=== PATIENT | male | born 1980 | race Caucasian/White ===

== ENCOUNTER 2020-09-05 11:00 | Inpatient (IN) | payer MEDICAID, SELFPAY ==
--- NOTE | ~2020-09-05 | CT_ITS ---
EXAMINATION: CT ABDOMEN AND PELVIS WITHOUT CONTRAST CLINICAL INFORMATION: Abdominal pain. Ascites and cirrhosis. COMPARISON: None TECHNIQUE: Multidetector volumetric imaging was performed from the superior aspect of the liver through the pubic symphysis. Sagittal and coronal reformatted images were obtained on the technologist's workstation. This CT examination was performed using dose optimization techniques as appropriate, variously including the following: *Automated exposure control *Adjustment of mA and/or kV according to patient size (this includes techniques or standardized protocols for targeted exams where dose is matched to indication/reason for exam; i.e. extremities or head) *Use of iterative reconstruction technique DLP: 677 mGy-cm FINDINGS: LUNG BASES: The visualized lung bases are unremarkable. LIVER, GALLBLADDER, AND BILIARY TREE: Hepatomegaly. Severe diffuse hepatic steatosis, geographic heterogeneous areas. There is more severe ballooning fatty infiltration within the caudate and central aspect of hepatic segment 8. No intra or extrahepatic biliary dilatation. Gallbladder is markedly distended measuring up to 15.5 cm in length and 7.4 cm in width. Small to moderate ascites. PANCREAS: Unremarkable. SPLEEN: Unremarkable. ADRENAL GLANDS: Unremarkable. KIDNEYS AND URETERS: The kidneys are normal in size, shape, and attenuation. No hydronephrosis, hydroureter, or calculi seen. No perinephric stranding. BLADDER: Unremarkable. GASTROINTESTINAL TRACT: No intestinal obstruction or inflammation. Some mucosal fat deposition present within the ascending colon. Normal appendix. ABDOMINAL WALL: No significant hernia is appreciated. LYMPH NODES: Normal. VASCULAR: Recanalization of the paraumbilical vein. Small splenorenal shunt. PELVIC VISCERA: Unremarkable. OSSEOUS STRUCTURES: No acute or suspicious osseous abnormalities. CT/CT abdomen pelvis wo con IMPRESSION: Hepatomegaly and severe diffuse geographic cchepatic steatosis. There is lrxzy-be-hpzzprpz ascites and portosystemic collaterals indicative of portal hypertension. Massive distention of the gallbladder, without significant biliary ductal dilatation. This could reflect cholecystitis or gallbladder hydrops.
--- NOTE | ~2020-09-05 | XR_ITS ---
EXAMINATION: XR CHEST CLINICAL INFORMATION: Shortness of breath COMPARISON: None TECHNIQUE: 2 views of the chest were obtained. FINDINGS: Normal symmetric lung volumes. No parenchymal consolidation. No pleural effusion. No pneumothorax. Cardiomediastinal silhouette and pulmonary vascularity are within normal limits. No acute osseous abnormalities. XR/XR chest 2V IMPRESSION: Unremarkable examination.
--- NOTE | ~2020-09-05 | XR_ITS ---
EXAMINATION: XR SKELETAL SURVEY CLINICAL INFORMATION: Right humeral lytic lesion. COMPARISON: 09/09/2020 TECHNIQUE: Metastatic bone survey. FINDINGS: Lateral view of the skull does not demonstrate any destructive lytic or sclerotic lesions. Visualized paranasal sinuses and mastoid air cells are unremarkable. PA film of the chest demonstrates a region of linear scarring or atelectasis within the right lower lung as well as some scarring at the left base. No confluent parenchymal disease identified. No pneumothorax or pleural effusion. Lateral view of the cervical spine does not demonstrate abnormal lytic or sclerotic lesion. No abnormal prevertebral soft tissue swelling is seen. Disc spaces are maintained. AP and lateral views of the thoracic spine demonstrate mild scoliosis convex right. Pedicles appear intact. No lytic or sclerotic lesions are appreciated. No paraspinal line bulge is seen. AP and lateral views of the lumbar spine demonstrate 5 [id number] lumbar vertebra. Bony texture and alignment is satisfactory. Disc spaces are maintained. No abnormal lytic or sclerotic lesions are identified. Sacroiliac joints appear unremarkable. AP film of the pelvis does not demonstrate any evidence of acute fracture or diastases. Hip joint spaces are maintained. Sacroiliac joints unremarkable. No abnormal lytic or sclerotic lesions identified. There is question of hip impingement with lateral bony prominence about the proximal neck. There appears be osteitis pubis. There is a sclerotic lesion noted within the left femoral neck without definite bony destruction. AP film of the right femur does not demonstrate any evidence of acute fracture or dislocation. There is again noted to be a bony prominence about the lateral aspect junctions of the femoral neck and head which may be related to impingement syndrome. AP film of the left femur does not demonstrate any evidence of acute fracture or dislocation. Density about the femoral neck is again evident without definite bony destruction. This may be related to medullary infarct or lesion of other etiology. AP views of the right tibia and fibula do not demonstrate any suspicious lytic or sclerotic lesions. No periosteal new bone formation identified. AP views of the left tibia and fibula do not demonstrate any evidence of destructive lytic or sclerotic lesion. No periosteal new bone formation. AP view of the left humerus has a similar appearance the right humerus where there are some lytic regions throughout the shaft without periosteal new bone formation or expansion of the bone. AP view of the right forearm demonstrates an approximately 7 mm oval-shaped and well-circumscribed low-density region within the proximal radius. There is question of some lytic regions without bony destruction or expansion about the distal third diaphysis of the right radius. AP view of the left forearm demonstrates patient be status post surgical repair of a distal left radial fracture. No lytic or sclerotic lesions are identified. XR/XR bone survey IMPRESSION: No destructive bony lesions identified. Similar appearance of low-density regions within the diaphysis of both humeri. Single region of diminished density about the proximal radius. CT scan or MRI may be of help in further evaluation of findings.
--- NOTE | ~2020-09-05 | XR_ITS ---
EXAMINATION: XR CHEST CLINICAL INFORMATION: Sepsis COMPARISON: Previous chest x-ray 09/05/2020 TECHNIQUE: Frontal view of the chest was obtained. FINDINGS: The cardiac and mediastinal contours are stable. The lung volumes are low. There are increased markings seen at the right lung base and left upper lobe questionable for atelectasis or small infiltrate. The lungs are otherwise clear. There is no pleural effusion or pneumothorax. There is a question of lucency in the right humeral shaft. This is not completely imaged. This could be better evaluated with a right humerus x-ray if clinically indicated. Bony structures are otherwise unremarkable. XR/XR chest 1V IMPRESSION: Question atelectasis or small infiltrates in the left upper lobe and right lung base. Question intramedullary lucencies in the right humeral shaft. This could be better evaluated with right humerus x-ray.
--- NOTE | ~2020-09-05 | XR_ITS ---
EXAMINATION: XR HUMERUS, RIGHT CLINICAL INFORMATION: Evaluation of lucencies in right humerus. COMPARISON: Chest x-ray of same day. TECHNIQUE: AP and lateral views of the right humerus. FINDINGS: There is no evidence of acute fracture or dislocation of the right humerus. Multiple lytic lesions without bony destruction or deformity are identified within the diaphysis. No periosteal new bone formation is identified. No sclerotic lesions are identified. No expansion of the bone is seen. XR/XR humerus RT IMPRESSION: Numerous low-density regions within the right humeral shaft. Differential diagnosis would include multiple myeloma, hyperparathyroidism with brown tumors, eosinophilic granuloma, or fibrous dysplasia.
--- NOTE | ~2020-09-05 | US_ITS ---
EXAMINATION: ULTRASOUND ABDOMINAL DOPPLER EXAM CLINICAL INFORMATION: Rule out Budd-Chiari COMPARISON: Previous CT of the abdomen and pelvis 09/05/2020 TECHNIQUE: Grayscale color and Doppler evaluation of the liver vasculature including waveform spectral analysis. FINDINGS: The liver is echogenic. The main portal vein is patent. There is hepatofugal flow seen in the main portal vein. The right, left and extrahepatic portal veins are not well visualized. There is a recannulized paraumbilical vein. The middle and left hepatic veins are small in caliber but appear patent. The right hepatic vein is not seen. The IVC is patent. The main and left hepatic artery are patent. Main hepatic artery peak systolic velocity is normal measuring 90 cm/s. The right hepatic artery is not seen. The spleen is slightly enlarged and measures 12.7 cm in length. The splenic vein is patent. There is a small to moderate amount of ascites. US/US duplex arterial venous comp IMPRESSION: The middle and left hepatic veins are small in caliber but patent. The right hepatic vein is not visualized. The IVC is patent. Main portal vein is patent with reversed hepatofugal flow. There is a recannulized paraumbilical vein.
--- NOTE | ~2020-09-05 | US_ITS ---
EXAMINATION: US Limited abdomen CLINICAL INFORMATION: Enlarged gallbladder evaluate for cholecystitis. COMPARISON: CT scan same day earlier. TECHNIQUE: High-frequency linear transducer ultrasound utilized, area of interest scanned, gallbladder. FINDINGS: There is ascites. Gallbladder is distended. There are no gallstones. No ultrasound evidence of gallbladder wall thickening or tenderness to suggest cholecystitis. Recanalized aeration of the paraumbilical veins and reversed flow in the portal vein system suggests portal hypertension. US/US abdomen limited IMPRESSION: Distended gallbladder without evidence of gallstones or gallbladder disease. Ascites. Reversal of normal flow in the portal vein and recanalization of periumbilical vein suggest portal hypertension portosystemic shunting..
--- NOTE | ~2020-09-05 | US_ITS ---
EXAMINATION: ULTRASOUND-GUIDED PARACENTESIS CLINICAL INFORMATION: Ascites COMPARISON: None TECHNIQUE: Procedure risks and benefits including bleeding, infection and low blood pressure were discussed with the patient and informed consent was obtained. The right lower quadrant was prepped and draped in the usual sterile fashion. The skin and soft tissues were anesthetized with 1% lidocaine plain. Using ultrasound guidance and a 5 [place] rapid centesis catheter, access to the ascitic fluid was obtained. 3.7 L of clear dark yellow fluid was removed. No diagnostic specimen was sent. FINDINGS: There is a large amount of ascites. US/US paracentesis abd w/image IMPRESSION: Ultrasound-guided paracentesis.
[2020-09-05 11:04] VITALS: BP 120/77; PULSE 133; RESP 16; TEMP 36.6; O2SAT 95; BMI 24.3
--- NOTE | 2020-09-05 11:23 | ED.GENADULT ---
HPI - General Adult General Chief complaint: Abdominal Pain Stated complaint: SWELLING ABD Time Seen by Provider: 09/05/20 11:11 History of Present Illness HPI narrative: This is a 40 years old male with history of alcohol abuse with drinks about 1 pt a day presented to the emergency room a with a chief complaint of jaundice, abdominal bloating. He continued to drink he has some alcohol this morning as well. Denies any vomiting of any fever Onset (ago): day(s) (2) Location: abdomen Severity: moderate Relieving factors: none Associated symptoms: denies other symptoms Related Data Allergies Allergy/AdvReac Type Severity Reaction Status Date / Time No Known Allergies Allergy Verified 09/05/20 11:19 Review of Systems Review of Systems: Yes all other systems are reviewed and are negative Cardiovascular: Cardiovascular: Reports no additional cardiovascular complaints, Denies chest pain at rest and Denies chest pain with activity Gastrointestinal: Gastrointestinal: Reports no additional gastrointestinal complaints, Denies melena and Reports bloating Neurologic: Reports system reviewed and no additional complaints, except as documented Psychiatric: Psychiatric: Reports no additional psychiatric complaints PMFSH Past Medical History Attestation statement: The following information was validated with the patient. Medical History No known health problems Social History Social History Alcohol intake: current Alcohol intake frequency: 3 or more drinks per day Use of substances other than those prescribed or required for medical reasons: No Advance Directives: No Advance Directives Information Provided: No Physical Exam Vital Signs: Vital Signs: Last Vital Signs Temp 97.8 F 09/05/20 11:04 Pulse 103 H 09/05/20 12:00 Resp 18 09/05/20 12:00 BP 120/77 09/05/20 11:04 Pulse Ox 95 09/05/20 11:04 Body Mass Index 24.3 Const: Other: appear in no distress General: cooperative Eyes: Other: Jaundice noted Neck: Neck: Yes normal visual inspection and Yes full ROM Chest: Chest palpation & inspection: normal inspection of the chest Resp: Auscultation: clear to auscultation bilaterally Cardio: Palpation: normal PMI Rate: regular rate Rhythm: regular rhythm GI: Other: Examination of the abdomen shows ascites there is no guarding no rebound Skin: Other: Jaundice noted Neuro: Other: Patient is awake alert oriented x3 cranial nerves 2-12 intact gait is stable Course Reevaluation(s) Reevaluation #1: Clinical picture unchanged I discussed the case with the GI doctor Dr Buenrostro I spoke with the hospitalist as well. Time: 15:00 Procedures Paracentesis Indication: possible spontaneous bacterial peritonitis Procedure: diagnostic paracentesis Location: RLQ Local Anesthetic: lidocaine 1% Bedside Ultrasound Used: yes, Ascites confirmed and location marked Amount of fluid obtained (mL): 10 Fluid: clear Size of Needle Used: 18 Patient Tolerated Procedure: well Complications: none Medical Decision Making MDM Narrative Medical decision making narrative: I did the bed the bedside ultrasound the patient does does have ascites, will going to get labs including LFT PT, were going to get a CT scan of the abdomen and pelvis to evaluate the liver and abdominal cavity. Lab Data Result diagrams: 09/05/20 11:49 09/05/20 11:49 Labs: Lab Results 09/05/20 09/05/20 09/05/20 Range/Units 11:49 11:49 11:49 WBC 13.0 H (4.8-10.8) X10*3/uL RBC 3.22 L (4.60-5.80) X10*6/uL Hgb 11.5 L (14.0-18.0) g/dl Hct 32.0 L (42-52) % MCV 99.4 H (80-98) fL MCH 35.7 H (27.0-33.0) pg MCHC 35.9 (31.0-36.0) g/dl RDW 21.3 H (11.0-16.0) % Plt Count 125 L (160-400) X10*3/uL MPV 10.5 (9.4-12.4) fL Immature Gran % (Auto) 1.2 H (0.0-0.4) % Neut % (Auto) 74.3 H (45-73) % Lymph % (Auto) 12.7 L (20-40) % [place] % (Auto) 10.9 (2-11) % Eos % (Auto) 0.3 (0-4) % Baso % (Auto) 0.6 (0-2) % Lymph # (Auto) 1.7 (1.2-4.9) X10*3/uL [place] # (Auto) 1.4 H (0.1-1.2) X10*3/uL Eos # (Auto) 0.0 (0.0-0.4) X10*3/uL Baso # (Auto) 0.1 (0.0-0.2) X10*3/uL Abs Immat Gran (auto) 0.16 H (0.00-0.03) X10*3/uL Absolute Neuts (auto) 9.6 H (2.0-8.3) X10*3/uL Absolute Nucleated RBC 0.000 (0.0-0.012) X10*3/uL Nucleated RBC % (auto) 0.0 (0.0-0.2) /100WBC PT 21.8 H (10.8-13.0) SEC INR 1.8 H (0.9-1.1) APTT 40.0 H (24.1-38.0) SEC Sodium (135-145) mmol/L Potassium (3.3-5.1) mmol/L Chloride (96-108) mmol/L Carbon Dioxide (22-29) mmol/L Anion Gap (12-20) BUN (9-16) mg/dL Creatinine (0.5-1.4) mg/dL Estim Creat Clear Calc Estimated GFR Random Glucose (60-115) mg/dL Calcium (8.4-10.2) mg/dL Total Bilirubin (0.0-1.0) mg/dL AST (5-37) U/L ALT (0-40) U/L Alkaline Phosphatase (39-117) U/L Total Protein (6.5-8.0) g/dL Albumin (3.5-5.0) g/dL Lipase (8-78) U/L Peritoneal WBC X10*3/uL Peritoneal RBC X10*6/uL Ethyl Alcohol 277 mg/dL Coronavirus (PCR) (Negative) Influenza Type A (PCR) (Negative) Influenza Type B (PCR) (Negative) RSV RNA Qual (PCR) (Negative) 09/05/20 09/05/20 09/05/20 Range/Units 11:49 11:49 14:50 WBC (4.8-10.8) X10*3/uL RBC (4.60-5.80) X10*6/uL Hgb (14.0-18.0) g/dl Hct (42-52) % MCV (80-98) fL MCH (27.0-33.0) pg MCHC (31.0-36.0) g/dl RDW (11.0-16.0) % Plt Count (160-400) X10*3/uL MPV (9.4-12.4) fL Immature Gran % (Auto) (0.0-0.4) % Neut % (Auto) (45-73) % Lymph % (Auto) (20-40) % [place] % (Auto) (2-11) % Eos % (Auto) (0-4) % Baso % (Auto) (0-2) % Lymph # (Auto) (1.2-4.9) X10*3/uL [place] # (Auto) (0.1-1.2) X10*3/uL Eos # (Auto) (0.0-0.4) X10*3/uL Baso # (Auto) (0.0-0.2) X10*3/uL Abs Immat Gran (auto) (0.00-0.03) X10*3/uL Absolute Neuts (auto) (2.0-8.3) X10*3/uL Absolute Nucleated RBC (0.0-0.012) X10*3/uL Nucleated RBC % (auto) (0.0-0.2) /100WBC PT (10.8-13.0) SEC INR (0.9-1.1) APTT (24.1-38.0) SEC Sodium 130 L (135-145) mmol/L Potassium 3.7 (3.3-5.1) mmol/L Chloride 91 L (96-108) mmol/L Carbon Dioxide 28 (22-29) mmol/L Anion Gap 15 (12-20) BUN 7 L (9-16) mg/dL Creatinine 0.64 (0.5-1.4) mg/dL Estim Creat Clear Calc 156.4 Estimated GFR > 60 Random Glucose 143 H (60-115) mg/dL Calcium 7.3 L (8.4-10.2) mg/dL Total Bilirubin 13.7 H (0.0-1.0) mg/dL AST 270 H (5-37) U/L ALT 50 H (0-40) U/L Alkaline Phosphatase 366 H (39-117) U/L Total Protein 8.8 H (6.5-8.0) g/dL Albumin 2.6 L (3.5-5.0) g/dL Lipase 278 H (8-78) U/L Peritoneal WBC 0.096 X10*3/uL Peritoneal RBC < 0.002 X10*6/uL Ethyl Alcohol mg/dL Coronavirus (PCR) NEGATIVE (Negative) Influenza Type A (PCR) NEGATIVE (Negative) Influenza Type B (PCR) NEGATIVE (Negative) RSV RNA Qual (PCR) NEGATIVE (Negative) Imaging Data CT scan - abdomen: Radiologist's impression: KIDNEYS AND URETERS: The kidneys are normal in size, shape, and attenuation. No hydronephrosis, hydroureter, or calculi seen. No perinephric stranding. BLADDER: Unremarkable. GASTROINTESTINAL TRACT: No intestinal obstruction or inflammation. Some mucosal fat deposition present within the ascending colon. Normal appendix. ABDOMINAL WALL: No significant hernia is appreciated. LYMPH NODES: Normal. VASCULAR: Recanalization of the paraumbilical vein. Small splenorenal shunt. PELVIC VISCERA: Unremarkable. OSSEOUS STRUCTURES: No acute or suspicious osseous abnormalities. CT/CT abdomen pelvis wo con IMPRESSION: Hepatomegaly and severe diffuse geographic cchepatic steatosis. There is [id number] ascites and portosystemic collaterals indicative of portal hypertension. Massive distention of the gallbladder, without significant biliary ductal dilatation. This could reflect cholecystitis or gallbladder hydrops. Discharge Plan Discharge Clinical Impression: Acute alcoholic hepatitis, Ascites Patient Disposition: Admitted As Inpatient
[2020-09-05 11:53] LABS: MANUAL DIFF FLAG NO
[2020-09-05 11:57] LABS: Basophils Absolute Auto 0.1 X10*3/uL (0.0-0.2); Basophils Percent Auto 0.6 % (0-2); Eosinophils Percent Auto 0.3 % (0-4); Hemoglobin 11.5 g/dl (14.0-18.0); Imm Gran Abs Auto 0.16 X10*3/uL (0.00-0.03); Imm Gran Pct Auto 1.2 % (0.0-0.4); Lymphocytes Absolute Auto 1.7 X10*3/uL (1.2-4.9); Lymphocytes Percent Auto 12.7 % (20-40); Mean Corpuscular HGB Conc 35.9 g/dl (31.0-36.0); Mean Corpuscular Hemoglobin 35.7 pg (27.0-33.0); Mean Corpuscular Volume 99.4 fL (80-98); Mean Platelet Volume 10.5 fL (9.4-12.4); Monocytes Absolute Auto 1.4 X10*3/uL (0.1-1.2); Monocytes Percent Auto 10.9 % (2-11); Neutrophils Absolute Auto 9.6 X10*3/uL (2.0-8.3); Neutrophils Percent Auto 74.3 % (45-73); Platelet Count 125 X10*3/uL (160-400); Red Blood Count 3.22 X10*6/uL (4.60-5.80); Red Cell Distribution Width 21.3 % (11.0-16.0)
[2020-09-05 12:00] VITALS: PULSE 103; RESP 18
[2020-09-05 12:01] LABS: INTERNATIONAL NORM RATIO 1.8 (0.9-1.1); Prothrombin Time 21.8 SEC (10.8-13.0)
[2020-09-05 12:27] LABS: Ethanol 277 mg/dL
[2020-09-05 12:31] LABS: Alanine Aminotransferase 50 U/L (0-40); Albumin Level 2.6 g/dL (3.5-5.0); Alkaline Phosphatase 366 U/L (39-117); Anion Gap 15 (12-20); Aspartate Amino Transferase 270 U/L (5-37); Bilirubin Total 13.7 mg/dL (0.0-1.0); Blood Urea Nitrogen 7 mg/dL (9-16); Calcium 7.3 mg/dL (8.4-10.2); Carbon Dioxide 28 mmol/L (22-29); Chloride 91 mmol/L (96-108); Creatinine Clr Calc Pharmacy 156.4; Estimated Glomerular Filt Rate > 60; Glucose Random 143 mg/dL (60-115); Potassium 3.7 mmol/L (3.3-5.1); Sodium 130 mmol/L (135-145); Total Protein 8.8 g/dL (6.5-8.0)
[2020-09-05 12:37] LABS: Influenza A PCR NEGATIVE (Negative); Influenza B PCR NEGATIVE (Negative); Resp Syncy Virus RNA Qual PCR NEGATIVE (Negative); SARS COV2 PCR INHOUSE NEGATIVE (Negative)
[2020-09-05 12:42] LABS: Lipase 278 U/L (8-78)
[2020-09-05] MEDS: chlordiazePOXIDE HCl 25 MG CAPSULE 50 MG PO (12:43)
[2020-09-05] MEDS: Lidocaine HCl 1 % MPF 5 ML VIAL 2 ML INFILTRATI (14:41)
--- NOTE | 2020-09-05 14:43 | PC.NURSE ---
MD Olsen and GROUP SEGMENT CONSULTANT bev at bedside to remove fluid from patient's abdomen for testing.
--- NOTE | 2020-09-05 14:56 | PM.EVENT ---
Event Note Date of Service: 09/05/20 Event Note: 40M presented with abdominal distension and juandice acute alcoholic hepatitis gi eval monitor lfts alcohol dependence with wtihdrawl phenobarb
[2020-09-05 14:59] LABS: MN% 85.9 %; PMN% 14.1 %; WBC Peritoneal Fluid 0.096 X10*3/uL
[2020-09-05 15:01] LABS: RBC Peritoneal Fluid < 0.002 X10*6/uL
[2020-09-05 15:22] VITALS: BP 113/76; PULSE 96; RESP 18; TEMP 37.1; O2SAT 93
[2020-09-05 15:30] LABS: Lymphocyte Peritoneal Fl 11 %; Monocytes Peritoneal Fl 76 %
[2020-09-05 15:31] LABS: BF Shift QC OK YES; Man Diluent Bkgrd OK YES; Neutrophils Peritoneal Fluid 3 %; Other Peritioneal Fl 10 %
--- NOTE | 2020-09-05 16:14 | PM.IMHP ---
History of Present Illness Date of Service: 09/05/20 Chief Complaint: Abdominal pain and distension 40-year-old man with history of abuse presents to the ER , with abdominal pain over the last several weeks. He has noted some abdominal distension and nausea. He denied vomiting or diarrhea, fever, chills. He did report poor appetite. He reported that he drinks approximately 1 pt of whiskey a day and has for many years. He has not seen a doctor in over 5 years. in the ER, abdominal CAT scan showed hepatomegaly and severe diffuse hepatic steatosis with small to ascites. He also massive distention gallbladder without significant biliary dilatation due to this and ultrasound was ordered and showed distended gallbladder without evidence gallstones or disease. General surgery was consulted and determined at this time surgical intervention was not needed. He had no fever or hypoxia. He was noted to be tachycardic. Labs, sodium 130, AST 270, ALT 50, alkaline phosphatase 366, total bilirubin 13.7, lipase 278, albumin 2.6, INR 1.8, COVID 19-. Ascites fluid drained does not appear to SBP. Patient was started on phenobarbital while in the ER. He will be admitted for further management and treatment of acute alcoholic hepatitis. Review of Systems Review of Systems: Denies any recent fever chills or decrease in appetite respiratory denies any shortness of breath coverage production cardiovascular is adjustment of any PND or edema gastrointestinal see HPI genitourinary denies any dysuria frequency or hematuria musculoskeletal denies any joint pain or swelling neuropsych denies any weakness or seizures all other systems reviewed are negative [facility] Medical History (Updated 09/05/20 @ 15:04 by Lyle Olsen MD) No known health problems Pertinent family history: Denies cardiac disease Surgical History (Updated 09/05/20 @ 16:14 by Pita Rashid NP) H/O wrist surgery Social History (Updated 09/05/20 @ 16:15 by Pita Rashid NP) Alcohol intake: current Alcohol intake frequency: 3 or more drinks per day Packs Per Day: 0.5 Use of substances other than those prescribed or required for medical reasons: No Advance Directives: No Advance Directives Information Provided: No Meds Allergies Allergy/AdvReac Type Severity Reaction Status Date / Time No Known Allergies Allergy Verified 09/05/20 11:19 Active Medications: Current Medications Generic Name Dose Route Start Last Admin Trade Name Freq PRN Reason Stop Dose Admin Pharmacy Consult 1 each 09/05/20 14:11 Consult Rx Perform Med Rec MISCELLANE ONCE PRN Consult order Physical Exam Vital Signs and Narrative: Vital Signs: Last Vital Signs Temp 98.7 F 09/05/20 15:22 Pulse 96 09/05/20 15:22 Resp 18 09/05/20 15:22 BP 113/76 09/05/20 15:22 Pulse Ox 93 09/05/20 15:22 Body Mass Index 24.3 Appearing in no acute distress head is normocephalic atraumatic eyes pupils are PERRLA sclera is icteric, skin is jaundice mouth throat mucous membranes are intact and moist neck is supple no lymphadenopathy, no JVD noted lung sounds are clear to auscultation heart regular rate rhythm, clear S1, S2 positive bowel sounds, abdomen is soft, nontender neuro patient is alert x3, no focal deficits Results Labs CBC and Chem 7: 09/05/20 11:49 09/05/20 11:49 Labs: Laboratory Results - last 24 hr 09/05/20 09/05/20 09/05/20 11:49 11:49 11:49 MCV 99.4 H MCH 35.7 H MCHC 35.9 RDW 21.3 H Plt Count 125 L MPV 10.5 Immature Gran % (Auto) 1.2 H Neut % (Auto) 74.3 H Lymph % (Auto) 12.7 L [place] % (Auto) 10.9 Eos % (Auto) 0.3 Baso % (Auto) 0.6 Lymph # (Auto) 1.7 [place] # (Auto) 1.4 H Eos # (Auto) 0.0 Baso # (Auto) 0.1 Abs Immat Gran (auto) 0.16 H Absolute Neuts (auto) 9.6 H Absolute Nucleated RBC 0.000 Nucleated RBC % (auto) 0.0 PT 21.8 H INR 1.8 H APTT 40.0 H Anion Gap Estim Creat Clear Calc Estimated GFR Random Glucose Calcium Total Bilirubin AST ALT Alkaline Phosphatase Total Protein Albumin Lipase Peritoneal WBC Peritoneal RBC Periton Neutrophils Periton Lymphocytes Peritoneal Monocytes Peritoneal Other Cells Ethyl Alcohol 277 Coronavirus (PCR) Influenza Type A (PCR) Influenza Type B (PCR) RSV RNA Qual (PCR) 09/05/20 09/05/20 09/05/20 11:49 11:49 14:50 MCV MCH MCHC RDW Plt Count MPV Immature Gran % (Auto) Neut % (Auto) Lymph % (Auto) [place] % (Auto) Eos % (Auto) Baso % (Auto) Lymph # (Auto) [place] # (Auto) Eos # (Auto) Baso # (Auto) Abs Immat Gran (auto) Absolute Neuts (auto) Absolute Nucleated RBC Nucleated RBC % (auto) PT INR APTT Anion Gap 15 Estim Creat Clear Calc 156.4 Estimated GFR > 60 Random Glucose 143 H Calcium 7.3 L Total Bilirubin 13.7 H AST 270 H ALT 50 H Alkaline Phosphatase 366 H Total Protein 8.8 H Albumin 2.6 L Lipase 278 H Peritoneal WBC 0.096 Peritoneal RBC < 0.002 Periton Neutrophils 3 Periton Lymphocytes 11 Peritoneal Monocytes 76 Peritoneal Other Cells 10 Ethyl Alcohol Coronavirus (PCR) NEGATIVE Influenza Type A (PCR) NEGATIVE Influenza Type B (PCR) NEGATIVE RSV RNA Qual (PCR) NEGATIVE Imaging Radiologist's Impressions: Impressions Abdomen/Pelvis CT 09/05/20 11:21 IMPRESSION: Hepatomegaly and severe diffuse geographic cchepatic steatosis. There is [id number] ascites and portosystemic collaterals indicative of portal hypertension. Massive distention of the gallbladder, without significant biliary ductal dilatation. This could reflect cholecystitis or gallbladder hydrops. Chest X-Ray 09/05/20 11:22 IMPRESSION: Unremarkable examination. Abdomen Ultrasound 09/05/20 12:33 IMPRESSION: Distended gallbladder without evidence of gallstones or gallbladder disease. Ascites. Reversal of normal flow in the portal vein and recanalization of periumbilical vein suggest portal hypertension portosystemic shunting.. Assessment and Plan (1) Acute alcoholic hepatitis: Status: Acute (2) Ascites: Status: Acute 40 year old man with history of heavy alcohol consumption is admitted with acute hepatitis and pancreatitis. Patient reports that he has been drinking for many years and has had no acute issues relating to his alcohol use. Hepatitis. Related to alcohol abuse. Fluid negative for SBP. -Check hepatitis panel -GI consultation -Trend LFT Pancreatitis. Not on CT, lipase 278. -IV fluid hydration -pain management Hyponatremia. Likely from alcohol abuse. -IV fluids -Trend -If no improvement consider consulting nephrology -Monitor for rapidly decreasing sodium Alcohol abuse. drinks heavily on a daily basis -phenobarbital protocol -care team consultation Coagulopathy. Related to alcohol abuse. No bleeding. -Trend PT/INR DVT prophylaxis with Heparin Attending: Dr. Grande
--- NOTE | 2020-09-05 16:31 | PM.CNGS ---
History of Present Illness Consult details Consult date: 09/05/20 Reason for consult: other (Dilated gallbladder) Narrative: This is a 40-year-old gentleman who presented to the emergency department for evaluation of abdominal pain and distension. He has a long history of heavy alcohol intake and recently has been drinking about a pt of hard liquor a day. He reports that he has diffuse abdominal discomfort and bloating worsening over the past week or so. He does not report fever, chills or diarrhea. He has noticed darkening of his urine and sclerae. He has no prior history of abdominal surgery. CT scan of the abdomen and pelvis was obtained and demonstrated: Hepatomegaly and severe diffuse geographic cchepatic steatosis. There is [id number] ascites and portosystemic collaterals indicative of portal hypertension. Massive distention of the gallbladder, without significant biliary ductal dilatation. This could reflect cholecystitis or gallbladder hydrops. An ultrasound was done and did not reveal any evidence of wall thickening or of gallstones. There was no tenderness over the gallbladder. No evidence of acute cholecystitis was noted. Review of Systems Constitutional: Constitutional: Denies poor appetite and Denies weight loss Eyes: Comments: Yellowing of sclerae noted recently Cardiovascular: Cardiovascular: Denies chest pain, Denies palpitations and Denies dyspnea Respiratory: Respiratory: Reports cough (Occasional) and Denies dyspnea Gastrointestinal: Gastrointestinal: Reports abdominal pain, Reports bloating, Denies diarrhea, Denies nausea and Denies vomiting Genitourinary: Genitourinary: Denies difficulty urinating Endocrine: Endocrine: Denies palpitations PMFSH Past Medical History Medical History (Updated 09/05/20 @ 15:04 by Lyle Olsen MD) No known health problems Surgical History Surgical History (Updated 09/05/20 @ 16:14 by Pita Rashid NP) H/O wrist surgery Social History Social History (Updated 09/05/20 @ 16:15 by Pita Rashid NP) Alcohol intake: current Alcohol intake frequency: 3 or more drinks per day Packs Per Day: 0.5 Use of substances other than those prescribed or required for medical reasons: No Advance Directives: No Advance Directives Information Provided: No Meds Allergies Allergy/AdvReac Type Severity Reaction Status Date / Time No Known Allergies Allergy Verified 09/05/20 11:19 Active Medications: Current Medications Generic Name Dose Route Start Last Admin Trade Name Freq PRN Reason Stop Dose Admin Sodium Chloride 1,000 mls @ 100 mls/hr 09/05/20 16:30 Ns IVCONT .Q10H [facility] Pharmacy Consult 1 each 09/05/20 14:11 Consult Rx Perform Med Rec MISCELLANE ONCE PRN Consult order Physical Exam Vital Signs: Vital Signs: Last Vital Signs Temp 98.7 F 09/05/20 15:22 Pulse 96 09/05/20 15:22 Resp 18 09/05/20 15:22 BP 113/76 09/05/20 15:22 Pulse Ox 93 09/05/20 15:22 Body Mass Index 24.3 Const: General: cooperative, no acute distress and alert Orientation/consciousness: patient oriented x3 HENMT: Head: Yes normocephalic and Yes atraumatic Eyes: Sclerae: scleral abnormal (Icterus) Resp: Effort & Inspection: normal respiratory effort Auscultation: clear to auscultation bilaterally Cardio: Rate: regular rate and tachycardic Rhythm: regular rhythm GI: Other: Distended, mildly firm, mild diffuse tenderness, no palpable masses, normal bowel sounds Rectal Exam - Male: Yes deferred Skin: General skin exam: jaundice Neuro: General: patient oriented x3 Results Labs Result diagrams: 09/05/20 11:49 09/05/20 11:49 Labs: Abnormal lab results 09/05/20 09/05/20 09/05/20 Range/Units 11:49 11:49 11:49 WBC 13.0 H (4.8-10.8) X10*3/uL RBC 3.22 L (4.60-5.80) X10*6/uL Hgb 11.5 L (14.0-18.0) g/dl Hct 32.0 L (42-52) % MCV 99.4 H (80-98) fL MCH 35.7 H (27.0-33.0) pg RDW 21.3 H (11.0-16.0) % Plt Count 125 L (160-400) X10*3/uL Immature Gran % (Auto) 1.2 H (0.0-0.4) % Neut % (Auto) 74.3 H (45-73) % Lymph % (Auto) 12.7 L (20-40) % [place] # (Auto) 1.4 H (0.1-1.2) X10*3/uL Abs Immat Gran (auto) 0.16 H (0.00-0.03) X10*3/uL Absolute Neuts (auto) 9.6 H (2.0-8.3) X10*3/uL PT 21.8 H (10.8-13.0) SEC INR 1.8 H (0.9-1.1) APTT 40.0 H (24.1-38.0) SEC Sodium 130 L (135-145) mmol/L Chloride 91 L (96-108) mmol/L BUN 7 L (9-16) mg/dL Random Glucose 143 H (60-115) mg/dL Calcium 7.3 L (8.4-10.2) mg/dL Total Bilirubin 13.7 H (0.0-1.0) mg/dL AST 270 H (5-37) U/L ALT 50 H (0-40) U/L Alkaline Phosphatase 366 H (39-117) U/L Total Protein 8.8 H (6.5-8.0) g/dL Albumin 2.6 L (3.5-5.0) g/dL Lipase 278 H (8-78) U/L Short CBC 09/05/20 Range/Units 11:49 WBC 13.0 H (4.8-10.8) X10*3/uL Hgb 11.5 L (14.0-18.0) g/dl Hct 32.0 L (42-52) % Plt Count 125 L (160-400) X10*3/uL BMP 09/05/20 11:49 Sodium 130 L Potassium 3.7 Chloride 91 L Carbon Dioxide 28 BUN 7 L Creatinine 0.64 Calcium 7.3 L Liver Function 09/05/20 Range/Units 11:49 Total Bilirubin 13.7 H (0.0-1.0) mg/dL AST 270 H (5-37) U/L ALT 50 H (0-40) U/L Alkaline Phosphatase 366 H (39-117) U/L Albumin 2.6 L (3.5-5.0) g/dL All other labs normal. Assessment and Plan (1) Acute alcoholic hepatitis: Status: Acute 40 y/o male presenting with worsening abdominal distention and pain, imaging findings c/w acute alcohol related hepatitis, portal hypertension, ascites. Gallbladder is dilated, but no other signs of acute cholecystitis. I do not feel that further workup with HIDA scan is needed at this time. Discussed with patient, reviewed need to refrain from alcohol use. Discussed smoking cessation as well. Will follow.
[2020-09-05] MEDS: 0.9 % Sodium Chloride 1,000 ML 100 ML IVCONT (16:56)
[2020-09-05] MEDS: PHENobarbitaL sodium 130 MG/ML VIAL 338 MG IM (18:14)
[2020-09-05] MEDS: Heparin Sodium,Porcine 5,000 UNIT/ML VIAL 5000 UNIT SUBCUT (18:15)
[2020-09-05 19:22] LABS: Anion Gap 15 (12-20); Blood Urea Nitrogen 8 mg/dL (9-16); Calcium 7.1 mg/dL (8.4-10.2); Carbon Dioxide 28 mmol/L (22-29); Chloride 91 mmol/L (96-108); Creatinine Clr Calc Pharmacy 145.1; Estimated Glomerular Filt Rate > 60; Glucose Random 159 mg/dL (60-115); Potassium 3.6 mmol/L (3.3-5.1); Sodium 130 mmol/L (135-145)
[2020-09-05 19:40] VITALS: BP 131/86; PULSE 127; RESP 18; O2SAT 94
[2020-09-05 19:54] LABS: Glucose Urine UA 100 MG/DL (NEG); Leukocyte Esterase Urine 1+ (NEG); Nitrite Urine POS (NEG); Specific Gravity - Urine 1.025 (1.005-1.025); UACC Culture Trigger YES; Urine Blood 3+ (NEG); Urine Ketones 5 MG/DL (NEG); Urine Protein 3+ MG/DL (NEG-TRACE)
[2020-09-05 20:00] LABS: Appearance Urine TURBID; Color Urine BROWN
[2020-09-05 20:07] LABS: Amorphous Sediment Urine 3+ /LPF; Bacteria Urine 2+ /LPF; Mucus Urine 2+ /LPF; RBC Urine TNTC /HPF (0); Renal Epithelial Cells Urine 1+ /LPF; Squamous Epithelial Cell Urine TRACE /LPF; UACC CULT YES
[2020-09-05 20:13] LABS: Amphetamine Screen Urine Not Detected (Not Detect); Barbiturates, Urine Not Detected (Not Detect); Benzodiazepines Screen Urine POSITIVE (Not Detect); Cannabinoid Screen Urine Not Detected (Not Detect); Cocaine Screen Urine Not Detected (Not Detect); Opiate Screen Urine Not Detected (Not Detect); Phencyclidine Screen Urine Not Detected (Not Detect)
[2020-09-05] MEDS: PHENobarbitaL sodium 130 MG/ML VIAL 254 MG IM (21:44)
[2020-09-06] VITALS: BP 113/82; PULSE 102; RESP 20; TEMP 36.8; O2SAT 92
[2020-09-06] MEDS: PHENobarbitaL sodium 130 MG/ML VIAL 254 MG IM (01:36)
[2020-09-06] MEDS: 0.9 % Sodium Chloride Flush 3 ML SYRINGE IVFLUSH ×2 (01:37→15:37)
[2020-09-06 04:00] VITALS: BP 101/79; PULSE 113; RESP 20; TEMP 37.4; O2SAT 93
[2020-09-06] MEDS: Heparin Sodium,Porcine 5,000 UNIT/ML VIAL 5000 UNIT SUBCUT ×2 (05:56→19:23)
[2020-09-06 06:50] LABS: Glucose Peritoneal Fluid 149; LDH Peritoneal Fluid 41
[2020-09-06 07:19] LABS: Lymphocytes Absolute Auto 1.3 X10*3/uL (1.2-4.9); MANUAL DIFF FLAG SCAN; PLT CLUMP 1; Red Cell Distribution Width 21.1 % (11.0-16.0); SCAN SMEAR FLAG 1
[2020-09-06 07:21] LABS: Basophils Absolute Auto 0.1 X10*3/uL (0.0-0.2); Basophils Percent Auto 0.7 % (0-2); Eosinophils Absolute Auto 0.2 X10*3/uL (0.0-0.4); Eosinophils Percent Auto 1.5 % (0-4); Hematocrit 28.2 % (42-52); Hemoglobin 10.2 g/dl (14.0-18.0); Imm Gran Abs Auto 0.11 X10*3/uL (0.00-0.03); Lymphocytes Percent Auto 11.4 % (20-40); Mean Corpuscular HGB Conc 36.2 g/dl (31.0-36.0); Mean Corpuscular Hemoglobin 35.4 pg (27.0-33.0); Mean Corpuscular Volume 97.9 fL (80-98); Mean Platelet Volume 10.8 fL (9.4-12.4); Monocytes Percent Auto 9.4 % (2-11); Neutrophils Absolute Auto 8.4 X10*3/uL (2.0-8.3); Platelet Count 103 X10*3/uL (160-400); Red Blood Count 2.88 X10*6/uL (4.60-5.80)
[2020-09-06 07:25] LABS: INTERNATIONAL NORM RATIO 1.9 (0.9-1.1); Prothrombin Time 23.3 SEC (10.8-13.0)
[2020-09-06 08:02] LABS: Estimated Average Glucose 71 mg/dL; Hemoglobin A1c % 4.1 %
--- NOTE | 2020-09-06 08:02 | PM.GICN ---
History of Present Illness Data of Consult Service Date: 09/06/20 Requesting physician: [facility] Primary Care Provider: None Physician HPI Reason for consult: abdo pain and abn LFT 40-year-old man with history of alcohol abuse who I am seeing for assessment for abdo pain and abn LFT> Pt has been drinking 1 pint whiskey daily for many year. Over last week noted increased abdominal pain and swelling. He denied vomiting or diarrhea, fever, chills. He admits to blood for few days mixed with stool and blood in urine. He has never had STD, denies dysuria. He denies chest pain, or SOB, denies ankle edema. denies taking any tylenol, supplement or herb, v occ nsaid for headaches Labs, sodium 130, AST 270, ALT 50, alkaline phosphatase 366, total bilirubin 13.7, lipase 278, albumin 2.6, INR 1.8, Ascitic fluid drained-- and neg for SBP, albumin not done so unabek to calculate SAAG Abdominal CAT scan showed hepatomegaly and severe diffuse hepatic steatosis with small to ascites. He also massive distention gallbladder without significant biliary dilatation ultrasound confirmed distended gallbladder without evidence gallstones or disease. Review of Systems Review of Systems: Denies any recent fever chills or decrease in appetite respiratory denies any shortness of breath coverage production cardiovascular is adjustment of any PND or edema gastrointestinal see HPI musculoskeletal denies any joint pain or swelling neuropsych denies any weakness or seizures all other systems reviewed are negative Yes all other systems are reviewed and are negative Constitutional: Constitutional: Denies poor appetite and Denies weight loss Cardiovascular: Cardiovascular: Reports no additional cardiovascular complaints, Denies chest pain, Denies chest pain at rest, Denies chest pain with activity, Denies palpitations and Denies dyspnea Respiratory: Respiratory: Reports cough (Occasional) and Denies dyspnea Gastrointestinal: Gastrointestinal: Reports no additional gastrointestinal complaints, Reports abdominal pain, Denies melena, Reports bloating, Denies diarrhea, Denies nausea and Denies vomiting Genitourinary: Genitourinary: Denies difficulty urinating Neurologic: Reports system reviewed and no additional complaints, except as documented Psychiatric: Psychiatric: Reports no additional psychiatric complaints Endocrine: Endocrine: Denies palpitations PMFSH Past Medical History Medical History (Updated 09/06/20 @ 13:49 by Mathieu Buenrostro MD) No known health problems Family History Pertinent family history: Denies cardiac disease or liver disease in family Surgical History Surgical History (Updated 09/05/20 @ 16:14 by Pita Rashid NP) H/O wrist surgery Social History Social History (Updated 09/05/20 @ 16:15 by Pita Rashid NP) Alcohol intake: current Alcohol intake frequency: 3 or more drinks per day Packs Per Day: 0.5 Use of substances other than those prescribed or required for medical reasons: No Advance Directives: No Advance Directives Information Provided: No service: No Current occupational status: employed Meds Allergies Allergy/AdvReac Type Severity Reaction Status Date / Time No Known Allergies Allergy Verified 09/05/20 11:19 Active Medications: Current Medications Generic Name Dose Route Start Last Admin Trade Name Freq PRN Reason Stop Dose Admin Heparin Sodium (Porcine) 5,000 unit 09/05/20 18:00 09/06/20 05:56 Heparin Sodium,Porcine 5,000 Unit/Ml Vial SUBCUT 5,000 unit Q12H ROBERT Administration Sodium Chloride 1,000 mls @ 100 mls/hr 09/05/20 16:30 09/05/20 16:56 Ns IVCONT 100 mls/hr .Q10H ROBERT Administration Medication 1 each 09/06/20 09:00 No Benzodiazepines MISCELLANE DAILY ROBERT Ondansetron HCl 4 mg 09/05/20 16:45 Ondansetron Hcl 4 Mg/2 Ml Vial IVPUSH Q8H PRN Nausea and Vomiting Pharmacy Consult 1 each 09/05/20 14:11 Consult Rx Perform Med Rec MISCELLANE ONCE PRN Consult order Phenobarbital 45 mg 09/06/20 09:00 Phenobarbital 15 Mg Tablet PO 09/07/20 21:01 BID ROBERT Protocol Phenobarbital 15 mg 09/08/20 09:00 Phenobarbital 15 Mg Tablet PO 09/09/20 21:01 BID ROBERT Protocol Phenobarbital 15 mg 09/10/20 09:00 Phenobarbital 15 Mg Tablet PO 09/11/20 09:01 DAILY ROBERT Protocol Sodium Chloride 3 ml 09/06/20 00:00 09/06/20 01:37 0.9 % Sodium Chloride Flush 3 Ml Syringe IVFLUSH 3 ml QSHIFT ROBERT Administration Physical Exam Vital Signs: Vital Signs: Last Vital Signs Temp 99.4 F 09/06/20 04:00 Pulse 113 H 09/06/20 04:00 Resp 20 04/04/21 04:00 BP 101/79 09/06/20 04:00 Pulse Ox 93 09/06/20 04:00 Body Mass Index 24.3 Const: Other: appear in no distress General: cooperative, no acute distress and alert Orientation/consciousness: patient oriented x3 HENMT: Head: Yes normocephalic and Yes atraumatic Eyes: Other: Jaundice noted Sclerae: scleral abnormal (Icterus) Neck: Neck: Yes normal visual inspection and Yes full ROM Chest: Chest palpation & inspection: normal inspection of the chest Resp: Effort & Inspection: normal respiratory effort Auscultation: clear to auscultation bilaterally Cardio: Palpation: normal PMI Rate: regular rate and tachycardic Rhythm: regular rhythm GI: Other: Distended, mildly firm, mild diffuse tenderness, no palpable masses, normal bowel sounds Rectal Exam - Male: Yes deferred Skin: Other: Jaundice noted General skin exam: jaundice Neuro: Other: Patient is awake alert oriented x3 cranial nerves 2-12 intact gait is stable General: patient oriented x3 Results Labs CBC & Chem 7: 09/06/20 06:32 09/06/20 06:32 Labs: Short CBC 09/05/20 09/06/20 Range/Units 11:49 06:32 WBC 13.0 H 11.0 H (4.8-10.8) X10*3/uL Hgb 11.5 L 10.2 L (14.0-18.0) g/dl Hct 32.0 L 28.2 L (42-52) % Plt Count 125 L 103 L (160-400) X10*3/uL BMP 09/05/20 09/05/20 11:49 18:23 Sodium 130 L 130 L Potassium 3.7 3.6 Chloride 91 L 91 L Carbon Dioxide 28 28 BUN 7 L 8 L Creatinine 0.64 0.69 Calcium 7.3 L 7.1 L Liver Function 09/05/20 Range/Units 11:49 Total Bilirubin 13.7 H (0.0-1.0) mg/dL AST 270 H (5-37) U/L ALT 50 H (0-40) U/L Alkaline Phosphatase 366 H (39-117) U/L Albumin 2.6 L (3.5-5.0) g/dL Urine 09/05/20 Range/Units 19:42 Urine Color BROWN Urine Appearance TURBID Urine pH 7.0 (5.0-8.0) Ur Specific [place] 1.025 (1.005-1.025) Urine Protein 3+ H (NEG-TRACE) MG/DL Urine Glucose (UA) 100 H (NEG) MG/DL Microbiology Microbiology Results: Microbiology 09/05/20 14:50 Abdominal Fluid Gram Stain - Final 09/05/20 14:50 Abdominal Fluid Routine Culture - Preliminary No growth to date. 09/05/20 14:50 Abdominal Fluid Anaerobic Culture - Preliminary No growth to date. 09/05/20 Unknown Urine clean catch - Clean Catch Midstream Urine Culture - Preliminary No growth to date. Assessment and Plan (1) Acute alcoholic hepatitis: Status: Acute (2) Ascites: Status: Acute (3) Malnutrition related to chronic disease: Status: Acute (4) Sarcopenia: Status: Acute 1/ Suspected Acute alcoholic hepatitis , MDF is 68 2/ ascites, unable to check SAAG 3/ sarcopenia related to 1/ above, bun pretty low, albumin low 4/ possible UTI 5/ rectal and urine bleeding, prob 2/2 high INR which maybe related to liver dysfunction or Vit K def or both PLAN: 1/ Check labs for secondary causes of liver disease e.g AIH, hemachromatosis, viral liver disease etc 2/ recheck UA, first sample seems not to have been clean catch and maybe contaminated 3/ if UA neg then pred 40 mg and then chck Lille score at 7 days -- steroids associated with improved outcomes at 28 d not necessarily at 90 days 4/ high protein and calorie diet may be the most beneficial thing in breaking the inflammatory cycle- 1-1.5 g/kg protein and 30-40 kcal/kg body weight--good outcomes at 1 yr 5/ 10 mg vit K IV for 3 d and see if INR comes down 6/ check zinc level and replace if low 7/ mutlivitamins and CIWA scoring 8/ hold diuretics for the meantime, maintain on low sodium diet, avoid nsaids 9/ o/p egd and colonocopy References; Katlyn MR, Ronaldo P, Darling M, et al. Prednisolone or pentoxifylline for alcoholic hepatitis. N Engl J Med 2015; 372: 1619? 1628. Cabr? E,?Rodr?Lindsey P,?Skyler?jze Krause,?Ora MACKENZIE,?S?Amor?jez LINK,?Brody?s A,?Andres Rodriguez,?Adrian Calloway,?Addison EGAN.?Short- and long-term outcome of severe alcohol-induced hepatitis treated with steroids or enteral nutrition: a multicenter randomized trial. Hepatology.?2000;32:36-42.
[2020-09-06 08:05] LABS: Anion Gap 13 (12-20); Blood Urea Nitrogen 6 mg/dL (9-16); Calcium 7.1 mg/dL (8.4-10.2); Carbon Dioxide 28 mmol/L (22-29); Chloride 92 mmol/L (96-108); Cholesterol 135 mg/dL; Creatinine Clr Calc Pharmacy 169.7; Estimated Glomerular Filt Rate > 60; Glucose Random 143 mg/dL (60-115); HDL Cholesterol < 5 mg/dL; LDL Cholesterol Calculated 103 mg/dl; Potassium 3.7 mmol/L (3.3-5.1); Sodium 129 mmol/L (135-145); Triglycerides 138 mg/dL
[2020-09-06] MEDS: 0.9 % Sodium Chloride 1,000 ML 100 ML IVCONT ×2 (09:37→19:30)
[2020-09-06] MEDS: PHENobarbitaL 15 MG TABLET 45 MG PO ×2 (09:38→21:38)
[2020-09-06 09:46] LABS: Alanine Aminotransferase 43 U/L (0-40); Albumin Level 2.3 g/dL (3.5-5.0); Alkaline Phosphatase 319 U/L (39-117); Aspartate Amino Transferase 232 U/L (5-37); Bilirubin Direct 8.8 mg/dL (0.0-0.5); Bilirubin Total 14.5 mg/dL (0.0-1.0); Total Protein 7.6 g/dL (6.5-8.0)
[2020-09-06 10:01] LABS: Lipase 486 U/L (8-78)
--- NOTE | 2020-09-06 11:32 | PC.NURSE ---
CONTINUE HOLD FOR BED ASSIGNMENT, NEEDS BEING MET, TOLERATED BREAKFAST, AMB TO BR. WITH MINIMAL ASSIST.
--- NOTE | 2020-09-06 12:50 | MHC.CM.PN ---
Met with patient in regards to discharge planning. Patient lives with his girlfiend, ambulates independently and had no services prior to coming to the hospital. Patient has no insurance and no PCP. Referral has already been made to Financial Counseling to help obtain insurance. Patient not interested in completing a HCP at this time. No services anticipated to be needed at discharge due to lack of insurance and PCP. Continue to monitor for d/c needs.
[2020-09-06 14:07] LABS: Glucose Urine UA NEG (NEG); PH 6.5 (5.0-8.0); Specific Gravity - Urine 1.025 (1.005-1.025); Urine Blood 3+ (NEG); Urine Protein 2+ MG/DL (NEG-TRACE)
[2020-09-06] MEDS: Phytonadione (Vit K1) 10 MG in 0.9 % Sodium Chloride 50 ML 51 MG IV (14:08)
[2020-09-06 14:22] LABS: Osmolality, Serum 289 mosm/kg (281-305)
[2020-09-06 14:27] LABS: Appearance Urine TURBID; Color Urine BROWN
[2020-09-06 14:32] LABS: Squamous Epithelial Cell Urine TRACE /LPF
[2020-09-06 14:33] LABS: Amorphous Sediment Urine 1+ /LPF; Mucus Urine 2+ /LPF
[2020-09-06] MEDS: oxyCODONE HCl Immed Release 5 MG TABLET PO ×2 (15:32→22:40)
[2020-09-06 15:33] VITALS: BP 119/87; PULSE 110; RESP 18; TEMP 36.6; O2SAT 94
--- NOTE | 2020-09-06 15:35 | PC.NURSE ---
RECVD REPORT FROM BOB HILLIARD. PT S/F IN BED WATCHING TV, RR EVEN UNLABORED, SKIN WPD, AOX3. PT C/O SEVERE ABD PAIN, MEDICATED FOR PAIN PER EMAR. PT IN NAD, AWAITING ROOM ASSIGNMENT AND TRANSPORT.
[2020-09-06 15:51] LABS: Ferritin 372 ng/mL (20-250)
[2020-09-06 16:02] VITALS: BP 122/88; PULSE 109; RESP 16; TEMP 37.1; O2SAT 93
--- NOTE | 2020-09-06 18:06 | P.PNIM_ITS ---
Subjective Subjective Date of Service: 09/09/20 Interval History: alcohol hepaititis Review of Systems Patient is complaining of generally weak otherwise denies any pain or nausea vomiting or abdominal pain Denies any fever or chills Denies any cough or phlegm or palpitations or any weakness or numbness Denies any urinary complaint including burning or pain Physical Exam Vital Signs: Vital Signs: Last Vital Signs Temp 98.7 F 09/06/20 16:02 Pulse 109 H 09/06/20 16:02 Resp 16 09/06/20 16:02 BP 122/88 09/06/20 16:02 Pulse Ox 93 09/06/20 16:02 Body Mass Index 24.3 Physical exam: heent : sclera icteric Eyes: No discharge or pain. Cvs: rrr, [id number] , no murmur res: clear to auscultation ,no rhonchii or wheezing abd: no rebound or guarding ,nt, bs present. ? Mild ascites. ext pulses present , no cyanosis neuro: axo3 , nonfocal. Objective Data Current Medications Generic Name Dose Route Start Last Admin Trade Name Freq PRN Reason Stop Dose Admin Docusate Sodium 100 mg 09/06/20 13:22 Docusate Sodium 100 Mg Capsule PO BEDTIME PRN Constipation Heparin Sodium (Porcine) 5,000 unit 09/05/20 18:00 09/06/20 05:56 Heparin Sodium,Porcine 5,000 Unit/Ml Vial SUBCUT 5,000 unit Q12H ROBERT Administration Medication 1 each 09/06/20 09:00 No Benzodiazepines MISCELLANE DAILY ROBERT Ondansetron HCl 4 mg 09/05/20 16:45 Ondansetron Hcl 4 Mg/2 Ml Vial IVPUSH Q8H PRN Nausea and Vomiting Pharmacy Consult 1 each 09/05/20 14:11 Consult Rx Perform Med Rec MISCELLANE ONCE PRN Consult order Phenobarbital 45 mg 09/06/20 09:00 09/06/20 09:38 Phenobarbital 15 Mg Tablet PO 09/07/20 21:01 45 mg BID ROBERT Administration Protocol Phenobarbital 15 mg 09/08/20 09:00 Phenobarbital 15 Mg Tablet PO 09/09/20 21:01 BID ROBERT Protocol Phenobarbital 15 mg 09/10/20 09:00 Phenobarbital 15 Mg Tablet PO 09/11/20 09:01 DAILY [facility] Protocol Senna 8.6 mg 09/07/20 09:00 Sennosides 8.6 Mg Tablet PO DAILY [facility] Sodium Chloride 3 ml 09/06/20 00:00 09/06/20 15:37 0.9 % Sodium Chloride Flush 3 Ml Syringe IVFLUSH 3 ml QSHIFT [facility] Administration Labs CBC & Chem 7: 09/09/20 05:20 09/09/20 05:19 Microbiology Microbiology Results: Microbiology 09/05/20 14:50 Abdominal Fluid Gram Stain - Final 09/05/20 14:50 Abdominal Fluid Routine Culture - Preliminary No growth to date. 09/05/20 14:50 Abdominal Fluid Anaerobic Culture - Preliminary No growth to date. 09/05/20 Unknown Urine clean catch - Clean Catch Midstream Urine Culture - Preliminary No growth to date. Assessment and Plan (1) Acute alcoholic hepatitis: Status: Acute Assessment and Plan: 40 year old man with history of heavy alcohol consumption is admitted with acute hepatitis and pancreatitis. Patient reports that he has been drinking for many years and has had no acute issues relating to his alcohol use. 1.Hepatitis. Related to alcohol abuse. Fluid negative for SBP.,hepatitis panel pending imaging studies -? Hepatosplenomegaly/ascites, diffuse steatosis Coagulopathy. Related to alcohol abuse. No bleeding. d/w Gi: abd fluid on sbp neg , fluid culture prelim-no growth Bilirubin is slightly up than yesterday but AST and ALT seems improving INR also in 1.9 range yesterday was 1.8. added serology Igg, katrina , antismooth muscle ab , tiss transglutamin ab- Igg, Iga -Trend PT/INR hepatits serology added prednisone for alcohilic hepatits vitamin K iv added , consider readding depending upon INR. Gi following 2. alcohol abuse/alcohol withdrawal: seems feeing better on pheobarbital. moniter [facility] care team eval. 3.Pancreatitis. Not on CT, lipase 278- lipase seems to be in 480's today no pain unclear if has mild pancreatitis due to alcohol seems improving encourage to eat will contnue to moniter, gentle hydration. 4.Hyponatremia. Likely from alcohol abuse. trending slightly lower Check a serum osmolality, urine osmolality, urine electrolytes Added nephrology evaluation 5.ua? rbc , but urine culture prelim neg will ADd ID eval. moniter cbc , bmp , lft , pt/ptt/inr daily.
[2020-09-06] MEDS: predniSONE 20 MG TABLET 40 MG PO (19:23)
[2020-09-07 01:03] LABS: Potassium Urine Random 34.1 mmol/L; Sodium Urine Random < 20.0 mmol/L
[2020-09-07 01:07] LABS: Osmolality Urine 631 mosm/kg (373-1093)
[2020-09-07] MEDS: 0.9 % Sodium Chloride Flush 3 ML SYRINGE IVFLUSH ×4 (01:21→21:14)
[2020-09-07 01:22] VITALS: BMI 25.5
[2020-09-07 01:43] VITALS: BP 140/93; PULSE 90; RESP 18; TEMP 36.9; O2SAT 95
[2020-09-07 03:36] VITALS: BP 132/92; PULSE 98; RESP 14; TEMP 36.6; O2SAT 92
[2020-09-07 03:44] LABS: HBS Num1 67.48 mIU/mL (0-7.99); HBc Num1 0.45 S/CO (0.00-0.79); Hepatitis B Core Antibody Nonreactive (Nonreactive); ~Hepatitis B Surface Antibody REACTIVE (Nonreactive); ~Hepatitis C Antibody Nonreactive (Nonreactive)
[2020-09-07 03:59] LABS: HBsAGNum1 0.32 S/CO (0.00-0.99); Hepatitis B Surface Antigen Negative (Negative)
[2020-09-07] MEDS: Heparin Sodium,Porcine 5,000 UNIT/ML VIAL 5000 UNIT SUBCUT ×2 (06:35→17:51)
[2020-09-07 06:50] LABS: INTERNATIONAL NORM RATIO 2.4 (0.9-1.1)
[2020-09-07 06:54] LABS: Partial Thromboplastin Time 46.1 SEC (24.1-38.0)
[2020-09-07 07:04] LABS: Hematocrit 28.8 % (42-52); Hemoglobin 10.4 g/dl (14.0-18.0); Mean Corpuscular HGB Conc 36.1 g/dl (31.0-36.0); Mean Corpuscular Hemoglobin 36.1 pg (27.0-33.0); Mean Platelet Volume 10.8 fL (9.4-12.4); Platelet Count 100 X10*3/uL (160-400); Red Blood Count 2.88 X10*6/uL (4.60-5.80); Red Cell Distribution Width 21.4 % (11.0-16.0); White Blood Count 12.4 X10*3/uL (4.8-10.8)
[2020-09-07 07:26] LABS: Alanine Aminotransferase 41 U/L (0-40); Albumin Level 2.3 g/dL (3.5-5.0); Alkaline Phosphatase 293 U/L (39-117); Aspartate Amino Transferase 205 U/L (5-37); Bilirubin Direct 10.6 mg/dL (0.0-0.5); Blood Urea Nitrogen 6 mg/dL (9-16); Calcium 7.1 mg/dL (8.4-10.2); Carbon Dioxide 28 mmol/L (22-29); Creatinine Clr Calc Pharmacy 172.6; Estimated Glomerular Filt Rate > 60; Glucose Random 128 mg/dL (60-115); Total Protein 7.8 g/dL (6.5-8.0)
[2020-09-07 07:31] VITALS: BP 127/86; PULSE 92; RESP 18; TEMP 36; O2SAT 96
[2020-09-07 07:36] LABS: Anion Gap 12 (12-20); Chloride 92 mmol/L (96-108); Potassium 4.8 mmol/L (3.3-5.1); Sodium 126 mmol/L (135-145)
[2020-09-07] MEDS: PHENobarbitaL 15 MG TABLET 45 MG PO ×2 (09:25→21:12)
--- NOTE | 2020-09-07 09:25 | MHC.RECOVSUP ---
Recovery Support note: Patient is a 40 year old [place] speaking male who presented to [facility] ED due to abdominal swelling and jaundice. This aligner typewriter met with patient in to discuss his alcohol use and treatment options. Patient reports he has been drinking on and off since he turned 23 and that it has gotten worse over the last 5 or 6 years. Patient reports no significant period of sobriety over the past 6 years. Patient expresses concern regarding his physical condition and whether his body will heal. Patient acknowledges that he cannot continue drinking stating I have no choice. This aligner typewriter discussed multiple pathways to recovery with patient. Patient is currently uninsured and would benefit from AA meetings and recovery coaching. When patient is insured, he can utilize outpatient therapy, IOP and medications for alcohol use disorder. Patient accepted information on these supports and reports no questions at this time. Patient reports he is interested in meeting with a head golf coach however is not feeling up to it today. This aligner typewriter will check in with patient tomorrow morning to see if he has any questions regarding resources provided and to introduce patient to head golf coach. Discussed case with patient's RN.
[2020-09-07] MEDS: predniSONE 20 MG TABLET 40 MG PO (09:26)
[2020-09-07] MEDS: Sennosides 8.6 MG TABLET PO (09:26)
[2020-09-07] MEDS: oxyCODONE HCl Immed Release 5 MG TABLET PO ×2 (10:03→16:33)
[2020-09-07 10:53] VITALS: BP 117/90; PULSE 103; RESP 18; TEMP 36.6; O2SAT 93
--- NOTE | 2020-09-07 10:58 | HO.PM.IMPN ---
Subjective Subjective Date of Service: 09/07/20 Interval History: abd pain Cardiovascular Cardiovascular: Reports no additional cardiovascular complaints Respiratory Respiratory: Reports no additional respiratory complaints Physical Exam Vital Signs: Vital Signs: Last Vital Signs Temp 97.9 F 09/07/20 10:53 Pulse 103 H 09/07/20 10:53 Resp 18 09/07/20 10:53 BP 117/90 H 09/07/20 10:53 Pulse Ox 93 09/07/20 10:53 Body Mass Index 25.5 General: AO X 3, some discomfort, juandiced Resp: CTA bilateral CVS: S1,S2,RRR GI: soft, non tender, distended Neuro: motor grossly intact Psych: appropriate affect Objective Data Current Medications Generic Name Dose Route Start Last Admin Trade Name Freq PRN Reason Stop Dose Admin Docusate Sodium 100 mg 09/06/20 13:22 Docusate Sodium 100 Mg Capsule PO BEDTIME PRN Constipation Heparin Sodium (Porcine) 5,000 unit 09/05/20 18:00 09/07/20 06:35 Heparin Sodium,Porcine 5,000 Unit/Ml Vial SUBCUT 5,000 unit Q12H ROBERT Administration Medication 1 each 09/06/20 09:00 No Benzodiazepines MISCELLANE DAILY ROBERT Ondansetron HCl 4 mg 09/05/20 16:45 Ondansetron Hcl 4 Mg/2 Ml Vial IVPUSH Q8H PRN Nausea and Vomiting Oxycodone HCl 5 mg 09/07/20 09:55 09/07/20 10:03 Oxycodone Hcl Immed Release 5 Mg Tablet PO 5 mg Q6H PRN Administration pain Pharmacy Consult 1 each 09/05/20 14:11 Consult Rx Perform Med Rec MISCELLANE ONCE PRN Consult order Phenobarbital 45 mg 09/06/20 09:00 09/07/20 09:25 Phenobarbital 15 Mg Tablet PO 09/07/20 21:01 45 mg BID ROBERT Administration Protocol Phenobarbital 15 mg 09/08/20 09:00 Phenobarbital 15 Mg Tablet PO 09/09/20 21:01 BID ROBERT Protocol Phenobarbital 15 mg 09/10/20 09:00 Phenobarbital 15 Mg Tablet PO 09/11/20 09:01 DAILY ROBERT Protocol Prednisone 40 mg 09/06/20 18:15 09/07/20 09:26 Prednisone 20 Mg Tablet PO 40 mg DAILY ROBERT Administration Senna 8.6 mg 09/07/20 09:00 09/07/20 09:26 Sennosides 8.6 Mg Tablet PO 8.6 mg DAILY ROBERT Administration Sodium Chloride 3 ml 09/06/20 00:00 09/07/20 09:24 0.9 % Sodium Chloride Flush 3 Ml Syringe IVFLUSH 3 ml QSHIFT ROBERT Administration Labs CBC & Chem 7: 09/07/20 05:34 09/07/20 05:34 Microbiology Microbiology Results: Microbiology 09/05/20 Unknown Urine clean catch - Clean Catch Midstream Urine Culture - Final 09/05/20 14:50 Abdominal Fluid Gram Stain - Final 09/05/20 14:50 Abdominal Fluid Routine Culture - Final No growth after 2 days 09/05/20 14:50 Abdominal Fluid Anaerobic Culture - Preliminary No growth to date. Assessment and Plan (1) Sarcopenia: Status: Acute (2) Acute alcoholic hepatitis: Status: Acute Assessment and Plan: 40M presented with abdominal pain and distension along with juandice acute alcoholic hepatitis high protein diet monitor LFTs (still uptrending) GI following prednisone ascitic fluid negative for SBP elevated INR related to hepatitis, given vit k to treat any deficiency follow up differential work up (AIH, viral hepatitis) alcohol withdrawl phenobarb
--- NOTE | 2020-09-07 11:24 | MHC.CM.PN ---
per rounds no dc date at this time .when dcd pt will be home no services pt should be seen by care team prior to dc
[2020-09-07 12:21] LABS: Immunoglobulin G 3389 mg/dL (600-1640)
[2020-09-07 13:11] LABS: Transglutaminase Ab IgG 3 U/mL; Transglutaminase IgA 1 U/mL
[2020-09-07] MEDS: Phytonadione (Vit K1) 10 MG in 0.9 % Sodium Chloride 50 ML 51 MG IV (14:55)
[2020-09-07 15:16] VITALS: BP 119/82; PULSE 86; RESP 20; TEMP 37.4; O2SAT 93
--- NOTE | 2020-09-07 15:55 | MHC.CM.PN ---
chava stewart saw pt and states that pt will be eligible be for [employer]
[2020-09-07 17:12] LABS: Anti Nuclear Antibody Screen NEGATIVE (NEGATIVE)
[2020-09-07 19:05] VITALS: BP 131/88; PULSE 96; RESP 18; TEMP 36.4; O2SAT 94
[2020-09-07 22:47] LABS: Prot Elec - Albumin 2.5 g/dL (3.8-4.8); Prot Elec - Alpha1 0.3 g/dL (0.2-0.3); Prot Elec - Alpha2 0.7 g/dL (0.5-0.9); Prot Elec - Beta 1 0.3 g/dL (0.4-0.6); Prot Elec - Beta 2 0.5 g/dL (0.2-0.5); Prot Elec - Gamma 3.3 g/dL (0.8-1.7); Prot Elec - Total Protein 7.5 g/dL (6.1-8.1)
[2020-09-08] VITALS (7 sets, daily range): BP systolic 80–124; BP diastolic 70–86; PULSE 86–98; RESP 16–20; TEMP 36.3–38.1; O2SAT 92–95
[2020-09-08] MEDS: Heparin Sodium,Porcine 5,000 UNIT/ML VIAL 5000 UNIT SUBCUT ×2 (05:39→18:04)
[2020-09-08] MEDS: oxyCODONE HCl Immed Release 5 MG TABLET PO ×3 (05:45→18:04)
[2020-09-08 06:36] LABS: Basophils Percent Auto 0.1 % (0-2); Eosinophils Percent Auto 0.1 % (0-4); Hematocrit 28.3 % (42-52); MANUAL DIFF FLAG SCAN; PLT CLUMP 1
[2020-09-08 06:38] LABS: Hemoglobin 10.1 g/dl (14.0-18.0); Imm Gran Abs Auto 0.24 X10*3/uL (0.00-0.03); Imm Gran Pct Auto 1.6 % (0.0-0.4); Lymphocytes Absolute Auto 1.4 X10*3/uL (1.2-4.9); Lymphocytes Percent Auto 9.8 % (20-40); Mean Corpuscular HGB Conc 35.7 g/dl (31.0-36.0); Mean Corpuscular Hemoglobin 36.5 pg (27.0-33.0); Mean Corpuscular Volume 102.2 fL (80-98); Mean Platelet Volume 10.6 fL (9.4-12.4); Monocytes Absolute Auto 1.5 X10*3/uL (0.1-1.2); Monocytes Percent Auto 10.4 % (2-11); Neutrophils Absolute Auto 11.4 X10*3/uL (2.0-8.3); Platelet Count 110 X10*3/uL (160-400); Red Blood Count 2.77 X10*6/uL (4.60-5.80); Red Cell Distribution Width 21.5 % (11.0-16.0); SCAN SMEAR FLAG 1; White Blood Count 14.7 X10*3/uL (4.8-10.8)
[2020-09-08 07:01] LABS: INTERNATIONAL NORM RATIO 2.2 (0.9-1.1); Prothrombin Time 26.6 SEC (10.8-13.0)
[2020-09-08 07:13] LABS: Alanine Aminotransferase 39 U/L (0-40); Albumin Level 2.2 g/dL (3.5-5.0); Alkaline Phosphatase 266 U/L (39-117); Anion Gap 11 (12-20); Aspartate Amino Transferase 156 U/L (5-37); Bilirubin Direct 9.7 mg/dL (0.0-0.5); Bilirubin Total 14.3 mg/dL (0.0-1.0); Blood Urea Nitrogen 8 mg/dL (9-16); Calcium 7.3 mg/dL (8.4-10.2); Carbon Dioxide 30 mmol/L (22-29); Chloride 93 mmol/L (96-108); Creatinine Clr Calc Pharmacy 172.6; Estimated Glomerular Filt Rate > 60; Glucose Fasting 108 mg/dL (60-99); Magnesium 1.8 mg/dL (1.6-2.6); Potassium 4.7 mmol/L (3.3-5.1); Sodium 129 mmol/L (135-145); Total Protein 7.4 g/dL (6.5-8.0)
[2020-09-08] MEDS: PHENobarbitaL 15 MG TABLET PO ×2 (07:42→20:06)
[2020-09-08] MEDS: predniSONE 20 MG TABLET 40 MG PO (07:43)
[2020-09-08] MEDS: Sennosides 8.6 MG TABLET PO (07:43)
[2020-09-08] MEDS: 0.9 % Sodium Chloride Flush 3 ML SYRINGE IVFLUSH ×3 (07:47→20:07)
[2020-09-08 08:34] LABS: SLIDE REVIEW VERIFIED
--- NOTE | 2020-09-08 09:12 | PC.NURSE ---
Patient sent for ultrasound with transport staff
--- NOTE | 2020-09-08 10:50 | HO.PM.IMPN ---
Subjective Subjective Date of Service: 09/08/20 Interval History: RLQ abd pain Cardiovascular Cardiovascular: Reports no additional cardiovascular complaints Respiratory Respiratory: Reports no additional respiratory complaints Physical Exam Vital Signs: Vital Signs: Last Vital Signs Temp 100.6 F H 09/08/20 07:20 Pulse 95 09/08/20 07:20 Resp 20 09/08/20 07:20 BP 111/73 09/08/20 07:20 Pulse Ox 94 09/08/20 07:20 Body Mass Index 25.5 General: AO X 3, some discomfort, juandiced Resp: CTA bilateral CVS: S1,S2,RRR GI: soft, non tender, distended Neuro: motor grossly intact Psych: appropriate affect Objective Data Current Medications Generic Name Dose Route Start Last Admin Trade Name Freq PRN Reason Stop Dose Admin Docusate Sodium 100 mg 09/06/20 13:22 Docusate Sodium 100 Mg Capsule PO BEDTIME PRN Constipation Heparin Sodium (Porcine) 5,000 unit 09/05/20 18:00 09/08/20 05:39 Heparin Sodium,Porcine 5,000 Unit/Ml Vial SUBCUT 5,000 unit Q12H ROBERT Administration Medication 1 each 09/06/20 09:00 No Benzodiazepines MISCELLANE DAILY ROBERT Ondansetron HCl 4 mg 09/05/20 16:45 Ondansetron Hcl 4 Mg/2 Ml Vial IVPUSH Q8H PRN Nausea and Vomiting Oxycodone HCl 5 mg 09/07/20 09:55 09/08/20 05:45 Oxycodone Hcl Immed Release 5 Mg Tablet PO 5 mg Q6H PRN Administration pain Pharmacy Consult 1 each 09/05/20 14:11 Consult Rx Perform Med Rec MISCELLANE ONCE PRN Consult order Phenobarbital 15 mg 09/08/20 09:00 09/08/20 07:42 Phenobarbital 15 Mg Tablet PO 09/09/20 21:01 15 mg BID ROBERT Administration Protocol Phenobarbital 15 mg 09/10/20 09:00 Phenobarbital 15 Mg Tablet PO 09/11/20 09:01 DAILY ROBERT Protocol Prednisone 40 mg 09/06/20 18:15 09/08/20 07:43 Prednisone 20 Mg Tablet PO 40 mg DAILY ROBERT Administration Senna 8.6 mg 09/07/20 09:00 09/08/20 07:43 Sennosides 8.6 Mg Tablet PO 8.6 mg DAILY ROBERT Administration Sodium Chloride 3 ml 09/06/20 00:00 09/08/20 07:47 0.9 % Sodium Chloride Flush 3 Ml Syringe IVFLUSH 3 ml QSHIFT ROBERT Administration Labs CBC & Chem 7: 09/08/20 05:51 09/08/20 05:51 Microbiology Microbiology Results: Microbiology 09/05/20 14:50 Abdominal Fluid Gram Stain - Final 09/05/20 14:50 Abdominal Fluid Routine Culture - Final No growth after 2 days 09/05/20 14:50 Abdominal Fluid Anaerobic Culture - Preliminary No growth to date. 09/05/20 Unknown Urine clean catch - Clean Catch Midstream Urine Culture - Final Assessment and Plan (1) Sarcopenia: Status: Acute (2) Acute alcoholic hepatitis: Status: Acute Assessment and Plan: 40M presented with abdominal pain and distension along with juandice acute alcoholic hepatitis high protein diet monitor LFTs, some improvement today, inr 2.4 down to 2.2, bili 16 to 14.3, AST and ALT downtrending GI following prednisone ascitic fluid negative for SBP elevated INR related to hepatitis, given vit k to treat any deficiency follow up differential work up (AIH, viral hepatitis, budd chiari) negative so far had low grade fever 100.6 this AM, was asymptomatic, likely will remain isolated, will monitor 24hours and pursue work up/treatment only if recurs alcohol withdrawl phenobarb
--- NOTE | 2020-09-08 11:36 | MHC.CLN ---
RE: CONSULT PT WITH POOR PO R/T ETOH ABUSE DIET RX: 2GM NA-APPROPRIATE PT RECEIVING ENSURE TID PROVIDES 1050KCALS, 60G PROTEIN MONITOR PO INTAKE CLOSELY CHECK NH3 LEVEL
[2020-09-08 14:17] LABS: Ceruloplasmin 30 mg/dL (18-36)
[2020-09-09] MEDS: oxyCODONE HCl Immed Release 5 MG TABLET PO ×4 (00:07→18:34)
[2020-09-09 03:53] VITALS: BP 95/76; PULSE 97; RESP 18; TEMP 37.1; O2SAT 93
[2020-09-09 06:39] LABS: Alanine Aminotransferase 41 U/L (0-40); Albumin Level 2.2 g/dL (3.5-5.0); Alkaline Phosphatase 288 U/L (39-117); Anion Gap 10 (12-20); Aspartate Amino Transferase 146 U/L (5-37); Bilirubin Direct 8.8 mg/dL (0.0-0.5); Blood Urea Nitrogen 10 mg/dL (9-16); Calcium 7.3 mg/dL (8.4-10.2); Carbon Dioxide 31 mmol/L (22-29); Chloride 91 mmol/L (96-108); Creatinine Clr Calc Pharmacy 172.6; Estimated Glomerular Filt Rate > 60; Glucose Fasting 87 mg/dL (60-99); Potassium 4.4 mmol/L (3.3-5.1); Sodium 128 mmol/L (135-145); Total Protein 7.5 g/dL (6.5-8.0)
[2020-09-09 06:41] LABS: Prothrombin Time 23.5 SEC (10.8-13.0)
[2020-09-09] MEDS: Heparin Sodium,Porcine 5,000 UNIT/ML VIAL 5000 UNIT SUBCUT ×2 (06:44→18:38)
[2020-09-09 06:51] LABS: Basophils Percent Auto 0.2 % (0-2); MANUAL DIFF FLAG SCAN; Mean Platelet Volume 10.9 fL (9.4-12.4); PLT CLUMP 1; SCAN SMEAR FLAG 1
[2020-09-09 06:52] LABS: Eosinophils Absolute Auto 0.2 X10*3/uL (0.0-0.4); Eosinophils Percent Auto 1.1 % (0-4); Hematocrit 28.4 % (42-52); Imm Gran Pct Auto 3.6 % (0.0-0.4); Lymphocytes Absolute Auto 2.1 X10*3/uL (1.2-4.9); Lymphocytes Percent Auto 15.2 % (20-40); Mean Corpuscular HGB Conc 35.2 g/dl (31.0-36.0); Mean Corpuscular Hemoglobin 36.1 pg (27.0-33.0); Mean Corpuscular Volume 102.5 fL (80-98); Monocytes Absolute Auto 1.7 X10*3/uL (0.1-1.2); Monocytes Percent Auto 12.1 % (2-11); NRBC Pct Auto 0.1 /100WBC (0.0-0.2); Neutrophils Absolute Auto 9.4 X10*3/uL (2.0-8.3); Neutrophils Percent Auto 67.8 % (45-73); Platelet Count 109 X10*3/uL (160-400); Red Blood Count 2.77 X10*6/uL (4.60-5.80); Red Cell Distribution Width 22.1 % (11.0-16.0); White Blood Count 13.9 X10*3/uL (4.8-10.8)
[2020-09-09 07:29] VITALS: BP 103/68; PULSE 111; RESP 19; TEMP 38.8; O2SAT 93
[2020-09-09 07:58] LABS: SLIDE REVIEW VERIFIED
[2020-09-09] MEDS: 0.9 % Sodium Chloride Flush 3 ML SYRINGE IVFLUSH ×2 (09:07→17:11)
[2020-09-09] MEDS: PHENobarbitaL 15 MG TABLET PO ×2 (09:08→20:39)
[2020-09-09] MEDS: predniSONE 20 MG TABLET 40 MG PO (09:08)
[2020-09-09] MEDS: Sennosides 8.6 MG TABLET PO (09:08)
[2020-09-09 09:58] LABS: Lactic Acid 2.1 mmol/L (0.5-2.0)
[2020-09-09 11:16] VITALS: BP 107/75; PULSE 101; RESP 19; TEMP 38.2; O2SAT 92
[2020-09-09 11:21] LABS: Reflex Lactate? Lactic Acid Added
[2020-09-09] MEDS: cefTRIAXone sodium 1 GM in 0.9 % Sodium Chloride 50 ML IV (11:30)
[2020-09-09] MEDS: Azithromycin 500 MG in 0.9 % Sodium Chloride 250 ML 125 MG IV (12:00)
--- NOTE | 2020-09-09 13:28 | MHC.CM.PN ---
cm continuing to follw no anticipated dc date at this time
--- NOTE | 2020-09-09 13:32 | P.PNIM_ITS ---
Subjective Subjective Date of Service: 09/09/20 Interval History: the patient was seen and evaluated this morning Laying in bed, feels tired overall, spiking fevers this morning Reported abdominal distension but no abdominal pain No reported other overnight events. Systemic review: Reporting fever, chills and generalized weakness No chest pain, palpitation No shortness of breath or coughing No abdominal pain, nausea or vomiting but noticeable abdominal distension No urinary symptoms No any rash or wounds Physical Exam Vital Signs: Vital Signs: Last Vital Signs Temp 100.8 F H 09/09/20 11:16 Pulse 101 H 09/09/20 11:16 Resp 19 09/09/20 11:16 BP 107/75 09/09/20 11:16 Pulse Ox 92 09/09/20 11:16 Body Mass Index 25.5 Const: Other: Constitutional : Alert, oriented, not in distress Neck : Normal inspection, Supple Cardiovascular : RRR, S1 S2, no lower extremity edema Respiratory : Good bilateral air entry, no crackles, wheezes or rhonchi Gastrointestinal: soft, lax, distended, mild to moderate ascites, no tenderness Skin : Warm/Dry, No rash Neurological : Alert & oriented x3, No focal deficit Objective Data Current Medications Generic Name Dose Route Start Last Admin Trade Name Freq PRN Reason Stop Dose Admin Docusate Sodium 100 mg 09/06/20 13:22 Docusate Sodium 100 Mg Capsule PO BEDTIME PRN Constipation Heparin Sodium (Porcine) 5,000 unit 09/05/20 18:00 09/09/20 06:44 Heparin Sodium,Porcine 5,000 Unit/Ml Vial SUBCUT 5,000 unit Q12H ROBERT Administration Ceftriaxone Sodium 1 gm/ 50 mls @ 100 mls/hr 09/09/20 10:00 09/09/20 12:00 Sodium Chloride IV Infused Q24H ROBERT Infusion Azithromycin 500 mg/ Sodium 250 mls @ 125 mls/hr 09/09/20 10:00 09/09/20 12:00 Chloride IV 125 mls/hr Q24H ROBERT Administration Medication 1 each 09/06/20 09:00 No Benzodiazepines MISCELLANE DAILY ROBERT Ondansetron HCl 4 mg 09/05/20 16:45 Ondansetron Hcl 4 Mg/2 Ml Vial IVPUSH Q8H PRN Nausea and Vomiting Oxycodone HCl 5 mg 09/07/20 09:55 09/09/20 12:30 Oxycodone Hcl Immed Release 5 Mg Tablet PO 5 mg Q6H PRN Administration pain Pharmacy Consult 1 each 09/05/20 14:11 Consult Rx Perform Med Rec MISCELLANE ONCE PRN Consult order Phenobarbital 15 mg 09/08/20 09:00 09/09/20 09:08 Phenobarbital 15 Mg Tablet PO 09/09/20 21:01 15 mg BID ROBERT Administration Protocol Phenobarbital 15 mg 09/10/20 09:00 Phenobarbital 15 Mg Tablet PO 09/11/20 09:01 DAILY ROBERT Protocol Prednisone 40 mg 09/06/20 18:15 09/09/20 09:08 Prednisone 20 Mg Tablet PO 40 mg DAILY ROBERT Administration Senna 8.6 mg 09/07/20 09:00 09/09/20 09:08 Sennosides 8.6 Mg Tablet PO 8.6 mg DAILY ROBERT Administration Sodium Chloride 3 ml 09/06/20 00:00 09/09/20 09:07 0.9 % Sodium Chloride Flush 3 Ml Syringe IVFLUSH 3 ml QSHIFT ROBERT Administration Labs CBC & Chem 7: 09/09/20 05:20 09/09/20 05:19 Microbiology Microbiology Results: Microbiology 09/05/20 14:50 Abdominal Fluid Gram Stain - Final 09/05/20 14:50 Abdominal Fluid Routine Culture - Final No growth after 2 days 09/05/20 14:50 Abdominal Fluid Anaerobic Culture - Preliminary No growth to date. 09/05/20 Unknown Urine clean catch - Clean Catch Midstream Urine Culture - Final Assessment and Plan (1) Acute alcoholic hepatitis: Status: Acute Assessment and Plan: 40 year old man with history of heavy alcohol consumption is admitted with acute hepatitis and pancreatitis. Patient reports that he has been drinking for many years and has had no acute issues relating to his alcohol use. acute alcoholic hepatitis differential work up (AIH, viral hepatitis, budd chiari) negative so far high protein diet monitor LFTs, some improvement today, inr improved to 2 bili 16 to 13, AST and ALT downtrending GI following Continue prednisone ascitic fluid negative for SBP elevated INR related to hepatitis, given vit k to treat any deficiency Sepsis Secondary to pneumonia CXR showing infiltrates Has fever and tachycardia Lactic acid elevated 2.1, repeated at 2 Pending blood cultures Started on ceftriaxone and azithromycin Alcohol abuse/alcohol withdrawal on pheobarbital. moniter [facility] care team eval. Hyponatremia Stable between 128-130 Likely from alcohol abuse and liver disease trending slightly lower Consider nephrology evaluation if worsens Abnormal x-ray CXR showed right humerus showed some lucencies To check right humeral x-ray DVT PPX SCDs
[2020-09-09 15:09] VITALS: BP 108/70; PULSE 94; RESP 20; TEMP 36.5; O2SAT 95
--- NOTE | 2020-09-09 15:46 | MHC.CM.PN ---
still waiting insurance auth from sudhir devlin notified
[2020-09-09] MEDS: Acetaminophen 325 MG TABLET 650 MG PO (15:58)
[2020-09-09 17:02] LABS: PEU-Protein Creat Ratio Rand 0.323 (0.022-0.128); PEU-Rand. Prot/Creat Ratio 323 mg/g creat (22-128); PEU-Random Ur. Gamma Globulin 0 %; PEU-Random Urine A1 Globulin 0 %; PEU-Random Urine A2 Globulin 0 %; PEU-Random Urine Albumin 100 %; PEU-Random Urine Beta Globulin 0 %; PEU-Random Urine Creatinine 263 mg/dL (20-320); PEU-Random Urine Protein 85 mg/dL (5-25)
[2020-09-09 19:10] VITALS: BP 105/56; PULSE 90; RESP 18; TEMP 36.6; O2SAT 98
[2020-09-09 23:00] VITALS: BP 108/70; PULSE 75; RESP 18; TEMP 36.1; O2SAT 97
[2020-09-10] MEDS: oxyCODONE HCl Immed Release 5 MG TABLET PO ×4 (01:01→20:03)
[2020-09-10] MEDS: 0.9 % Sodium Chloride Flush 3 ML SYRINGE IVFLUSH ×3 (01:01→19:23)
[2020-09-10 01:02] VITALS: BMI 25.9
[2020-09-10 03:31] VITALS: BP 94/68; PULSE 84; RESP 18; TEMP 36.9; O2SAT 94
[2020-09-10 06:09] LABS: Hematocrit 27.8 % (42-52); PLT CLUMP 1
[2020-09-10 06:11] LABS: Hemoglobin 9.9 g/dl (14.0-18.0); Mean Corpuscular HGB Conc 35.6 g/dl (31.0-36.0); Mean Corpuscular Hemoglobin 36.5 pg (27.0-33.0); Mean Corpuscular Volume 102.6 fL (80-98); Mean Platelet Volume 11.1 fL (9.4-12.4); Platelet Count 104 X10*3/uL (160-400); Red Blood Count 2.71 X10*6/uL (4.60-5.80)
[2020-09-10 06:43] LABS: Alanine Aminotransferase 40 U/L (0-40); Albumin Level 2.1 g/dL (3.5-5.0); Alkaline Phosphatase 250 U/L (39-117); Anion Gap 10 (12-20); Aspartate Amino Transferase 126 U/L (5-37); Bilirubin Direct 8.2 mg/dL (0.0-0.5); Bilirubin Total 11.9 mg/dL (0.0-1.0); Blood Urea Nitrogen 10 mg/dL (9-16); Calcium 6.9 mg/dL (8.4-10.2); Carbon Dioxide 30 mmol/L (22-29); Chloride 93 mmol/L (96-108); Creatinine Clr Calc Pharmacy 178.8; Estimated Glomerular Filt Rate > 60; Glucose Random 102 mg/dL (60-115); Potassium 4.1 mmol/L (3.3-5.1); Sodium 129 mmol/L (135-145); Total Protein 7.1 g/dL (6.5-8.0)
[2020-09-10] MEDS: Heparin Sodium,Porcine 5,000 UNIT/ML VIAL 5000 UNIT SUBCUT ×2 (07:04→19:23)
[2020-09-10 07:20] VITALS: BP 118/72; PULSE 108; RESP 18; TEMP 36.8; O2SAT 95
[2020-09-10] MEDS: PHENobarbitaL 15 MG TABLET PO (07:37)
[2020-09-10] MEDS: Sennosides 8.6 MG TABLET PO (07:44)
[2020-09-10] MEDS: cefTRIAXone sodium 1 GM in 0.9 % Sodium Chloride 50 ML IV (10:22)
[2020-09-10] MEDS: Azithromycin 500 MG in 0.9 % Sodium Chloride 250 ML 125 MG IV (11:00)
[2020-09-10 11:20] VITALS: BP 100/67; PULSE 103; RESP 20; TEMP 37.4; O2SAT 94
--- NOTE | 2020-09-10 12:47 | P.PNIM_ITS ---
Subjective Subjective Date of Service: 09/10/20 Interval History: The patient was seen and evaluated this morning Laying in bed, feels better today, no fever since yesterday Reported abdominal distension but no abdominal pain No reported other overnight events. Systemic review: Reporting fever, chills has improved and but still as generalized weakness No chest pain, palpitation No shortness of breath or coughing No abdominal pain, nausea or vomiting but noticeable abdominal distension No urinary symptoms No any rash or wounds Physical Exam Vital Signs: Vital Signs: Last Vital Signs Temp 99.4 F 09/10/20 11:20 Pulse 103 H 09/10/20 11:20 Resp 20 09/10/20 11:20 BP 100/67 09/10/20 11:20 Pulse Ox 94 09/10/20 11:20 Body Mass Index 25.9 Const: Other: Constitutional : Alert, oriented, not in distress Neck : Normal inspection, Supple Cardiovascular : RRR, S1 S2, no lower extremity edema Respiratory : Good bilateral air entry, no crackles, wheezes or rhonchi Gastrointestinal: soft, lax, distended, mild to moderate ascites, no tenderness Skin : Warm/Dry, No rash Neurological : Alert & oriented x3, No focal deficit Objective Data Current Medications Generic Name Dose Route Start Last Admin Trade Name Freq PRN Reason Stop Dose Admin Docusate Sodium 100 mg 09/06/20 13:22 Docusate Sodium 100 Mg Capsule PO BEDTIME PRN Constipation Heparin Sodium (Porcine) 5,000 unit 09/05/20 18:00 09/10/20 07:04 Heparin Sodium,Porcine 5,000 Unit/Ml Vial SUBCUT 5,000 unit Q12H ROBERT Administration Ceftriaxone Sodium 1 gm/ 50 mls @ 100 mls/hr 09/09/20 10:00 09/10/20 10:57 Sodium Chloride IV Infused Q24H ROBERT Infusion Azithromycin 500 mg/ Sodium 250 mls @ 125 mls/hr 09/09/20 10:00 09/10/20 11:00 Chloride IV 125 mls/hr Q24H ROBERT Administration Medication 1 each 09/06/20 09:00 No Benzodiazepines MISCELLANE DAILY ROBERT Ondansetron HCl 4 mg 09/05/20 16:45 Ondansetron Hcl 4 Mg/2 Ml Vial IVPUSH Q8H PRN Nausea and Vomiting Oxycodone HCl 5 mg 09/07/20 09:55 09/10/20 07:37 Oxycodone Hcl Immed Release 5 Mg Tablet PO 5 mg Q6H PRN Administration pain Pharmacy Consult 1 each 09/05/20 14:11 Consult Rx Perform Med Rec MISCELLANE ONCE PRN Consult order Phenobarbital 15 mg 09/10/20 09:00 09/10/20 07:37 Phenobarbital 15 Mg Tablet PO 09/11/20 09:01 15 mg DAILY ROBERT Administration Protocol Prednisone 40 mg 09/06/20 18:15 09/09/20 09:08 Prednisone 20 Mg Tablet PO 40 mg DAILY ROBERT Administration Senna 8.6 mg 09/07/20 09:00 09/10/20 07:44 Sennosides 8.6 Mg Tablet PO 8.6 mg DAILY ROBERT Administration Sodium Chloride 3 ml 09/06/20 00:00 09/10/20 07:38 0.9 % Sodium Chloride Flush 3 Ml Syringe IVFLUSH 3 ml QSHIFT ROBERT Administration Labs CBC & Chem 7: 09/10/20 05:12 09/10/20 05:12 Microbiology Microbiology Results: Microbiology 09/09/20 09:08 Blood - Venous Blood Culture - Preliminary No growth after 24 hours. 09/09/20 09:16 Blood - Venous Blood Culture - Preliminary No growth after 24 hours. 09/05/20 14:50 Abdominal Fluid Gram Stain - Final 09/05/20 14:50 Abdominal Fluid Routine Culture - Final No growth after 2 days 09/05/20 14:50 Abdominal Fluid Anaerobic Culture - Final NO GROWTH AFTER 5 DAYS 09/05/20 Unknown Urine clean catch - Clean Catch Midstream Urine Culture - Final Assessment and Plan (1) Acute alcoholic hepatitis: Status: Acute Assessment and Plan: 40 year old man with history of heavy alcohol consumption is admitted with acute hepatitis and pancreatitis. Patient reports that he has been drinking for many years and has had no acute issues relating to his alcohol use. acute alcoholic hepatitis differential work up (AIH, viral hepatitis, budd chiari) negative so far high protein diet monitor LFTs, some improvement today, inr improved to 2 bili, AST and ALT downtrending GI following Hold prednisone for sepsis ascitic fluid negative for SBP elevated INR related to hepatitis, given vit k to treat any deficiency Sepsis Secondary to pneumonia CXR showing infiltrates Resolved fever and tachycardia Lactic acid elevated 2.1, repeated at 2 Pending blood cultures Continue ceftriaxone and azithromycin Alcohol abuse/alcohol withdrawal on pheobarbital. moniter [facility] care team susan. Hyponatremia Stable between 128-130 Likely from alcohol abuse and liver disease trending slightly lower Consider nephrology evaluation if worsens Abnormal x-ray CXR showed right humerus showed some lucencies right humeral x-ray showed lucencies Abnormal IgG level, normal abdomen to protein ratio you Consider bone Maxwell disease To get Hematology evaluation DVT PPX SCDs
--- NOTE | 2020-09-10 13:10 | P.CNHO_ITS ---
Subjective - Subjective Chief complaint: Consult for: Abnormal IgG Level. Patient: new to practice Consult date: 09/10/20 Requesting Physician: Juan Miguel Parikh. Primary Care Provider: None Physician Medical Summary: DIAGNOSIS: Abnormal IgG level. HPI - Consult Narrative Reason for consult: Consult for: Abnormal IgG level. Narrative: Adria Alvarenga is a pleasant 40 year old gentleman, with a history of alcohol abuse who presented to the ER, on 09/05 , with abdominal pain over the last sever al weeks. He has noted some abdominal distension and nausea. He denied vomiting or diarrhea, fever, chills. He did report poor appetite. He admitted that he drinks approximately 1 pt of whiskey a day and has been, for many years. He has not seen a doctor in over 5 years. In the ER, abdominal CAT scan showed: Hepatomegaly and severe diffuse hepatic steatosis with small to ascites. He al so massive distention gallbladder without significant biliary dilatation. Due to this an ultrasound was done. It showed: Distended gallbladder without evidence gallstones or disease. General surgery was consulted and determined at this time surgical intervention was not needed. He had no fever or hypoxia. He was noted to be tachycardic. Labs, sodium 130, AST 270, ALT 50, alkaline phosphatase 366, total bilirubin 13.7, lipase 278, albumin 2.6, INR 1.8, COVID 19-. Ascites fluid drained: did not appear to SBP. Patient was started on phenobarbital. Review of Systems - Constitutional Reports system reviewed and no additional complaints, except as documented, Reports lack of energy, Reports malaise, Reports weakness, Reports weight loss - Eyes Reports system reviewed and no additional complaints, except as documented, Denies blurry vision - ENT Reports system reviewed and no additional complaints, except as documented - Cardiovascular Reports system reviewed and no additional complaints, except as documented, Denies chest pain at rest - Respiratory Reports no additional respiratory complaints, Denies change in phlegm color - Gastrointestinal Reports system reviewed and no additional complaints, except as documented, Reports abdominal pain, Reports change in bowel habits - Genitourinary Genitourinary: Reports no additional male genitourinary complaints, Denies blood in urine - Musculoskeletal Reports system reviewed and no additional complaints, except as documented, Denies back pain - Integumentary/Breasts Skin/Breast: Reports no additional skin complaints, Denies bleeding lesions - Neurologic Reports system reviewed and no additional complaints, except as documented - Psychiatric Reports system reviewed and no additional complaints, except as documented, Reports anxiety - Endocrine Reports no additional endocrine complaints, Denies flushing - Hematologic/Lymphatic Reports system reviewed and no additional complaints, except as documented, Reports easy bruising - Allergic/Immunologic Reports system reviewed and no additional complaints, except as documented, Reports GI upset with certain foods, Denies throat swelling Oncology Screenings - ECOG Performance Status ECOG Performance Status: 0 PMFSH Medical History: Medical History (Last Reviewed 09/07/20 @ 01:49 by Omaira Irby RN) No known health problems Functional capacity: uses cane/walker Patient : No Surgical History: Surgical History (Last Updated 09/05/20 @ 16:14 by Pita Rashid NP) H/O wrist surgery Social History: Social History (Last Updated 09/05/20 @ 16:15 by Pita Rashid NP) Living Situation History: Household Members: Other Housing: House Alcohol History: Alcohol intake: current Alcohol History Details: Alcohol intake frequency: 3 or more drinks per day Tobacco History: Tobacco Type: Cigarette Packs Per Day: 1 Second Hand Smoke Exposure: Yes Occupation Assessmet: service: No Current occupational status: employed Smoking status: Current every day smoker Home Medications and Allergies Current Medications: Current Medications Generic Name Dose Route Start Last Admin Trade Name Freq PRN Reason Stop Dose Admin Docusate Sodium 100 mg 09/06/20 13:22 Docusate Sodium 100 Mg Capsule PO BEDTIME PRN Constipation Heparin Sodium (Porcine) 5,000 unit 09/05/20 18:00 09/10/20 07:04 Heparin Sodium,Porcine 5,000 Unit/Ml Vial SUBCUT 5,000 unit Q12H ROBERT Administration Ceftriaxone Sodium 1 gm/ 50 mls @ 100 mls/hr 09/09/20 10:00 09/10/20 10:57 Sodium Chloride IV Infused Q24H ROBERT Infusion Azithromycin 500 mg/ Sodium 250 mls @ 125 mls/hr 09/09/20 10:00 09/10/20 11:00 Chloride IV 125 mls/hr Q24H ROBERT Administration Medication 1 each 09/06/20 09:00 No Benzodiazepines MISCELLANE DAILY ROBERT Ondansetron HCl 4 mg 09/05/20 16:45 Ondansetron Hcl 4 Mg/2 Ml Vial IVPUSH Q8H PRN Nausea and Vomiting Oxycodone HCl 5 mg 09/07/20 09:55 09/10/20 07:37 Oxycodone Hcl Immed Release 5 Mg Tablet PO 5 mg Q6H PRN Administration pain Pharmacy Consult 1 each 09/05/20 14:11 Consult Rx Perform Med Rec MISCELLANE ONCE PRN Consult order Phenobarbital 15 mg 09/10/20 09:00 09/10/20 07:37 Phenobarbital 15 Mg Tablet PO 09/11/20 09:01 15 mg DAILY ROBERT Administration Protocol Prednisone 40 mg 09/06/20 18:15 09/09/20 09:08 Prednisone 20 Mg Tablet PO 40 mg DAILY ROBERT Administration Senna 8.6 mg 09/07/20 09:00 09/10/20 07:44 Sennosides 8.6 Mg Tablet PO 8.6 mg DAILY ROBERT Administration Sodium Chloride 3 ml 09/06/20 00:00 09/10/20 07:38 0.9 % Sodium Chloride Flush 3 Ml Syringe IVFLUSH 3 ml QSHIFT ROBERT Administration Allergies Allergy/AdvReac Type Severity Reaction Status Date / Time No Known Allergies Allergy Verified 09/05/20 11:19 Physical Exam Vital signs: Vital Signs Temp 99.4 F 09/10/20 11:20 Pulse 103 H 09/10/20 11:20 Resp 20 09/10/20 11:20 BP 100/67 09/10/20 11:20 Pulse Ox 94 09/10/20 11:20 Intake & Output 09/09/20 09/10/20 09/10/20 18:59 06:59 18:59 Intake Total 780 / 1260 480 / 1260 50 / 50 Balance 780 / 1260 480 / 1260 50 / 50 Intake: Intake, Oral Amount 480 / 960 480 / 960 Intake, IV Amount 300 / 300 50 / 50 Azithromycin 500 mg In 0.9 % 250 / 250 Sodium Chloride 250 ml @ 125 mls/hr IV Q24H [facility] Rx#: [id number] cefTRIAXone sodium 1 gm In 0.9 50 / 50 50 / 50 % Sodium Chloride 50 ml @ 100 mls/hr IV Q24H [facility] Rx#: [id number] Other: Breakfast % Eaten 100% Lunch % Eaten 100% Dinner % Eaten 100% Number of Unmeasured Voids 1 2 Urine Bathroom Bathroom Urine Color Yellow Weight 79.7 kg [place] Weight in Grams 27298 Weight 79.7 kg - Constitutional Present: mild distress - Routine HEENT Exam Head: Present: normal inspection ENT: Present: mucous membranes moist - Routine Neck Exam Present: supple - Routine Respiratory Exam Present: CTAB - Routine Cardiovascular Exam Cardiovascular: Present: RRR, S2 - Routine Abdominal Exam Present: soft, tenderness - Routine Rectal Exam Patient deferred: digital exam - Routine Extremities Exam Present: nontender - Routine Skin Exam Present: intact - Routine Neurological Exam Present: alert, oriented X3 - Detailed Neurological Exam: Coma Scale Eye Opening: Spontaneous (4) Verbal Response: Oriented (5) Motor Response: Obeys commands (6) Jared Coma Scale Total: 15 - Routine Psychiatric Exam Present: depressed Hem/Onc Consult Result - Labs CBC & Chem 7: 09/10/20 05:12 09/13/20 07:17 Labs: Short CBC 09/10/20 Range/Units 05:12 WBC 13.0 H (4.8-10.8) X10*3/uL Hgb 9.9 L (14.0-18.0) g/dl Hct 27.8 L (42-52) % Plt Count 104 L (160-400) X10*3/uL BMP 09/10/20 05:12 Sodium 129 L Potassium 4.1 Chloride 93 L Carbon Dioxide 30 H BUN 10 Creatinine 0.56 Calcium 6.9 L Liver Function 09/10/20 Range/Units 05:12 Total Bilirubin 11.9 H (0.0-1.0) mg/dL Direct Bilirubin 8.2 H (0.0-0.5) mg/dL AST 126 H (5-37) U/L ALT 40 (0-40) U/L Alkaline Phosphatase 250 H (39-117) U/L Albumin 2.1 L (3.5-5.0) g/dL Assessment and Plan (1) MGUS (monoclonal gammopathy of unknown significance) Status: Acute This is a 40-year-old gentleman who has been admitted with acute alcoholic hepatitis. As part of the workup he had an IgG tested. This is elevated it 3378. The rest of the SIEP is still pending. Can comment further once that is available. He could have polyclonal hypergammaglobulinemia, related to his alcoholic liver disease. Or he could have a monoclonal spike, consistent MGUS. 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 Xrays of humerus: Numerous low-density regions within the right humeral shaft. Differential diagnosis would include multiple myeloma, hyperparathyroidism with brown tumors, eosinophilic granuloma, or fibrous dysplasia. PLAN: Will proceed with a skeletal survey. If that is suggestive, will check bone scan. Check iPTH, to look for hyperparathyroidism. Will follow. Thank you, CC: Radhika.
[2020-09-10 13:52] LABS: IgA 790 mg/dL (47-310); IgG 3227 mg/dL (600-1640); IgM 383 mg/dL (50-300)
[2020-09-10 14:53] VITALS: BP 116/74; PULSE 91; RESP 20; TEMP 37.1; O2SAT 91
[2020-09-10 19:05] VITALS: BP 99/65; PULSE 91; RESP 20; TEMP 36.8; O2SAT 92
[2020-09-10 23:26] VITALS: BP 110/74; PULSE 97; RESP 18; TEMP 37.1; O2SAT 96
[2020-09-11] VITALS (7 sets, daily range): BP systolic 90–121; BP diastolic 61–76; PULSE 89–94; RESP 18–20; TEMP 36.6–37.2; O2SAT 94–95
[2020-09-11] MEDS: 0.9 % Sodium Chloride Flush 3 ML SYRINGE IVFLUSH ×3 (00:01→15:33)
[2020-09-11] MEDS: oxyCODONE HCl Immed Release 5 MG TABLET PO ×3 (02:10→22:44)
[2020-09-11 04:44] LABS: Hepatitis A Antibody IgM 0.31 Index (0-0.79); ~Hepatitis A Antibody IgM Nonreactive (Nonreactive)
[2020-09-11] MEDS: Heparin Sodium,Porcine 5,000 UNIT/ML VIAL 5000 UNIT SUBCUT ×2 (06:33→18:04)
[2020-09-11 07:17] LABS: Alanine Aminotransferase 42 U/L (0-40); Albumin Level 2.1 g/dL (3.5-5.0); Alkaline Phosphatase 225 U/L (39-117); Aspartate Amino Transferase 124 U/L (5-37); Bilirubin Direct 8.2 mg/dL (0.0-0.5); Bilirubin Total 11.9 mg/dL (0.0-1.0); Total Protein 6.9 g/dL (6.5-8.0)
[2020-09-11] MEDS: Sennosides 8.6 MG TABLET PO (08:29)
[2020-09-11] MEDS: predniSONE 20 MG TABLET 40 MG PO (08:29)
[2020-09-11] MEDS: PHENobarbitaL 15 MG TABLET PO (08:29)
[2020-09-11] MEDS: cefTRIAXone sodium 1 GM in 0.9 % Sodium Chloride 50 ML IV (10:31)
[2020-09-11] MEDS: Azithromycin 500 MG in 0.9 % Sodium Chloride 250 ML 125 MG IV (11:06)
[2020-09-11 11:26] LABS: PTHI 47 pg/mL (14-64)
--- NOTE | 2020-09-11 11:40 | MHC.CM.PN ---
per pt stacy dias be dcd over the weekend plan remains home no servceis
--- NOTE | 2020-09-11 12:47 | HO.PM.IMPN ---
Subjective Subjective Date of Service: 09/11/20 Interval History: The patient was seen and evaluated this morning Laying in bed, feels more distended today with no reported abdominal pain no fever since yesterday Reported abdominal distension but no abdominal pain No reported other overnight events. Systemic review: Reporting fever, chills has improved and but still as generalized weakness No chest pain, palpitation No shortness of breath or coughing No abdominal pain, nausea or vomiting but noticeable abdominal distension which is getting larger today No urinary symptoms No any rash or wounds Physical Exam Vital Signs: Vital Signs: Last Vital Signs Temp 98 F 09/11/20 12:00 Pulse 92 09/11/20 12:00 Resp 18 09/11/20 12:00 BP 121/68 09/11/20 12:00 Pulse Ox 94 09/11/20 12:00 Body Mass Index 25.9 Const: Other: Constitutional : Alert, oriented, not in distress Neck : Normal inspection, Supple Cardiovascular : RRR, S1 S2, no lower extremity edema Respiratory : Good bilateral air entry, no crackles, wheezes or rhonchi Gastrointestinal: soft, lax, distended, large amount of ascites, no tenderness Skin : Warm/Dry, No rash Neurological : Alert & oriented x3, No focal deficit Objective Data Current Medications Generic Name Dose Route Start Last Admin Trade Name Freq PRN Reason Stop Dose Admin Docusate Sodium 100 mg 09/06/20 13:22 Docusate Sodium 100 Mg Capsule PO BEDTIME PRN Constipation Heparin Sodium (Porcine) 5,000 unit 09/05/20 18:00 09/11/20 06:33 Heparin Sodium,Porcine 5,000 Unit/Ml Vial SUBCUT 5,000 unit Q12H ROBERT Administration Ceftriaxone Sodium 1 gm/ 50 mls @ 100 mls/hr 09/09/20 10:00 09/11/20 11:06 Sodium Chloride IV Infused Q24H ROBERT Infusion Azithromycin 500 mg/ Sodium 250 mls @ 125 mls/hr 09/09/20 10:00 09/11/20 11:06 Chloride IV 125 mls/hr Q24H ROBERT Administration Medication 1 each 09/06/20 09:00 No Benzodiazepines MISCELLANE DAILY ROBERT Ondansetron HCl 4 mg 09/05/20 16:45 Ondansetron Hcl 4 Mg/2 Ml Vial IVPUSH Q8H PRN Nausea and Vomiting Oxycodone HCl 5 mg 09/07/20 09:55 09/11/20 02:10 Oxycodone Hcl Immed Release 5 Mg Tablet PO 5 mg Q6H PRN Administration pain Pharmacy Consult 1 each 09/05/20 14:11 Consult Rx Perform Med Rec MISCELLANE ONCE PRN Consult order Prednisone 40 mg 09/06/20 18:15 09/11/20 08:29 Prednisone 20 Mg Tablet PO 40 mg DAILY ROBERT Administration Senna 8.6 mg 09/07/20 09:00 09/11/20 08:29 Sennosides 8.6 Mg Tablet PO 8.6 mg DAILY ROBERT Administration Sodium Chloride 3 ml 09/06/20 00:00 09/11/20 08:30 0.9 % Sodium Chloride Flush 3 Ml Syringe IVFLUSH 3 ml QSHIFT ROBERT Administration Labs CBC & Chem 7: 09/10/20 05:12 09/10/20 05:12 Microbiology Microbiology Results: Microbiology 09/09/20 09:08 Blood - Venous Blood Culture - Preliminary No growth after 48 hours. 09/09/20 09:16 Blood - Venous Blood Culture - Preliminary No growth after 48 hours. 09/05/20 14:50 Abdominal Fluid Gram Stain - Final 09/05/20 14:50 Abdominal Fluid Routine Culture - Final No growth after 2 days 09/05/20 14:50 Abdominal Fluid Anaerobic Culture - Final NO GROWTH AFTER 5 DAYS 09/05/20 Unknown Urine clean catch - Clean Catch Midstream Urine Culture - Final Assessment and Plan (1) Acute alcoholic hepatitis: Status: Acute (2) Malnutrition related to chronic disease: Status: Acute (3) Ascites: Status: Acute Assessment and Plan: 40 year old man with history of heavy alcohol consumption is admitted with acute hepatitis and pancreatitis. Patient reports that he has been drinking for many years and has had no acute issues relating to his alcohol use. acute alcoholic hepatitis Large ascites high protein diet monitor LFTs, stable bili, AST and ALT downtrending in general inr improved to 2 GI following, can follow up as outpatient with Continue prednisone To do paracentesis today, to give albumin elevated INR related to hepatitis, given vit k to treat any deficiency Sepsis, resolved Secondary to pneumonia CXR showing infiltrates Resolved fever and tachycardia Lactic acid elevated 2.1, repeated at 2 Pending blood cultures Continue ceftriaxone and azithromycin Alcohol abuse/alcohol withdrawal on pheobarbital. [facility] care team eval. Hyponatremia Stable between 128-130 Likely from alcohol abuse and liver disease trending slightly lower Consider nephrology evaluation if worsens Abnormal x-ray CXR showed right humerus showed some lucencies right humeral x-ray showed lucencies Abnormal IgG level, normal abdomen to protein ratio you Consider bone Maxwell disease Hematology evaluation appreciated DVT PPX SCDs
[2020-09-11 15:07] LABS: Prostate Specific Antigen 0.07 ng/mL (<0.05-4.0)
--- NOTE | 2020-09-11 15:53 | HO.RADPN ---
RADIOLOGY Narrative Narrative: RLQ paracentesis peformed using 5 Fr catheter. 3.8 L of dark clear yellow fluid removed.
[2020-09-11] MEDS: Spironolactone 25 MG TABLET PO (16:45)
[2020-09-11] MEDS: Furosemide 20 MG TABLET PO (16:45)
[2020-09-11] MEDS: Albumin Human 25 % 100 ML IV ×2 (18:09→22:23)
[2020-09-12] VITALS (7 sets, daily range): BP systolic 90–118; BP diastolic 57–80; PULSE 83–101; RESP 16–101; TEMP 36.2–37.6; O2SAT 94–97
[2020-09-12] MEDS: Albumin Human 25 % 100 ML IV ×2 (02:01→06:18)
[2020-09-12] MEDS: 0.9 % Sodium Chloride Flush 3 ML SYRINGE IVFLUSH ×3 (02:07→15:35)
[2020-09-12] MEDS: oxyCODONE HCl Immed Release 5 MG TABLET PO ×3 (06:17→22:34)
[2020-09-12] MEDS: Heparin Sodium,Porcine 5,000 UNIT/ML VIAL 5000 UNIT SUBCUT (06:18)
[2020-09-12] MEDS: cefTRIAXone sodium 1 GM in 0.9 % Sodium Chloride 50 ML IV (09:54)
[2020-09-12] MEDS: Spironolactone 25 MG TABLET PO (09:54)
[2020-09-12] MEDS: predniSONE 20 MG TABLET 40 MG PO (09:54)
[2020-09-12] MEDS: Sennosides 8.6 MG TABLET PO (09:54)
[2020-09-12] MEDS: Furosemide 20 MG TABLET PO (09:54)
--- NOTE | 2020-09-12 10:24 | HO.PM.IMPN ---
Subjective Subjective Date of Service: 09/12/20 Interval History: The patient was seen and evaluated this morning Laying in bed, feels less distended today after removal of almost 4 L of ascitic fluid no fever or chills Complaining gum bleeding this morning No reported other overnight events. Systemic review: No fever, chills but still as generalized weakness No chest pain, palpitation No shortness of breath or coughing No abdominal pain, nausea or vomiting but noticeable abdominal distension which is getting larger today No urinary symptoms No any rash or wounds Physical Exam Vital Signs: Vital Signs: Last Vital Signs Temp 98.3 F 09/12/20 06:50 Pulse 94 09/12/20 06:50 Resp 18 09/12/20 06:50 BP 98/62 09/12/20 06:50 Pulse Ox 97 09/12/20 06:50 Body Mass Index 25.9 Const: Other: Constitutional : Alert, oriented, not in distress, icteric eyes Neck : Normal inspection, Supple Cardiovascular : RRR, S1 S2, no lower extremity edema Respiratory : Good bilateral air entry, no crackles, wheezes or rhonchi Gastrointestinal: soft, lax, distended, large amount of ascites, no tenderness Skin : Warm/Dry, gum bleeding, abdominal bruises, jaundice Neurological : Alert & oriented x3, No focal deficit Objective Data Current Medications Generic Name Dose Route Start Last Admin Trade Name Rockyq PRN Reason Stop Dose Admin Docusate Sodium 100 mg 09/06/20 13:22 Docusate Sodium 100 Mg Capsule PO BEDTIME PRN Constipation Furosemide 20 mg 09/11/20 16:10 09/12/20 09:54 Furosemide 20 Mg Tablet PO 20 mg DAILY ROBERT Administration Protocol Heparin Sodium (Porcine) 5,000 unit 09/05/20 18:00 09/12/20 06:18 Heparin Sodium,Porcine 5,000 Unit/Ml Vial SUBCUT 5,000 unit Q12H ROBERT Administration Ceftriaxone Sodium 1 gm/ 50 mls @ 100 mls/hr 09/09/20 10:00 09/12/20 09:54 Sodium Chloride IV 100 mls/hr Q24H ROBERT Administration Azithromycin 500 mg/ Sodium 250 mls @ 125 mls/hr 09/09/20 10:00 09/11/20 13:24 Chloride IV Infused Q24H ROBERT Infusion Phytonadione 10 mg/ Sodium 51 mls @ 51 mls/hr 09/12/20 10:07 Chloride IV 09/12/20 11:06 ONCE ONE Medication 1 each 09/06/20 09:00 No Benzodiazepines MISCELLANE DAILY ROBERT Ondansetron HCl 4 mg 09/05/20 16:45 Ondansetron Hcl 4 Mg/2 Ml Vial IVPUSH Q8H PRN Nausea and Vomiting Pharmacy Consult 1 each 09/05/20 14:11 Consult Rx Perform Med Rec MISCELLANE ONCE PRN Consult order Prednisone 40 mg 09/06/20 18:15 09/12/20 09:54 Prednisone 20 Mg Tablet PO 40 mg DAILY ROBERT Administration Senna 8.6 mg 09/07/20 09:00 09/12/20 09:54 Sennosides 8.6 Mg Tablet PO 8.6 mg DAILY ROBERT Administration Sodium Chloride 3 ml 09/06/20 00:00 09/12/20 09:55 0.9 % Sodium Chloride Flush 3 Ml Syringe IVFLUSH 3 ml QSHIFT ROBERT Administration Spironolactone 25 mg 09/11/20 16:10 09/12/20 09:54 Spironolactone 25 Mg Tablet PO 25 mg DAILY ROBERT Administration Protocol Labs CBC & Chem 7: 09/10/20 05:12 09/10/20 05:12 Microbiology Microbiology Results: Microbiology 09/09/20 09:08 Blood - Venous Blood Culture - Preliminary No growth after 48 hours. 09/09/20 09:16 Blood - Venous Blood Culture - Preliminary No growth after 48 hours. 09/05/20 14:50 Abdominal Fluid Gram Stain - Final 09/05/20 14:50 Abdominal Fluid Routine Culture - Final No growth after 2 days 09/05/20 14:50 Abdominal Fluid Anaerobic Culture - Final NO GROWTH AFTER 5 DAYS 09/05/20 Unknown Urine clean catch - Clean Catch Midstream Urine Culture - Final Assessment and Plan (1) Acute alcoholic hepatitis: Status: Acute (2) Ascites: Status: Acute (3) Pneumonia: Status: Acute (4) Alcohol withdrawal: Status: Acute (5) Alcohol abuse: Status: Acute (6) Hyponatremia: Status: Acute (7) Abnormal x-ray of humerus: Status: Acute Assessment and Plan: 40 year old man with history of heavy alcohol consumption is admitted with acute hepatitis and pancreatitis. Patient reports that he has been drinking for many years and has had no acute issues relating to his alcohol use. acute alcoholic hepatitis Large ascites Continue high protein diet monitor LFTs, stable bili, AST and ALT downtrending in general, pending today inr of 2 GI following, can follow up as outpatient with Continue prednisone Paracentesis done with removal of 4 L of ascites fluid, albumin given Gum bleeding Secondary to elevated INR related to hepatitis To give extra dose of vitamin K Discontinue heparin Sepsis, resolved Secondary to pneumonia CXR showing infiltrates Negative blood cultures Continue ceftriaxone and azithromycin D4 Alcohol abuse/alcohol withdrawal on pheobarbital. moniter [facility] care team eval. Hyponatremia Stable between 128-130 Likely from alcohol abuse and liver disease trending slightly lower Consider nephrology evaluation if worsens Abnormal x-ray right humeral x-ray showed lucencies Abnormal IgG level, abnormal abdomen to protein ratio Hematology evaluation appreciated, to do a skeletal bone survey and outpatient bone scan Will need to follow-up as outpatient with Hematology Oncology DVT PPX Early ambulation
[2020-09-12] MEDS: Phytonadione (Vit K1) 10 MG in 0.9 % Sodium Chloride 50 ML 51 MG IV (10:51)
[2020-09-12 11:10] LABS: INTERNATIONAL NORM RATIO 2.1 (0.9-1.1); Prothrombin Time 24.7 SEC (10.8-13.0)
[2020-09-12 11:31] LABS: Alanine Aminotransferase 35 U/L (0-40); Albumin Level 2.9 g/dL (3.5-5.0); Alkaline Phosphatase 187 U/L (39-117); Anion Gap 14 (12-20); Aspartate Amino Transferase 89 U/L (5-37); Bilirubin Direct 7.3 mg/dL (0.0-0.5); Bilirubin Total 12.2 mg/dL (0.0-1.0); Blood Urea Nitrogen 10 mg/dL (9-16); Carbon Dioxide 26 mmol/L (22-29); Chloride 91 mmol/L (96-108); Creatinine Clr Calc Pharmacy 166.9; Estimated Glomerular Filt Rate > 60; Glucose Random 132 mg/dL (60-115); Sodium 127 mmol/L (135-145); Total Protein 6.7 g/dL (6.5-8.0)
[2020-09-12 11:34] LABS: Prostate Specific Antigen 0.07 ng/mL (<0.05-4.0)
[2020-09-12] MEDS: Azithromycin 500 MG in 0.9 % Sodium Chloride 250 ML 125 MG IV (11:36)
[2020-09-13] MEDS: 0.9 % Sodium Chloride Flush 3 ML SYRINGE IVFLUSH ×4 (01:26→19:55)
[2020-09-13 04:00] VITALS: BP 98/62; PULSE 77; RESP 16; TEMP 36.4; O2SAT 95
[2020-09-13] MEDS: oxyCODONE HCl Immed Release 5 MG TABLET PO ×3 (06:47→19:55)
[2020-09-13 07:32] VITALS: BP 108/58; PULSE 98; RESP 18; TEMP 36.4; O2SAT 96
[2020-09-13] MEDS: Spironolactone 25 MG TABLET PO (08:38)
[2020-09-13] MEDS: Furosemide 20 MG TABLET PO (08:38)
[2020-09-13] MEDS: predniSONE 20 MG TABLET 40 MG PO (08:38)
[2020-09-13] MEDS: Sennosides 8.6 MG TABLET PO (08:38)
[2020-09-13 08:39] LABS: Alanine Aminotransferase 36 U/L (0-40); Albumin Level 2.6 g/dL (3.5-5.0); Alkaline Phosphatase 200 U/L (39-117); Anion Gap 16 (12-20); Aspartate Amino Transferase 100 U/L (5-37); Bilirubin Direct 6.4 mg/dL (0.0-0.5); Bilirubin Total 10.7 mg/dL (0.0-1.0); Blood Urea Nitrogen 11 mg/dL (9-16); Calcium 6.8 mg/dL (8.4-10.2); Carbon Dioxide 23 mmol/L (22-29); Chloride 92 mmol/L (96-108); Creatinine Clr Calc Pharmacy 185.4; Estimated Glomerular Filt Rate > 60; Glucose Random 83 mg/dL (60-115); Potassium 4.7 mmol/L (3.3-5.1); Sodium 126 mmol/L (135-145); Total Protein 6.7 g/dL (6.5-8.0)
[2020-09-13] MEDS: cefTRIAXone sodium 1 GM in 0.9 % Sodium Chloride 50 ML IV (10:05)
--- NOTE | 2020-09-13 10:19 | MHC.RECOVSUP ---
Recovery Support note: This newspaper writer followed up with patient to review recovery support materials and to determine if patient is interested in meeting with a silver recovery operator fernanda. Patient reports no questions regarding resources and reports confidence he will be able to maintain sobriety. Patient states his girlfriend is supportive of his recovery and that she removed all alcohol from his house. Patient is interested in meeting with a silver recovery operator and this newspaper writer will arrange this for patient.
[2020-09-13 11:50] VITALS: BP 106/69; PULSE 94; RESP 18; TEMP 36.3; O2SAT 94
[2020-09-13] MEDS: Azithromycin 500 MG TABLET PO (12:09)
[2020-09-13 12:21] LABS: Smooth Muscle Antibody <20 U (<20)
--- NOTE | 2020-09-13 13:06 | P.PNIM_ITS ---
Subjective Subjective Date of Service: 09/13/20 Interval History: The patient was seen and evaluated this morning Laying in bed, feels less distended today after starting diuretics Sodium continue to drop down to 126 this morning Complaining gum bleeding this morning which seems to be better than yesterday No reported other overnight events. Systemic review: No fever, chills but still as generalized weakness No chest pain, palpitation No shortness of breath or coughing No abdominal pain, nausea or vomiting No urinary symptoms No any rash or wounds Physical Exam Vital Signs: Vital Signs: Last Vital Signs Temp 97.4 F 09/13/20 11:50 Pulse 94 09/13/20 11:50 Resp 18 09/13/20 11:50 BP 106/69 09/13/20 11:50 Pulse Ox 94 09/13/20 11:50 Body Mass Index 25.9 Const: Other: Constitutional : Alert, oriented, not in distress, icteric eyes Neck : Normal inspection, Supple Cardiovascular : RRR, S1 S2, no lower extremity edema Respiratory : Good bilateral air entry, no crackles, wheezes or rhonchi Gastrointestinal: soft, lax, distended, mild to moderate amount of ascites, no tenderness Skin : Warm/Dry, gum bleeding, abdominal bruises, jaundice Neurological : Alert & oriented x3, No focal deficit Objective Data Current Medications Generic Name Dose Route Start Last Admin Trade Name Freq PRN Reason Stop Dose Admin Azithromycin 500 mg 09/13/20 12:00 09/13/20 12:09 Azithromycin 500 Mg Tablet PO 500 mg Q24H ROBERT Administration Cefuroxime Axetil 500 mg 09/14/20 09:00 Cefuroxime Axetil 500 Mg Tablet PO Q12H ROBERT Docusate Sodium 100 mg 09/06/20 13:22 Docusate Sodium 100 Mg Capsule PO BEDTIME PRN Constipation Furosemide 20 mg 09/11/20 16:10 09/13/20 08:38 Furosemide 20 Mg Tablet PO 20 mg DAILY ROBERT Administration Protocol Medication 1 each 09/06/20 09:00 No Benzodiazepines MISCELLANE DAILY ROBERT Ondansetron HCl 4 mg 09/05/20 16:45 Ondansetron Hcl 4 Mg/2 Ml Vial IVPUSH Q8H PRN Nausea and Vomiting Oxycodone HCl 5 mg 09/12/20 16:03 09/13/20 06:47 Oxycodone Hcl Immed Release 5 Mg Tablet PO 5 mg Q6H PRN Administration Pain, Moderate (Pain Scale 4-6 Pharmacy Consult 1 each 09/05/20 14:11 Consult Rx Perform Med Rec MISCELLANE ONCE PRN Consult order Prednisone 40 mg 09/06/20 18:15 09/13/20 08:38 Prednisone 20 Mg Tablet PO 40 mg DAILY ROBERT Administration Senna 8.6 mg 09/07/20 09:00 09/13/20 08:38 Sennosides 8.6 Mg Tablet PO 8.6 mg DAILY ROBERT Administration Sodium Chloride 3 ml 09/06/20 00:00 09/13/20 08:38 0.9 % Sodium Chloride Flush 3 Ml Syringe IVFLUSH 3 ml QSHIFT ROBERT Administration Spironolactone 25 mg 09/11/20 16:10 09/13/20 08:38 Spironolactone 25 Mg Tablet PO 25 mg DAILY ROBERT Administration Protocol Labs CBC & Chem 7: 09/10/20 05:12 09/13/20 07:17 Microbiology Microbiology Results: Microbiology 09/09/20 09:08 Blood - Venous Blood Culture - Preliminary No growth after 48 hours. 09/09/20 09:16 Blood - Venous Blood Culture - Preliminary No growth after 48 hours. 09/05/20 14:50 Abdominal Fluid Gram Stain - Final 09/05/20 14:50 Abdominal Fluid Routine Culture - Final No growth after 2 days 09/05/20 14:50 Abdominal Fluid Anaerobic Culture - Final NO GROWTH AFTER 5 DAYS 09/05/20 Unknown Urine clean catch - Clean Catch Midstream Urine Culture - Final Assessment and Plan (1) Acute alcoholic hepatitis: Status: Acute (2) Ascites: Status: Acute (3) Pneumonia: Status: Acute (4) Alcohol withdrawal: Status: Acute (5) Alcohol abuse: Status: Acute (6) Hyponatremia: Status: Acute (7) Abnormal x-ray of humerus: Status: Acute Assessment and Plan: 40 year old man with history of heavy alcohol consumption is admitted with acute hepatitis and pancreatitis. Patient reports that he has been drinking for many years and has had no acute issues relating to his alcohol use. acute alcoholic hepatitis Large ascites Continue high protein diet monitor LFTs, stable bili, AST and ALT downtrending in general inr of 2 GI following, can follow up as outpatient with Continue prednisolone 40 mg daily Paracentesis done with removal of 4 L of ascites fluid, albumin given Started on furosemide and spironolactone Hyponatremia Sodium worsened to 126 this morning Secondary to cirrhosis, diuretics Change diet to regular Water restriction Follow BMP Gum bleeding Secondary to elevated INR related to hepatitis Received extra dose of vitamin K Discontinue heparin Sepsis, resolved Secondary to pneumonia CXR showing infiltrates Negative blood cultures Continue ceftriaxone and azithromycin D5, changed to p.o. Alcohol abuse/alcohol withdrawal on pheobarbital. moniter [facility] care team eval. Abnormal x-ray right humeral x-ray showed lucencies Abnormal IgG level, abnormal abdomen to protein ratio Hematology evaluation appreciated, to do a skeletal bone survey and outpatient bone scan Will need to follow-up as outpatient with Hematology Oncology DVT PPX Early ambulation
[2020-09-13 15:04] VITALS: BP 104/65; PULSE 94; RESP 18; TEMP 37.4; O2SAT 92
--- NOTE | 2020-09-13 18:30 | MHC.RECOVSUP ---
? Reason for consult Recovery Planning o Current location: [facility] o Identified substance use concern: Alcohol - Support ? Intervention: o Community resources provided o Harm reduction discussion ? Plan: o Patient to follow up with [facility] after discharge ? Additional information:Met with Patient .. we talk about different pathway of recovery, and call or contact centre coach.. we also talk about recovery centers and how they work.. Patient is very interested in getting involve.. Stating that when he leaves the hospital that he will be going by [facility]
[2020-09-13 19:12] VITALS: BP 110/72; PULSE 87; RESP 18; TEMP 36.7; O2SAT 97
[2020-09-13 23:28] VITALS: BP 107/75; PULSE 89; RESP 18; TEMP 36.9; O2SAT 96
[2020-09-14 03:45] VITALS: BP 103/62; PULSE 75; RESP 18; TEMP 36.9; O2SAT 95
[2020-09-14 07:07] VITALS: BP 96/54; PULSE 80; RESP 18; TEMP 36.7; O2SAT 92
[2020-09-14 07:32] LABS: Anion Gap 12 (12-20); Blood Urea Nitrogen 12 mg/dL (9-16); Calcium 7.1 mg/dL (8.4-10.2); Carbon Dioxide 28 mmol/L (22-29); Chloride 93 mmol/L (96-108); Creatinine Clr Calc Pharmacy 188.9; Estimated Glomerular Filt Rate > 60; Glucose Random 64 mg/dL (60-115); Potassium 3.8 mmol/L (3.3-5.1); Sodium 129 mmol/L (135-145)
[2020-09-14] MEDS: Furosemide 20 MG TABLET PO (08:46)
[2020-09-14] MEDS: predniSONE 20 MG TABLET 40 MG PO (08:46)
[2020-09-14] MEDS: Spironolactone 25 MG TABLET PO (08:46)
[2020-09-14] MEDS: Sennosides 8.6 MG TABLET PO (08:47)
[2020-09-14] MEDS: oxyCODONE HCl Immed Release 5 MG TABLET PO (08:48)
[2020-09-14] MEDS: 0.9 % Sodium Chloride Flush 3 ML SYRINGE IVFLUSH (08:49)
[2020-09-14 08:52] VITALS: BP 108/59; PULSE 114
--- NOTE | 2020-09-14 10:42 | MHC.CM.PN ---
pt dcd today no skilled servceis ordered by
--- NOTE | 2020-09-14 10:55 | P.DS_ITS ---
DS: Providers Provider Date of Service: 09/14/20 Date of admission: 09/05/20 16:45 Primary care physician: None Physician Consults: 09/05/20 16:50 Consult to Gastroenterology Routine Consulting Provider: Mathieu Buenrostro Reason for consultation: ALCOHOLIC HEPATITIS Has provider been notified: No 09/06/20 18:27 Consult to Care Team Routine Comment: Reason for consultation: alcohol abuse 09/10/20 07:48 Consult to Hematology / Oncology Routine Consulting Provider: Ekaterina Rivera Reason for consultation: Abnormal IgG levels, Albumin\P level. Abnormal XR Humerus with lucency. DS: Diagnosis Discharge Diagnosis (1) Polyclonal hypergammaglobulinemia: Status: Acute (2) Sepsis: Status: Acute (3) Abnormal x-ray of humerus: Status: Acute (4) Hyponatremia: Status: Acute (5) Alcohol abuse: Status: Acute (6) Alcohol withdrawal: Status: Acute (7) Pneumonia: Status: Acute (8) Malnutrition related to chronic disease: Status: Acute (9) Acute alcoholic hepatitis: Status: Acute (10) Ascites: Status: Acute DS: Medications Discharge Medications Home Medications: Previous Rx's Medication Instructions Recorded azithromycin 500 mg PO Q24H #4 tab 09/14/20 cefuroxime axetil 500 mg PO Q12H #8 tab 09/14/20 furosemide 40 mg PO DAILY #30 tab 09/14/20 omeprazole 20 mg PO DAILY #30 cap 09/14/20 prednisone 10 mg PO DAILY #45 tab 09/14/20 sennosides [Senna Lax] 8.6 mg PO DAILY #30 tab 09/14/20 spironolactone 25 mg PO DAILY #30 tab 09/14/20 DS: Summary Hospital Course Hospital Course: Admission note HPI 40-year-old man with history of abuse presents to the ER , with abdominal pain over the last several weeks. He has noted some abdominal distension and nausea. He denied vomiting or diarrhea, fever, chills. He did report poor appetite. He reported that he drinks approximately 1 pt of whiskey a day and has for many years. He has not seen a doctor in over 5 years. in the ER, abdominal CAT scan showed hepatomegaly and severe diffuse hepatic steatosis with small to ascites. He also massive distention gallbladder without significant biliary dilatation due to this and ultrasound was ordered and showed distended gallbladder without evidence gallstones or disease. General surgery was consulted and determined at this time surgical intervention was not needed. He had no fever or hypoxia. He was noted to be tachycardic. Labs, sodium 130, AST 270, ALT 50, alkaline phosphatase 366, total bilirubin 13.7, lipase 278, albumin 2.6, INR 1.8, COVID 19-. Ascites fluid drained does not appear to SBP. Patient was started on phenobarbital while in the ER. He will be admitted for further management and treatment of acute alcoholic hepatitis. Hospital course The patient had prolonged hospital stay. For full details please returned to EMR. acute alcoholic hepatitis Large ascites Patient was admitted to the hospital for evaluation transaminitis. Hepatitis panel came back negative. It was believed to be secondary to chronic alcohol abuse. Paracentesis was with negative analysis for SBP and culture. Evaluated by Gastroenterology and started treatment with steroids and high protein diet. Was noted to have elevated of 2.2 at of admission and received vitamin K for it with fair response over the course of hospital stay. His transaminitis start to down trend. He was able to tolerate prednisone and seems to be improving with it. A 2nd paracentesis was done removing about 5 L of fluids. Started on oral spironolactone and Lasix with fair response. He remains to mild ascites but no distension or pain noted on abdominal exam. He was evaluated the care team with advised to total abstinence from alcohol which he agrees on. Hyponatremia Noted to have low sodium at of presentation which believed to be secondary to acute liver injury decreased oral intake. D level was stable between 128-130 most of the time was started to drop after starting diuresis. His diet was changed and last sodium reading of 129 at time of discharge. Advised for water restriction as well. Gum bleeding Had an episode of Secondary to elevated INR related to hepatitis. Received extra dose of vitamin K as the DVT prophylaxis was Discontinue heparin. No further bleeding reported. Sepsis Secondary to pneumonia Patient developed tachycardia fevers. CXR showing infiltrates bilaterally mainly on the left. Negative blood cultures. Treated with IV ceftriaxone and azithromycin D5, changed to p.o before discharge. Alcohol abuse/alcohol withdrawal He was kept on CIWA protocol and treated with pheobarbital with no reported but signs of withdrawal. Abnormal x-ray An incidental finding showed right humeral x-ray showed lucencies Abnormal IgG level, abnormal albumin to protein ratio Hematology evaluation appreciated, likely related to his liver disease. to do a skeletal bone survey and outpatient bone scan Will need to follow-up as outpatient with Hematology Oncology Discharge plan To follow up with Dr Martinez in 2-4 weeks for further evaluation of abnormal XR and blood work, call for appointment To follow up with Dr Buenrostro in 2 weeks for follow up on liver problem and further management, call for appointment Will continue antibiotics for 4 more days of azithromycin and Ceftin Continue prednisone tapering dose for the next 20 days, to finish total of 28 days steroids To use spironolactone and Lasix for ascites management To do A bone scan as outpatient To repeat blood test next week Monitor weight Time Spent with Patient Time attestation: Total time spent providing and/or coordinating discharge services: Discharge coordination time: Greater than 30 minutes Physical Exam Vital Signs: Vital Signs: Last Vital Signs Temp 98.1 F 09/14/20 07:07 Pulse 114 H 09/14/20 08:52 Resp 18 09/14/20 07:07 BP 108/59 L 09/14/20 08:52 Pulse Ox 92 09/14/20 07:07 Body Mass Index 25.9 Const: Other: Constitutional : Alert, oriented, not in distress, icteric eyes Neck : Normal inspection, Supple Cardiovascular : RRR, S1 S2, no lower extremity edema Respiratory : Good bilateral air entry, no crackles, wheezes or rhonchi Gastrointestinal: soft, lax, distended, mild to moderate amount of ascites, no tenderness Skin : Warm/Dry, gum bleeding, abdominal bruises, jaundice Neurological : Alert & oriented x3, No focal deficit DS: Data Data Completed and Pending Labs on day of discharge: Laboratory Results - last 24 hr 09/06/20 09/14/20 14:47 05:20 Sodium 129 L Potassium 3.8 Chloride 93 L Carbon Dioxide 28 Anion Gap 12 BUN 12 Creatinine 0.53 Estim Creat Clear Calc 188.9 Estimated GFR > 60 Random Glucose 64 Calcium 7.1 L Anti-Smooth Muscle Ab <20 Preliminary micro results at discharge 09/09/20 09:08 Blood Culture - Preliminary Blood - Venous No growth after 48 hours. 09/09/20 09:16 Blood Culture - Preliminary Blood - Venous No growth after 48 hours. Discharge Plan Discharge Patient Disposition: Home, Self-Care Referrals: Physician,None [Primary Care Provider] - Discharge Medications: New sennosides [Senna Lax] 8.6 mg Tablet 8.6 mg PO DAILY Qty: 30 RF: 0 spironolactone 25 mg Tablet 25 mg PO DAILY Qty: 30 RF: 0 cefuroxime axetil 500 mg Tablet 500 mg PO Q12H Qty: 8 RF: 0 azithromycin 500 mg Tablet 500 mg PO Q24H Qty: 4 RF: 0 furosemide 40 mg tablet 40 mg PO DAILY Qty: 30 RF: 0 prednisone 10 mg tablet 10 mg PO DAILY Qty: 45 RF: 0 omeprazole 20 mg capsule,delayed release(DR/EC) 20 mg PO DAILY Qty: 30 RF: 0 Discharge Orders: Discharge Order (Routine); Ordered 09/14/20 Ordered By: Julio Garrido Diet: advance to usual diet Activity on Discharge: As tolerated Stand Alone Forms: Patient Portal Discharge page Other Ambulatory Orders: Basic Metabolic Panel (Routine) Timeframe: 1 Week Facility: [facility] - Location: Laboratory Ordered By: Julio Garrido NM bone scan whole body (Routine) Timeframe: 2 Weeks Facility: [facility] - Location: Nuclear Medicine Ordered By: Julio Garrido Liver Panel (Routine) Timeframe: 1 Week Facility: [facility] - Location: Laboratory Ordered By: Julio Garrido Care Plan Goals: Read below Health Concerns: Read below Plan of Treatment: Admitted to the hospital for evaluation of abdominal pain and jaundice. Blood work and images were consistent with acute alcoholic liver injury with large ascites. You were treated with fluid replacement, steroids and removal of the extra fluid from your abdomen which did not show any infection. You were evaluated by production technologist who recommended treatment with water pills and steroids. Pneumonia was diagnosed during the hospital stay and treated with IV antibiotics with good response. You went through alcohol withdrawal treatment with phenobarbital. And abnormal x-ray of your humerus was concerning for possible blood problem. Evaluated by transformer maker Dr. Martinez who will follow up with you as outpatient. Assessment: To follow up with Dr Martinez in 2-4 weeks for further evaluation of abnormal XR and blood work, call for appointment To follow up with Dr Buenrostro in 2 weeks for follow up on liver problem and further management, call for appointment Will continue antibiotics for 4 more days Continue prednisone tapering dose as described, to decrease by 10 mg every 4 day To use spironolactone and Lasix for ascites management To do A bone scan as outpatient To repeat blood test next week Monitor your weight
[2020-09-14 11:11] VITALS: BP 100/63; PULSE 99; RESP 18; TEMP 37.7; O2SAT 99
--- NOTE | 2020-09-14 11:38 | MHC.CM.PN ---
filippo magallon pt has [facility] id # [id number]
[2020-09-14] MEDS: Azithromycin 500 MG TABLET PO (12:02)
[2020-09-14 13:41] VITALS: BP 134/78; PULSE 99; RESP 18; TEMP 36.9; O2SAT 97
[2020-09-14 13:43] LABS: Calcium (PTHI) 6.9 mg/dL (8.6-10.3); PTHI 57 pg/mL (14-64)
[2020-09-17 14:46] LABS: A1A Clinical Indication NG; A1A Referring Physician NG
== END 2020-09-14 14:50 | disposition home or self-care (01) | DRG 280 ==
LOC: HO.ED 15:04 → HO.EDOVER 17:07 → HO.IMC 09-06 23:42
PROVIDERS: Internal Medicine; Internal Medicine Gastroenterology; Internal Medicine Medical Oncology; Nurse Practitioner Acute Care; Radiology Diagnostic Radiology; Admitting Provider Internal Medicine; Emergency Provider Emergency Medicine; Visit Provider Student in an Organized Health Care Education/Training Program
PROC: 0W9G3ZZ Drainage of Peritoneal Cavity, Percutaneous Approach (ICD-10-PCS; principal; 2020-09-11 15:00)
DX: K70.11 Alcoholic hepatitis with ascites (principal); A41.9 Sepsis, unspecified organism; K85.20 Alcohol induced acute pancreatitis without necrosis or infection; D68.9 Coagulation defect, unspecified; E46 Unspecified protein-calorie malnutrition; E87.1 Hypo-osmolality and hyponatremia; D89.0 Polyclonal hypergammaglobulinemia; R93.6 Abnormal findings on diagnostic imaging of limbs; F10.239 Alcohol dependence with withdrawal, unspecified; Z68.25 Body mass index [BMI] 25.0-25.9, adult; K06.8 Other specified disorders of gingiva and edentulous alveolar ridge; M62.84 Sarcopenia; N39.0 Urinary tract infection, site not specified; Z20.822 Contact with and (suspected) exposure to COVID-19; Z79.899 Other long term (current) drug therapy
CPT/HCPCS: 0241U; 36415; 49083; 71045; 71046; 73060; 74176; 76705; 77075; 80048; 80053; 80061; 80076; 80307; 80320; 81001; 82104; 82390; 82436; 82525; 82570; 82728; 82784; 82945; 83036; 83516; 83605; 83615; 83690; 83735; 83930; 83935; 83970; 84133; 84153; 84155; 84156; 84165; 84166; 84300; 85025; 85027; 85610; 85730; 86038; 86039; 86255; 86334; 86704; 86706; 86709; 86803; 87040; 87071; 87073; 87086; 87205; 87340; 89051; 93975; 99285; J0456; J0696; J2560; J3430; P9047

== ENCOUNTER 2020-09-21 12:29 | Outpatient (REF) | payer MEDICAID, SELFPAY ==
[2020-09-21 13:30] LABS: Alanine Aminotransferase 98 U/L (0-40); Alkaline Phosphatase 212 U/L (39-117); Anion Gap 15 (12-20); Aspartate Amino Transferase 174 U/L (5-37); Bilirubin Direct 5.4 mg/dL (0.0-0.5); Bilirubin Total 9.7 mg/dL (0.0-1.0); Blood Urea Nitrogen 14 mg/dL (9-16); Calcium 8.5 mg/dL (8.4-10.2); Carbon Dioxide 27 mmol/L (22-29); Chloride 96 mmol/L (96-108); Estimated Glomerular Filt Rate > 60; Glucose Random 122 mg/dL (60-115); Potassium 4.7 mmol/L (3.3-5.1); Sodium 133 mmol/L (135-145)
== END 2020-09-21 12:30 | disposition home or self-care (01) ==
LOC: HO.LAB 12:29
PROVIDERS: Visit Provider Student in an Organized Health Care Education/Training Program
DX: E87.1 Hypo-osmolality and hyponatremia (principal); K70.10 Alcoholic hepatitis without ascites
CPT/HCPCS: 36415; 80048; 80076

== ENCOUNTER → 2020-11-09 13:56 | Outpatient (BNVA) | payer MEDICAID, SELFPAY | PROVIDERS: PCP Internal Medicine; Referring Provider Internal Medicine; Visit Provider Internal Medicine Gastroenterology | DX: K70.9 Alcoholic liver disease, unspecified (principal) | CPT/HCPCS: 99212 ==

== ENCOUNTER → 2020-12-14 09:59 | Outpatient (REF) | payer MEDICAID, SELFPAY ==
--- NOTE | ~2020-12-14 | NM_ITS ---
EXAMINATION: NM BONE SCAN OF THE WHOLE BODY CLINICAL INFORMATION: Low-density regions within diaphysis of both humerus COMPARISON: Bone survey 09/14/2020 TECHNIQUE: Multiple gamma scintillation camera images of the whole body were performed 3 hours following the intravenous administration of 25 mCi Tc-99m MDP. FINDINGS: In the head, unremarkable In the thoracic cage and upper extremities, unremarkable In the spine, unremarkable In the pelvis, unremarkable In the lower extremities, unremarkable No other definite bony abnormalities are noted. The urinary bladder and faint visualization of both kidneys are noted. NM/NM bone scan whole body IMPRESSION: Unremarkable bone scan. Especially no abnormality seen in bilateral humeri.
== END ==
LOC: HO.NUCMED 09:59
PROVIDERS: Visit Provider Internal Medicine Medical Oncology
DX: M89.9 Disorder of bone, unspecified (principal)
CPT/HCPCS: 78306; A9503

== ENCOUNTER 2021-02-05 11:46 | Outpatient (REF) | payer MEDICAID, SELFPAY ==
[2021-02-05 13:15] LABS: MANUAL DIFF FLAG NO
[2021-02-05 13:31] LABS: Basophils Percent Auto 0.8 % (0-2); Eosinophils Absolute Auto 0.2 X10*3/uL (0.0-0.4); Eosinophils Percent Auto 6.2 % (0-4); Hematocrit 32.4 % (42-52); Hemoglobin 11.1 g/dl (14.0-18.0); Lymphocytes Absolute Auto 1.2 X10*3/uL (1.2-4.9); Lymphocytes Percent Auto 33.8 % (20-40); Mean Corpuscular HGB Conc 34.3 g/dl (31.0-36.0); Mean Corpuscular Hemoglobin 32.9 pg (27.0-33.0); Mean Corpuscular Volume 96.1 fL (80-98); Monocytes Absolute Auto 0.4 X10*3/uL (0.1-1.2); Monocytes Percent Auto 10.4 % (2-11); Neutrophils Absolute Auto 1.7 X10*3/uL (2.0-8.3); Neutrophils Percent Auto 48.8 % (45-73); Red Blood Count 3.37 X10*6/uL (4.60-5.80); Red Cell Distribution Width 16.3 % (11.0-16.0); White Blood Count 3.6 X10*3/uL (4.8-10.8)
[2021-02-05 13:47] LABS: Alanine Aminotransferase 20 U/L (0-40); Albumin Level 3.4 g/dL (3.5-5.0); Alkaline Phosphatase 214 U/L (39-117); Anion Gap 14 (12-20); Aspartate Amino Transferase 50 U/L (5-37); Bilirubin Total 3.2 mg/dL (0.0-1.0); Blood Urea Nitrogen 8 mg/dL (9-16); Calcium 9.1 mg/dL (8.4-10.2); Carbon Dioxide 23 mmol/L (22-29); Chloride 105 mmol/L (96-108); Estimated Glomerular Filt Rate > 60; Glucose Random 115 mg/dL (60-115); Iron 75 mcg/dL (45-160); Percent Iron Saturation 27 % (15-50); Potassium 3.8 mmol/L (3.3-5.1); Sodium 138 mmol/L (135-145); Total Iron Binding Capacity 279 mcg/dL (228-428); Total Protein 7.1 g/dL (6.5-8.0); Unsaturated Iron Binding 204 ug/dL
[2021-02-05 13:53] LABS: Mean Platelet Volume 11.4 fL (9.4-12.4); Platelet Count 82 X10*3/uL (160-400)
[2021-02-05 14:09] LABS: Vitamin B12 917 pg/mL (200-900)
== END 2021-02-05 11:47 | disposition home or self-care (01) ==
LOC: HO.LAB 11:46
PROVIDERS: PCP Internal Medicine; Visit Provider Internal Medicine
DX: D64.9 Anemia, unspecified (principal); K21.9 Gastro-esophageal reflux disease without esophagitis; R79.89 Other specified abnormal findings of blood chemistry
CPT/HCPCS: 36415; 80053; 82607; 83540; 85025

== ENCOUNTER 2021-03-27 04:50 | Inpatient (IN) | payer MEDICAID, SELFPAY ==
[2021-03-27] VITALS (15 sets, daily range): BP systolic 81–150; BP diastolic 38–80; PULSE 61–98; RESP 16–19; TEMP 36.5–37.7; O2SAT 96–100; BMI 26.0; BMI 24.3
--- NOTE | ~2021-03-27 | XR_ITS ---
EXAMINATION: XR CHEST CLINICAL INFORMATION: New crackles at bases, getting transfusion COMPARISON: 03/27/2021 TECHNIQUE: Frontal view of the chest was obtained. FINDINGS: Lung volumes are symmetric. Minimal streaky left basilar opacity favors atelectasis. No additional consolidation. No evidence of pneumothorax, pleural effusion, or pulmonary edema. The cardiomediastinal contour is unremarkable. Redemonstrated lucency in the left humeral diaphysis, also noted on radiographs 09/14/2020. XR/XR chest 1V IMPRESSION: Mild streaky left basilar opacity favoring atelectasis.
--- NOTE | ~2021-03-27 | CT_ITS ---
EXAMINATION: CT ANGIOGRAM OF THE CHEST WITH AND WITHOUT CONTRAST (CT PULMONARY ANGIOGRAM FOR PE) CLINICAL INFORMATION: Reason for Exam syncope, dimer elevated COMPARISON: None TECHNIQUE: Prior to contrast administration, noncontrast localization images were obtained. Subsequently, multidetector volumetric imaging was performed from the thoracic inlet to below the diaphragms following the administration of 65 mL Omnipaque 350 intravenous contrast. No contrast reaction reported Sagittal, coronal, and MIP oblique sagittal reformatted images were obtained on the CT workstation, uploaded to PACS, and reviewed. This CT examination was performed using dose optimization techniques as appropriate, variously including the following: *Automated exposure control *Adjustment of mA and/or kV according to patient size (this includes techniques or standardized protocols for targeted exams where dose is matched to indication/reason for exam; i.e. extremities or head) *Use of iterative reconstruction technique Total exam dose-length product 327 mGy-cm FINDINGS: QUALITY OF STUDY/CONTRAST BOLUS: Satisfactory. PULMONARY ARTERIES: No central or segmental pulmonary emboli. THORACIC AORTA: No aneurysm or dissection. LUNG: The lungs are expanded with dependent bibasilar atelectasis. No focal consolidation or pulmonary nodules seen. PLEURA: No pleural effusion or pneumothorax. MEDIASTINUM: Normal heart size. No pericardial effusion. No hilar or mediastinal lymphadenopathy. No evidence of septal bowing or right heart strain. CHEST WALL/AXILLA: No axillary or internal mammary lymphadenopathy. There is bilateral gynecomastia. OSSEOUS STRUCTURES: No acute or suspicious osseous abnormality. UPPER ABDOMEN: There is a punctate hypodensity right hepatic lobe. Otherwise rest of the liver is unremarkable. No reflux of contrast into the hepatic veins to suggest elevated right heart pressures. CT/CT angio chest PE protocol IMPRESSION: No evidence of PE. No evidence of aortic dissection or aneurysm. Dependent bibasilar atelectasis. VTE: negative
--- NOTE | ~2021-03-27 | CT_ITS ---
EXAMINATION: CT HEAD WITHOUT CONTRAST CLINICAL INFORMATION: Loss of consciousness, fall COMPARISON: None TECHNIQUE: Contiguous axial imaging was performed from the skull base to vertex without intravenous administration of contrast. This CT examination was performed using dose optimization techniques as appropriate, variously including the following: *Automated exposure control *Adjustment of mA and/or kV according to patient size (this includes techniques or standardized protocols for targeted exams where dose is matched to indication/reason for exam; i.e. extremities or head) *Use of iterative reconstruction technique DLP: 740 mGy-cm FINDINGS: There is no evidence of acute intracranial hemorrhage or territorial infarction. No abnormal mass effect or midline shift is seen. Lujan to white matter differentiation is well preserved. No extra-axial fluid collections are identified. The ventricles are normal in size. There is no abnormal attenuation within the brain parenchyma. The osseous structures and soft tissues are normal. There is mucosal thickening of the maxillary sinuses. The mastoid air cells are well-aerated. CT/CT head/brain wo con IMPRESSION: No acute intracranial pathology.
--- NOTE | ~2021-03-27 | CT_ITS ---
EXAMINATION: CT PELVIS WITHOUT CONTRAST CLINICAL INFORMATION: Fall, pain and unable to bear weight COMPARISON: None TECHNIQUE: Helical scanning was performed with submillimeter collimation through the pelvis. Sagittal and coronal multiplanar 2-D reconstructions were obtained. This CT examination was performed using dose optimization techniques as appropriate, variously including the following: *Automated exposure control *Adjustment of mA and/or kV according to patient size (this includes techniques or standardized protocols for targeted exams where dose is matched to indication/reason for exam; i.e. extremities or head) *Use of iterative reconstruction technique DLP: 224 mGy-cm FINDINGS: There is a mildly comminuted and displaced right iliac wing fracture. Remainder of the bony pelvis appears intact. Alignment across the hips is anatomic with mild joint space narrowing and acetabular spurring. Proximal femurs appear intact. There is bony prominence of the femurs at the lateral aspect of the femoral head/neck junction, which may predispose to femoroacetabular impingement. Sacroiliac joints and pubic symphysis are maintained. There is asymmetric enlargement of the right iliacus muscle, likely reflecting interest with hematoma in the setting of adjacent iliac wing fracture. CT/CT pelvis wo con IMPRESSION: Mildly comminuted and displaced right iliac wing fracture. Adjacent right iliacus intramuscular hematoma.
--- NOTE | ~2021-03-27 | XR_ITS ---
EXAMINATION: XR HIP, RIGHT CLINICAL INFORMATION: Fall, pain, unable to bear weight COMPARISON: 09/05/2020 TECHNIQUE: Two views of the right hip. FINDINGS: There is a mildly displaced fracture of the right iliac wing. Alignment across the hips is anatomic with mild degenerative change bilaterally. Proximal femurs appear intact. There is bony prominence of the femurs bilaterally at the femoral head/neck junction, which may predispose to femoroacetabular impingement. Sacroiliac joints and pubic symphysis are intact. XR/XR hip RT w PEL1V IMPRESSION: Mildly displaced right iliac wing fracture.
--- NOTE | 2021-03-27 05:51 | ED.SYNCOPE ---
HPI - Syncope General Chief Complaint: Dizziness Stated Complaint: dizziness and fall Time Seen by Provider: 03/27/21 05:44 Source: patient and EMS Mode of arrival: EMS Limitations: no limitations History of Present Illness HPI narrative: Patient comes to the emergency room complaining a syncopal episode. Patient states he was moving his bowels, when he stood up, he started feeling dizzy, passed out. When patient woke up, he could not stand up due to pain in his right hip. Patient is not sure if he hit his head, however he did have loss of consciousness. Patient complaining of chest pain or shortness of breath. Patient complaining of severe 10/10 pain in the right hip Related Data Previous Rx's Medication Instructions Recorded omeprazole 20 mg capsule,delayed 20 mg PO DAILY #30 cap 03/24/21 release spironolactone 25 mg tablet 25 mg PO DAILY #30 tab 03/24/21 Allergies Allergy/AdvReac Type Severity Reaction Status Date / Time No Known Allergies Allergy Verified 09/05/20 11:19 Review of Systems Review of Systems: Constitutional : No Weight loss, No Fever, No Chills, No Night Sweats, No Fatigue, No Malaise ENT/Mouth : No Hearing loss, No Ear Pain, No Nasal Congestion, No Sinus Pain, No Hoarseness, No sore throat, No Rhinorrhea, No Swallowing Difficulty Eyes: No Eye Pain, No Swelling, No Redness, No Foreign Body, No Discharge, No Vision Changes Cardiovascular : No Chest Pain, No SOB, No Dyspnea on Exertion, No Orthopnea, No Edema, No Palpitations Respiratory : No Cough, No Sputum, No Wheezing, No Smoke Exposure, No Dyspnea Gastrointestinal : No Nausea, No Vomiting, No Diarrhea, No Constipation, No abdominal Pain, No Hematochezia, No Melena Genitourinary : no irregular bleeding, No Dysuria, No Urinary Frequency, No Hematuria, No Urinary Incontinence, No Urgency, No Flank Pain, No Urinary Flow Changes, No Hesitancy Musculoskeletal : Planning of right-sided hip pain 10/10, worsened by any movement. No Myalgias, No Joint Swelling Skin : No Skin Lesions, No rash Neuro : No Weakness, No Numbness, No Paresthesias, 1 syncopal episode prior to arrival Psych : No Anxiety/Panic, No Depression, No SI/HI/AH/VH, No Social Issues, Heme/Lymph: No Bruising, No Bleeding,No Lymphadenopathy Endocrine : No Polyuria, No Polydipsia, No Temperature Intolerance [facility] Past Medical History Medical History Abnormal x-ray of humerus Alcohol abuse Ascites Hyponatremia Malnutrition related to chronic disease No known health problems Sarcopenia Surgical History H/O wrist surgery Social History Social History (Updated 10/16/20 @ 13:08 by Teena Douglass) Household Members: Other Household Members Other:: girlfriend Housing: House Do you presently have visiting nurse or other home services: No Alcohol intake: former Cigarette Packs Per Day: 1 Years Smoked: 20 Second Hand Smoke Exposure: Yes Advance Directives: No Advance Directives Information Provided: No service: No Current occupational status: employed Physical Exam Vital Signs: Vital Signs: Last Vital Signs Temp 97.7 F 03/27/21 06:29 Pulse 96 03/27/21 07:02 Resp 18 03/27/21 07:02 BP 103/48 L 03/27/21 07:02 Pulse Ox 98 03/27/21 07:02 Body Mass Index 26.0 Const: Other: Appearance: Alert. Oriented X3. No acute distress. Eyes: Pupils equal, round and reactive to light. Sclera mildly icteric bilaterally ENT: Pharynx normal. Neck: Normal inspection. Neck supple. No lymph nodes noted. No crepitus CVS: Normal heart rate and rhythm. Pulses normal. Normal S1 and S2 Respiratory: No respiratory distress. Breath sounds normal. No Wheezing. No rales Abdomen: Soft and nontender. No rigidity. No distention. good BS x4 Skin: Skin warm and dry. Normal skin color. Normal skin turgor. Extremities: No lower extremity edema. Patient is unable to flex and extend the hip due to pain in the right side, Neuro: Oriented X 3. No motor deficit. No sensory deficit. Moving all extermities. No slurred speech. Course Course Course Narrative: I discussed the CT findings with Dr. Cheatham, this is a stable fracture, patient's hemoglobin will likely drop, developed a hematoma, then will recuperate. Orthopedic surgery is not indicated for this type of fracture. Patient's blood pressure has been between 70 systolic up to 105 systolic, patient has been given 2 L of normal saline, 50 mcg of fentanyl. Repeat hemoglobin pending D-dimer is 5600, troponin negative, EKG shows prolonged QT at 486 CTA of chest pending Sign-out will be given to Dr. Olsen. If patient has no medical reason to be admitted, patient will need case management and physical therapy to help with disposition. MDM - Syncope Lab Data Result diagrams: 03/27/21 05:35 03/27/21 05:35 Labs: Lab Results 03/27/21 03/27/21 03/27/21 Range/Units 05:35 05:35 05:35 WBC 6.6 (4.8-10.8) X10*3/uL RBC 2.63 L D (4.60-5.80) X10*6/uL Hgb 8.6 L D (14.0-18.0) g/dl Hct 25.2 L D (42-52) % MCV 95.8 (80-98) fL MCH 32.7 (27.0-33.0) pg MCHC 34.1 (31.0-36.0) g/dl RDW 16.1 H (11.0-16.0) % Plt Count 78 L (160-400) X10*3/uL MPV 10.7 (9.4-12.4) fL Immature Gran % (Auto) 0.8 H (0.0-0.4) % Neut % (Auto) 57.8 (45-73) % Lymph % (Auto) 26.5 (20-40) % [place] % (Auto) 10.6 (2-11) % Eos % (Auto) 3.8 (0-4) % Baso % (Auto) 0.5 (0-2) % Lymph # (Auto) 1.8 (1.2-4.9) X10*3/uL [place] # (Auto) 0.7 (0.1-1.2) X10*3/uL Eos # (Auto) 0.3 (0.0-0.4) X10*3/uL Baso # (Auto) 0.0 (0.0-0.2) X10*3/uL Abs Immat Gran (auto) 0.05 H (0.00-0.03) X10*3/uL Absolute Neuts (auto) 3.8 (2.0-8.3) X10*3/uL Absolute Nucleated RBC 0.000 (0.0-0.012) X10*3/uL Nucleated RBC % (auto) 0.0 (0.0-0.2) /100WBC Smear Tech's Comments VERIFIED D-Dimer 5600 NG/ML Sodium 135 (135-145) mmol/L Potassium 4.1 (3.3-5.1) mmol/L Chloride 103 (96-108) mmol/L Carbon Dioxide 25 (22-29) mmol/L Anion Gap 11 L (12-20) BUN 23 H D (9-16) mg/dL Creatinine 0.88 (0.5-1.4) mg/dL Estim Creat Clear Calc 112.7 Estimated GFR > 60 Random Glucose 114 (60-115) mg/dL Calcium 8.5 D (8.4-10.2) mg/dL Total Bilirubin 3.1 H (0.0-1.0) mg/dL AST 35 (5-37) U/L ALT 15 (0-40) U/L Alkaline Phosphatase 116 D (39-117) U/L Troponin I High Sens (<3.5-35.0) ng/L Total Protein 5.5 L D (6.5-8.0) g/dL Albumin 2.7 L D (3.5-5.0) g/dL Ethyl Alcohol mg/dL 03/27/21 03/27/21 Range/Units 05:35 05:35 WBC (4.8-10.8) X10*3/uL RBC (4.60-5.80) X10*6/uL Hgb (14.0-18.0) g/dl Hct (42-52) % MCV (80-98) fL MCH (27.0-33.0) pg MCHC (31.0-36.0) g/dl RDW (11.0-16.0) % Plt Count (160-400) X10*3/uL MPV (9.4-12.4) fL Immature Gran % (Auto) (0.0-0.4) % Neut % (Auto) (45-73) % Lymph % (Auto) (20-40) % [place] % (Auto) (2-11) % Eos % (Auto) (0-4) % Baso % (Auto) (0-2) % Lymph # (Auto) (1.2-4.9) X10*3/uL [place] # (Auto) (0.1-1.2) X10*3/uL Eos # (Auto) (0.0-0.4) X10*3/uL Baso # (Auto) (0.0-0.2) X10*3/uL Abs Immat Gran (auto) (0.00-0.03) X10*3/uL Absolute Neuts (auto) (2.0-8.3) X10*3/uL Absolute Nucleated RBC (0.0-0.012) X10*3/uL Nucleated RBC % (auto) (0.0-0.2) /100WBC Smear Tech's Comments D-Dimer NG/ML Sodium (135-145) mmol/L Potassium (3.3-5.1) mmol/L Chloride (96-108) mmol/L Carbon Dioxide (22-29) mmol/L Anion Gap (12-20) BUN (9-16) mg/dL Creatinine (0.5-1.4) mg/dL Estim Creat Clear Calc Estimated GFR Random Glucose (60-115) mg/dL Calcium (8.4-10.2) mg/dL Total Bilirubin (0.0-1.0) mg/dL AST (5-37) U/L ALT (0-40) U/L Alkaline Phosphatase (39-117) U/L Troponin I High Sens < 3.5 (<3.5-35.0) ng/L Total Protein (6.5-8.0) g/dL Albumin (3.5-5.0) g/dL Ethyl Alcohol < 10 mg/dL Imaging Data CT of the pelvis: Radiologist's impression: There is a mildly comminuted and displaced right iliac wing fracture. Remainder of the bony pelvis appears intact. Alignment across the hips is anatomic with mild joint space narrowing and acetabular spurring. Proximal femurs appear intact. There is bony prominence of the femurs at the lateral aspect of the femoral head/neck junction, which may predispose to femoroacetabular impingement. Sacroiliac joints and pubic symphysis are maintained. There is asymmetric enlargement of the right iliacus muscle, likely reflecting interest with hematoma in the setting of adjacent iliac wing fracture. CT/CT pelvis wo con IMPRESSION: Mildly comminuted and displaced right iliac wing fracture. Adjacent right iliacus intramuscular hematoma. CT scan - head: Radiologist's impression: There is no evidence of acute intracranial hemorrhage or territorial infarction. No abnormal mass effect or midline shift is seen. Lujan to white matter differentiation is well preserved. No extra-axial fluid collections are identified. The ventricles are normal in size. There is no abnormal attenuation within the brain parenchyma. The osseous structures and soft tissues are normal. There is mucosal thickening of the maxillary sinuses. The mastoid air cells are well-aerated. ? CT/CT head/brain wo con IMPRESSION: No acute intracranial pathology. ECG Data Attestation: I personally reviewed and interpreted this ECG as follows: (Sinus rhythm, heart rate 84, no ST segment depression or elevation, no T-wave inversion, QTC 486) Discharge Plan Discharge Clinical Impression: Episode of syncope, Closed fracture of iliac wing of pelvis Prescriptions: No Action omeprazole 20 mg capsule,delayed release(DR/EC) 20 mg PO DAILY Qty: 30 RF: 3 spironolactone 25 mg tablet 25 mg PO DAILY Qty: 30 RF: 3
[2021-03-27 05:54] LABS: Eosinophils Percent Auto 3.8 % (0-4); Hematocrit 25.2 % (42-52); Hemoglobin 8.6 g/dl (14.0-18.0); MANUAL DIFF FLAG SCAN; Mean Corpuscular HGB Conc 34.1 g/dl (31.0-36.0); Mean Corpuscular Hemoglobin 32.7 pg (27.0-33.0); Mean Corpuscular Volume 95.8 fL (80-98); PLT CLUMP 1; Red Blood Count 2.63 X10*6/uL (4.60-5.80); SCAN SMEAR FLAG 1
--- NOTE | 2021-03-27 05:55 | PC.NURSE ---
PT RESTING IN STRETCHER C/O RIGHT HIP PAIN AFTER FALLING IN THE BATHROOM. IV INSERTED W/O DIFFICULTY, SITE INTACT. LABS DRAWN TO LAB. EKG OBTAINED TO . PT IS SHAKING AND C/O FEELING COLD . SEVERAL BLANKETS TO PT, PT HAS NO FEVER TEMP 97.9 ORAL. GIRLFRIEND WITH PT AT BEDSIDE. NS UP AND RUNNING PER EMAR.
[2021-03-27 05:56] LABS: Basophils Percent Auto 0.5 % (0-2); Eosinophils Absolute Auto 0.3 X10*3/uL (0.0-0.4); Imm Gran Abs Auto 0.05 X10*3/uL (0.00-0.03); Imm Gran Pct Auto 0.8 % (0.0-0.4); Lymphocytes Absolute Auto 1.8 X10*3/uL (1.2-4.9); Lymphocytes Percent Auto 26.5 % (20-40); Mean Platelet Volume 10.7 fL (9.4-12.4); Monocytes Absolute Auto 0.7 X10*3/uL (0.1-1.2); Monocytes Percent Auto 10.6 % (2-11); Neutrophils Absolute Auto 3.8 X10*3/uL (2.0-8.3); Neutrophils Percent Auto 57.8 % (45-73); Red Cell Distribution Width 16.1 % (11.0-16.0); White Blood Count 6.6 X10*3/uL (4.8-10.8)
[2021-03-27 06:00] LABS: Platelet Count 78 X10*3/uL (160-400)
--- NOTE | 2021-03-27 06:05 | PC.NURSE ---
AT BEDSIDE FOR EVAL.
--- NOTE | 2021-03-27 06:05 | PC.NURSE ---
PT TO X-RAY.
[2021-03-27] MEDS: 0.9 % Sodium Chloride 1,000 ML 999 ML IVCONT (06:07)
[2021-03-27 06:09] LABS: Ethanol < 10 mg/dL
[2021-03-27 06:12] LABS: Alanine Aminotransferase 15 U/L (0-40); Albumin Level 2.7 g/dL (3.5-5.0); Alkaline Phosphatase 116 U/L (39-117); Anion Gap 11 (12-20); Aspartate Amino Transferase 35 U/L (5-37); Bilirubin Total 3.1 mg/dL (0.0-1.0); Blood Urea Nitrogen 23 mg/dL (9-16); Calcium 8.5 mg/dL (8.4-10.2); Carbon Dioxide 25 mmol/L (22-29); Chloride 103 mmol/L (96-108); Creatinine Clr Calc Pharmacy 112.7; Estimated Glomerular Filt Rate > 60; Glucose Random 114 mg/dL (60-115); Potassium 4.1 mmol/L (3.3-5.1); Sodium 135 mmol/L (135-145); Total Protein 5.5 g/dL (6.5-8.0)
[2021-03-27 06:13] LABS: SLIDE REVIEW VERIFIED
[2021-03-27 06:14] LABS: Troponin-I High Sensitivity < 3.5 ng/L (<3.5-35.0)
--- NOTE | 2021-03-27 06:27 | PC.NURSE ---
pt returns from CT. NS x 2 up and running as per emar. B/P IS LOW, MD AWARE.
[2021-03-27 06:34] LABS: D Dimer 5600 NG/ML
--- NOTE | 2021-03-27 06:38 | PC.NURSE ---
TYPE AND SCREEN BEING DRAWN AT THIS TIME.
--- NOTE | 2021-03-27 06:49 | PC.NURSE ---
REPORT TO BABAK GERMAIN
[2021-03-27] MEDS: fentaNYL citrate/PF 100 MCG/2 ML VIAL 50 MCG IVPUSH (07:01)
--- NOTE | 2021-03-27 07:04 | PC.NURSE ---
sr on monitor, alert, skin wpmd yobany to bedside to discuss plan of care
[2021-03-27 07:16] LABS: COVID-19 Test Negative (Negative)
[2021-03-27] MEDS: iohexoL 350 MG/ML 100 ML INFUS..BTL IV (07:47)
[2021-03-27 08:23] LABS: INTERNATIONAL NORM RATIO 1.7 (0.9-1.1); Prothrombin Time 19.2 SEC (9.9-13.0)
[2021-03-27 08:47] LABS: OBS Int Ctl Valid YES; OBS1 NEGATIVE (NEGATIVE)
[2021-03-27 08:51] LABS: Hematocrit 23.1 % (42-52); Hemoglobin 7.9 g/dl (14.0-18.0)
[2021-03-27 10:25] LABS: Amphetamine Screen Urine Not Detected (Not Detect); Barbiturates, Urine Not Detected (Not Detect); Benzodiazepines Screen Urine Not Detected (Not Detect); Cannabinoid Screen Urine Not Detected (Not Detect); Cocaine Screen Urine Not Detected (Not Detect); Fentanyl, urine Not Detected (Not Detect); Opiate Screen Urine Not Detected (Not Detect); Phencyclidine Screen Urine Not Detected (Not Detect)
--- NOTE | 2021-03-27 11:22 | P.HPHOSP_ITS ---
History of Present Illness Date of Service: 03/27/21 Chief Complaint: Syncope 41 year old male with history alocholic liver disease, chronic hyponatremia and ascietes who presents here with a syncope. He relates that he was in the bathroom this morning and stood up felt dizzy and passed out. He suffered no head injury but is found to have a broken pelvis. He has been noted to have several episode of low blood pressure including a systolic BP of 81, he is also anemic with hematocrit of 23 and denies GIB. No arrythmia noted. Review of Systems Review of Systems: Gen: no fever Resp: no sob, no cough CV: no chest, no MORRISSEY, no leg edema GI: No n/v, no abd pain Neuro: No confusion, no dizziness Yes all other systems are reviewed and are negative [facility] Medical History Abnormal x-ray of humerus Alcohol abuse Ascites Hyponatremia Malnutrition related to chronic disease No known health problems Sarcopenia Pertinent family history: no family history of heart disease of arrythmia Surgical History H/O wrist surgery Social History Household Members: Other Household Members Other:: girlfriend Housing: House Do you presently have visiting nurse or other home services: No Alcohol intake: former Cigarette Packs Per Day: 1 Years Smoked: 20 Second Hand Smoke Exposure: Yes Advance Directives: No Advance Directives Information Provided: No service: No Current occupational status: employed Meds Allergies Allergy/AdvReac Type Severity Reaction Status Date / Time No Known Allergies Allergy Verified 09/05/20 11:19 Physical Exam Vital Signs and Narrative: Vital Signs: Last Vital Signs Temp 98.6 F 03/27/21 10:42 Pulse 85 03/27/21 10:57 Resp 19 03/27/21 10:57 BP 98/48 L 03/27/21 10:57 Pulse Ox 98 03/27/21 10:57 Body Mass Index 26.0 Constitutional: Alert, in no distress, overweight. Mental Status: Oriented to person, place and time. Eyes: Pupils are equal, round and reactive to light. Ear, Nose and Throat: Oropharynx clear, mucous membranes moist. Trachea midline. Respiratory: Clear to auscultation. No wheezing, rales or rhonchi. Cardiovascular: S1 S2 regular. No murmurs, rubs or gallops. Gastrointestinal: Abdomen soft, non-tender, non-distended. Normal bowel sounds.? Neurologic: Cranial nerves II-XII grossly intact. No focal neurological deficits. Moves all extremities spontaneously.? Skin: No rashes or lesions.? Musculoskeletal: No cyanosis or clubbing. pain with hip movement Psychiatric: Normal mood and affect? Results Labs CBC and Chem 7: 03/27/21 08:44 03/27/21 05:35 Labs: Laboratory Results - last 24 hr 03/27/21 03/27/21 03/27/21 05:35 05:35 05:35 MCV 95.8 MCH 32.7 MCHC 34.1 RDW 16.1 H Plt Count 78 L MPV 10.7 Immature Gran % (Auto) 0.8 H Neut % (Auto) 57.8 Lymph % (Auto) 26.5 [place] % (Auto) 10.6 Eos % (Auto) 3.8 Baso % (Auto) 0.5 Lymph # (Auto) 1.8 [place] # (Auto) 0.7 Eos # (Auto) 0.3 Baso # (Auto) 0.0 Abs Immat Gran (auto) 0.05 H Absolute Neuts (auto) 3.8 Absolute Nucleated RBC 0.000 Nucleated RBC % (auto) 0.0 Smear Tech's Comments VERIFIED PT 19.2 H INR 1.7 H APTT 36.0 D-Dimer 5600 Anion Gap 11 L Estim Creat Clear Calc 112.7 Estimated GFR > 60 Random Glucose 114 Calcium 8.5 D Total Bilirubin 3.1 H AST 35 ALT 15 Alkaline Phosphatase 116 D Troponin I High Sens Total Protein 5.5 L D Albumin 2.7 L D Stool Occult Blood Urine Opiates Screen Urine Fentanyl Screen Ur Barbiturates Screen Ur Phencyclidine Scrn Ur Amphetamines Screen U Benzodiazepines Scrn Urine Cocaine Screen U Marijuana (THC) Screen Ethyl Alcohol COVID-19 ([facility]) COVID-19 Clin Com Blood Type Antibody Screen Crossmatch 03/27/21 03/27/21 03/27/21 05:35 05:35 06:50 MCV MCH MCHC RDW Plt Count MPV Immature Gran % (Auto) Neut % (Auto) Lymph % (Auto) [place] % (Auto) Eos % (Auto) Baso % (Auto) Lymph # (Auto) [place] # (Auto) Eos # (Auto) Baso # (Auto) Abs Immat Gran (auto) Absolute Neuts (auto) Absolute Nucleated RBC Nucleated RBC % (auto) Smear Tech's Comments PT INR APTT D-Dimer Anion Gap Estim Creat Clear Calc Estimated GFR Random Glucose Calcium Total Bilirubin AST ALT Alkaline Phosphatase Troponin I High Sens < 3.5 Total Protein Albumin Stool Occult Blood Urine Opiates Screen Urine Fentanyl Screen Ur Barbiturates Screen Ur Phencyclidine Scrn Ur Amphetamines Screen U Benzodiazepines Scrn Urine Cocaine Screen U Marijuana (THC) Screen Ethyl Alcohol < 10 COVID-19 ([facility]IA) COVID-19 Clin Com Blood Type O Positive Antibody Screen NEGATIVE Crossmatch See Detail 03/27/21 03/27/21 03/27/21 06:51 08:25 10:00 MCV MCH MCHC RDW Plt Count MPV Immature Gran % (Auto) Neut % (Auto) Lymph % (Auto) [place] % (Auto) Eos % (Auto) Baso % (Auto) Lymph # (Auto) [place] # (Auto) Eos # (Auto) Baso # (Auto) Abs Immat Gran (auto) Absolute Neuts (auto) Absolute Nucleated RBC Nucleated RBC % (auto) Smear Tech's Comments PT INR APTT D-Dimer Anion Gap Estim Creat Clear Calc Estimated GFR Random Glucose Calcium Total Bilirubin AST ALT Alkaline Phosphatase Troponin I High Sens Total Protein Albumin Stool Occult Blood NEGATIVE Urine Opiates Screen Not Detected Urine Fentanyl Screen Not Detected Ur Barbiturates Screen Not Detected Ur Phencyclidine Scrn Not Detected Ur Amphetamines Screen Not Detected U Benzodiazepines Scrn Not Detected Urine Cocaine Screen Not Detected U Marijuana (THC) Screen Not Detected Ethyl Alcohol COVID-19 ([facility]ANIA) Negative COVID-19 Clin Com See Note Blood Type Antibody Screen Crossmatch Imaging Radiologist's Impressions: Impressions Head CT 03/27/21 05:49 IMPRESSION: No acute intracranial pathology. Hip/Pelvis X-Ray 03/27/21 05:49 IMPRESSION: Mildly displaced right iliac wing fracture. Pelvis CT 03/27/21 06:10 IMPRESSION: Mildly comminuted and displaced right iliac wing fracture. Adjacent right iliacus intramuscular hematoma. Chest CTA 03/27/21 06:51 IMPRESSION: No evidence of PE. No evidence of aortic dissection or aneurysm. Dependent bibasilar atelectasis. VTE: negative Assessment and Plan (1) Episode of syncope: Status: Acute (2) Closed fracture of iliac wing of pelvis: Status: Acute (3) Alcoholic liver disease: Status: Acute 41/ m with alcoholic liver cirrhosis, chronic anemia, chronic hyponatremia here with syncope in setting of hypotensive, anemia there is no evidence of arrythmi and he has acute pelvic fracture. 1/Syncope likely from combination orthostatic hypotension, anemia -Monitor on tele -Unfortunately not able to perform orthostatic hyptension d/t pelvic fracture -transfusion for anemia -LR 2/Anemia--occult blood is negative, thisis signficantly drop since october, -GI eval for possible EGD -PPI 3/Pelvic fractre--no indication for surgery, will need PT eval 4/coagulopathy INR 1.7 from chronic liver disease/cirrosis--vitamin k 10 mgd daily x 3 days 5/Chronic liver disease/ascietes--hold Aldactone in light of hypOtension 6/ h/o history of humerus lytic lesion back in September. She saw Dr. Martinez and had skeletal survey that showed no abnormalities and therefore needs no further testing DVT compression device, INR is high Quality Stroke Does the patient have a stroke diagnosis?: No VTE Prior VTE?: No VTE Risk Level:: Medical - low VTE Device Contraindication: N/A - Device Ordered VTE Drug Contraindication: Treatment Not Indicated
[2021-03-27] MEDS: oxyCODONE HCl Immed Release 5 MG TABLET PO ×3 (11:31→20:54)
[2021-03-27] MEDS: Phytonadione (Vit K1) Oral 10 MG/ML AMPUL PO (14:06)
[2021-03-27] MEDS: 0.9 % Sodium Chloride 1,000 ML 100 ML IVCONT (14:07)
[2021-03-27] MEDS: 0.9 % Sodium Chloride Flush 3 ML SYRINGE IVFLUSH (15:06)
[2021-03-27 16:21] LABS: Glucose, Whole Blood 134 mg/dL (60-115)
[2021-03-27] MEDS: Morphine Sulfate 2 MG/ML CARTRIDGE IVPUSH (17:59)
[2021-03-28] VITALS (43 sets, daily range): BP systolic 82–120; BP diastolic 41–72; PULSE 71–113; RESP 8–19; TEMP 36.7–38.3; O2SAT 64–99
--- NOTE | 2021-03-28 | ECG_ITS ---
Test Reason : ROUTINE Blood Pressure : / mmHG Vent. Rate : 089 BPM Atrial Rate : 089 BPM P-R Int : 122 ms QRS Dur : 078 ms QT Int : 392 ms P-R-T Axes : 028 042 023 degrees QTc Int : 476 ms Normal sinus rhythm Normal ECG When compared with ECG of 27-MAR-2021 05:10, No significant change was found Referred By: Zhao Zapien Electronically Signed By:AMADA MARTIN MD
[2021-03-28] MEDS: Morphine Sulfate 2 MG/ML CARTRIDGE IVPUSH ×5 (00:22→20:05)
[2021-03-28] MEDS: 0.9 % Sodium Chloride 1,000 ML 100 ML IVCONT ×3 (02:01→22:57)
[2021-03-28] MEDS: ondansetron HCL 4 MG/2 ML VIAL IVPUSH (04:07)
[2021-03-28] MEDS: Pantoprazole Sodium 40 MG/10 ML VIAL IVPUSH ×2 (05:44→15:33)
[2021-03-28 06:42] LABS: MANUAL DIFF FLAG NO
[2021-03-28 06:49] LABS: Basophils Percent Auto 0.1 % (0-2); Eosinophils Percent Auto 0.4 % (0-4); Imm Gran Abs Auto 0.09 X10*3/uL (0.00-0.03); Imm Gran Pct Auto 1.1 % (0.0-0.4); Lymphocytes Absolute Auto 1.6 X10*3/uL (1.2-4.9); Lymphocytes Percent Auto 18.8 % (20-40); Mean Corpuscular HGB Conc 32.9 g/dl (31.0-36.0); Mean Corpuscular Volume 97.1 fL (80-98); Mean Platelet Volume 9.9 fL (9.4-12.4); Monocytes Absolute Auto 0.7 X10*3/uL (0.1-1.2); Monocytes Percent Auto 8.2 % (2-11); Neutrophils Absolute Auto 5.9 X10*3/uL (2.0-8.3); Neutrophils Percent Auto 71.4 % (45-73); Platelet Count 83 X10*3/uL (160-400); Red Blood Count 1.75 X10*6/uL (4.60-5.80); Red Cell Distribution Width 17.2 % (11.0-16.0); White Blood Count 8.3 X10*3/uL (4.8-10.8)
[2021-03-28 06:51] LABS: Hemoglobin 5.6 g/dl (14.0-18.0)
--- NOTE | 2021-03-28 08:18 | PC.NURSE ---
Per report of previous RN pt vomited about 500cc of ivy red blood this morning around 5am. He is hypotensive and pale. H/H this am 5.6 and 17. Pt also had melena stool this am at about 0700 and remains hypotensive with SBPs in 80s. These findings/report was discussed wih Dr. Leiva who assessed pt at [facility]. Plan for Blood which is infusing rapidly at this time and octreotide drip. MD will consider tx to ICU. Pt is awake, alert and oriented at this time though he is very drowsy at this time. Per MD will consult GI for possible upper endo.
[2021-03-28] MEDS: 0.9 % Sodium Chloride Flush 3 ML SYRINGE IVFLUSH ×2 (08:30→15:34)
[2021-03-28] MEDS: Octreotide Acetate 100 MCG/ML AMPUL 50 MCG IVPUSH (08:31)
--- NOTE | 2021-03-28 08:33 | HO.PM.IMPN ---
Subjective Subjective Date of Service: 03/28/21 Interval History: This AM vomited 500 mL ivy red blood then melena noted. Transfused 1u pRBCs yesterday, getting another 4u now. BP now 82/47. Minimal abd distension and no abd pain. No prior endoscopy. C/o hip/pelvic pain from fracture. Has not had EtOH to drink in months. No confusion. Review of Systems Review of Systems: Yes all other systems are reviewed and are negative Physical Exam Vital Signs: Vital Signs: Last Vital Signs Temp 98.2 F 03/28/21 08:09 Pulse 113 H 03/28/21 08:09 Resp 18 03/28/21 08:09 BP 82/47 L 03/28/21 08:09 Pulse Ox 94 03/28/21 06:37 Body Mass Index 24.3 Gen: pale HEENT: sclera icteric, pale mucus membranes Neck: supple Lungs: clear to auscultation bilaterally Heart: tachycardic, flow murmur along LSB Abd: soft, minimal distension, no tenderness Ext: trace edema Skin: warm/well-perfused, pulses bounding Neuro: alert and oriented x3, no focal findings, no asterixis Psych: appropriate affect Objective Data Active Medications Sodium Chloride (Ns) 1,000 mls @ 100 mls/hr IVCONT .Q10H [facility]ERT Last Admin: 03/28/21 02:01 Dose: 100 mls/hr Documented by: ALBINA Octreotide Acetate 500 mcg/ (Sodium Chloride) 501 mls @ 50.1 mls/hr IVCONT .Q10H [facility]ERT Ceftriaxone Sodium 1 gm/ (Sodium Chloride) 50 mls @ 100 mls/hr IV Q24H ON LICENSE OF [facility] Melatonin (Melatonin 3 Mg Tablet) 6 mg PO BEDTIME PRN PRN Reason: Insomnia Morphine Sulfate (Morphine Sulfate 2 Mg/Ml Cartridge) 2 mg IVPUSH Q6H PRN; Protocol PRN Reason: Pain, Severe (Pain Scale 7-10) Last Admin: 03/28/21 06:43 Dose: 2 mg Documented by: MONICA Nicotine (Nicotine 21 Mg Patch.Td24) 21 mg TRANSDERMA DAILY ROBERT Last Admin: 03/27/21 20:59 Dose: Not Given Documented by: MONICA Non-Admin Reason: wants to wait until am Ondansetron HCl (Ondansetron Hcl 4 Mg/2 Ml Vial) 4 mg IVPUSH Q8H PRN PRN Reason: Nausea and Vomiting Last Admin: 03/28/21 04:07 Dose: 4 mg Documented by: GABRIEL Oxycodone HCl (Oxycodone Hcl Immed Release 5 Mg Tablet) 5 mg PO Q6H PRN PRN Reason: Pain, Severe (Pain Scale 7-10) Last Admin: 03/27/21 20:54 Dose: 5 mg Documented by: MONICA Pantoprazole Sodium (Pantoprazole Sodium 40 Mg/10 Ml Vial) 40 mg IVPUSH BID@0630,1630 ON LICENSE OF [facility] Last Admin: 03/28/21 05:44 Dose: 40 mg Documented by: MONICA Phytonadione (Phytonadione (Vit K1) Oral 10 Mg/Ml Ampul) 10 mg PO DAILY ON LICENSE OF [facility] Stop: 03/29/21 09:01 Last Admin: 03/27/21 14:06 Dose: 10 mg Documented by: AKIRA Sodium Chloride (0.9 % Sodium Chloride Flush 3 Ml Syringe) 3 ml IVFLUSH QSHIFT ON LICENSE OF [facility] Last Admin: 03/28/21 00:30 Dose: Not Given Documented by: MONICA Non-Admin Reason: IV Running Labs CBC & Chem 7: 03/28/21 06:20 03/27/21 05:35 Labs: Laboratory Results - last 24 hr 03/27/21 03/27/21 03/27/21 06:50 08:25 10:00 MCV MCH MCHC RDW Plt Count MPV Immature Gran % (Auto) Neut % (Auto) Lymph % (Auto) Kane % (Auto) Eos % (Auto) Baso % (Auto) Lymph # (Auto) Kane # (Auto) Eos # (Auto) Baso # (Auto) Abs Immat Gran (auto) Absolute Neuts (auto) Absolute Nucleated RBC Nucleated RBC % (auto) POC Glucose Stool Occult Blood NEGATIVE Urine Opiates Screen Not Detected Urine Fentanyl Screen Not Detected Ur Barbiturates Screen Not Detected Ur Phencyclidine Scrn Not Detected Ur Amphetamines Screen Not Detected U Benzodiazepines Scrn Not Detected Urine Cocaine Screen Not Detected U Marijuana (THC) Screen Not Detected Blood Type O Positive Antibody Screen NEGATIVE Crossmatch See Detail 03/27/21 03/28/21 16:10 06:20 MCV 97.1 MCH 32.0 MCHC 32.9 RDW 17.2 H Plt Count 83 L MPV 9.9 Immature Gran % (Auto) 1.1 H Neut % (Auto) 71.4 Lymph % (Auto) 18.8 L Kane % (Auto) 8.2 Eos % (Auto) 0.4 Baso % (Auto) 0.1 Lymph # (Auto) 1.6 Kane # (Auto) 0.7 Eos # (Auto) 0.0 Baso # (Auto) 0.0 Abs Immat Gran (auto) 0.09 H Absolute Neuts (auto) 5.9 Absolute Nucleated RBC 0.000 Nucleated RBC % (auto) 0.0 POC Glucose 134 H Stool Occult Blood Urine Opiates Screen Urine Fentanyl Screen Ur Barbiturates Screen Ur Phencyclidine Scrn Ur Amphetamines Screen U Benzodiazepines Scrn Urine Cocaine Screen U Marijuana (THC) Screen Blood Type Antibody Screen Crossmatch Assessment and Plan (1) Upper GI bleed: Status: Acute Assessment and Plan: 41yo M with decompensated EtOH cirrhosis admitted with anemia after syncopal episode, developed upper GI bleed and now hemorrhagic shock # upper GI bleed, likely variceal # hemorrhagic shock # acute blood loss anemia # coagulopathy # thrombocytopenia - will transfer to ICU; discussed with Dr Zapien - NPO for urgent EGD today; discussed with Dr Olmos - in the meanwhile, will give 3u pRBCs, 3u FFP, 1u platelets - check fibrinogen + INR stat; if low FBG, will give cryoprecipitate - give octreotide 50 mcg IV then start gtt 50 mcg/hr - continue IV PPI - give ceftriaxone for SBP prophylaxis # decompensated cirrhosis with ascites - EtOH cessation - hold spironolactone due to hypotension - check ammonia level # R iliac fx - nonoperative per Orthopedics. eventual PT evaluation # history of lytic humerus lesion - negative skeletal survey, seen by Dr Martinez, no further testing # tobacco abuse - NRT # VTE ppx - SCDs Quality Stroke Does the patient have a stroke diagnosis?: No VTE Prior VTE?: No VTE Risk Level:: Medical - low VTE Device Contraindication: N/A - Device Ordered VTE Drug Contraindication: Treatment Not Indicated
[2021-03-28] MEDS: Octreotide Acetate 500 MCG in 0.9 % Sodium Chloride 500 ML 50.1 MCG IVCONT ×2 (08:43→17:18)
[2021-03-28 08:47] LABS: Fibrinogen 236 MG/DL (259-690); INTERNATIONAL NORM RATIO 1.9 (0.9-1.1); Prothrombin Time 21.7 SEC (9.9-13.0)
--- NOTE | 2021-03-28 08:49 | PC.NURSE ---
Octriotide drip started and report given to Conchis in ICU. BP trending up at this time.
[2021-03-28 08:59] LABS: Ammonia 34 umol/L (13-55)
--- NOTE | 2021-03-28 09:32 | PC.NURSE ---
Addendum entered by Conchis Man RN 03/28/21 18:34: Patient now voiding without difficulty. Void 350 ml concentrated urine. Addendum entered by Conchis Man RN 03/28/21 18:22: Patient arrived back to the unit around 1200 drowsy but easily arousable. No changes made to drips, Remains on Phenlyephrine and Sandostatin. VSS. Diet advanced to clear liquids per . Patient had large, black, tarry, liquid stool x 2. Patient voided 400 ml of urine but reports difficulty urinating. Bladder scan for 450 ml. MD made aware, ok to monitor for now per MD. 1200 repeat H&H 7.0/21.1. An additional unit of RBC ordered and given. H&H repeat scheduled for 1900. Patient's SO, Jewel, at bedside and update given. Addendum entered by Conchis Man RN 03/28/21 11:30: Patient received a total of 3 units RBC, 3 units FFPs, and 1 unit of platelets. Patient tolerated well, LS clear. Started on Phenylephrine drip at 0.5 mcg/kg/min, BP improved to 110/52 from 87/46. Other vitals remained stable. Bed side EKG showed NSR. at bedside for preop assessment. Patient reported 10/10 right hip pain. 2mg IV morphine given per MD. Report given to Preop RN/anesthesiologist, aware of current drips, pain medication given, and most recent vital signs. Health status update given to patient's father/primary contact, Adria Alvarenga ([phone]) via telephone. Made aware of upper endo plans and recovery in ICU. Original Note: Patient6 [place] [facility] Sandostatin drip ruining at 50 mgc/hr and NS at 100 ml/hr. Already received 1 unit RBC on [facility] per RN. Assumed care at 0915. Patient drowsy but oriented x3. VS: 98.1 orally, HR 98, RR 8, BP 87/46, 97% RA. Has been NPO. LS clear. BS x4. 18G in LAC and 20G in right lower arm patent. Placed 18G to RAC. On arrival to unit, second unit RBC and first unit of FFP started. Platelets ordered, waiting for arrival. Third unit of RBCs being ordered. Patient tolerating transfusions well. at bedside for assessment and Echo.
[2021-03-28] MEDS: Phenylephrine HCL 20 MG in 0.9 % Sodium Chloride 250 ML 28.27 MG IVCONT (10:21)
--- NOTE | 2021-03-28 11:06 | HO.ANESPROP2 ---
HPI - Anesthesia Eval Consult details Narrative: upper GI bleeding, acute posthemmorhagic anemia PMFSH Active Problems Active Problems: All Active Problems (Updated 03/28/21 @ 08:39 by Abbie Leiva MD) Upper GI bleed (Acute) Lytic bone lesions on xray (Acute) Episode of syncope (Acute) Closed fracture of iliac wing of pelvis (Acute) Alcoholic liver disease (Acute) Sepsis (Acute) Polyclonal hypergammaglobulinemia (Acute) Past Medical History Medical History (Updated 03/28/21 @ 08:39 by Abbie Leiva MD) Abnormal x-ray of humerus Alcohol abuse Ascites Hyponatremia Malnutrition related to chronic disease No known health problems Sarcopenia Upper GI bleed Family History Family history of problems with anesthesia: No Surgical History Surgical History H/O wrist surgery History of Problems with Anesthesia: No Social History Social History Household Members: None Household Members Other:: girlfriend Housing: Apartment Do you presently have visiting nurse or other home services: No Alcohol intake: former Patient Tobacco Use Status: Current everyday Tobacco user Tobacco use type: Cigarette Cigarette Packs Per Day: 1 Cigarettes Per Day: 15 Years Smoked: 20 Smoked in Last 30 Days: Yes Patient Interested in Nicotine Replacement: Yes Patient Given Instructions on How to Stop Smoking: No Second Hand Smoke Exposure: Yes Currently Displaying Signs/Symptoms of Drug Intoxication Withdrawal: No Have you been hit, kicked, punched, or otherwise hurt by someone within the past year? If so, by whom?: No Do you feel safe in your current relationship?: Yes Is there a partner from a previous relationship who is making you feel unsafe now?: No Are you made to feel afraid or neglected: No Spiritual Healthcare Practices: none Denominational Healthcare Practices: none Cultural Healthcare Practices: none Advance Directives: No Advance Directives Information Provided: No Do you have thoughts of harming others: None Do you have a plan to hurt others: No Plan Recently lost weight without trying: No Nutrition Risks: No Nutritional Risk Poor oral hygiene: No service: No Current occupational status: employed Meds Allergies Allergy/AdvReac Type Severity Reaction Status Date / Time No Known Allergies Allergy Verified 09/05/20 11:19 Active Medications: Current Medications Sodium Chloride (Ns) 1,000 mls @ 100 mls/hr IVCONT .Q10H [facility] Last Admin: 03/28/21 02:01 Dose: 100 mls/hr Documented by: Octreotide Acetate 500 mcg/ (Sodium Chloride) 501 mls @ 50.1 mls/hr IVCONT .Q10H ROBERT Last Admin: 03/28/21 08:43 Dose: 50 mcg/hr, 50.1 mls/hr Documented by: Ceftriaxone Sodium 1 gm/ (Sodium Chloride) 50 mls @ 100 mls/hr IV Q24H ROBERT Phenylephrine HCl 20 mg/ (Sodium Chloride) 252 mls @ 0 mls/hr IVCONT .Q0M [facility]; Protocol Last Admin: 03/28/21 10:21 Dose: 0.5 mcg/kg/min, 28.27 mls/hr Documented by: Melatonin (Melatonin 3 Mg Tablet) 6 mg PO BEDTIME PRN PRN Reason: Insomnia Morphine Sulfate (Morphine Sulfate 2 Mg/Ml Cartridge) 2 mg IVPUSH Q6H PRN; Protocol PRN Reason: Pain, Severe (Pain Scale 7-10) Last Admin: 03/28/21 06:43 Dose: 2 mg Documented by: Nicotine (Nicotine 21 Mg Patch.Td24) 21 mg TRANSDERMA DAILY [facility] Last Admin: 03/27/21 20:59 Dose: Not Given Documented by: Ondansetron HCl (Ondansetron Hcl 4 Mg/2 Ml Vial) 4 mg IVPUSH Q8H PRN PRN Reason: Nausea and Vomiting Last Admin: 03/28/21 04:07 Dose: 4 mg Documented by: Oxycodone HCl (Oxycodone Hcl Immed Release 5 Mg Tablet) 5 mg PO Q6H PRN PRN Reason: Pain, Severe (Pain Scale 7-10) Last Admin: 03/27/21 20:54 Dose: 5 mg Documented by: Pantoprazole Sodium (Pantoprazole Sodium 40 Mg/10 Ml Vial) 40 mg IVPUSH BID@0630,1630 [facility] Last Admin: 03/28/21 05:44 Dose: 40 mg Documented by: Phytonadione (Phytonadione (Vit K1) Oral 10 Mg/Ml Ampul) 10 mg PO DAILY [facility] Stop: 03/29/21 09:01 Last Admin: 03/28/21 10:26 Dose: Not Given Documented by: Sodium Chloride (0.9 % Sodium Chloride Flush 3 Ml Syringe) 3 ml IVFLUSH QSHIFT ROBERT Last Admin: 03/28/21 08:30 Dose: 3 ml Documented by: Exam Exam Date and Time: March 28, 2021 1106 Height,Weight and Vital Signs: Height 5 ft 9 in Weight 74.8 kg Last Vital Signs Temp 98.7 F 03/28/21 10:53 Pulse 83 03/28/21 10:53 Resp 14 03/28/21 10:53 BP 100/54 L 03/28/21 10:53 Pulse Ox 99 03/28/21 10:00 Pertinent Lab Results Pertinent Lab Results: Laboratory Tests 03/27/21 03/27/21 03/27/21 05:35 05:35 05:35 WBC 6.6 RBC 2.63 L D Hgb 8.6 L D Hct 25.2 L D MCV 95.8 MCH 32.7 MCHC 34.1 RDW 16.1 H Plt Count 78 L MPV 10.7 Immature Gran % (Auto) 0.8 H Neut % (Auto) 57.8 Lymph % (Auto) 26.5 Addison % (Auto) 10.6 Eos % (Auto) 3.8 Baso % (Auto) 0.5 Lymph # (Auto) 1.8 Addison # (Auto) 0.7 Eos # (Auto) 0.3 Baso # (Auto) 0.0 Abs Immat Gran (auto) 0.05 H Absolute Neuts (auto) 3.8 Absolute Nucleated RBC 0.000 Nucleated RBC % (auto) 0.0 Smear Tech's Comments VERIFIED PT 19.2 H INR 1.7 H APTT 36.0 Fibrinogen D-Dimer 5600 Sodium 135 Potassium 4.1 Chloride 103 Carbon Dioxide 25 Anion Gap 11 L BUN 23 H D Creatinine 0.88 Estim Creat Clear Calc 112.7 Estimated GFR > 60 POC Glucose Random Glucose 114 Calcium 8.5 D Total Bilirubin 3.1 H AST 35 ALT 15 Alkaline Phosphatase 116 D Ammonia Troponin I High Sens Total Protein 5.5 L D Albumin 2.7 L D Stool Occult Blood Urine Opiates Screen Urine Fentanyl Screen Ur Barbiturates Screen Ur Phencyclidine Scrn Ur Amphetamines Screen U Benzodiazepines Scrn Urine Cocaine Screen U Marijuana (THC) Screen Ethyl Alcohol COVID-19 ([facility]) COVID-19 Clin Com Blood Type Antibody Screen Crossmatch 03/27/21 03/27/21 03/27/21 05:35 05:35 06:50 WBC RBC Hgb Hct MCV MCH MCHC RDW Plt Count MPV Immature Gran % (Auto) Neut % (Auto) Lymph % (Auto) Addison % (Auto) Eos % (Auto) Baso % (Auto) Lymph # (Auto) Addison # (Auto) Eos # (Auto) Baso # (Auto) Abs Immat Gran (auto) Absolute Neuts (auto) Absolute Nucleated RBC Nucleated RBC % (auto) Smear Tech's Comments PT INR APTT Fibrinogen D-Dimer Sodium Potassium Chloride Carbon Dioxide Anion Gap BUN Creatinine Estim Creat Clear Calc Estimated GFR POC Glucose Random Glucose Calcium Total Bilirubin AST ALT Alkaline Phosphatase Ammonia Troponin I High Sens < 3.5 Total Protein Albumin Stool Occult Blood Urine Opiates Screen Urine Fentanyl Screen Ur Barbiturates Screen Ur Phencyclidine Scrn Ur Amphetamines Screen U Benzodiazepines Scrn Urine Cocaine Screen U Marijuana (THC) Screen Ethyl Alcohol < 10 COVID-19 ([facility]) COVID-[employer] Com Blood Type O Positive Antibody Screen NEGATIVE Crossmatch See Detail 03/27/21 03/27/21 03/27/21 06:51 08:25 08:44 WBC RBC Hgb 7.9 L Hct 23.1 L MCV MCH MCHC RDW Plt Count MPV Immature Gran % (Auto) Neut % (Auto) Lymph % (Auto) Addison % (Auto) Eos % (Auto) Baso % (Auto) Lymph # (Auto) Addison # (Auto) Eos # (Auto) Baso # (Auto) Abs Immat Gran (auto) Absolute Neuts (auto) Absolute Nucleated RBC Nucleated RBC % (auto) Smear Tech's Comments PT INR APTT Fibrinogen D-Dimer Sodium Potassium Chloride Carbon Dioxide Anion Gap BUN Creatinine Estim Creat Clear Calc Estimated GFR POC Glucose Random Glucose Calcium Total Bilirubin AST ALT Alkaline Phosphatase Ammonia Troponin I High Sens Total Protein Albumin Stool Occult Blood NEGATIVE Urine Opiates Screen Urine Fentanyl Screen Ur Barbiturates Screen Ur Phencyclidine Scrn Ur Amphetamines Screen U Benzodiazepines Scrn Urine Cocaine Screen U Marijuana (THC) Screen Ethyl Alcohol COVID-19 ([facility]) Negative COVID-[employer] See Note Blood Type Antibody Screen Crossmatch 03/27/21 03/27/21 03/28/21 10:00 16:10 06:20 WBC 8.3 RBC 1.75 L D Hgb 5.6 L* D Hct 17.0 L* D MCV 97.1 MCH 32.0 MCHC 32.9 RDW 17.2 H Plt Count 83 L MPV 9.9 Immature Gran % (Auto) 1.1 H Neut % (Auto) 71.4 Lymph % (Auto) 18.8 L Addison % (Auto) 8.2 Eos % (Auto) 0.4 Baso % (Auto) 0.1 Lymph # (Auto) 1.6 Addison # (Auto) 0.7 Eos # (Auto) 0.0 Baso # (Auto) 0.0 Abs Immat Gran (auto) 0.09 H Absolute Neuts (auto) 5.9 Absolute Nucleated RBC 0.000 Nucleated RBC % (auto) 0.0 Smear Tech's Comments PT INR APTT Fibrinogen D-Dimer Sodium Potassium Chloride Carbon Dioxide Anion Gap BUN Creatinine Estim Creat Clear Calc Estimated GFR POC Glucose 134 H Random Glucose Calcium Total Bilirubin AST ALT Alkaline Phosphatase Ammonia Troponin I High Sens Total Protein Albumin Stool Occult Blood Urine Opiates Screen Not Detected Urine Fentanyl Screen Not Detected Ur Barbiturates Screen Not Detected Ur Phencyclidine Scrn Not Detected Ur Amphetamines Screen Not Detected U Benzodiazepines Scrn Not Detected Urine Cocaine Screen Not Detected U Marijuana (THC) Screen Not Detected Ethyl Alcohol COVID-19 ([facility]) COVID-19 Clin Com Blood Type Antibody Screen Crossmatch 03/28/21 03/28/21 08:33 08:33 WBC RBC Hgb Hct MCV MCH MCHC RDW Plt Count MPV Immature Gran % (Auto) Neut % (Auto) Lymph % (Auto) Addison % (Auto) Eos % (Auto) Baso % (Auto) Lymph # (Auto) Addison # (Auto) Eos # (Auto) Baso # (Auto) Abs Immat Gran (auto) Absolute Neuts (auto) Absolute Nucleated RBC Nucleated RBC % (auto) Smear Tech's Comments PT 21.7 H INR 1.9 H APTT Fibrinogen 236 L D-Dimer Sodium Potassium Chloride Carbon Dioxide Anion Gap BUN Creatinine Estim Creat Clear Calc Estimated GFR POC Glucose Random Glucose Calcium Total Bilirubin AST ALT Alkaline Phosphatase Ammonia 34 Troponin I High Sens Total Protein Albumin Stool Occult Blood Urine Opiates Screen Urine Fentanyl Screen Ur Barbiturates Screen Ur Phencyclidine Scrn Ur Amphetamines Screen U Benzodiazepines Scrn Urine Cocaine Screen U Marijuana (THC) Screen Ethyl Alcohol COVID-19 ([facility]) COVID-19 Clin Com Blood Type Antibody Screen Crossmatch Airway Mallampati Class: II TM Dist: >3cm Neck ROM: Full Heart: RRR Lungs: CTA Assessment and Plan Assessment Anesthesia Assessment: Anesthesia Plan Discussed and Chart Reviewed Final Anesthetic Review Family History of Problems with Anesthesia: No History of Problems with Anesthesia: No NPO: Yes ASA Class: IV and Emergency Final Preanesthetic Review: No Changes in Pt Med Stat, Meds/Allgs Chart Reviewed, Consent Obtained/Reviewed and Anes Risks/Benef Reviewed Patient Risk: High Procedure Risk: Low Anesthetic Plan Anesthetic Plan: MAC: Disposition: Inp. Admit - ICU
[2021-03-28 12:16] LABS: Hematocrit 21.1 % (42-52)
--- NOTE | 2021-03-28 12:26 | CONS_ITS ---
DATE OF SERVICE: 03/28/2021 REFERRING PHYSICIAN: Abbie Leiva MD REASON FOR CONSULTATION: Upper GI bleeding. HISTORY OF PRESENT ILLNESS: The patient is a 41-year-old man, who was admitted to the hospital yesterday after a syncopal episode at home, from which he sustained a pelvic fracture. He was noted on admission to be anemic and admitted to the hospital. He has a history of alcoholic liver disease with cirrhosis and ascites, but has never had upper GI bleeding. This morning, he vomited approximately 500 mL of blood and had melena. His hematocrit this morning was 17, and he was transferred to the ICU, where he has received blood products including packed red blood cells, fresh frozen plasma, and platelets. He was hypotensive and tachycardic this morning, but his vital signs have stabilized after fluid and blood resuscitation. He denies a history of peptic ulcer disease. He does not take NSAIDs, and states he has not had any alcohol to drink since September 04 of this year. He follows with Dr. Buenrostro. PAST MEDICAL HISTORY: 1. Alcoholic liver disease as above. 2. Pelvic fracture. 3. Ascites. 4. Hyponatremia. 5. Wrist fracture. CURRENT MEDICATIONS: Current medication list is reviewed in the chart. ALLERGIES: THERE ARE NONE REPORTED. FAMILY HISTORY: This is reviewed with the patient is noncontributory. SOCIAL HISTORY: He smokes less than 1 pack per day. Alcohol use is as above. He denies this since September. REVIEW OF SYSTEMS: SKIN: No pruritus. HEENT: Negative. CARDIOPULMONARY: No shortness of breath or chest pain. GASTROINTESTINAL: As above. GENITOURINARY: Negative. NEUROPSYCHIATRIC: Negative. PHYSICAL EXAMINATION: GENERAL: A pleasant male, lying in bed, complaining of pain in his hip. VITAL SIGNS: Stable. SKIN: Anicteric. HEENT: No scleral icterus. NECK: Without lymphadenopathy or thyromegaly. LUNGS: Clear. HEART: Regular rate and rhythm. S1 and S2. No murmur. ABDOMEN: Soft. There is some mild tenderness to deep palpation diffusely, but no guarding or rebound. EXTREMITIES: Without edema. LABORATORY DATA: White blood cell count of 8.3, hematocrit 17 prior to blood transfusion, and platelet count 83. INR 1.9. Liver function tests are elevated with a total bilirubin of 3, AST of 50, and an ALT of 20. IMPRESSION: Upper gastrointestinal bleeding. The differential diagnosis for this includes peptic ulcer disease, portal hypertensive gastropathy, erosive esophagitis, and esophageal varices. I have discussed upper endoscopy with him including risks and benefits of the procedure. He understands these and agrees to proceed. This will be done later this morning. In the meantime, I agree with treating him supportively with blood products, octreotide and ppi and monitoring his hematocrit. Thank you for asking me to see him. I will follow him in the hospital with you. MD WILIAM Shell/ROMAINE / [id number] MTDJose
[2021-03-28 12:37] LABS: Alanine Aminotransferase 17 U/L (0-40); Albumin Level 2.5 g/dL (3.5-5.0); Alkaline Phosphatase 69 U/L (39-117); Anion Gap 12 (12-20); Aspartate Amino Transferase 43 U/L (5-37); Bilirubin Total 3.1 mg/dL (0.0-1.0); Blood Urea Nitrogen 25 mg/dL (9-16); Calcium 7.5 mg/dL (8.4-10.2); Carbon Dioxide 19 mmol/L (22-29); Chloride 111 mmol/L (96-108); Creatinine Clr Calc Pharmacy 143.7; Estimated Glomerular Filt Rate > 60; Glucose Random 133 mg/dL (60-115); Potassium 5.3 mmol/L (3.3-5.1); Sodium 137 mmol/L (135-145); Total Protein 4.7 g/dL (6.5-8.0)
[2021-03-28] MEDS: Nicotine 21 MG PATCH.TD24 TRANSDERMA (12:43)
[2021-03-28] MEDS: cefTRIAXone sodium 1 GM in 0.9 % Sodium Chloride 50 ML IV (12:43)
--- NOTE | 2021-03-28 13:11 | PM.OP ---
Brief Operative Note Date of Service: 04/01/21 Pre-op diagnosis: GI Bleed Post-op diagnosis: same Procedure: egd with banding of esophageal varices Surgeon: Mello Olmos Anesthesia: MAC Was an Soda Column Operator used for this Procedure?: No Estimated blood loss (mL): 0 Pathology: none sent Condition: stable Disposition: ICU
--- NOTE | 2021-03-28 13:30 | OP_ITS ---
SURGEON: Mello Olmos MD INDICATIONS: Upper GI bleeding. PREOPERATIVE DIAGNOSIS: POSTOPERATIVE DIAGNOSIS: PROCEDURE PERFORMED: Upper endoscopy with banding of esophageal varices. ESTIMATED BLOOD LOSS: COMPLICATIONS: ANESTHESIA: Monitored anesthesia care. ASSISTANTS: SPECIMENS: DESCRIPTION OF PROCEDURE: History and physical performed. The risks and benefits of the procedure were explained to the patient and informed consent was obtained. The patient was placed in the left lateral decubitus position. The Olympus video gastroscope was introduced into the esophagus, stomach, and duodenum. Examination was performed. The scope was removed. He tolerated the procedure well and was taken to recovery area in stable condition. FINDINGS: Esophagus: There were 3 chains of grade 2-3 varices with no active bleeding extending from the EG junction at 40 cm to about 28 cm. Red patricia markings were present. Stomach: The stomach showed a large amount of clotted blood, at least 500 mL, which was present in the dependent portion of the fundus and could not be suctioned. This limited the examination of the stomach. No gastric varices were seen. No active bleeding site was identified in the stomach. Changes of portal hypertensive gastropathy were present throughout the body of the stomach. Duodenum: The bulb and second portion were normal. The scope was removed from the patient and the banding attachment was placed. A total of 7 bands were deployed over the esophageal varices extending from the EG junction up to about 35 cm. There was no active bleeding at the termination of the procedure. IMPRESSION: Esophageal varices, banded. RECOMMENDATIONS: 1. Continue octreotide. 2. Clear liquids may be started. 3. Follow hemoglobin and hematocrit. 4. Repeat EGD if continued bleeding, as examination of the stomach was limited. MD WILIAM Shell/ROMAINE / [id number] [facility] MEDICAL CENTERJose
--- NOTE | 2021-03-28 13:56 | MHC.CM.PN ---
Attempted to meet with pt in ICU after EGD: pt groggy and somewhat sedated: DX: pelvic fx: GIB with esoph variciel banding call placed to pt's s.o. Jewel with whom he resides: per Jewel, pt is independent with all care needs - works, has no services or barriers to self care. Discussed possible services needed following INPT stay: pt is not vaccinated for COVID. Explained that this could be a barrier to placement. No HCP on file: will revisit with pt once his is better cleared. Will await PT eval for determination of d/c needs/wt bearing status If d/c to home, Aerin or family would be able to transport
[2021-03-28] MEDS: Phenylephrine HCL 20 MG in 0.9 % Sodium Chloride 250 ML 84.82 MG IVCONT (15:11)
--- NOTE | 2021-03-28 15:27 | P.CONCC_ITS ---
History of Present Illness Data of Consult Service Date: 03/28/21 Requesting physician: Abbie Leiva Primary Care Provider: Adrian Oneal MD HPI Reason for consult: Acute GI blood loss anemia/hypotension 41-year-old male with alcoholic cirrhosis but 6 months of abstinence from that standpoint but he already had evidence of both hepatic failure and portal hypertension with previous admission 6 months ago due to ascites but there was no evidence of spontaneous bacterial peritonitis and this time he he comes in because of syncope and then later manifested with hematemesis and hematochezia so obviously a GI bleed and with blood pressure falling in the 80s and basically no progress being made on his hemoglobin despite transfusion we stepped up the transfusion and knowing that he has a coagulopathy from his hepatic insufficiency we gave him 3 units of fresh frozen plasma all told he had received 4-5 units of red blood cells and we gave him 1 package of platelets because he started out at about 79,000 and was receiving 4 5 units of red cells in the hope of at least medically contributing to shutting off the bleeding and his blood pressure stabilized but ultimately did require Peter-Synephrine to bring his pressure finally from of above 95 into the low 100s because he was going to receive sedation for the OR in order to have his endoscopy He was not in acute distress and he was warm well perfused no longer orthostatic and abdomen is nontender and I mentioned this in relation to the trauma that caused a fracture of his iliac crest No other significant to current or past medical history Review of Systems Review of Systems: No constitutional complaints definitely no fever no abdominal discomfort rest of the 10 point review of systems negative PMFSH Past Medical History Medical History (Updated 03/28/21 @ 15:35 by Zhao Zapien MD) Abnormal x-ray of humerus Alcohol abuse Ascites Coagulopathy Hyponatremia Malnutrition related to chronic disease No known health problems Portal venous hypertension Sarcopenia Thrombocytopenia due to hypersplenism Upper GI bleed Surgical History Surgical History H/O wrist surgery Social History Social History Household Members: None Household Members Other:: girlfriend Housing: Apartment Do you presently have visiting nurse or other home services: No Alcohol intake: former Patient Tobacco Use Status: Current everyday Tobacco user Tobacco use type: Cigarette Cigarette Packs Per Day: 1 Cigarettes Per Day: 15 Years Smoked: 20 Smoked in Last 30 Days: Yes Patient Interested in Nicotine Replacement: Yes Patient Given Instructions on How to Stop Smoking: No Second Hand Smoke Exposure: Yes Currently Displaying Signs/Symptoms of Drug Intoxication Withdrawal: No Have you been hit, kicked, punched, or otherwise hurt by someone within the past year? If so, by whom?: No Do you feel safe in your current relationship?: Yes Is there a partner from a previous relationship who is making you feel unsafe now?: No Are you made to feel afraid or neglected: No Spiritual Healthcare Practices: none Spiritism Healthcare Practices: none Cultural Healthcare Practices: none Advance Directives: No Advance Directives Information Provided: No Do you have thoughts of harming others: None Do you have a plan to hurt others: No Plan Recently lost weight without trying: No Nutrition Risks: No Nutritional Risk Poor oral hygiene: No service: No Current occupational status: employed Meds Allergies Allergy/AdvReac Type Severity Reaction Status Date / Time No Known Allergies Allergy Verified 09/05/20 11:19 Active Medications: Current Medications Sodium Chloride (Ns) 1,000 mls @ 100 mls/hr IVCONT .Q10H [facility] Last Admin: 03/28/21 12:01 Dose: 100 mls/hr Documented by: Octreotide Acetate 500 mcg/ (Sodium Chloride) 501 mls @ 50.1 mls/hr IVCONT .Q10H [facility] Last Admin: 03/28/21 08:43 Dose: 50 mcg/hr, 50.1 mls/hr Documented by: Ceftriaxone Sodium 1 gm/ (Sodium Chloride) 50 mls @ 100 mls/hr IV Q24H [facility] Last Infusion: 03/28/21 14:06 Dose: Infused Documented by: Phenylephrine HCl 20 mg/ (Sodium Chloride) 252 mls @ 0 mls/hr IVCONT .Q0M [facility]; Protocol Last Admin: 03/28/21 15:11 Dose: 1.5 mcg/kg/min, 84.82 mls/hr Documented by: Melatonin (Melatonin 3 Mg Tablet) 6 mg PO BEDTIME PRN PRN Reason: Insomnia Morphine Sulfate (Morphine Sulfate 2 Mg/Ml Cartridge) 2 mg IVPUSH Q4H PRN; Protocol PRN Reason: Pain, Severe (Pain Scale 7-10) Nicotine (Nicotine 21 Mg Patch.Td24) 21 mg TRANSDERMA DAILY [facility] Last Admin: 03/28/21 12:43 Dose: 21 mg Documented by: Ondansetron HCl (Ondansetron Hcl 4 Mg/2 Ml Vial) 4 mg IVPUSH Q8H PRN PRN Reason: Nausea and Vomiting Last Admin: 03/28/21 04:07 Dose: 4 mg Documented by: Oxycodone HCl (Oxycodone Hcl Immed Release 5 Mg Tablet) 5 mg PO Q6H PRN PRN Reason: Pain, Severe (Pain Scale 7-10) Last Admin: 03/27/21 20:54 Dose: 5 mg Documented by: Pantoprazole Sodium (Pantoprazole Sodium 40 Mg/10 Ml Vial) 40 mg IVPUSH BID@0630,1630 [facility] Last Admin: 03/28/21 05:44 Dose: 40 mg Documented by: Phytonadione (Phytonadione (Vit K1) Oral 10 Mg/Ml Ampul) 10 mg PO DAILY [facility] Stop: 03/29/21 09:01 Last Admin: 03/28/21 10:26 Dose: Not Given Documented by: Sodium Chloride (0.9 % Sodium Chloride Flush 3 Ml Syringe) 3 ml IVFLUSH QSHIFT [facility] Last Admin: 03/28/21 08:30 Dose: 3 ml Documented by: Physical Exam Vital Signs: Vital Signs: Last Vital Signs Temp 98.3 F 03/28/21 13:57 Pulse 84 03/28/21 15:00 Resp 13 03/28/21 15:00 BP 113/66 03/28/21 15:00 Pulse Ox 97 03/28/21 15:00 Body Mass Index 24.3 Awake alert and neurologically nonfocal Skin color and skin quality intact Abdomen soft nontender Chest clear bilaterally with no adventitious sounds Cardiac exam performed by echo with normal LV and RV systolic function and reserve with no pericardial disease and no primary valve disease and still had a narrow inferior vena cava Results Labs CBC & Chem 7: 03/28/21 12:01 03/28/21 12:01 Labs: Short CBC 03/28/21 03/28/21 Range/Units 06:20 12:01 WBC 8.3 (4.8-10.8) X10*3/uL Hgb 5.6 L* D 7.0 L* D (14.0-18.0) g/dl Hct 17.0 L* D 21.1 L D (42-52) % Plt Count 83 L (160-400) X10*3/uL BMP 03/28/21 12:01 Sodium 137 Potassium 5.3 H D Chloride 111 H Carbon Dioxide 19 L BUN 25 H Creatinine 0.69 Calcium 7.5 L D Liver Function 03/28/21 Range/Units 12:01 Total Bilirubin 3.1 H (0.0-1.0) mg/dL AST 43 H (5-37) U/L ALT 17 (0-40) U/L Alkaline Phosphatase 69 D (39-117) U/L Albumin 2.5 L (3.5-5.0) g/dL Assessment and Plan (1) Upper GI bleed: Status: Acute (2) Lytic bone lesions on xray: Status: Acute (3) Episode of syncope: Status: Acute (4) Closed fracture of iliac wing of pelvis: Status: Acute (5) Alcoholic liver disease: Status: Acute (6) Polyclonal hypergammaglobulinemia: Status: Acute (7) Anemia due to acute blood loss: Status: Acute (8) Thrombocytopenia due to hypersplenism: Status: Acute (9) Portal venous hypertension: Status: Acute (10) Esophageal varices with bleeding: Status: Acute (11) Coagulopathy: Status: Acute So we proceeded with a more aggressive transfusion including transfusion of fresh blood frozen plasma as well as platelets bleeding seemed to stabilize blood pressure exceeded 110 systolic and he subsequently went to the OR for endoscopy and a large clot was noted in the stomach no active bleeding was noted and he had multiple esophageal varices several of which were banded as the presumptive source
[2021-03-28] MEDS: Phenylephrine HCL 20 MG in 0.9 % Sodium Chloride 250 ML 56.55 MG IVCONT ×2 (18:30→22:56)
[2021-03-28 19:33] LABS: MANUAL DIFF FLAG NO
[2021-03-28 19:42] LABS: Basophils Absolute Auto 0.1 X10*3/uL (0.0-0.2); Basophils Percent Auto 0.6 % (0-2); Eosinophils Absolute Auto 0.3 X10*3/uL (0.0-0.4); Eosinophils Percent Auto 2.8 % (0-4); Hematocrit 23.8 % (42-52); Hemoglobin 8.3 g/dl (14.0-18.0); Imm Gran Abs Auto 0.13 X10*3/uL (0.00-0.03); Imm Gran Pct Auto 1.1 % (0.0-0.4); Lymphocytes Absolute Auto 2.2 X10*3/uL (1.2-4.9); Lymphocytes Percent Auto 19.2 % (20-40); Mean Corpuscular HGB Conc 34.9 g/dl (31.0-36.0); Mean Corpuscular Hemoglobin 31.7 pg (27.0-33.0); Mean Corpuscular Volume 90.8 fL (80-98); Mean Platelet Volume 10.5 fL (9.4-12.4); Monocytes Absolute Auto 1.4 X10*3/uL (0.1-1.2); Monocytes Percent Auto 12.2 % (2-11); Neutrophils Absolute Auto 7.3 X10*3/uL (2.0-8.3); Neutrophils Percent Auto 64.1 % (45-73); Platelet Count 81 X10*3/uL (160-400); Red Blood Count 2.62 X10*6/uL (4.60-5.80); Red Cell Distribution Width 17.4 % (11.0-16.0); White Blood Count 11.5 X10*3/uL (4.8-10.8)
[2021-03-28 20:48] LABS: Hematocrit 21.6 % (42-52); Hemoglobin 7.4 g/dl (14.0-18.0)
[2021-03-29] VITALS (33 sets, daily range): BP systolic 83–122; BP diastolic 39–76; PULSE 51–120; RESP 9–26; TEMP 36.5–37.2; O2SAT 89–98; BMI 28.5
[2021-03-29 01:54] LABS: Hematocrit 23.7 % (42-52); Hemoglobin 8.2 g/dl (14.0-18.0)
[2021-03-29] MEDS: Albumin Human 25 % 50 ML 100 ML IV (02:10)
[2021-03-29] MEDS: Octreotide Acetate 500 MCG in 0.9 % Sodium Chloride 500 ML 50.1 MCG IVCONT ×3 (03:21→22:00)
[2021-03-29] MEDS: Phenylephrine HCL 20 MG in 0.9 % Sodium Chloride 250 ML 56.55 MG IVCONT ×5 (03:25→21:11)
[2021-03-29] MEDS: Pantoprazole Sodium 40 MG/10 ML VIAL IVPUSH ×2 (05:10→16:30)
[2021-03-29] MEDS: Morphine Sulfate 2 MG/ML CARTRIDGE IVPUSH (05:10)
[2021-03-29 05:22] LABS: Eosinophils Absolute Auto 0.4 X10*3/uL (0.0-0.4); Eosinophils Percent Auto 5.1 % (0-4); PLT CLUMP 1; SCAN SMEAR FLAG 1
[2021-03-29 05:24] LABS: Basophils Percent Auto 0.4 % (0-2); Hematocrit 23.1 % (42-52); Hemoglobin 8.1 g/dl (14.0-18.0); Imm Gran Abs Auto 0.14 X10*3/uL (0.00-0.03); Imm Gran Pct Auto 1.7 % (0.0-0.4); Lymphocytes Absolute Auto 1.9 X10*3/uL (1.2-4.9); Lymphocytes Percent Auto 23.1 % (20-40); Mean Corpuscular HGB Conc 35.1 g/dl (31.0-36.0); Mean Corpuscular Hemoglobin 31.3 pg (27.0-33.0); Mean Corpuscular Volume 89.2 fL (80-98); Monocytes Absolute Auto 1.1 X10*3/uL (0.1-1.2); Monocytes Percent Auto 13.1 % (2-11); Neutrophils Absolute Auto 4.6 X10*3/uL (2.0-8.3); Neutrophils Percent Auto 56.6 % (45-73); Red Blood Count 2.59 X10*6/uL (4.60-5.80); Red Cell Distribution Width 16.6 % (11.0-16.0); White Blood Count 8.1 X10*3/uL (4.8-10.8)
[2021-03-29 05:25] LABS: MANUAL DIFF FLAG NO; Platelet Count 73 X10*3/uL (160-400)
[2021-03-29 05:27] LABS: INTERNATIONAL NORM RATIO 1.4 (0.9-1.1); Prothrombin Time 16.5 SEC (9.9-13.0)
[2021-03-29 05:30] LABS: Partial Thromboplastin Time 31.5 SEC (24.1-38.0)
[2021-03-29 05:49] LABS: Alanine Aminotransferase 18 U/L (0-40); Albumin Level 2.8 g/dL (3.5-5.0); Alkaline Phosphatase 74 U/L (39-117); Anion Gap 10 (12-20); Aspartate Amino Transferase 46 U/L (5-37); Bilirubin Direct 1.2 mg/dL (0.0-0.5); Bilirubin Total 3.7 mg/dL (0.0-1.0); Blood Urea Nitrogen 16 mg/dL (9-16); Calcium 7.4 mg/dL (8.4-10.2); Carbon Dioxide 24 mmol/L (22-29); Chloride 109 mmol/L (96-108); Creatinine Clr Calc Pharmacy 162.5; Estimated Glomerular Filt Rate > 60; Glucose Random 94 mg/dL (60-115); Magnesium 1.5 mg/dL (1.6-2.6); Potassium 3.8 mmol/L (3.3-5.1); Sodium 139 mmol/L (135-145)
[2021-03-29] MEDS: 0.9 % Sodium Chloride 1,000 ML 100 ML IVCONT (05:58)
[2021-03-29] MEDS: Calcium Gluconate/NaCl,Iso-Osm 2 GM/100 ML PLAST..BAG IV (08:12)
[2021-03-29] MEDS: Magnesium Sulfate/H2O 2 GM/50 ML PIGGYBACK IV (08:12)
[2021-03-29] MEDS: Albumin Human 25 % 100 ML IV ×3 (08:12→19:33)
[2021-03-29] MEDS: cefTRIAXone sodium 1 GM in 0.9 % Sodium Chloride 50 ML IV (08:13)
[2021-03-29] MEDS: Nicotine 21 MG PATCH.TD24 TRANSDERMA (08:25)
[2021-03-29] MEDS: Furosemide 20 MG/2 ML VIAL IVPUSH (08:28)
[2021-03-29] MEDS: Phytonadione (Vit K1) Oral 10 MG/ML AMPUL PO (09:10)
[2021-03-29] MEDS: Tranexamic Acid 1,000 MG in 0.9 % Sodium Chloride 250 ML 780 MG IV (09:40)
[2021-03-29] MEDS: fentaNYL citrate/PF 100 MCG/2 ML VIAL 50 MCG IVPUSH ×4 (10:33→23:34)
[2021-03-29] MEDS: Acetaminophen 325 MG TABLET 650 MG PO (10:33)
[2021-03-29 10:37] LABS: MANUAL DIFF FLAG NO
[2021-03-29 10:40] LABS: Basophils Absolute Auto 0.1 X10*3/uL (0.0-0.2); Basophils Percent Auto 0.6 % (0-2); Eosinophils Absolute Auto 0.3 X10*3/uL (0.0-0.4); Eosinophils Percent Auto 3.5 % (0-4); Hematocrit 24.1 % (42-52); Hemoglobin 8.2 g/dl (14.0-18.0); Imm Gran Abs Auto 0.18 X10*3/uL (0.00-0.03); Lymphocytes Absolute Auto 1.5 X10*3/uL (1.2-4.9); Lymphocytes Percent Auto 17.2 % (20-40); Mean Corpuscular Hemoglobin 30.9 pg (27.0-33.0); Mean Corpuscular Volume 90.9 fL (80-98); Mean Platelet Volume 9.8 fL (9.4-12.4); Monocytes Absolute Auto 0.5 X10*3/uL (0.1-1.2); Monocytes Percent Auto 5.3 % (2-11); Neutrophils Absolute Auto 6.3 X10*3/uL (2.0-8.3); Neutrophils Percent Auto 71.4 % (45-73); Red Blood Count 2.65 X10*6/uL (4.60-5.80); Red Cell Distribution Width 16.9 % (11.0-16.0); White Blood Count 8.8 X10*3/uL (4.8-10.8)
--- NOTE | 2021-03-29 10:42 | P.CDIC_ITS ---
CDI Concurrent Query Documentation Clarification: PHYSICIAN'S DOCUMENTATION REQUEST Date of Query: 03/29/21 1042 Patient Name: Adria Alvarenga Admit Date: 03/27/21 Dear Doctor, A review of the medical record indicates additional documentation may be needed. Please review below and update the documentation accordingly. Risk Factors/Clinical Indicators/Treatments PMH Malnutrition related to chronic disease. Total protein 4.7 Albumin 2.5 GI bleed, History of alcohol abuse. ASPEN Criteria* Acute Illness Chronic Illness Clinical Characteristic Non-Severe (2 or more criteria present) Severe (2 or more criteria present) Non-Severe (2 or more criteria present) Severe (2 or more criteria present) Energy Intake <75% for >7 days <=50% for >=5 days <75% for >=1 month <=75% for >=1 month Weight Loss 1 week 1 ? 2% >2% N/A N/A 1 month 5% >5% 5% >5% 3 months 7.5 % >7.5% 7.5% >7.5% 6 months N/A N/A 10% >10% 1 year N/A N/A 20% >20% Body Fat Mild Moderate Mild Severe Muscle Mass Mild Moderate Mild Severe Fluid Accumulation Mild Moderate to Severe Mild Severe Reduced Financial Accountant Strength N/A Measurably Reduced N/A Measurably Reduced *[facility] Hospitalist, 2017 To ensure the quality of the medical record, based on the above information and the recognized standard for [specify severity] malnutrition, could you please verify in your progress notes which of the following diagnoses best reflects the patient's nutritional status. * [Specify severity] malnutrition is/was present and/or not treating, rule out etc. * No nutritional deficiency * Other (please specify) * Unable to determine Use of terms such as suspected, likely, concern for, or probable (associated with a specific diagnosis that is being evaluated, monitored, or treated as if it exists) are acceptable and can be coded in the inpatient setting, when documented at the time of discharge. Thank you, Yamile Andrade [facility], CDIS Extension: [phone] Please use your independent medical judgment in providing your response. THIS QUERY IS PART OF THE PERMANENT MEDICAL RECORD Provider Response: Moderate Protein-Calorie Malnutrition
[2021-03-29 10:48] LABS: Platelet Count 72 X10*3/uL (160-400)
--- NOTE | 2021-03-29 11:00 | PC.NURSE ---
Plts 73 - 1 Unit plts obtained and completed at 0930 - VSS. Tranexamic Acid 1000mg ordered and completed at 1023. This RN at bedside to turn pump off and noticed patient tremulous, diaphoretic, complaining of lower back pain, HR 110's sinus. LS clear, no signs of edema, VSS - continued on pressor support. MD at bedside. Tylenol 650mg ordered and administered. ABX changed from Ceftriaxone to Cefapime. Morphine changed to Fentanyl q2h PRN. Patient reassessed 30 mins later and patient appeared comfortable, sleeping with eyes closed, no longer tremulous.
--- NOTE | 2021-03-29 11:01 | HO.POSTANES ---
Post Anesthesia Evaluation Post Anesthesia Evaluation Vital Signs: Vital Signs Temp Pulse Resp BP Pulse Ox 03/29/21 10:38 110/57 L 03/29/21 10:00 120 H 26 H 99/46 L 90 L 03/29/21 09:33 97.7 F 72 15 105/48 L 03/29/21 09:24 97.7 F 78 15 105/48 L 03/29/21 09:06 98.3 F 71 14 103/39 L 03/29/21 09:00 77 15 103/39 L 94 03/29/21 08:00 98.9 F 81 14 92/46 L 96 03/29/21 07:00 75 13 99/76 95 03/29/21 05:48 69 13 100/48 L 93 03/29/21 04:51 71 12 102/53 L 98 03/29/21 03:46 97.7 F 68 13 99/50 L 94 03/29/21 02:56 81 12 113/62 94 03/29/21 02:23 987.5 F H 74 12 122/70 03/29/21 02:09 98.2 F 70 14 111/51 L 03/29/21 01:53 98.4 F 75 12 115/62 03/29/21 01:47 74 10 L 115/62 91 L 03/29/21 00:46 73 13 108/59 L 90 L 03/29/21 00:03 75 17 119/70 03/29/21 00:02 98.5 F 77 12 110/63 03/28/21 23:58 98.9 F 74 13 115/62 92 03/28/21 23:47 100.9 F H 83 12 115/62 Anesthesia: Monitored Mental Status: Awake Pain Control: Satisfactory Nausea/Vomiting: None Hydration: Adequate Anesthesia-Related Issues: No Anes. Related Issues
[2021-03-29] MEDS: cefEPime HCl 2 GM in 0.9 % Sodium Chloride 50 ML IV ×2 (11:23→23:25)
--- NOTE | 2021-03-29 11:23 | P.PNCC_ITS ---
Subjective Subjective Date of Service: 03/29/21 Interval History: 41-year-old gentleman with underlying alcoholic cirrhosis with portal hypertension alcohol free for 6 months, admitted on 03/27/2021 after a syncopal episode provoking of fall resulting in iliac fracture, managed conservatively. Hospital course further complicated by acute upper GI bleed, now status post endoscopy with no active bleed identified, but with visualized gastric followed, now status post preventative variceal banding, still with hypotension requiring blood product and vasopressor support. Overnight with several maroon bowel movements. Continues on vasopressor support. Critical Care Time (minutes): 45 Physical Exam Vital Signs: Vital Signs: Last Vital Signs Temp 97.7 F 03/29/21 09:33 Pulse 120 H 03/29/21 10:00 Resp 26 H 03/29/21 10:00 BP 83/41 L 03/29/21 10:45 Pulse Ox 90 L 03/29/21 10:00 Body Mass Index 28.5 Const: General: no acute distress, alert and awake Eyes: Sclerae: sclerae normal EOM: EOMs intact bilaterally Neck: Neck: Yes no lymphadenopathy, Yes trachea midline and Yes supple Resp: Effort & Inspection: normal respiratory effort and no respiratory distress Auscultation: clear to auscultation bilaterally Cardio: Rate: regular rate Rhythm: regular rhythm Heart sounds: no gallops, no murmurs and no rubs GI: Palpation (GI): Soft to palpation and Other GI palpation findings present ( Nontender) Auscultation: normal bowel sounds Extrem: General: Yes no pedal edema, No clubbing and No cyanosis Objective Data Labs CBC & Chem 7: 03/29/21 10:26 03/29/21 05:03 Labs: Laboratory Results - last 24 hr 03/27/21 03/28/21 03/28/21 06:50 12:01 12:01 WBC RBC Hgb 7.0 L* D Hct 21.1 L D MCV MCH MCHC RDW Plt Count MPV Immature Gran % (Auto) Neut % (Auto) Lymph % (Auto) [place] % (Auto) Eos % (Auto) Baso % (Auto) Lymph # (Auto) [place] # (Auto) Eos # (Auto) Baso # (Auto) Abs Immat Gran (auto) Absolute Neuts (auto) Absolute Nucleated RBC Nucleated RBC % (auto) PT INR APTT Sodium 137 Potassium 5.3 H D Chloride 111 H Carbon Dioxide 19 L Anion Gap 12 BUN 25 H Creatinine 0.69 Estim Creat Clear Calc 143.7 Estimated GFR > 60 Random Glucose 133 H Calcium 7.5 L D Phosphorus Magnesium Total Bilirubin 3.1 H Direct Bilirubin AST 43 H ALT 17 Alkaline Phosphatase 69 D Total Protein 4.7 L Albumin 2.5 L Blood Type O Positive Antibody Screen NEGATIVE Crossmatch See Detail 03/28/21 03/28/21 03/28/21 19:25 19:25 20:36 WBC 11.5 H RBC 2.62 L D Hgb Cancelled 8.3 L 7.4 L Hct Cancelled 23.8 L 21.6 L MCV 90.8 D MCH 31.7 MCHC 34.9 RDW 17.4 H Plt Count 81 L MPV 10.5 Immature Gran % (Auto) 1.1 H Neut % (Auto) 64.1 Lymph % (Auto) 19.2 L [place] % (Auto) 12.2 H Eos % (Auto) 2.8 Baso % (Auto) 0.6 Lymph # (Auto) 2.2 [place] # (Auto) 1.4 H Eos # (Auto) 0.3 Baso # (Auto) 0.1 Abs Immat Gran (auto) 0.13 H Absolute Neuts (auto) 7.3 Absolute Nucleated RBC 0.000 Nucleated RBC % (auto) 0.0 PT INR APTT Sodium Potassium Chloride Carbon Dioxide Anion Gap BUN Creatinine Estim Creat Clear Calc Estimated GFR Random Glucose Calcium Phosphorus Magnesium Total Bilirubin Direct Bilirubin AST ALT Alkaline Phosphatase Total Protein Albumin Blood Type Antibody Screen Crossmatch 03/29/21 03/29/21 03/29/21 01:47 05:03 05:03 WBC 8.1 RBC 2.59 L Hgb 8.2 L 8.1 L Hct 23.7 L 23.1 L MCV 89.2 MCH 31.3 MCHC 35.1 RDW 16.6 H Plt Count 73 L MPV 10.0 Immature Gran % (Auto) 1.7 H Neut % (Auto) 56.6 Lymph % (Auto) 23.1 [place] % (Auto) 13.1 H Eos % (Auto) 5.1 H Baso % (Auto) 0.4 Lymph # (Auto) 1.9 [place] # (Auto) 1.1 Eos # (Auto) 0.4 Baso # (Auto) 0.0 Abs Immat Gran (auto) 0.14 H Absolute Neuts (auto) 4.6 Absolute Nucleated RBC 0.000 Nucleated RBC % (auto) 0.0 PT 16.5 H INR 1.4 H APTT 31.5 Sodium Potassium Chloride Carbon Dioxide Anion Gap BUN Creatinine Estim Creat Clear Calc Estimated GFR Random Glucose Calcium Phosphorus Magnesium Total Bilirubin Direct Bilirubin AST ALT Alkaline Phosphatase Total Protein Albumin Blood Type Antibody Screen Crossmatch 03/29/21 03/29/21 03/29/21 05:03 05:03 05:03 WBC Cancelled RBC Cancelled Hgb Cancelled Hct Cancelled MCV Cancelled MCH Cancelled MCHC Cancelled RDW Cancelled Plt Count Cancelled MPV Cancelled Immature Gran % (Auto) Cancelled Neut % (Auto) Cancelled Lymph % (Auto) Cancelled [place] % (Auto) Cancelled Eos % (Auto) Cancelled Baso % (Auto) Cancelled Lymph # (Auto) Cancelled [place] # (Auto) Cancelled Eos # (Auto) Cancelled Baso # (Auto) Cancelled Abs Immat Gran (auto) Cancelled Absolute Neuts (auto) Cancelled Absolute Nucleated RBC Cancelled Nucleated RBC % (auto) Cancelled PT INR APTT Sodium 139 Cancelled Potassium 3.8 D Cancelled Chloride 109 H Cancelled Carbon Dioxide 24 Cancelled Anion Gap 10 L Cancelled BUN 16 Cancelled Creatinine 0.61 Cancelled Estim Creat Clear Calc 162.5 Cancelled Estimated GFR > 60 Cancelled Random Glucose 94 Cancelled Calcium 7.4 L Cancelled Phosphorus 3.0 Magnesium 1.5 L Cancelled Total Bilirubin 3.7 H Cancelled Direct Bilirubin 1.2 H AST 46 H Cancelled ALT 18 Cancelled Alkaline Phosphatase 74 Cancelled Total Protein 5.0 L Cancelled Albumin 2.8 L Cancelled Blood Type Antibody Screen Crossmatch 03/29/21 03/29/21 05:03 10:26 WBC 8.8 RBC 2.65 L Hgb 8.2 L Hct 24.1 L MCV 90.9 MCH 30.9 MCHC 34.0 RDW 16.9 H Plt Count 72 L MPV 9.8 Immature Gran % (Auto) 2.0 H Neut % (Auto) 71.4 Lymph % (Auto) 17.2 L [place] % (Auto) 5.3 Eos % (Auto) 3.5 Baso % (Auto) 0.6 Lymph # (Auto) 1.5 [place] # (Auto) 0.5 Eos # (Auto) 0.3 Baso # (Auto) 0.1 Abs Immat Gran (auto) 0.18 H Absolute Neuts (auto) 6.3 Absolute Nucleated RBC 0.000 Nucleated RBC % (auto) 0.0 PT Cancelled INR Cancelled APTT Sodium Potassium Chloride Carbon Dioxide Anion Gap BUN Creatinine Estim Creat Clear Calc Estimated GFR Random Glucose Calcium Phosphorus Magnesium Total Bilirubin Direct Bilirubin AST ALT Alkaline Phosphatase Total Protein Albumin Blood Type Antibody Screen Crossmatch Quality Stroke Does the patient have a stroke diagnosis?: No VTE Prior VTE?: No VTE Risk Level:: Medical - low VTE Device Contraindication: N/A - Device Ordered VTE Drug Contraindication: Treatment Not Indicated Progress Note: A&P Assessment and plan (1) Esophageal varices with bleeding: Status: Acute Assessment and Plan: Assessment: 41-year-old gentleman with underlying alcoholic cirrhosis and portal hypertension admitted after a syncopal episode resulting in iliac fracture, managed conservatively, further complicated by upper GI bleed Plan: Neuro: No acute issues. Cardiac: Continue to titrate off vasopressor support as tolerat.ed Pulmonary: No acute issues. Renal: No acute issues. Endo: No acute issues. GI: Upper GI bleed on the background of liver cirrhosis and portal hypertension, status post upper endoscopy with variceal banding. Gastroenterology service care appreciated. Continue PPI and somatostatin. Underlying alcoholic cirrhosis with portal hypertension. ID: Empirically covered with cefepime. Heme/Onc: Still with GI blood loss. Continue to monitor hemoglobin level. Psych: No acute issues. Miscellaneous: No acute issues. Prophylaxis: Intermittent pneumatic compression Diet: Nothing by mouth Critical care time spent: 45 minutes (2) Coagulopathy: Status: Acute (3) Portal venous hypertension: Status: Acute (4) Upper GI bleed: Status: Acute (5) Closed fracture of iliac wing of pelvis: Status: Acute (6) Alcoholic liver disease: Status: Acute (7) Cirrhosis: Status: Acute
--- NOTE | 2021-03-29 11:34 | MHC.CLN ---
NUTRITION CURRENTLY ON CLEAR LIQUID DIET. ADDED ENSURE CLEAR TID TO PROVIDE 720 KCAL, 24 G PROTEIN.
[2021-03-29] MEDS: 0.9 % Sodium Chloride Flush 3 ML SYRINGE IVFLUSH (15:16)
[2021-03-29 18:16] LABS: MANUAL DIFF FLAG NO
[2021-03-29 18:19] LABS: Basophils Percent Auto 0.4 % (0-2); Eosinophils Absolute Auto 0.4 X10*3/uL (0.0-0.4); Eosinophils Percent Auto 4.4 % (0-4); Hematocrit 21.8 % (42-52); Hemoglobin 7.4 g/dl (14.0-18.0); Imm Gran Abs Auto 0.14 X10*3/uL (0.00-0.03); Imm Gran Pct Auto 1.8 % (0.0-0.4); Lymphocytes Absolute Auto 1.8 X10*3/uL (1.2-4.9); Lymphocytes Percent Auto 22.4 % (20-40); Mean Corpuscular HGB Conc 33.9 g/dl (31.0-36.0); Mean Corpuscular Hemoglobin 31.1 pg (27.0-33.0); Mean Corpuscular Volume 91.6 fL (80-98); Mean Platelet Volume 9.8 fL (9.4-12.4); Monocytes Absolute Auto 0.9 X10*3/uL (0.1-1.2); Monocytes Percent Auto 11.2 % (2-11); Neutrophils Absolute Auto 4.8 X10*3/uL (2.0-8.3); Neutrophils Percent Auto 59.8 % (45-73); Red Blood Count 2.38 X10*6/uL (4.60-5.80); Red Cell Distribution Width 17.2 % (11.0-16.0)
[2021-03-29 18:22] LABS: Platelet Count 62 X10*3/uL (160-400)
[2021-03-30] VITALS (29 sets, daily range): BP systolic 98–127; BP diastolic 49–72; PULSE 58–93; RESP 11–78; TEMP 37.1–38.3; O2SAT 90–97; BMI 28.4
[2021-03-30] MEDS: 0.9 % Sodium Chloride Flush 3 ML SYRINGE IVFLUSH ×4 (00:17→23:24)
[2021-03-30 00:21] LABS: Hemoglobin 7.2 g/dl (14.0-18.0); Mean Corpuscular HGB Conc 34.6 g/dl (31.0-36.0); Mean Corpuscular Hemoglobin 31.3 pg (27.0-33.0); Mean Corpuscular Volume 90.4 fL (80-98); Mean Platelet Volume 9.9 fL (9.4-12.4); White Blood Count 7.1 X10*3/uL (4.8-10.8)
[2021-03-30 00:23] LABS: Platelet Count 58 X10*3/uL (160-400)
[2021-03-30 00:24] LABS: Hematocrit 20.8 % (42-52)
[2021-03-30] MEDS: Albumin Human 25 % 100 ML IV (01:36)
[2021-03-30] MEDS: Phenylephrine HCL 20 MG in 0.9 % Sodium Chloride 250 ML 56.55 MG IVCONT ×2 (01:38→06:03)
[2021-03-30 05:48] LABS: VBG Base Excess 3.6 mmol/L; VBG HCO3 27 mmol/L (22-26); VBG pCO2 36 mmHg; VBG pH 7.47 (7.32-7.43); VBG pO2 41 mmHg
[2021-03-30] MEDS: fentaNYL citrate/PF 100 MCG/2 ML VIAL 50 MCG IVPUSH ×3 (06:03→19:47)
[2021-03-30] MEDS: Pantoprazole Sodium 40 MG/10 ML VIAL IVPUSH ×2 (06:03→16:51)
[2021-03-30 06:07] LABS: Basophils Percent Auto 0.4 % (0-2); Hemoglobin 7.4 g/dl (14.0-18.0); PLT CLUMP 1; SCAN SMEAR FLAG 1
[2021-03-30 06:09] LABS: Eosinophils Absolute Auto 0.5 X10*3/uL (0.0-0.4); Eosinophils Percent Auto 5.9 % (0-4); Hematocrit 22.3 % (42-52); Imm Gran Abs Auto 0.09 X10*3/uL (0.00-0.03); Imm Gran Pct Auto 1.2 % (0.0-0.4); Lymphocytes Absolute Auto 1.3 X10*3/uL (1.2-4.9); Lymphocytes Percent Auto 17.7 % (20-40); Mean Corpuscular HGB Conc 33.2 g/dl (31.0-36.0); Mean Corpuscular Hemoglobin 31.5 pg (27.0-33.0); Mean Corpuscular Volume 94.9 fL (80-98); Mean Platelet Volume 10.8 fL (9.4-12.4); Monocytes Absolute Auto 0.8 X10*3/uL (0.1-1.2); Neutrophils Absolute Auto 4.8 X10*3/uL (2.0-8.3); Neutrophils Percent Auto 63.8 % (45-73); Red Blood Count 2.35 X10*6/uL (4.60-5.80); Red Cell Distribution Width 17.3 % (11.0-16.0); White Blood Count 7.6 X10*3/uL (4.8-10.8)
[2021-03-30 06:10] LABS: MANUAL DIFF FLAG NO
[2021-03-30 06:14] LABS: INTERNATIONAL NORM RATIO 1.6 (0.9-1.1); Prothrombin Time 18.4 SEC (9.9-13.0)
[2021-03-30 06:29] LABS: Alanine Aminotransferase 15 U/L (0-40); Albumin Level 3.7 g/dL (3.5-5.0); Alkaline Phosphatase 65 U/L (39-117); Anion Gap 12 (12-20); Aspartate Amino Transferase 40 U/L (5-37); Bilirubin Total 3.9 mg/dL (0.0-1.0); Blood Urea Nitrogen 14 mg/dL (9-16); Carbon Dioxide 23 mmol/L (22-29); Chloride 106 mmol/L (96-108); Creatinine Clr Calc Pharmacy 164.5; Estimated Glomerular Filt Rate > 60; Glucose Random 104 mg/dL (60-115); Magnesium 1.9 mg/dL (1.6-2.6); Phosphorus 2.7 mg/dL (2.7-4.5); Potassium 3.7 mmol/L (3.3-5.1); Sodium 137 mmol/L (135-145); Total Protein 5.8 g/dL (6.5-8.0)
[2021-03-30 06:49] LABS: Venous Blood Gas Refer to POC result
[2021-03-30] MEDS: Octreotide Acetate 500 MCG in 0.9 % Sodium Chloride 500 ML 50.1 MCG IVCONT ×2 (07:58→17:35)
[2021-03-30] MEDS: Nicotine 21 MG PATCH.TD24 TRANSDERMA (08:32)
[2021-03-30] MEDS: Phytonadione (Vit K1) 10 MG in 0.9 % Sodium Chloride 50 ML 51 MG IV (09:02)
--- NOTE | 2021-03-30 10:04 | MHC.CLN ---
F/U DIET ADVANCED TO F/L PT REQUESTED ENSURE WITH MEALS WILL ADD ENSURE TID TO PROVIDE 1050KCALS, 60G PROTEIN MONITOR PO INTAKE CLOSELY
--- NOTE | 2021-03-30 10:10 | P.PNCC_ITS ---
Subjective Subjective Date of Service: 03/30/21 Interval History: 41-year-old gentleman with underlying alcoholic cirrhosis with portal hypertension alcohol free for 6 months, admitted on 03/27/2021 after a syncopal episode provoking of fall resulting in iliac fracture, managed conservatively. Hospital course further complicated by acute upper GI bleed, now status post endoscopy with no active bleed identified, but with visualized gastric followed, now status post preventative variceal banding, still with hypotension requiring blood product and vasopressor support. No re-bleeding overnight. Titrated off but pressor support this a.m.. Critical Care Time (minutes): 45 Physical Exam Vital Signs: Vital Signs: Last Vital Signs Temp 99.8 F 03/30/21 08:00 Pulse 82 03/30/21 10:00 Resp 28 H 03/30/21 10:00 BP 116/58 L 03/30/21 10:00 Pulse Ox 92 03/30/21 10:00 Body Mass Index 28.4 Const: General: no acute distress, alert and awake Eyes: Sclerae: sclerae normal EOM: EOMs intact bilaterally Neck: Neck: Yes no lymphadenopathy, Yes trachea midline and Yes supple Resp: Effort & Inspection: normal respiratory effort and no respiratory distress Auscultation: clear to auscultation bilaterally Cardio: Rate: regular rate Rhythm: regular rhythm Heart sounds: no gallops, no murmurs and no rubs GI: Palpation (GI): Soft to palpation and Other GI palpation findings present ( Nontender) Auscultation: normal bowel sounds Extrem: General: Yes no pedal edema, No clubbing and No cyanosis Objective Data Labs CBC & Chem 7: 03/30/21 05:30 03/30/21 05:30 Labs: Laboratory Results - last 24 hr 03/29/21 03/29/21 03/30/21 10: 18:10 00:15 WBC 8.8 8.0 7.1 RBC 2.65 L 2.38 L 2.30 L Hgb 8.2 L 7.4 L 7.2 L Hct 24.1 L 21.8 L 20.8 L* MCV 90.9 91.6 90.4 MCH 30.9 31.1 31.3 MCHC 34.0 33.9 34.6 RDW 16.9 H 17.2 H 17.0 H Plt Count 72 L 62 L 58 L MPV 9.8 9.8 9.9 Immature Gran % (Auto) 2.0 H 1.8 H Neut % (Auto) 71.4 59.8 Lymph % (Auto) 17.2 L 22.4 [place] % (Auto) 5.3 11.2 H Eos % (Auto) 3.5 4.4 H Baso % (Auto) 0.6 0.4 Lymph # (Auto) 1.5 1.8 [place] # (Auto) 0.5 0.9 Eos # (Auto) 0.3 0.4 Baso # (Auto) 0.1 0.0 Abs Immat Gran (auto) 0.18 H 0.14 H Absolute Neuts (auto) 6.3 4.8 Absolute Nucleated RBC 0.000 0.000 0.000 Nucleated RBC % (auto) 0.0 0.0 0.0 PT INR VBG pH VBG pCO2 VBG pO2 VBG HCO3 VBG O2 Saturation VBG Base Excess Sodium Potassium Chloride Carbon Dioxide Anion Gap BUN Creatinine Estim Creat Clear Calc Estimated GFR Random Glucose Calcium Phosphorus Magnesium Total Bilirubin AST ALT Alkaline Phosphatase Total Protein Albumin 03/30/21 03/30/21 03/30/21 05:30 05:30 05:30 WBC 7.6 RBC 2.35 L Hgb 7.4 L Hct 22.3 L MCV 94.9 MCH 31.5 MCHC 33.2 RDW 17.3 H Plt Count TNP MPV 10.8 Immature Gran % (Auto) 1.2 H Neut % (Auto) 63.8 Lymph % (Auto) 17.7 L [place] % (Auto) 11.0 Eos % (Auto) 5.9 H Baso % (Auto) 0.4 Lymph # (Auto) 1.3 [place] # (Auto) 0.8 Eos # (Auto) 0.5 H Baso # (Auto) 0.0 Abs Immat Gran (auto) 0.09 H Absolute Neuts (auto) 4.8 Absolute Nucleated RBC 0.000 Nucleated RBC % (auto) 0.0 PT INR VBG pH VBG pCO2 VBG pO2 VBG HCO3 VBG O2 Saturation VBG Base Excess Sodium 137 Potassium 3.7 Chloride 106 Carbon Dioxide 23 Anion Gap 12 BUN 14 Creatinine 0.66 Estim Creat Clear Calc 164.5 Estimated GFR > 60 Random Glucose 104 Calcium 8.0 L D Phosphorus 2.7 Magnesium 1.9 Total Bilirubin 3.9 H AST 40 H ALT 15 Alkaline Phosphatase 65 Total Protein 5.8 L Albumin Cancelled 3.7 D 03/30/21 03/30/21 05:30 05:42 WBC RBC Hgb Hct MCV MCH MCHC RDW Plt Count MPV Immature Gran % (Auto) Neut % (Auto) Lymph % (Auto) [place] % (Auto) Eos % (Auto) Baso % (Auto) Lymph # (Auto) [place] # (Auto) Eos # (Auto) Baso # (Auto) Abs Immat Gran (auto) Absolute Neuts (auto) Absolute Nucleated RBC Nucleated RBC % (auto) PT 18.4 H INR 1.6 H VBG pH 7.47 H VBG pCO2 36 VBG pO2 41 VBG HCO3 27 H VBG O2 Saturation 64.0 VBG Base Excess 3.6 Sodium Potassium Chloride Carbon Dioxide Anion Gap BUN Creatinine Estim Creat Clear Calc Estimated GFR Random Glucose Calcium Phosphorus Magnesium Total Bilirubin AST ALT Alkaline Phosphatase Total Protein Albumin Quality Stroke Does the patient have a stroke diagnosis?: No VTE Prior VTE?: No VTE Risk Level:: Medical - low VTE Device Contraindication: N/A - Device Ordered VTE Drug Contraindication: Treatment Not Indicated Progress Note: A&P Assessment and plan (1) Cirrhosis: Status: Acute Assessment and Plan: Assessment: 41-year-old gentleman with underlying alcoholic cirrhosis and portal hypertension admitted after a syncopal episode resulting in iliac fracture, managed conservatively, further complicated by upper GI bleed Plan: Neuro: No acute issues. Cardiac: Titrated off vasopressor support. Pulmonary: No acute issues. Renal: No acute issues. Endo: No acute issues. GI: Upper GI bleed on the background of liver cirrhosis and portal hypertension, status post upper endoscopy with variceal banding. Gastroenterology service care appreciated. Continue PPI and somatostatin. Underlying alcoholic cirrhosis with portal hypertension. ID: Empirically covered with ceftriaxone. Heme/Onc: Now re-bleeding overnight. Continue to monitor hemoglobin level. Psych: No acute issues. Miscellaneous: No acute issues. Prophylaxis: Intermittent pneumatic compression Diet: Full liquids Critical care time spent: 45 minutes (2) Coagulopathy: Status: Acute (3) Esophageal varices with bleeding: Status: Acute (4) Portal venous hypertension: Status: Acute (5) Thrombocytopenia due to hypersplenism: Status: Acute (6) Alcoholic liver disease: Status: Acute
--- NOTE | 2021-03-30 10:12 | MHC.CM.PN ---
Met with pt to review d/c plan: pt in agreement with return to home but understands the possible need for STR depending on PT eval for pelvic fx/weight bearing ability. Discussed CARE team consult briefly - non committal at this time. Will await PT eval for finalization of d/c plans.
[2021-03-30 12:15] LABS: Basophils Percent Auto 0.2 % (0-2); Eosinophils Absolute Auto 0.3 X10*3/uL (0.0-0.4); Eosinophils Percent Auto 3.5 % (0-4); Imm Gran Abs Auto 0.17 X10*3/uL (0.00-0.03); Lymphocytes Absolute Auto 1.2 X10*3/uL (1.2-4.9); Lymphocytes Percent Auto 14.6 % (20-40); Mean Corpuscular HGB Conc 33.3 g/dl (31.0-36.0); Mean Corpuscular Hemoglobin 31.1 pg (27.0-33.0); Mean Corpuscular Volume 93.2 fL (80-98); Monocytes Absolute Auto 0.8 X10*3/uL (0.1-1.2); Monocytes Percent Auto 9.6 % (2-11); Neutrophils Percent Auto 70.1 % (45-73); Red Blood Count 2.22 X10*6/uL (4.60-5.80); Red Cell Distribution Width 17.2 % (11.0-16.0)
[2021-03-30 12:17] LABS: Platelet Count 54 X10*3/uL (160-400); White Blood Count 8.8 X10*3/uL (4.8-10.8)
[2021-03-30 12:18] LABS: MANUAL DIFF FLAG NO; Mean Platelet Volume 10.5 fL (9.4-12.4)
[2021-03-30 12:19] LABS: Hemoglobin 6.9 g/dl (14.0-18.0)
[2021-03-30 12:20] LABS: Hematocrit 20.7 % (42-52)
--- NOTE | 2021-03-30 13:52 | HO.ANESPROP2 ---
HPI - Anesthesia Eval Consult details Narrative: 41 yo male patient with ETOH abuse and alcoholic cirrhosis. S/p EGD and variceal banding 03/29/21 under MAC anesthesia. No active bleeding noticed during procedure but large blood clot. Hgb/Hct 6.9/20.7 today. 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 Plt count 54 Anemia due to acute blood loss (Acute) Upper GI bleed (Acute) Lytic bone lesions on xray (Acute) Episode of syncope (Acute) Closed fracture of iliac wing of pelvis (Acute) Alcoholic liver disease (Acute) Sepsis (Acute) Polyclonal hypergammaglobulinemia (Acute) Anemia. Received 6 units PRBC since admission. 03/30/21 Hgb/Hct 6.9/20.4. 1unit being transfused currently Past Medical History Medical History Abnormal x-ray of humerus Alcohol abuse Ascites Coagulopathy Hyponatremia Malnutrition related to chronic disease No known health problems Portal venous hypertension Sarcopenia Thrombocytopenia due to hypersplenism Upper GI bleed Family History Family history of problems with anesthesia: No Surgical History Surgical History H/O wrist surgery History of Problems with Anesthesia: No Social History Social History Household Members: None Household Members Other:: girlfriend Housing: Apartment Do you presently have visiting nurse or other home services: No Alcohol intake: former Patient Tobacco Use Status: Current everyday Tobacco user Tobacco use type: Cigarette Cigarette Packs Per Day: 1 Cigarettes Per Day: 15 Years Smoked: 20 Second Hand Smoke Exposure: Yes service: No Current occupational status: employed Meds Allergies Allergy/AdvReac Type Severity Reaction Status Date / Time No Known Allergies Allergy Verified 09/05/20 11:19 Active Medications: Current Medications Acetaminophen (Acetaminophen 325 Mg Tablet) 650 mg PO Q6H PRN PRN Reason: Pain, Mild (Pain Scale 1-3) Last Admin: 03/29/21 10:33 Dose: 650 mg Documented by: Fentanyl (Fentanyl Citrate/Pf 100 Mcg/2 Ml Vial) 50 mcg IVPUSH Q2H PRN; Protocol PRN Reason: Pain, Moderate (Pain Scale 4-6 Last Admin: 03/30/21 12:35 Dose: 50 mcg Documented by: Octreotide Acetate 500 mcg/ (Sodium Chloride) 501 mls @ 50.1 mls/hr IVCONT .Q10H [facility] Last Admin: 03/30/21 07:58 Dose: 50 mcg/hr, 50.1 mls/hr Documented by: Phenylephrine HCl 20 mg/ (Sodium Chloride) 252 mls @ 0 mls/hr IVCONT .Q0M [facility]; Protocol Last Titration: 03/30/21 08:30 Dose: 0 mcg/kg/min, 0 mls/hr Documented by: Ceftriaxone Sodium 1 gm/ (Sodium Chloride) 50 mls @ 100 mls/hr IV Q24H [facility] Melatonin (Melatonin 3 Mg Tablet) 6 mg PO BEDTIME PRN PRN Reason: Insomnia Nicotine (Nicotine 21 Mg Patch.Td24) 21 mg TRANSDERMA DAILY [facility] Last Admin: 03/30/21 08:32 Dose: 21 mg Documented by: Ondansetron HCl (Ondansetron Hcl 4 Mg/2 Ml Vial) 4 mg IVPUSH Q8H PRN PRN Reason: Nausea and Vomiting Last Admin: 03/28/21 04:07 Dose: 4 mg Documented by: Pantoprazole Sodium (Pantoprazole Sodium 40 Mg/10 Ml Vial) 40 mg IVPUSH BID@0630,1630 [facility] Last Admin: 03/30/21 06:03 Dose: 40 mg Documented by: Sodium Chloride (0.9 % Sodium Chloride Flush 3 Ml Syringe) 3 ml IVFLUSH QSHIFT [facility] Last Admin: 03/30/21 08:30 Dose: 3 ml Documented by: Exam Exam Date and Time: March 30, 2021 1352 Height,Weight and Vital Signs: Height 5 ft 9 in Weight 87.4 kg Last Vital Signs Temp 100.9 F H 03/30/21 13:02 Pulse 85 03/30/21 13:02 Resp 14 03/30/21 13:02 BP 110/55 L 03/30/21 13:02 Pulse Ox 91 L 03/30/21 12:00 Pertinent Lab Results Pertinent Lab Results: Laboratory Tests 03/27/21 03/27/21 03/27/21 05:35 05:35 05:35 WBC 6.6 RBC 2.63 L D Hgb 8.6 L D Hct 25.2 L D MCV 95.8 MCH 32.7 MCHC 34.1 RDW 16.1 H Plt Count 78 L MPV 10.7 Immature Gran % (Auto) 0.8 H Neut % (Auto) 57.8 Lymph % (Auto) 26.5 [place] % (Auto) 10.6 Eos % (Auto) 3.8 Baso % (Auto) 0.5 Lymph # (Auto) 1.8 [place] # (Auto) 0.7 Eos # (Auto) 0.3 Baso # (Auto) 0.0 Abs Immat Gran (auto) 0.05 H Absolute Neuts (auto) 3.8 Absolute Nucleated RBC 0.000 Nucleated RBC % (auto) 0.0 Smear Tech's Comments VERIFIED PT 19.2 H INR 1.7 H APTT 36.0 Fibrinogen D-Dimer 5600 VBG pH VBG pCO2 VBG pO2 VBG HCO3 VBG O2 Saturation VBG Base Excess Sodium 135 Potassium 4.1 Chloride 103 Carbon Dioxide 25 Anion Gap 11 L BUN 23 H D Creatinine 0.88 Estim Creat Clear Calc 112.7 Estimated GFR > 60 POC Glucose Random Glucose 114 Calcium 8.5 D Phosphorus Magnesium Total Bilirubin 3.1 H Direct Bilirubin AST 35 ALT 15 Alkaline Phosphatase 116 D Ammonia Troponin I High Sens Total Protein 5.5 L D Albumin 2.7 L D Stool Occult Blood Urine Opiates Screen Urine Fentanyl Screen Ur Barbiturates Screen Ur Phencyclidine Scrn Ur Amphetamines Screen U Benzodiazepines Scrn Urine Cocaine Screen U Marijuana (THC) Screen Ethyl Alcohol COVID-19 ([facility]) COVID-19 Clin Com Blood Type Antibody Screen Crossmatch 03/27/21 03/27/21 03/27/21 05:35 05:35 06:50 WBC RBC Hgb Hct MCV MCH MCHC RDW Plt Count MPV Immature Gran % (Auto) Neut % (Auto) Lymph % (Auto) [place] % (Auto) Eos % (Auto) Baso % (Auto) Lymph # (Auto) [place] # (Auto) Eos # (Auto) Baso # (Auto) Abs Immat Gran (auto) Absolute Neuts (auto) Absolute Nucleated RBC Nucleated RBC % (auto) Smear Tech's Comments PT INR APTT Fibrinogen D-Dimer VBG pH VBG pCO2 VBG pO2 VBG HCO3 VBG O2 Saturation VBG Base Excess Sodium Potassium Chloride Carbon Dioxide Anion Gap BUN Creatinine Estim Creat Clear Calc Estimated GFR POC Glucose Random Glucose Calcium Phosphorus Magnesium Total Bilirubin Direct Bilirubin AST ALT Alkaline Phosphatase Ammonia Troponin I High Sens < 3.5 Total Protein Albumin Stool Occult Blood Urine Opiates Screen Urine Fentanyl Screen Ur Barbiturates Screen Ur Phencyclidine Scrn Ur Amphetamines Screen U Benzodiazepines Scrn Urine Cocaine Screen U Marijuana (THC) Screen Ethyl Alcohol < 10 COVID-19 ([facility]) COVID-19 Clin Com Blood Type O Positive Antibody Screen NEGATIVE Crossmatch See Detail 03/27/21 03/27/21 03/27/21 06:51 08:25 08:44 WBC RBC Hgb 7.9 L Hct 23.1 L MCV MCH MCHC RDW Plt Count MPV Immature Gran % (Auto) Neut % (Auto) Lymph % (Auto) [place] % (Auto) Eos % (Auto) Baso % (Auto) Lymph # (Auto) [place] # (Auto) Eos # (Auto) Baso # (Auto) Abs Immat Gran (auto) Absolute Neuts (auto) Absolute Nucleated RBC Nucleated RBC % (auto) Smear Tech's Comments PT INR APTT Fibrinogen D-Dimer VBG pH VBG pCO2 VBG pO2 VBG HCO3 VBG O2 Saturation VBG Base Excess Sodium Potassium Chloride Carbon Dioxide Anion Gap BUN Creatinine Estim Creat Clear Calc Estimated GFR POC Glucose Random Glucose Calcium Phosphorus Magnesium Total Bilirubin Direct Bilirubin AST ALT Alkaline Phosphatase Ammonia Troponin I High Sens Total Protein Albumin Stool Occult Blood NEGATIVE Urine Opiates Screen Urine Fentanyl Screen Ur Barbiturates Screen Ur Phencyclidine Scrn Ur Amphetamines Screen U Benzodiazepines Scrn Urine Cocaine Screen U Marijuana (THC) Screen Ethyl Alcohol COVID-19 ([facility]) Negative COVID-19 Clin Com See Note Blood Type Antibody Screen Crossmatch 03/27/21 03/27/21 03/28/21 10:00 16:10 06:20 WBC 8.3 RBC 1.75 L D Hgb 5.6 L* D Hct 17.0 L* D MCV 97.1 MCH 32.0 MCHC 32.9 RDW 17.2 H Plt Count 83 L MPV 9.9 Immature Gran % (Auto) 1.1 H Neut % (Auto) 71.4 Lymph % (Auto) 18.8 L [place] % (Auto) 8.2 Eos % (Auto) 0.4 Baso % (Auto) 0.1 Lymph # (Auto) 1.6 [place] # (Auto) 0.7 Eos # (Auto) 0.0 Baso # (Auto) 0.0 Abs Immat Gran (auto) 0.09 H Absolute Neuts (auto) 5.9 Absolute Nucleated RBC 0.000 Nucleated RBC % (auto) 0.0 Smear Tech's Comments PT INR APTT Fibrinogen D-Dimer VBG pH VBG pCO2 VBG pO2 VBG HCO3 VBG O2 Saturation VBG Base Excess Sodium Potassium Chloride Carbon Dioxide Anion Gap BUN Creatinine Estim Creat Clear Calc Estimated GFR POC Glucose 134 H Random Glucose Calcium Phosphorus Magnesium Total Bilirubin Direct Bilirubin AST ALT Alkaline Phosphatase Ammonia Troponin I High Sens Total Protein Albumin Stool Occult Blood Urine Opiates Screen Not Detected Urine Fentanyl Screen Not Detected Ur Barbiturates Screen Not Detected Ur Phencyclidine Scrn Not Detected Ur Amphetamines Screen Not Detected U Benzodiazepines Scrn Not Detected Urine Cocaine Screen Not Detected U Marijuana (THC) Screen Not Detected Ethyl Alcohol COVID-19 ([facility]) COVID-19 Clin Com Blood Type Antibody Screen Crossmatch 03/28/21 03/28/21 03/28/21 08:33 08:33 12:01 WBC RBC Hgb 7.0 L* D Hct 21.1 L D MCV MCH MCHC RDW Plt Count MPV Immature Gran % (Auto) Neut % (Auto) Lymph % (Auto) [place] % (Auto) Eos % (Auto) Baso % (Auto) Lymph # (Auto) [place] # (Auto) Eos # (Auto) Baso # (Auto) Abs Immat Gran (auto) Absolute Neuts (auto) Absolute Nucleated RBC Nucleated RBC % (auto) Smear Tech's Comments PT 21.7 H INR 1.9 H APTT Fibrinogen 236 L D-Dimer VBG pH VBG pCO2 VBG pO2 VBG HCO3 VBG O2 Saturation VBG Base Excess Sodium Potassium Chloride Carbon Dioxide Anion Gap BUN Creatinine Estim Creat Clear Calc Estimated GFR POC Glucose Random Glucose Calcium Phosphorus Magnesium Total Bilirubin Direct Bilirubin AST ALT Alkaline Phosphatase Ammonia 34 Troponin I High Sens Total Protein Albumin Stool Occult Blood Urine Opiates Screen Urine Fentanyl Screen Ur Barbiturates Screen Ur Phencyclidine Scrn Ur Amphetamines Screen U Benzodiazepines Scrn Urine Cocaine Screen U Marijuana (THC) Screen Ethyl Alcohol COVID-19 ([facility]) COVID-19 Clin Com Blood Type Antibody Screen Crossmatch 03/28/21 03/28/21 03/28/21 12:01 19:25 19:25 WBC 11.5 H RBC 2.62 L D Hgb Cancelled 8.3 L Hct Cancelled 23.8 L MCV 90.8 D MCH 31.7 MCHC 34.9 RDW 17.4 H Plt Count 81 L MPV 10.5 Immature Gran % (Auto) 1.1 H Neut % (Auto) 64.1 Lymph % (Auto) 19.2 L [place] % (Auto) 12.2 H Eos % (Auto) 2.8 Baso % (Auto) 0.6 Lymph # (Auto) 2.2 [place] # (Auto) 1.4 H Eos # (Auto) 0.3 Baso # (Auto) 0.1 Abs Immat Gran (auto) 0.13 H Absolute Neuts (auto) 7.3 Absolute Nucleated RBC 0.000 Nucleated RBC % (auto) 0.0 Smear Tech's Comments PT INR APTT Fibrinogen D-Dimer VBG pH VBG pCO2 VBG pO2 VBG HCO3 VBG O2 Saturation VBG Base Excess Sodium 137 Potassium 5.3 H D Chloride 111 H Carbon Dioxide 19 L Anion Gap 12 BUN 25 H Creatinine 0.69 Estim Creat Clear Calc 143.7 Estimated GFR > 60 POC Glucose Random Glucose 133 H Calcium 7.5 L D Phosphorus Magnesium Total Bilirubin 3.1 H Direct Bilirubin AST 43 H ALT 17 Alkaline Phosphatase 69 D Ammonia Troponin I High Sens Total Protein 4.7 L Albumin 2.5 L Stool Occult Blood Urine Opiates Screen Urine Fentanyl Screen Ur Barbiturates Screen Ur Phencyclidine Scrn Ur Amphetamines Screen U Benzodiazepines Scrn Urine Cocaine Screen U Marijuana (THC) Screen Ethyl Alcohol COVID-19 ([facility]) COVID-19 Clin Com Blood Type Antibody Screen Crossmatch 03/28/21 03/29/21 03/29/21 20:36 01:47 05:03 WBC 8.1 RBC 2.59 L Hgb 7.4 L 8.2 L 8.1 L Hct 21.6 L 23.7 L 23.1 L MCV 89.2 MCH 31.3 MCHC 35.1 RDW 16.6 H Plt Count 73 L MPV 10.0 Immature Gran % (Auto) 1.7 H Neut % (Auto) 56.6 Lymph % (Auto) 23.1 [place] % (Auto) 13.1 H Eos % (Auto) 5.1 H Baso % (Auto) 0.4 Lymph # (Auto) 1.9 [place] # (Auto) 1.1 Eos # (Auto) 0.4 Baso # (Auto) 0.0 Abs Immat Gran (auto) 0.14 H Absolute Neuts (auto) 4.6 Absolute Nucleated RBC 0.000 Nucleated RBC % (auto) 0.0 Smear Tech's Comments PT INR APTT Fibrinogen D-Dimer VBG pH VBG pCO2 VBG pO2 VBG HCO3 VBG O2 Saturation VBG Base Excess Sodium Potassium Chloride Carbon Dioxide Anion Gap BUN Creatinine Estim Creat Clear Calc Estimated GFR POC Glucose Random Glucose Calcium Phosphorus Magnesium Total Bilirubin Direct Bilirubin AST ALT Alkaline Phosphatase Ammonia Troponin I High Sens Total Protein Albumin Stool Occult Blood Urine Opiates Screen Urine Fentanyl Screen Ur Barbiturates Screen Ur Phencyclidine Scrn Ur Amphetamines Screen U Benzodiazepines Scrn Urine Cocaine Screen U Marijuana (THC) Screen Ethyl Alcohol COVID-19 ([facility]) COVID-19 Clin Com Blood Type Antibody Screen Crossmatch 03/29/21 03/29/21 03/29/21 05:03 05:03 05:03 WBC Cancelled RBC Cancelled Hgb Cancelled Hct Cancelled MCV Cancelled MCH Cancelled MCHC Cancelled RDW Cancelled Plt Count Cancelled MPV Cancelled Immature Gran % (Auto) Cancelled Neut % (Auto) Cancelled Lymph % (Auto) Cancelled [place]er % (Auto) Cancelled Eos % (Auto) Cancelled Baso % (Auto) Cancelled Lymph # (Auto) Cancelled [place] # (Auto) Cancelled Eos # (Auto) Cancelled Baso # (Auto) Cancelled Abs Immat Gran (auto) Cancelled Absolute Neuts (auto) Cancelled Absolute Nucleated RBC Cancelled Nucleated RBC % (auto) Cancelled Smear Tech's Comments PT 16.5 H INR 1.4 H APTT 31.5 Fibrinogen D-Dimer VBG pH VBG pCO2 VBG pO2 VBG HCO3 VBG O2 Saturation VBG Base Excess Sodium 139 Potassium 3.8 D Chloride 109 H Carbon Dioxide 24 Anion Gap 10 L BUN 16 Creatinine 0.61 Estim Creat Clear Calc 162.5 Estimated GFR > 60 POC Glucose Random Glucose 94 Calcium 7.4 L Phosphorus 3.0 Magnesium 1.5 L Total Bilirubin 3.7 H Direct Bilirubin 1.2 H AST 46 H ALT 18 Alkaline Phosphatase 74 Ammonia Troponin I High Sens Total Protein 5.0 L Albumin 2.8 L Stool Occult Blood Urine Opiates Screen Urine Fentanyl Screen Ur Barbiturates Screen Ur Phencyclidine Scrn Ur Amphetamines Screen U Benzodiazepines Scrn Urine Cocaine Screen U Marijuana (THC) Screen Ethyl Alcohol COVID-19 ([facility]) COVID-19 Clin Com Blood Type Antibody Screen Crossmatch 03/29/21 03/29/21 03/29/21 05:03 05:03 10:26 WBC 8.8 RBC 2.65 L Hgb 8.2 L Hct 24.1 L MCV 90.9 MCH 30.9 MCHC 34.0 RDW 16.9 H Plt Count 72 L MPV 9.8 Immature Gran % (Auto) 2.0 H Neut % (Auto) 71.4 Lymph % (Auto) 17.2 L [place] % (Auto) 5.3 Eos % (Auto) 3.5 Baso % (Auto) 0.6 Lymph # (Auto) 1.5 [place] # (Auto) 0.5 Eos # (Auto) 0.3 Baso # (Auto) 0.1 Abs Immat Gran (auto) 0.18 H Absolute Neuts (auto) 6.3 Absolute Nucleated RBC 0.000 Nucleated RBC % (auto) 0.0 Smear Tech's Comments PT Cancelled INR Cancelled APTT Fibrinogen D-Dimer VBG pH VBG pCO2 VBG pO2 VBG HCO3 VBG O2 Saturation VBG Base Excess Sodium Cancelled Potassium Cancelled Chloride Cancelled Carbon Dioxide Cancelled Anion Gap Cancelled BUN Cancelled Creatinine Cancelled Estim Creat Clear Calc Cancelled Estimated GFR Cancelled POC Glucose Random Glucose Cancelled Calcium Cancelled Phosphorus Magnesium Cancelled Total Bilirubin Cancelled Direct Bilirubin AST Cancelled ALT Cancelled Alkaline Phosphatase Cancelled Ammonia Troponin I High Sens Total Protein Cancelled Albumin Cancelled Stool Occult Blood Urine Opiates Screen Urine Fentanyl Screen Ur Barbiturates Screen Ur Phencyclidine Scrn Ur Amphetamines Screen U Benzodiazepines Scrn Urine Cocaine Screen U Marijuana (THC) Screen Ethyl Alcohol COVID-19 ([facility]) COVID-19 Clin Com Blood Type Antibody Screen Crossmatch 03/29/21 03/30/21 03/30/21 18:10 00:15 05:30 WBC 8.0 7.1 RBC 2.38 L 2.30 L Hgb 7.4 L 7.2 L Hct 21.8 L 20.8 L* MCV 91.6 90.4 MCH 31.1 31.3 MCHC 33.9 34.6 RDW 17.2 H 17.0 H Plt Count 62 L 58 L MPV 9.8 9.9 Immature Gran % (Auto) 1.8 H Neut % (Auto) 59.8 Lymph % (Auto) 22.4 [place] % (Auto) 11.2 H Eos % (Auto) 4.4 H Baso % (Auto) 0.4 Lymph # (Auto) 1.8 [place] # (Auto) 0.9 Eos # (Auto) 0.4 Baso # (Auto) 0.0 Abs Immat Gran (auto) 0.14 H Absolute Neuts (auto) 4.8 Absolute Nucleated RBC 0.000 0.000 Nucleated RBC % (auto) 0.0 0.0 Smear Tech's Comments PT INR APTT Fibrinogen D-Dimer VBG pH VBG pCO2 VBG pO2 VBG HCO3 VBG O2 Saturation VBG Base Excess Sodium Potassium Chloride Carbon Dioxide Anion Gap BUN Creatinine Estim Creat Clear Calc Estimated GFR POC Glucose Random Glucose Calcium Phosphorus Magnesium Total Bilirubin Direct Bilirubin AST ALT Alkaline Phosphatase Ammonia Troponin I High Sens Total Protein Albumin Cancelled Stool Occult Blood Urine Opiates Screen Urine Fentanyl Screen Ur Barbiturates Screen Ur Phencyclidine Scrn Ur Amphetamines Screen U Benzodiazepines Scrn Urine Cocaine Screen U Marijuana (THC) Screen Ethyl Alcohol COVID-19 ([facility]) COVID-19 Clin Com Blood Type Antibody Screen Crossmatch 03/30/21 03/30/21 03/30/21 05:30 05:30 05:30 WBC 7.6 RBC 2.35 L Hgb 7.4 L Hct 22.3 L MCV 94.9 MCH 31.5 MCHC 33.2 RDW 17.3 H Plt Count TNP MPV 10.8 Immature Gran % (Auto) 1.2 H Neut % (Auto) 63.8 Lymph % (Auto) 17.7 L [place] % (Auto) 11.0 Eos % (Auto) 5.9 H Baso % (Auto) 0.4 Lymph # (Auto) 1.3 [place] # (Auto) 0.8 Eos # (Auto) 0.5 H Baso # (Auto) 0.0 Abs Immat Gran (auto) 0.09 H Absolute Neuts (auto) 4.8 Absolute Nucleated RBC 0.000 Nucleated RBC % (auto) 0.0 Smear Tech's Comments PT 18.4 H INR 1.6 H APTT Fibrinogen D-Dimer VBG pH VBG pCO2 VBG pO2 VBG HCO3 VBG O2 Saturation VBG Base Excess Sodium 137 Potassium 3.7 Chloride 106 Carbon Dioxide 23 Anion Gap 12 BUN 14 Creatinine 0.66 Estim Creat Clear Calc 164.5 Estimated GFR > 60 POC Glucose Random Glucose 104 Calcium 8.0 L D Phosphorus 2.7 Magnesium 1.9 Total Bilirubin 3.9 H Direct Bilirubin AST 40 H ALT 15 Alkaline Phosphatase 65 Ammonia Troponin I High Sens Total Protein 5.8 L Albumin 3.7 D Stool Occult Blood Urine Opiates Screen Urine Fentanyl Screen Ur Barbiturates Screen Ur Phencyclidine Scrn Ur Amphetamines Screen U Benzodiazepines Scrn Urine Cocaine Screen U Marijuana (THC) Screen Ethyl Alcohol COVID-19 ([facility]) COVID-19 Clin Com Blood Type Antibody Screen Crossmatch 03/30/21 03/30/21 05:42 12:02 WBC 8.8 RBC 2.22 L Hgb 6.9 L* Hct 20.7 L* MCV 93.2 MCH 31.1 MCHC 33.3 RDW 17.2 H Plt Count 54 L MPV 10.5 Immature Gran % (Auto) 2.0 H Neut % (Auto) 70.1 Lymph % (Auto) 14.6 L [place] % (Auto) 9.6 Eos % (Auto) 3.5 Baso % (Auto) 0.2 Lymph # (Auto) 1.2 [place] # (Auto) 0.8 Eos # (Auto) 0.3 Baso # (Auto) 0.0 Abs Immat Gran (auto) 0.17 H Absolute Neuts (auto) 6.0 Absolute Nucleated RBC 0.000 Nucleated RBC % (auto) 0.0 Smear Tech's Comments PT INR APTT Fibrinogen D-Dimer VBG pH 7.47 H VBG pCO2 36 VBG pO2 41 VBG HCO3 27 H VBG O2 Saturation 64.0 VBG Base Excess 3.6 Sodium Potassium Chloride Carbon Dioxide Anion Gap BUN Creatinine Estim Creat Clear Calc Estimated GFR POC Glucose Random Glucose Calcium Phosphorus Magnesium Total Bilirubin Direct Bilirubin AST ALT Alkaline Phosphatase Ammonia Troponin I High Sens Total Protein Albumin Stool Occult Blood Urine Opiates Screen Urine Fentanyl Screen Ur Barbiturates Screen Ur Phencyclidine Scrn Ur Amphetamines Screen U Benzodiazepines Scrn Urine Cocaine Screen U Marijuana (THC) Screen Ethyl Alcohol COVID-19 ([facility]) COVID-19 Clin Com Blood Type Antibody Screen Crossmatch Airway Mallampati Class: III TM Dist: >3cm Neck ROM: Full Loose/Missing/Broken Teeth: Yes (Some broken) Heart: RRR Lungs: CTAB Assessment and Plan Assessment Anesthesia Assessment: Anesthesia Plan Discussed and Chart Reviewed Final Anesthetic Review Family History of Problems with Anesthesia: No History of Problems with Anesthesia: No NPO: Yes ASA Class: IV and Emergency Final Preanesthetic Review: No Changes in Pt Med Stat, Meds/Allgs Chart Reviewed, Consent Obtained/Reviewed and Anes Risks/Benef Reviewed Patient Risk: High Procedure Risk: Intermediate Assessment/Block/Sedation in SS: Assess/Block/Sedation-SS Anesthetic Plan Anesthetic Plan: GA and MAC: Disposition: Inp. Admit - ICU
[2021-03-30 18:28] LABS: Basophils Percent Auto 0.4 % (0-2); Monocytes Absolute Auto 0.8 X10*3/uL (0.1-1.2); PLT CLUMP 1; SCAN SMEAR FLAG 1
[2021-03-30 18:29] LABS: Eosinophils Absolute Auto 0.3 X10*3/uL (0.0-0.4); Eosinophils Percent Auto 3.5 % (0-4); Hemoglobin 7.6 g/dl (14.0-18.0); Imm Gran Abs Auto 0.08 X10*3/uL (0.00-0.03); Lymphocytes Absolute Auto 1.3 X10*3/uL (1.2-4.9); Lymphocytes Percent Auto 16.4 % (20-40); Mean Corpuscular HGB Conc 34.5 g/dl (31.0-36.0); Mean Corpuscular Hemoglobin 31.5 pg (27.0-33.0); Mean Corpuscular Volume 91.3 fL (80-98); Mean Platelet Volume 10.4 fL (9.4-12.4); Monocytes Percent Auto 10.8 % (2-11); Neutrophils Absolute Auto 5.3 X10*3/uL (2.0-8.3); Neutrophils Percent Auto 67.9 % (45-73); Red Blood Count 2.41 X10*6/uL (4.60-5.80); Red Cell Distribution Width 16.8 % (11.0-16.0); White Blood Count 7.8 X10*3/uL (4.8-10.8)
[2021-03-30 18:37] LABS: MANUAL DIFF FLAG NO; Platelet Count 53 X10*3/uL (160-400)
[2021-03-31] VITALS (20 sets, daily range): BP systolic 99–123; BP diastolic 51–70; PULSE 64–80; RESP 9–20; TEMP 36.8–37.1; O2SAT 90–97; BMI 28.8
[2021-03-31] MEDS: fentaNYL citrate/PF 100 MCG/2 ML VIAL 50 MCG IVPUSH ×4 (02:13→20:21)
[2021-03-31] MEDS: Octreotide Acetate 500 MCG in 0.9 % Sodium Chloride 500 ML 50.1 MCG IVCONT (03:15)
[2021-03-31] MEDS: Pantoprazole Sodium 40 MG/10 ML VIAL IVPUSH ×2 (05:40→16:23)
[2021-03-31 05:42] LABS: Basophils Percent Auto 0.3 % (0-2); Eosinophils Absolute Auto 0.4 X10*3/uL (0.0-0.4); Hemoglobin 7.3 g/dl (14.0-18.0); Imm Gran Abs Auto 0.08 X10*3/uL (0.00-0.03); Lymphocytes Absolute Auto 1.3 X10*3/uL (1.2-4.9); PLT CLUMP 1; SCAN SMEAR FLAG 1
[2021-03-31 05:44] LABS: Eosinophils Percent Auto 6.4 % (0-4); Imm Gran Pct Auto 1.3 % (0.0-0.4); Lymphocytes Percent Auto 21.9 % (20-40); Mean Corpuscular HGB Conc 33.2 g/dl (31.0-36.0); Mean Corpuscular Hemoglobin 30.8 pg (27.0-33.0); Mean Corpuscular Volume 92.8 fL (80-98); Mean Platelet Volume 10.7 fL (9.4-12.4); Monocytes Absolute Auto 0.7 X10*3/uL (0.1-1.2); Monocytes Percent Auto 11.9 % (2-11); Neutrophils Absolute Auto 3.5 X10*3/uL (2.0-8.3); Neutrophils Percent Auto 58.2 % (45-73); Red Blood Count 2.37 X10*6/uL (4.60-5.80); Red Cell Distribution Width 17.2 % (11.0-16.0)
[2021-03-31 05:45] LABS: INTERNATIONAL NORM RATIO 1.7 (0.9-1.1); MANUAL DIFF FLAG NO; Platelet Count 53 X10*3/uL (160-400)
[2021-03-31 06:06] LABS: Albumin Level 3.1 g/dL (3.5-5.0); Anion Gap 7 (12-20); Blood Urea Nitrogen 13 mg/dL (9-16); Calcium 7.5 mg/dL (8.4-10.2); Carbon Dioxide 27 mmol/L (22-29); Chloride 103 mmol/L (96-108); Creatinine Clr Calc Pharmacy 188.1; Estimated Glomerular Filt Rate > 60; Glucose Random 90 mg/dL (60-115); Magnesium 1.8 mg/dL (1.6-2.6); Phosphorus 2.5 mg/dL (2.7-4.5); Potassium 3.9 mmol/L (3.3-5.1); Sodium 133 mmol/L (135-145)
[2021-03-31] MEDS: Albumin Human 25 % 100 ML IV ×3 (08:32→20:16)
[2021-03-31] MEDS: Furosemide 20 MG/2 ML VIAL 10 MG IVPUSH (08:34)
[2021-03-31] MEDS: Nicotine 21 MG PATCH.TD24 TRANSDERMA (08:34)
[2021-03-31] MEDS: cefTRIAXone sodium 1 GM in 0.9 % Sodium Chloride 50 ML IV (08:36)
[2021-03-31] MEDS: Phytonadione (Vit K1) 10 MG in 0.9 % Sodium Chloride 50 ML 51 MG IV (08:41)
--- NOTE | 2021-03-31 09:47 | MHC.CLN ---
F/U RESTARTED ENSURE TID WITH F/L DIET
--- NOTE | 2021-03-31 09:58 | P.PNCC_ITS ---
Subjective Subjective Date of Service: 03/31/21 Interval History: 41-year-old gentleman with underlying alcoholic cirrhosis with portal hypertension alcohol free for 6 months, admitted on 03/27/2021 after a syncopal episode provoking of fall resulting in iliac fracture, managed conservatively. Hospital course further complicated by acute upper GI bleed, now status post endoscopy with no active bleed identified, but with visualized gastric followed, now status post preventative variceal banding, still with hypotension requiring blood product and vasopressor support. No events overnight. Critical Care Time (minutes): 0 Physical Exam Vital Signs: Vital Signs: Last Vital Signs Temp 98.2 F 03/31/21 08:00 Pulse 80 03/31/21 09:00 Resp 14 03/31/21 09:00 BP 106/65 03/31/21 09:00 Pulse Ox 90 L 03/31/21 09:00 Body Mass Index 28.8 Const: General: no acute distress, alert and awake Eyes: Sclerae: sclerae normal EOM: EOMs intact bilaterally Neck: Neck: Yes no lymphadenopathy, Yes trachea midline and Yes supple Resp: Effort & Inspection: normal respiratory effort and no respiratory distress Auscultation: clear to auscultation bilaterally Cardio: Rate: regular rate Rhythm: regular rhythm Heart sounds: no gallops, no murmurs and no rubs GI: Palpation (GI): Soft to palpation and Other GI palpation findings present ( Nontender) Auscultation: normal bowel sounds Extrem: General: Yes no pedal edema, No clubbing and No cyanosis Objective Data Labs CBC & Chem 7: 03/31/21 05:30 03/31/21 05:30 Labs: Laboratory Results - last 24 hr 03/27/21 03/30/21 03/30/21 06:50 12:02 13:12 WBC 8.8 RBC 2.22 L Hgb 6.9 L* Hct 20.7 L* MCV 93.2 MCH 31.1 MCHC 33.3 RDW 17.2 H Plt Count 54 L MPV 10.5 Immature Gran % (Auto) 2.0 H Neut % (Auto) 70.1 Lymph % (Auto) 14.6 L [place] % (Auto) 9.6 Eos % (Auto) 3.5 Baso % (Auto) 0.2 Lymph # (Auto) 1.2 [place] # (Auto) 0.8 Eos # (Auto) 0.3 Baso # (Auto) 0.0 Abs Immat Gran (auto) 0.17 H Absolute Neuts (auto) 6.0 Absolute Nucleated RBC 0.000 Nucleated RBC % (auto) 0.0 PT INR Sodium Potassium Chloride Carbon Dioxide Anion Gap BUN Creatinine Estim Creat Clear Calc Estimated GFR Random Glucose Calcium Phosphorus Magnesium Albumin Blood Type O Positive O Positive Antibody Screen NEGATIVE NEGATIVE Crossmatch See Detail 03/30/21 03/31/21 03/31/21 18:13 05:30 05:30 WBC 7.8 6.0 RBC 2.41 L 2.37 L Hgb 7.6 L 7.3 L Hct 22.0 L 22.0 L MCV 91.3 92.8 MCH 31.5 30.8 MCHC 34.5 33.2 RDW 16.8 H 17.2 H Plt Count 53 L 53 L MPV 10.4 10.7 Immature Gran % (Auto) 1.0 H 1.3 H Neut % (Auto) 67.9 58.2 Lymph % (Auto) 16.4 L 21.9 [place] % (Auto) 10.8 11.9 H Eos % (Auto) 3.5 6.4 H Baso % (Auto) 0.4 0.3 Lymph # (Auto) 1.3 1.3 [place] # (Auto) 0.8 0.7 Eos # (Auto) 0.3 0.4 Baso # (Auto) 0.0 0.0 Abs Immat Gran (auto) 0.08 H 0.08 H Absolute Neuts (auto) 5.3 3.5 Absolute Nucleated RBC 0.000 0.000 Nucleated RBC % (auto) 0.0 0.0 PT 19.0 H INR 1.7 H Sodium Potassium Chloride Carbon Dioxide Anion Gap BUN Creatinine Estim Creat Clear Calc Estimated GFR Random Glucose Calcium Phosphorus Magnesium Albumin Blood Type Antibody Screen Crossmatch 03/31/21 05:30 WBC RBC Hgb Hct MCV MCH MCHC RDW Plt Count MPV Immature Gran % (Auto) Neut % (Auto) Lymph % (Auto) [place] % (Auto) Eos % (Auto) Baso % (Auto) Lymph # (Auto) [place] # (Auto) Eos # (Auto) Baso # (Auto) Abs Immat Gran (auto) Absolute Neuts (auto) Absolute Nucleated RBC Nucleated RBC % (auto) PT INR Sodium 133 L Potassium 3.9 Chloride 103 Carbon Dioxide 27 Anion Gap 7 L BUN 13 Creatinine 0.58 Estim Creat Clear Calc 188.1 Estimated GFR > 60 Random Glucose 90 Calcium 7.5 L D Phosphorus 2.5 L Magnesium 1.8 Albumin 3.1 L Blood Type Antibody Screen Crossmatch Quality Stroke Does the patient have a stroke diagnosis?: No VTE Prior VTE?: No VTE Risk Level:: Medical - low VTE Device Contraindication: N/A - Device Ordered VTE Drug Contraindication: Treatment Not Indicated Progress Note: A&P Assessment and plan (1) Cirrhosis: Status: Acute (2) Coagulopathy: Status: Acute (3) Esophageal varices with bleeding: Status: Acute (4) Portal venous hypertension: Status: Acute (5) Thrombocytopenia due to hypersplenism: Status: Acute (6) Alcoholic liver disease: Status: Acute Assessment and Plan: Assessment: 41-year-old gentleman with underlying alcoholic cirrhosis and portal hypertension admitted after a syncopal episode resulting in iliac fracture, managed conservatively, further complicated by upper GI bleed Plan: Neuro: No acute issues. Cardiac: Titrated off vasopressor support. Pulmonary: No acute issues. Renal: No acute issues. Endo: No acute issues. GI: Upper GI bleed on the background of liver cirrhosis and portal hypertension, status post upper endoscopy with variceal banding. Gastroenterology service care appreciated. Continue PPI. Completed 72 hours of somatostatin. Underlying alcoholic cirrhosis with portal hypertension. ID: Empirically covered with ceftriaxone. Heme/Onc: No re-bleeding for 36 hours. Continue to monitor hemoglobin level. Psych: No acute issues. Miscellaneous: No acute issues. Prophylaxis: Intermittent pneumatic compression Diet: Full liquids
[2021-03-31 11:38] LABS: MANUAL DIFF FLAG NO
[2021-03-31 11:43] LABS: Basophils Percent Auto 0.4 % (0-2); Eosinophils Absolute Auto 0.4 X10*3/uL (0.0-0.4); Eosinophils Percent Auto 7.9 % (0-4); Hematocrit 22.8 % (42-52); Hemoglobin 7.8 g/dl (14.0-18.0); Imm Gran Abs Auto 0.07 X10*3/uL (0.00-0.03); Imm Gran Pct Auto 1.3 % (0.0-0.4); Lymphocytes Absolute Auto 0.9 X10*3/uL (1.2-4.9); Lymphocytes Percent Auto 18.1 % (20-40); Mean Corpuscular HGB Conc 34.2 g/dl (31.0-36.0); Mean Corpuscular Hemoglobin 31.6 pg (27.0-33.0); Mean Corpuscular Volume 92.3 fL (80-98); Mean Platelet Volume 10.4 fL (9.4-12.4); Monocytes Absolute Auto 0.7 X10*3/uL (0.1-1.2); Neutrophils Percent Auto 58.3 % (45-73); Platelet Count 47 X10*3/uL (160-400); Red Blood Count 2.47 X10*6/uL (4.60-5.80); Red Cell Distribution Width 17.2 % (11.0-16.0); White Blood Count 5.2 X10*3/uL (4.8-10.8)
[2021-03-31] MEDS: Potassium Phosphate 30 MMOL in 0.9 % Sodium Chloride 500 ML 85 MMOL IV (12:28)
[2021-03-31] MEDS: 0.9 % Sodium Chloride Flush 3 ML SYRINGE IVFLUSH ×3 (12:29→20:22)
--- NOTE | 2021-03-31 18:25 | PC.NURSE ---
Assumed care from Irina at 7 am. Patient alert and oriented, was on 2 lpm nasal cannula, which was titirated to room air, and SpO2 maintained >92%. Lung sounds dim at bilat bases, IS with good technique, volumes: 1,000 to 1100. Patient with displaced right iliac crest, discussed mobility with MD and upon transfer also with hospitalist, that despite no surgical intervention, is there a brace or other intervention? MD stated plan as consult ortho and PT to see patient tomorrow, but doubts procedural intervention. Patient with pain 10/10 with repositioning or with tactile stim to right hip, PRN fentanyl with good effect. Active ROM with good effect. Patient with distant heart sounds, was sinus rhythm on monitor. BP slightly soft, off of jose since yesterday, MAP > 65 all day. Patient with no dizziness. Reported at 16:00, right sided pain to chest, worse on inspiration, worse on palpation, worse with ROM of the right shoulder sharp pain, MD aware, likely musculoskeletal per MD. Patient tolerated full liquid diet, with no nausea nor bloody emesis today, also no BM. Urinating in urinal, about 2 L today, orange hue. Had octeotride, and vitamin K 10 mg, had potassium phosphates. Had 2 units of Albumin. Patient transferred to [facility] [place] room 446 after report given to Lisa.
[2021-04-01] VITALS (8 sets, daily range): BP systolic 106–125; BP diastolic 56–66; PULSE 69–83; RESP 16–18; TEMP 35.5–37.1; O2SAT 94–98
[2021-04-01] MEDS: Albumin Human 25 % 100 ML IV (02:06)
[2021-04-01] MEDS: Pantoprazole Sodium 40 MG/10 ML VIAL IVPUSH ×2 (05:55→15:20)
[2021-04-01] MEDS: cefTRIAXone sodium 1 GM in 0.9 % Sodium Chloride 50 ML IV (08:23)
[2021-04-01] MEDS: 0.9 % Sodium Chloride Flush 3 ML SYRINGE IVFLUSH ×3 (08:23→20:44)
[2021-04-01] MEDS: Nicotine 21 MG PATCH.TD24 TRANSDERMA (08:24)
[2021-04-01] MEDS: fentaNYL citrate/PF 100 MCG/2 ML VIAL 50 MCG IVPUSH ×3 (09:07→20:44)
--- NOTE | 2021-04-01 11:54 | P.PNIM_ITS ---
Subjective Subjective Date of Service: 04/01/21 Interval History: Seen in f/u for gib, acute blood loss anemia, fall with pelvic fracture Physical Exam Vital Signs: Vital Signs: Last Vital Signs Temp 98.6 F 04/01/21 10:59 Pulse 83 04/01/21 10:59 Resp 18 04/01/21 10:59 BP 109/56 L 04/01/21 10:59 Pulse Ox 95 04/01/21 10:59 Body Mass Index 28.8 Objective Data Active Medications Acetaminophen (Acetaminophen 325 Mg Tablet) 650 mg PO Q6H PRN PRN Reason: Pain, Mild (Pain Scale 1-3) Last Admin: 03/29/21 10:33 Dose: 650 mg Documented by: FUNMILAYO Fentanyl (Fentanyl Citrate/Pf 100 Mcg/2 Ml Vial) 50 mcg IVPUSH Q2H PRN; Protocol PRN Reason: Pain, Moderate (Pain Scale 4-6 Last Admin: 04/01/21 09:07 Dose: 50 mcg Documented by: SANFORD Ceftriaxone Sodium 1 gm/ (Sodium Chloride) 50 mls @ 100 mls/hr IV Q24H [facility] Last Infusion: 04/01/21 09:01 Dose: 0 mls/hr Documented by: SANFORD Melatonin (Melatonin 3 Mg Tablet) 6 mg PO BEDTIME PRN PRN Reason: Insomnia Nicotine (Nicotine 21 Mg Patch.Td24) 21 mg TRANSDERMA DAILY [facility] Last Admin: 04/01/21 08:24 Dose: 21 mg Documented by: SANFORD Ondansetron HCl (Ondansetron Hcl 4 Mg/2 Ml Vial) 4 mg IVPUSH Q8H PRN PRN Reason: Nausea and Vomiting Last Admin: 03/28/21 04:07 Dose: 4 mg Documented by: GABRIEL Pantoprazole Sodium (Pantoprazole Sodium 40 Mg/10 Ml Vial) 40 mg IVPUSH BID@0630,1630 [facility] Last Admin: 04/01/21 05:55 Dose: 40 mg Documented by: VENUS Sodium Chloride (0.9 % Sodium Chloride Flush 3 Ml Syringe) 3 ml IVFLUSH QSHIFT [facility] Last Admin: 04/01/21 08:23 Dose: 3 ml Documented by: SANFORD Labs CBC & Chem 7: 03/31/21 11:28 03/31/21 05:30 Assessment and Plan (1) Anemia due to acute blood loss: Status: Acute (2) Esophageal varices with bleeding: Status: Acute Assessment and Plan: ?41-year-old gentleman with underlying alcoholic cirrhosis with portal hypertension alcohol free for 6 months, admitted on 03/27/2021 after a syncopal episode provoking a fall resulting in iliac fracture, managed conservatively.? Hospital course further complicated by acute upper GI bleed, now status post endoscopy with no active bleed identified, but with visualized varices and s/p preventative variceal banding, he was hypOtensive and required vasopressor and now hemodynamically stable. Upper GI bleed, acute blood loss anemia, s/p multiple RBC transfusions, multiple platlet transfusions and FFP, and ended up having EGD showing varices and was banded, and treted with IV PPI, and 72 hours of octreotide. He has been stable since no further bleeding. Tranfser out of ICU 03/31. He has underlying cirrhosis and portal hypertension. To have CARE consult Pelvic fracture-- Ortho and then PT consult Quality Stroke Does the patient have a stroke diagnosis?: No VTE Prior VTE?: No VTE Risk Level:: Medical - low VTE Device Contraindication: N/A - Device Ordered VTE Drug Contraindication: Treatment Not Indicated
--- NOTE | 2021-04-01 17:37 | PC.NURSE ---
PATIENT NOTED TO HAVE A LARGE, PASTY, DARK BLOODY BM. MD NOTIFIED.
[2021-04-01 18:52] LABS: Hematocrit 23.4 % (42-52); Hemoglobin 8.2 g/dl (14.0-18.0)
[2021-04-02] VITALS (7 sets, daily range): BP systolic 98–115; BP diastolic 55–59; PULSE 77–84; RESP 14–20; TEMP 35.5–37.7; O2SAT 93–99
[2021-04-02] MEDS: fentaNYL citrate/PF 100 MCG/2 ML VIAL 50 MCG IVPUSH ×4 (03:08→20:02)
[2021-04-02] MEDS: Pantoprazole Sodium 40 MG/10 ML VIAL IVPUSH ×2 (06:10→17:02)
[2021-04-02] MEDS: cefTRIAXone sodium 1 GM in 0.9 % Sodium Chloride 50 ML IV (09:06)
[2021-04-02] MEDS: Nicotine 21 MG PATCH.TD24 TRANSDERMA (09:06)
[2021-04-02 09:07] LABS: Hematocrit 24.7 % (42-52); Hemoglobin 8.4 g/dl (14.0-18.0); Mean Corpuscular Hemoglobin 31.5 pg (27.0-33.0); Mean Corpuscular Volume 92.5 fL (80-98); Mean Platelet Volume 10.7 fL (9.4-12.4); Red Blood Count 2.67 X10*6/uL (4.60-5.80); White Blood Count 5.1 X10*3/uL (4.8-10.8)
[2021-04-02] MEDS: 0.9 % Sodium Chloride Flush 3 ML SYRINGE IVFLUSH ×3 (09:07→17:02)
[2021-04-02 09:17] LABS: Platelet Count 62 X10*3/uL (160-400)
--- NOTE | 2021-04-02 10:33 | PM.EVENT ---
Event Note Date of Service: 03/27/21 Event Note: Patient presented to the ED on 03/27/21 after a syncopal episode. Dr. Givens consulted orthopedics after x-rays of the pelvis were obtained and he was found to have a stable right iliac wing fracture that does not involve the joint. Imaging and case was reviewed with Dr. Cheatham. This fracture is nonsurgical. The patient may WBAT with a walker.
--- NOTE | 2021-04-02 11:09 | P.PNIM_ITS ---
Subjective Subjective Date of Service: 04/02/21 Interval History: F/u on gib, acute blood loss anemia, fall with pelvic fracture--still with pelvic pain, had a dark stool yesterday with no change in h/h Review of Systems pelvic pain, no abd pain, dark bowel movment Physical Exam Vital Signs: Vital Signs: Last Vital Signs Temp 98.6 F 04/02/21 10:53 Pulse 84 04/02/21 10:53 Resp 18 04/02/21 10:53 BP 98/56 L 04/02/21 10:53 Pulse Ox 97 04/02/21 10:53 Body Mass Index 28.8 Const: Other: General: AO X 3, no acute distress Resp: CTA bilateral CVS: S1,S2,RRR GI: +BS, NT, no distention rectal exam deffered Skin: No rash Neuro: motor grossly intact Psych: appropriate affect Objective Data Active Medications Acetaminophen (Acetaminophen 325 Mg Tablet) 650 mg PO Q6H PRN PRN Reason: Pain, Mild (Pain Scale 1-3) Last Admin: 03/29/21 10:33 Dose: 650 mg Documented by: FUNMILAYO Fentanyl (Fentanyl Citrate/Pf 100 Mcg/2 Ml Vial) 50 mcg IVPUSH Q2H PRN; Protocol PRN Reason: Pain, Moderate (Pain Scale 4-6 Last Admin: 04/02/21 09:05 Dose: 50 mcg Documented by: KYREE Ceftriaxone Sodium 1 gm/ (Sodium Chloride) 50 mls @ 100 mls/hr IV Q24H [facility] Last Infusion: 04/02/21 10:30 Dose: 0 mls/hr Documented by: KYREE Melatonin (Melatonin 3 Mg Tablet) 6 mg PO BEDTIME PRN PRN Reason: Insomnia Nicotine (Nicotine 21 Mg Patch.Td24) 21 mg TRANSDERMA DAILY [facility] Last Admin: 04/02/21 09:06 Dose: 21 mg Documented by: KYREE Ondansetron HCl (Ondansetron Hcl 4 Mg/2 Ml Vial) 4 mg IVPUSH Q8H PRN PRN Reason: Nausea and Vomiting Last Admin: 03/28/21 04:07 Dose: 4 mg Documented by: GABRIEL Pantoprazole Sodium (Pantoprazole Sodium 40 Mg/10 Ml Vial) 40 mg IVPUSH BID@0630,1630 [facility] Last Admin: 04/02/21 06:10 Dose: 40 mg Documented by: VENUS Sodium Chloride (0.9 % Sodium Chloride Flush 3 Ml Syringe) 3 ml IVFLUSH QSHIFT [facility] Last Admin: 04/02/21 09:07 Dose: 3 ml Documented by: KYREE Labs CBC & Chem 7: 04/02/21 08:14 03/31/21 05:30 Labs: Laboratory Results - last 24 hr 04/02/21 08:14 MCV 92.5 MCH 31.5 MCHC 34.0 RDW 17.0 H Plt Count 62 L D MPV 10.7 Absolute Nucleated RBC 0.000 Nucleated RBC % (auto) 0.0 Assessment and Plan (1) Anemia due to acute blood loss: Status: Acute (2) Esophageal varices with bleeding: Status: Acute Assessment and Plan: ?41-year-old gentleman with underlying alcoholic cirrhosis with portal hypertension alcohol free for 6 months, admitted on 03/27/2021 after a syncopal episode provoking a fall resulting in iliac fracture, managed conservatively.? Hospital course further complicated by acute upper GI bleed, now status post endoscopy with no active bleed identified, but with visualized varices and s/p preventative variceal banding, he was hypOtensive and required vasopressor and now hemodynamically stable. Upper GI bleed, acute blood loss anemia, s/p multiple RBC transfusions, multiple platlet transfusions 7 units of RBC, 3 FFP, and 3 Plts and ended up having EGD showing varices and was banded, and treted with IV PPI, and 72 hours of octreotide. He has been stable since no further bleeding. Tranfser out of ICU 03/31. He has underlying cirrhosis and portal hypertension. Continue IV PPI and change to PO by tomorrow, To have CARE consult before discharge Pelvic fracture-- Ortho and then PT consult Quality Stroke Does the patient have a stroke diagnosis?: No VTE Prior VTE?: No VTE Risk Level:: Medical - low VTE Device Contraindication: N/A - Device Ordered VTE Drug Contraindication: Treatment Not Indicated
--- NOTE | 2021-04-02 14:37 | P.CONOP_ITS ---
History of Present Illness HPI Consult date: 03/27/21 Chief complaint: Syncope, pelvic fracture Narrative: Patient presented to the ED after sustaining a syncopal episode. After he awoke he had fallen to the ground and was feeling right hip pain. X- rays obtained in the ED revealed a right iliac wing fracture. Patient was admitted to the hospital on the medical service. Review of Systems Review of Systems: Yes all other systems are reviewed and are negative PMFSH Past Medical History Medical History Abnormal x-ray of humerus Alcohol abuse Ascites Coagulopathy Hyponatremia Malnutrition related to chronic disease No known health problems Portal venous hypertension Sarcopenia Thrombocytopenia due to hypersplenism Upper GI bleed Surgical History Surgical History H/O wrist surgery Social History Social History Household Members: None Household Members Other:: girlfriend Housing: Apartment Do you presently have visiting nurse or other home services: No Alcohol intake: former Patient Tobacco Use Status: Current everyday Tobacco user Tobacco use type: Cigarette Cigarette Packs Per Day: 1 Cigarettes Per Day: 15 Years Smoked: 20 Smoked in Last 30 Days: Yes Patient Interested in Nicotine Replacement: Yes Patient Given Instructions on How to Stop Smoking: No Second Hand Smoke Exposure: Yes Currently Displaying Signs/Symptoms of Drug Intoxication Withdrawal: No Have you been hit, kicked, punched, or otherwise hurt by someone within the past year? If so, by whom?: No Do you feel safe in your current relationship?: Yes Is there a partner from a previous relationship who is making you feel unsafe now?: No Are you made to feel afraid or neglected: No Spiritual Healthcare Practices: none Zoroastrian Healthcare Practices: none Cultural Healthcare Practices: none Advance Directives: No Advance Directives Information Provided: No Do you have thoughts of harming others: None Do you have a plan to hurt others: No Plan Recently lost weight without trying: No Nutrition Risks: No Nutritional Risk Poor oral hygiene: No service: No Current occupational status: employed Meds Allergies Allergy/AdvReac Type Severity Reaction Status Date / Time No Known Allergies Allergy Verified 09/05/20 11:19 Active Medications: Current Medications Acetaminophen (Acetaminophen 325 Mg Tablet) 650 mg PO Q6H PRN PRN Reason: Pain, Mild (Pain Scale 1-3) Last Admin: 03/29/21 10:33 Dose: 650 mg Documented by: Fentanyl (Fentanyl Citrate/Pf 100 Mcg/2 Ml Vial) 50 mcg IVPUSH Q2H PRN; Protocol PRN Reason: Pain, Moderate (Pain Scale 4-6 Last Admin: 04/02/21 14:21 Dose: 50 mcg Documented by: Ceftriaxone Sodium 1 gm/ (Sodium Chloride) 50 mls @ 100 mls/hr IV Q24H [facility] Last Infusion: 04/02/21 10:30 Dose: Infused Documented by: Melatonin (Melatonin 3 Mg Tablet) 6 mg PO BEDTIME PRN PRN Reason: Insomnia Nicotine (Nicotine 21 Mg Patch.Td24) 21 mg TRANSDERMA DAILY [facility] Last Admin: 04/02/21 09:06 Dose: 21 mg Documented by: Ondansetron HCl (Ondansetron Hcl 4 Mg/2 Ml Vial) 4 mg IVPUSH Q8H PRN PRN Reason: Nausea and Vomiting Last Admin: 03/28/21 04:07 Dose: 4 mg Documented by: Pantoprazole Sodium (Pantoprazole Sodium 40 Mg/10 Ml Vial) 40 mg IVPUSH BID@0630,1630 [facility] Last Admin: 04/02/21 06:10 Dose: 40 mg Documented by: Sodium Chloride (0.9 % Sodium Chloride Flush 3 Ml Syringe) 3 ml IVFLUSH QSHIFT [facility] Last Admin: 04/02/21 14:26 Dose: 3 ml Documented by: Physical Exam Vital Signs: Vital Signs: Last Vital Signs Temp 98.6 F 04/02/21 10:53 Pulse 84 04/02/21 10:53 Resp 18 04/02/21 10:53 BP 98/56 L 04/02/21 10:53 Pulse Ox 97 04/02/21 10:53 Body Mass Index 28.8 Const: General: cooperative, healthy appearing and no acute distress Resp: Effort & Inspection: normal respiratory effort and able to speak in complete sentences Cardio: Rate: regular rate Peripheral pulses: Peripheral pulses 2+ throughout GI: Palpation (GI): Soft to palpation Skin: Lesions: no lesions Rashes: no rashes Extrem: Other: Right lower extremity pain with hip active range of motion. NVI. Results Labs Result Diagrams: 04/02/21 08:14 03/31/21 05:30 Labs: Abnormal lab results 04/01/21 04/02/21 Range/Units 18:45 08:14 RBC 2.67 L (4.60-5.80) X10*6/uL Hgb 8.2 L 8.4 L (14.0-18.0) g/dl Hct 23.4 L 24.7 L (42-52) % RDW 17.0 H (11.0-16.0) % Plt Count 62 L D (160-400) X10*3/uL H & H 03/27/21 03/27/21 03/28/21 Range/Units 05:35 08:44 06:20 Hgb 8.6 L D 7.9 L 5.6 L* D (14.0-18.0) g/dl Hct 25.2 L D 23.1 L 17.0 L* D (42-52) % 03/28/21 03/28/21 03/28/21 Range/Units 12:01 19:25 19:25 Hgb 7.0 L* D Cancelled 8.3 L (14.0-18.0) g/dl Hct 21.1 L D Cancelled 23.8 L (42-52) % 03/28/21 03/29/21 03/29/21 Range/Units 20:36 01:47 05:03 Hgb 7.4 L 8.2 L 8.1 L (14.0-18.0) g/dl Hct 21.6 L 23.7 L 23.1 L (42-52) % 03/29/21 03/29/21 03/29/21 Range/Units 05:03 10:26 18:10 Hgb Cancelled 8.2 L 7.4 L (14.0-18.0) g/dl Hct Cancelled 24.1 L 21.8 L (42-52) % 03/30/21 03/30/21 03/30/21 Range/Units 00:15 05:30 12:02 Hgb 7.2 L 7.4 L 6.9 L* (14.0-18.0) g/dl Hct 20.8 L* 22.3 L 20.7 L* (42-52) % 03/30/21 03/31/21 03/31/21 Range/Units 18:13 05:30 11:28 Hgb 7.6 L 7.3 L 7.8 L (14.0-18.0) g/dl Hct 22.0 L 22.0 L 22.8 L (42-52) % 04/01/21 04/02/21 Range/Units 18:45 08:14 Hgb 8.2 L 8.4 L (14.0-18.0) g/dl Hct 23.4 L 24.7 L (42-52) % Coagulation 03/27/21 03/28/21 03/29/21 Range/Units 05:35 08:33 05:03 INR 1.7 H 1.9 H 1.4 H (0.9-1.1) 03/29/21 03/30/21 03/31/21 Range/Units 05:03 05:30 05:30 INR Cancelled 1.6 H 1.7 H (0.9-1.1) All other labs normal. Assessment and Plan (1) Closed fracture of iliac wing of pelvis: Status: Acute Mr. Alvarenga is a 41-year-old male who presented to the emergency department on 03/27/2021 after sustaining a syncopal episode. He states that he was trying to move his bowels when he stood up and felt dizzy resulting in syncope. He woke up on the ground and felt immediate right hip pain. He presented to the ED where x-rays were obtained and he was found to have a right iliac wing fracture. This fracture is stable in nature. He is able to weight bear as tolerated with the use of a walker. The case and x-rays were reviewed with Dr. Cheatham who is in agreement with the plan. There is no further orthopedic care needed at this time. Patient will follow-up in the outpatient setting 1-2 weeks after discharge. Procedures Date of Service Date of Service: 04/02/21
[2021-04-03] VITALS (9 sets, daily range): BP systolic 98–106; BP diastolic 51–59; PULSE 77–84; RESP 16–20; TEMP 36.6–37.2; O2SAT 96–98; BMI 24.9
[2021-04-03] MEDS: Pantoprazole Sodium 40 MG/10 ML VIAL IVPUSH (06:11)
[2021-04-03] MEDS: fentaNYL citrate/PF 100 MCG/2 ML VIAL 50 MCG IVPUSH ×3 (06:16→21:06)
[2021-04-03] MEDS: cefTRIAXone sodium 1 GM in 0.9 % Sodium Chloride 50 ML IV (08:03)
[2021-04-03] MEDS: 0.9 % Sodium Chloride Flush 3 ML SYRINGE IVFLUSH ×3 (08:03→21:13)
[2021-04-03] MEDS: Nicotine 21 MG PATCH.TD24 TRANSDERMA (08:03)
--- NOTE | 2021-04-03 10:27 | HO.PM.IMPN ---
Subjective Subjective Date of Service: 04/03/21 Interval History: F/u on gib, acute blood loss anemia, fall with pelvic fracture-pelvic pain is tolerable, no bleeding Review of Systems pelvic pain, no abd pain, no bleeding per rectum Physical Exam Vital Signs: Vital Signs: Last Vital Signs Temp 98.3 F 04/03/21 08:00 Pulse 84 04/03/21 08:00 Resp 18 04/03/21 08:00 BP 102/56 L 04/03/21 08:00 Pulse Ox 97 04/03/21 08:00 Body Mass Index 24.9 Const: Other: General: AO X 3, no acute distress Resp: CTA bilateral CVS: S1,S2,RRR GI: +BS, NT, no distention rectal exam deffered Skin: No rash Neuro: motor grossly intact Psych: appropriate affect Objective Data Active Medications Acetaminophen (Acetaminophen 325 Mg Tablet) 650 mg PO Q6H PRN PRN Reason: Pain, Mild (Pain Scale 1-3) Last Admin: 03/29/21 10:33 Dose: 650 mg Documented by: FUNMILAYO Ceftriaxone Sodium 1 gm/ (Sodium Chloride) 50 mls @ 100 mls/hr IV Q24H [facility] Last Infusion: 04/03/21 08:37 Dose: 0 mls/hr Documented by: UFNMILAYO Melatonin (Melatonin 3 Mg Tablet) 6 mg PO BEDTIME PRN PRN Reason: Insomnia Nicotine (Nicotine 21 Mg Patch.Td24) 21 mg TRANSDERMA DAILY [facility] Last Admin: 04/03/21 08:03 Dose: 21 mg Documented by: FUNMILAYO Omeprazole (Omeprazole 40 Mg Capsule.Dr) 40 mg PO BID@0630,1630 [facility] Ondansetron HCl (Ondansetron Hcl 4 Mg/2 Ml Vial) 4 mg IVPUSH Q8H PRN PRN Reason: Nausea and Vomiting Last Admin: 03/28/21 04:07 Dose: 4 mg Documented by: GABRIEL Sodium Chloride (0.9 % Sodium Chloride Flush 3 Ml Syringe) 3 ml IVFLUSH QSHIFT [facility] Last Admin: 04/03/21 08:03 Dose: 3 ml Documented by: FUNMILAYO Labs CBC & Chem 7: 04/02/21 08:14 03/31/21 05:30 Assessment and Plan (1) Acute blood loss anemia: Status: Acute Assessment and Plan: ?41-year-old gentleman with underlying alcoholic cirrhosis with portal hypertension alcohol free for 6 months, admitted on 03/27/2021 after a syncopal episode provoking a fall resulting in iliac fracture, managed conservatively.? Hospital course further complicated by acute upper GI bleed, now status post endoscopy with no active bleed identified, but with visualized varices and s/p preventative variceal banding, he was hypOtensive and required vasopressor and now hemodynamically stable. Upper GI bleed, acute blood loss anemia, s/p multiple RBC transfusions, multiple platlet transfusions 7 units of RBC, 3 FFP, and 3 Plts and ended up having EGD showing varices and was banded, and treted with IV PPI, and 72 hours of octreotide. He has been stable since no further bleeding. Tranfser out of ICU 03/31. He has underlying cirrhosis and portal hypertension. Continue IV PPI and change to PO by today, To have CARE consult before discharge Pelvic fracture-- Ortho recommends weight bearing as renaldo, awaiting PT eval Quality Stroke Does the patient have a stroke diagnosis?: No VTE Prior VTE?: No VTE Risk Level:: Medical - low VTE Device Contraindication: N/A - Device Ordered VTE Drug Contraindication: Treatment Not Indicated
[2021-04-03] MEDS: oxyCODONE HCl Immed Release 5 MG TABLET PO (15:14)
[2021-04-03] MEDS: Omeprazole 40 MG CAPSULE.DR PO (15:22)
[2021-04-04 03:26] VITALS: BP 97/55; PULSE 80; RESP 18; TEMP 36.9; O2SAT 98
[2021-04-04] MEDS: fentaNYL citrate/PF 100 MCG/2 ML VIAL 50 MCG IVPUSH ×3 (05:52→20:07)
[2021-04-04] MEDS: Omeprazole 40 MG CAPSULE.DR PO ×2 (05:56→15:44)
[2021-04-04 06:00] VITALS: BMI 23.9
[2021-04-04 08:00] VITALS: BP 98/50; PULSE 79; RESP 17; TEMP 36.4; O2SAT 97
[2021-04-04] MEDS: cefTRIAXone sodium 1 GM in 0.9 % Sodium Chloride 50 ML IV (08:05)
[2021-04-04] MEDS: 0.9 % Sodium Chloride Flush 3 ML SYRINGE IVFLUSH ×3 (08:06→20:08)
[2021-04-04] MEDS: Nicotine 21 MG PATCH.TD24 TRANSDERMA (08:12)
--- NOTE | 2021-04-04 11:16 | P.PNIM_ITS ---
Subjective Subjective Date of Service: 04/04/21 Interval History: F/u on gib, acute blood loss anemia, fall with pelvic fracture-pelvic pain, pain is better, no bleeding Review of Systems pelvic pain, no abd pain, no bleeding per rectum Physical Exam Vital Signs: Vital Signs: Last Vital Signs Temp 97.5 F 04/04/21 08:00 Pulse 79 04/04/21 08:00 Resp 17 04/04/21 08:00 BP 98/50 L 04/04/21 08:00 Pulse Ox 97 04/04/21 08:00 Body Mass Index 23.9 Const: Other: General: AO X 3, no acute distress Resp: CTA bilateral CVS: S1,S2,RRR GI: +BS, NT, no distention rectal exam deffered Skin: No rash Neuro: motor grossly intact Psych: appropriate affect Objective Data Active Medications Acetaminophen (Acetaminophen 325 Mg Tablet) 650 mg PO Q6H PRN PRN Reason: Pain, Mild (Pain Scale 1-3) Last Admin: 03/29/21 10:33 Dose: 650 mg Documented by: FUNMILAYO Fentanyl (Fentanyl Citrate/Pf 100 Mcg/2 Ml Vial) 50 mcg IVPUSH Q4H PRN; Protocol PRN Reason: Pain, Severe (Pain Scale 7-10) Last Admin: 04/04/21 05:52 Dose: 50 mcg Documented by: LOLITA Ceftriaxone Sodium 1 gm/ (Sodium Chloride) 50 mls @ 100 mls/hr IV Q24H [facility] Last Infusion: 04/04/21 08:53 Dose: 0 mls/hr Documented by: FUNMILAYO Melatonin (Melatonin 3 Mg Tablet) 6 mg PO BEDTIME PRN PRN Reason: Insomnia Nicotine (Nicotine 21 Mg Patch.Td24) 21 mg TRANSDERMA DAILY [facility] Last Admin: 04/04/21 08:12 Dose: 21 mg Documented by: FUNMILAYO Omeprazole (Omeprazole 40 Mg Capsule.) 40 mg PO BID@0630,1630 [facility] Last Admin: 04/04/21 05:56 Dose: 40 mg Documented by: LOLITA Ondansetron HCl (Ondansetron Hcl 4 Mg/2 Ml Vial) 4 mg IVPUSH Q8H PRN PRN Reason: Nausea and Vomiting Last Admin: 03/28/21 04:07 Dose: 4 mg Documented by: GABRIEL Oxycodone HCl (Oxycodone Hcl Immed Release 5 Mg Tablet) 5 mg PO Q4H PRN PRN Reason: Pain, Severe (Pain Scale 7-10) Last Admin: 04/03/21 15:14 Dose: 5 mg Documented by: FUNMILAYO Sodium Chloride (0.9 % Sodium Chloride Flush 3 Ml Syringe) 3 ml IVFLUSH QSHIFT ROBERT Last Admin: 04/04/21 08:06 Dose: 3 ml Documented by: FUNMILAYO Labs CBC & Chem 7: 04/02/21 08:14 03/31/21 05:30 Assessment and Plan (1) Acute blood loss anemia: Status: Acute (2) Cirrhosis: Status: Acute (3) Esophageal varices with bleeding: Status: Acute Assessment and Plan: ?41-year-old gentleman with underlying alcoholic cirrhosis with portal hypertension alcohol free for 6 months, admitted on 03/27/2021 after a syncopal episode provoking a fall resulting in iliac fracture, managed conservatively.? Hospital course further complicated by acute upper GI bleed, now status post endoscopy with no active bleed identified, but with visualized varices and s/p preventative variceal banding, he was hypOtensive and required vasopressor and now hemodynamically stable. Upper GI bleed, acute blood loss anemia, s/p multiple RBC transfusions, multiple platlet transfusions 7 units of RBC, 3 FFP, and 3 Plts and ended up having EGD showing varices and was banded, and treted with IV PPI, and 72 hours of octreotide. He has been stable since no further bleeding. Tranfser out of ICU 03/31. He has underlying cirrhosis and portal hypertension. Continue IV PPI and change to PO 04/04, To have CARE consult before discharge. Pelvic fracture-- Ortho recommends weight bearing as renaldo, awaiting PT eval. Transition to oral pain med, Tetragenetics Stroke Does the patient have a stroke diagnosis?: No VTE Prior VTE?: No VTE Risk Level:: Medical - low VTE Device Contraindication: N/A - Device Ordered VTE Drug Contraindication: Treatment Not Indicated
[2021-04-04 11:47] VITALS: BP 96/52; PULSE 79; RESP 18; TEMP 36.7; O2SAT 96
[2021-04-04] MEDS: oxyCODONE HCl Immed Release 5 MG TABLET PO (13:01)
--- NOTE | 2021-04-04 13:51 | MHC.CM.PN ---
physical therapy receommended home pt met with pt who is agreeable he will be going to [facility] not address on face sheet [facility]
[2021-04-04 15:09] VITALS: BP 94/49; PULSE 78; RESP 16; TEMP 37.2; O2SAT 97
[2021-04-04 19:25] VITALS: BP 95/54; PULSE 120; RESP 20; TEMP 36.8; O2SAT 96
[2021-04-04 23:50] VITALS: BP 112/54; PULSE 78; RESP 18; TEMP 36.7; O2SAT 98
[2021-04-05] MEDS: fentaNYL citrate/PF 100 MCG/2 ML VIAL 50 MCG IVPUSH ×2 (02:16→08:27)
[2021-04-05 03:14] VITALS: BP 109/62; PULSE 74; RESP 20; TEMP 36.4; O2SAT 97
[2021-04-05 05:28] VITALS: BMI 23.6
[2021-04-05] MEDS: Omeprazole 40 MG CAPSULE.DR PO (05:29)
[2021-04-05 07:03] VITALS: BP 105/56; PULSE 70; RESP 18; TEMP 35.5; O2SAT 97
[2021-04-05] MEDS: cefTRIAXone sodium 1 GM in 0.9 % Sodium Chloride 50 ML IV (08:30)
[2021-04-05] MEDS: 0.9 % Sodium Chloride Flush 3 ML SYRINGE IVFLUSH (08:30)
[2021-04-05] MEDS: Nicotine 21 MG PATCH.TD24 TRANSDERMA (08:30)
[2021-04-05 09:34] VITALS: BP 105/56; PULSE 70; O2SAT 97
--- NOTE | 2021-04-05 10:45 | PM.DS ---
DS: Providers Provider Date of Service: 04/05/21 Date of admission: 03/27/21 11:54 Primary care physician: Adrian Oneal MD Consults: 03/27/21 11:57 Consult to Gastroenterology Routine Consulting Provider: Mathieu Buenrostro Reason for consultation: anemia 04/01/21 07:25 Consult to Orthopedics Routine Consulting Provider: Chandu Cheatham Reason for consultation: pelvic fracture Has provider been notified: No DS: Diagnosis Discharge Diagnosis (1) Acute blood loss anemia: Status: Acute (2) Cirrhosis: Status: Acute (3) Esophageal varices with bleeding: Status: Acute DS: Summary Hospital Course Hospital Course: CC: Syncope HPI 41 year old male with history alocholic liver disease, chronic hyponatremia? and ascietes who presents here with a syncope. He relates that he was in the bathroom this morning and stood up felt dizzy and passed out. He suffered no head injury but is found to have a broken pelvis. He has been noted to have several episode of low blood pressure including a systolic BP of 81, he is also anemic with hematocrit of 23 and denies GIB. No arrythmia noted. Hospital course:Patient presented with an episode of syncope and noted to be anemic but not active bleeding at that time, he was found to have a stable pelvic iliac (pelvic) fracture d/t to fall. On the second day of hospitalization he developed large GI bleeding associated with hypotension and was trasfered to ICU where he required 7 units of RBC, 3 units of FFP and 3 units of platlets to stabilize. He was treated with octreotide for 72 hours and IV PPI for 5 days and will be transition to oral Prilosec 40 bid. He also required vasopressor to maintain blood pressures. He had EGD on 03/31/21 and noted to have esogphaeal varices but not bleeding but was banded. He has been very stable without further bleeding and has been hemodynamically stable. He is asked to avoid adhere to not drinking alcohol. For the pelvic fracture he was evaluatd by ortho and there is no indication for surgery and weight bearing as able, PT followed and patient prefers going home with home or outpatient PT. Advised not to drink alcohol Time Spent with Patient Time attestation: Total time spent providing and/or coordinating discharge services: Discharge coordination time: Greater than 30 minutes Quality: Stroke Does the patient have a stroke diagnosis?: No Physical Exam Vital Signs: Vital Signs: Last Vital Signs Temp 96 F L 04/05/21 07:03 Pulse 70 04/05/21 09:34 Resp 18 04/05/21 07:03 BP 105/56 L 04/05/21 09:34 Pulse Ox 97 04/05/21 09:34 Body Mass Index 23.6 General: AO X 3, no acute distress Resp: CTA bilateral CVS: S1,S2,RRR GI: +BS, NT, no distention Skin: No rash Neuro: motor grossly intact Psych: appropriate affect DS: Data Data Completed and Pending Completed studies during hospitalization [Text1]: Procedures Detoxification Services for Substance Abuse Treatment (09/05/20) Drainage of Peritoneal Cavity, Percutaneous Approach (09/05/20) Discharge Plan Discharge Anticipated Discharge Date/Time: 04/05/21 10:38 Patient Disposition: Home Health Service Discharge Diagnosis: GI bleeding, anemia, pelvic fracture Referrals: Adrian Oneal MD [Primary Care Provider] - 1 Week Discharge Medications: New oxycodone 5 mg Tablet 5 mg PO Q4H PRN (Reason: Pain, Severe (Pain Scale 7-10)) Qty: 20 RF: 0 omeprazole 40 mg Capsule,Delayed Release(Dr/Ec) 40 mg PO BID@0630,1630 Qty: 60 RF: 0 Continued spironolactone 25 mg tablet 25 mg PO DAILY Qty: 30 RF: 3 Discontinued omeprazole 20 mg capsule,delayed release(DR/EC) 20 mg PO DAILY Qty: 30 RF: 3 Discharge Orders: Discharge Order (Routine); Ordered 04/05/21 Ordered By: Vince Rutherford Diet: advance to usual diet Activity on Discharge: As tolerated Stand Alone Forms: Patient Portal Discharge page Care Plan Goals: Full recovery from pelvic fracture and GI bleeding Health Concerns: Livre cirrhosis, pelvic fracture Plan of Treatment: Home Physical therapy, avoid alcohol, take Prilosec as directed and follow Assessment: As above
--- NOTE | 2021-04-05 10:59 | W.MHC.F2F ---
Service Date Service Date: 04/05/21 Reasons for Services Signs and symptoms assessed: Homebound due to pelvic fracture with pain with ambulation and unsteady gait and therefore needs the assistance of another person Reason for detention: CV/CP assess and/or care and other Reason for physical therapy: home safety and mobility, therapeutic exercises, restore joint function and gait/transfer training Homebound: Leaving the home is medically contraindicated at this time without the asist of a device and/or another person due th the listed conditions above and below. Homebound supporting statement: recent gi bleed, assess for bleed Certification: Based on the above findings, I certify that this patient is confined to the home and needs intermittent detention care, physical therapy and/or speech therapy, or continues to need occupational therapy. The patient is under my care, and I have initiated the establishment of the plan of care. The patient will be followed by a physician who will periodically review the plan of care.
--- NOTE | 2021-04-05 11:20 | MHC.CM.PN ---
Pt has been accepted by [facility] for skilled services. Pt and agency aware and in agreement with d/c plan. Pt's significant other will transport
[2021-04-05 11:21] VITALS: BP 98/51; PULSE 78; RESP 18; TEMP 36.1; O2SAT 98
== END 2021-04-05 13:09 | disposition home health service (06) | DRG 280 ==
LOC: HO.ED 07:51 → HO.EDOVER 12:00 → HO.IMC 12:10 → HO.ICU 03-28 09:14 → HO.IMC 03-31 15:25
PROVIDERS: Emergency Medicine; Family Medicine; Internal Medicine; Internal Medicine Cardiovascular Disease; Internal Medicine Gastroenterology; Internal Medicine Pulmonary Disease; Physician Assistant; Registered Nurse Community Health; Admitting Provider Internal Medicine; Emergency Provider Emergency Medicine; PCP Internal Medicine; Visit Provider Internal Medicine
PROC: 0DJ08ZZ Inspection of Upper Intestinal Tract, Via Natural or Artificial Opening Endoscopic (ICD-10-PCS; CPT 43235; principal; 2021-03-28 11:00)
DX: K70.31 Alcoholic cirrhosis of liver with ascites (principal); I85.11 Secondary esophageal varices with bleeding; D68.9 Coagulation defect, unspecified; K76.6 Portal hypertension; E44.0 Moderate protein-calorie malnutrition; D62 Acute posthemorrhagic anemia; D89.0 Polyclonal hypergammaglobulinemia; S32.301A Unspecified fracture of right ilium, initial encounter for closed fracture; F17.210 Nicotine dependence, cigarettes, uncomplicated; D73.1 Hypersplenism; W18.30XA Fall on same level, unspecified, initial encounter; Z68.23 Body mass index [BMI] 23.0-23.9, adult; Y93.9 Activity, unspecified; Y92.002 Bathroom of unspecified non-institutional (private) residence as the place of occurrence of the external cause; Z20.822 Contact with and (suspected) exposure to COVID-19; Z71.6 Tobacco abuse counseling; Z79.899 Other long term (current) drug therapy
CPT/HCPCS: 36415; 70450; 71045; 71275; 72192; 73502; 80048; 80053; 80076; 80307; 82040; 82077; 82140; 82272; 82803; 82947; 83735; 84100; 84484; 85014; 85018; 85025; 85027; 85379; 85384; 85610; 85730; 86850; 86900; 86901; 86923; 87635; 93005; 96361; 96374; 97110; 97116; 97162; 99285; J0610; J0692; J0696; J1940; J2270; J2354; J2370; J2405; J3010; J3430; J3475; P9016; P9017; P9035; P9047; P9073; Q9967

== ENCOUNTER 2021-04-14 16:26 | Outpatient (REF) | payer MEDICAID, SELFPAY ==
[2021-04-14 16:42] LABS: MANUAL DIFF FLAG NO
[2021-04-14 16:53] LABS: Basophils Absolute Auto 0.1 X10*3/uL (0.0-0.2); Basophils Percent Auto 1.1 % (0-2); Eosinophils Absolute Auto 0.4 X10*3/uL (0.0-0.4); Eosinophils Percent Auto 8.9 % (0-4); Hematocrit 34.1 % (42.0-52.0); Hemoglobin 11.2 g/dl (14.0-18.0); Imm Gran Abs Auto 0.01 X10*3/uL (0.00-0.03); Imm Gran Pct Auto 0.2 % (0.0-0.4); Lymphocytes Absolute Auto 1.2 X10*3/uL (1.2-4.9); Lymphocytes Percent Auto 24.9 % (20-40); Mean Corpuscular HGB Conc 32.8 g/dl (31.0-36.0); Mean Corpuscular Hemoglobin 30.6 pg (27.0-33.0); Mean Corpuscular Volume 93.2 fL (80.0-98.0); Mean Platelet Volume 9.5 fL (9.4-12.4); Monocytes Absolute Auto 0.7 X10*3/uL (0.1-1.2); Monocytes Percent Auto 14.3 % (2-11); Neutrophils Absolute Auto 2.4 x10*3/uL (2.0-8.3); Neutrophils Percent Auto 50.6 % (45-73); Platelet Count 141 X10*3/uL (160-400); Red Blood Count 3.66 X10*6/uL (4.60-5.80); Red Cell Distribution Width 17.3 % (11.0-16.0); White Blood Count 4.7 X10*3/uL (4.8-10.8)
[2021-04-14 18:26] LABS: Alanine Aminotransferase 22 U/L (0-40); Albumin Level 4.2 g/dL (3.5-5.0); Alkaline Phosphatase 423 U/L (39-117); Anion Gap 13 (12-20); Aspartate Amino Transferase 44 U/L (5-37); Bilirubin Total 2.3 mg/dL (0.0-1.0); Blood Urea Nitrogen 10 mg/dL (9-16); Calcium 9.6 mg/dL (8.4-10.2); Carbon Dioxide 25 mmol/L (22-29); Chloride 106 mmol/L (96-108); Estimated Glomerular Filt Rate > 60; Glucose Random 100 mg/dL (60-115); Iron 193 mcg/dL (45-160); Percent Iron Saturation 67 % (15-50); Potassium 4.2 mmol/L (3.3-5.1); Sodium 140 mmol/L (135-145); Total Iron Binding Capacity 287 mcg/dL (228-428); Total Protein 8.1 g/dL (6.5-8.0); Unsaturated Iron Binding 94 ug/dL
== END 2021-04-14 16:27 | disposition home or self-care (01) ==
LOC: HO.LAB 16:26
PROVIDERS: PCP Internal Medicine; Visit Provider Internal Medicine
DX: D64.9 Anemia, unspecified (principal); K74.60 Unspecified cirrhosis of liver
CPT/HCPCS: 36415; 80053; 83540; 85025

== ENCOUNTER 2021-05-22 08:35 | Outpatient (REF) | payer MEDICAID, SELFPAY ==
[2021-05-22 09:37] LABS: INTERNATIONAL NORM RATIO 1.4 (0.9-1.1); Prothrombin Time 15.7 SEC (9.9-13.0)
[2021-05-22 12:34] LABS: Alanine Aminotransferase 22 U/L (0-40); Albumin Level 3.5 g/dL (3.5-5.0); Alkaline Phosphatase 229 U/L (39-117); Anion Gap 14 (12-20); Aspartate Amino Transferase 41 U/L (5-37); Bilirubin Total 2.4 mg/dL (0.0-1.0); Blood Urea Nitrogen 11 mg/dL (9-16); Calcium 9.5 mg/dL (8.4-10.2); Carbon Dioxide 23 mmol/L (22-29); Chloride 104 mmol/L (96-108); Estimated Glomerular Filt Rate > 60; Glucose Random 147 mg/dL (60-115); Potassium 4.1 mmol/L (3.3-5.1); Sodium 137 mmol/L (135-145); Total Protein 7.5 g/dL (6.5-8.0)
[2021-05-22 12:54] LABS: Ferritin 66 ng/mL (20-250)
[2021-05-24 04:18] LABS: Folate 14.8 ng/mL (> or = 4.0); Vitamin B12 776 pg/mL (200-900)
[2021-05-24 15:12] LABS: Transglutaminase Ab IgG <1.0 U/mL; Transglutaminase IgA <1.0 U/mL
[2021-05-24 21:02] LABS: Immunoglobulin G 2155 mg/dL (600-1640)
[2021-05-25 16:42] LABS: Mitochondrial Antibodies NEGATIVE (NEGATIVE)
[2021-05-25 19:06] LABS: Alpha 1 Anti-trypsin 160 mg/dL (83-199); Ceruloplasmin 25 mg/dL (18-36)
[2021-05-26 12:41] LABS: Anti Nuclear Antibody Screen NEGATIVE (NEGATIVE)
[2021-05-26 13:07] LABS: Smooth Muscle Antibody <20 U (<20)
[2021-05-26 21:27] LABS: Vitamin A 9 mcg/dL (38-98)
[2021-05-26 21:31] LABS: Alpha-Tocopherol 12.4 mg/L (5.7-19.9); Beta-Gamma Tocopherol 2.7 mg/L (<=4.3)
[2021-05-27 14:21] LABS: Soluble Liver Ag Autoantibody <20.1 U (0.0-20.0)
[2021-05-28 11:21] LABS: Nicotinamide 24 ng/mL; Vit B3 - Nicotinic Acid <20 ng/mL
[2021-05-29 17:11] LABS: Vitamin C 1.1 mg/dL (0.2-2.1)
[2021-06-01 15:06] LABS: Vitamin B5 (Pantothenic Acid) 40 ng/mL (<275)
== END 2021-05-22 08:36 | disposition home or self-care (01) ==
LOC: HO.LAB 08:35
PROVIDERS: PCP Internal Medicine; Visit Provider Internal Medicine Gastroenterology
DX: K70.9 Alcoholic liver disease, unspecified (principal); R79.82 Elevated C-reactive protein (CRP); K75.81 Nonalcoholic steatohepatitis (NASH); K52.839 Microscopic colitis, unspecified; R10.33 Periumbilical pain; G89.29 Other chronic pain
CPT/HCPCS: 36415; 80053; 82103; 82180; 82306; 82390; 82607; 82728; 82746; 82784; 83516; 83520; 84446; 84590; 84591; 85610; 86038; 86039; 86255; 86256

== ENCOUNTER → 2021-05-24 10:55 | Outpatient (BNVA) | payer MEDICAID, SELFPAY | PROVIDERS: PCP Internal Medicine; Visit Provider Internal Medicine Gastroenterology ==

== ENCOUNTER → 2021-08-23 10:45 | Outpatient (BNVA) | payer MEDICAID, SELFPAY | PROVIDERS: PCP Internal Medicine; Referring Provider Internal Medicine; Visit Provider Internal Medicine Gastroenterology | DX: D62 Acute posthemorrhagic anemia (principal); D69.59 Other secondary thrombocytopenia; N52.9 Male erectile dysfunction, unspecified; M25.50 Pain in unspecified joint | CPT/HCPCS: 99212 ==

== ENCOUNTER 2021-09-16 12:28 | Outpatient (REF) | payer MEDICAID, SELFPAY ==
[2021-09-16 12:47] LABS: MANUAL DIFF FLAG NO
[2021-09-16 13:26] LABS: Basophils Percent Auto 0.7 % (0-2); Eosinophils Absolute Auto 0.2 X10*3/uL (0.0-0.4); Eosinophils Percent Auto 5.3 % (0-4); Hematocrit 29.3 % (42.0-52.0); Hemoglobin 9.3 g/dl (14.0-18.0); Imm Gran Abs Auto 0.02 X10*3/uL (0.00-0.03); Imm Gran Pct Auto 0.5 % (0.0-0.4); Lymphocytes Absolute Auto 1.2 X10*3/uL (1.2-4.9); Lymphocytes Percent Auto 27.8 % (20-40); Mean Corpuscular HGB Conc 31.7 g/dl (31.0-36.0); Mean Corpuscular Hemoglobin 30.1 pg (27.0-33.0); Mean Corpuscular Volume 94.8 fL (80.0-98.0); Mean Platelet Volume 10.4 fL (9.4-12.4); Monocytes Absolute Auto 0.6 X10*3/uL (0.1-1.2); Monocytes Percent Auto 15.1 % (2-11); Neutrophils Absolute Auto 2.1 x10*3/uL (2.0-8.3); Neutrophils Percent Auto 50.6 % (45-73); Platelet Count 113 X10*3/uL (160-400); Red Blood Count 3.09 X10*6/uL (4.60-5.80); Red Cell Distribution Width 16.6 % (11.0-16.0); White Blood Count 4.2 X10*3/uL (4.8-10.8)
[2021-09-16 13:43] LABS: Alanine Aminotransferase 20 U/L (0-40); Alkaline Phosphatase 136 U/L (39-117); Anion Gap 12 (12-20); Aspartate Amino Transferase 33 U/L (5-37); Bilirubin Total 1.8 mg/dL (0.0-1.0); Blood Urea Nitrogen 9 mg/dL (9-16); Calcium 8.3 mg/dL (8.4-10.2); Carbon Dioxide 21 mmol/L (22-29); Chloride 107 mmol/L (96-108); Estimated Glomerular Filt Rate > 60; Glucose Random 104 mg/dL (60-115); Iron 109 mcg/dL (45-160); Percent Iron Saturation 37 % (15-50); Sodium 136 mmol/L (135-145); Total Iron Binding Capacity 293 mcg/dL (228-428); Total Protein 6.1 g/dL (6.5-8.0); Unsaturated Iron Binding 184 ug/dL
== END 2021-09-16 12:29 | disposition home or self-care (01) ==
LOC: HO.LAB 12:28
PROVIDERS: PCP Internal Medicine; Visit Provider Internal Medicine
DX: D64.9 Anemia, unspecified (principal)
CPT/HCPCS: 36415; 80053; 83540; 85025

== ENCOUNTER → 2021-11-23 11:04 | Outpatient (BNVA) | payer MEDICAID, SELFPAY | PROVIDERS: PCP Internal Medicine; Visit Provider Internal Medicine Rheumatology | DX: M76.61 Achilles tendinitis, right leg (principal); M76.62 Achilles tendinitis, left leg; G89.29 Other chronic pain; M25.529 Pain in unspecified elbow; M25.561 Pain in right knee; M25.562 Pain in left knee; D64.9 Anemia, unspecified | CPT/HCPCS: 99202 ==

== ENCOUNTER 2022-01-24 12:12 | Inpatient (IN) | payer MEDICAID, SELFPAY ==
[2022-01-24] VITALS (10 sets, daily range): BP systolic 79–103; BP diastolic 39–58; PULSE 75–95; RESP 14–19; TEMP 36.6–36.8; O2SAT 97–100; BMI 25.1
--- NOTE | ~2022-01-24 | CT_ITS ---
EXAMINATION: CT ABDOMEN AND PELVIS WITHOUT CONTRAST CLINICAL INFORMATION: Rectal bleeding. Question colitis. COMPARISON: CT abdomen pelvis 09/05/2020 TECHNIQUE: Multidetector volumetric imaging was performed from the superior aspect of the liver through the pubic symphysis. Sagittal and coronal reformatted images were obtained on the technologist's workstation. This CT examination was performed using dose optimization techniques as appropriate, variously including the following: *Automated exposure control *Adjustment of mA and/or kV according to patient size (this includes techniques or standardized protocols for targeted exams where dose is matched to indication/reason for exam; i.e. extremities or head) *Use of iterative reconstruction technique DLP: 443 mGy-cm FINDINGS: LUNG BASES: Grossly clear allowing for respiratory motion artifact. Small fat-containing Bochdalek hernia on the right. LIVER, GALLBLADDER, AND BILIARY TREE: Cirrhotic liver morphology with prominent left liver lobe and nodular liver surface contour. 0.7 cm hypodense lesion in the inferior right liver lobe, present on prior 40 08/22/2020, stability suggesting benign etiology such as a small cyst or hemangioma. No other liver lesion allowing for lack of intravenous contrast. No biliary ductal dilation. There is a 0.6 cm gallstone in the region of the gallbladder neck. Gallbladder is incompletely distended with diffuse gallbladder wall thickening and/or mural edema. PANCREAS: Unremarkable. SPLEEN: Normal size. No splenic lesion. ADRENAL GLANDS: Unremarkable. KIDNEYS AND URETERS: The kidneys are normal in size, shape, and attenuation. No hydronephrosis, hydroureter, or calculi seen. No perinephric stranding. BLADDER: Unremarkable. GASTROINTESTINAL TRACT: No dilated bowel loops or bowel wall thickening. No pericolonic inflammatory change. The appendix is prominent in caliber measuring up to 0.8 cm in diameter. No surrounding inflammatory change to suggest acute appendicitis however. No ascites or free air. ABDOMINAL WALL: Small fat-containing umbilical hernia. LYMPH NODES: No lymphadenopathy. VASCULAR: Normal caliber abdominal aorta. Recanalized umbilical vein and upper abdominal ventral abdominal wall varices compatible with portal hypertension. PELVIC VISCERA: Unremarkable. OSSEOUS STRUCTURES: Chronic right iliac wing fracture, present on prior CT pelvis 03/27/2021. No acute fracture or suspicious osseous lesion. CT/CT abdomen pelvis wo con IMPRESSION: 1. Findings compatible with cirrhosis and portal hypertension with recanalized umbilical vein and varices in the ventral abdominal wall and ventral abdomen. 2. No CT evidence of colitis. 3. Cholelithiasis with 6 mm gallstone near the gallbladder neck and diffuse gallbladder wall thickening or mural edema. Correlate clinically with signs or symptoms of acute cholecystitis.
--- NOTE | ~2022-01-24 | CT_ITS ---
EXAMINATION: CTA ABDOMEN AND PELVIS WITH CONTRAST CLINICAL INFORMATION: GI bleeding. TECHNIQUE: Multiple axial images were obtained through the abdomen and pelvis after administration of IV contrast. 80 mL of Omnipaque 350 was administered intravenously. Images were evaluated on independent dedicated 3-D workstation and 3-D images were reconstructed with concurrent radiologist supervision and subsequently interpreted. This CT examination was performed using dose optimization techniques as appropriate, variously including the following: *Automated exposure control *Adjustment of mA and/or kV according to patient size (this includes techniques or standardized protocols for targeted exams where dose is matched to indication/reason for exam; i.e. extremities or head) *Use of iterative reconstruction technique COMPARISON: CT scans dating between January 24, 2022 and September 05, 2020. DLP: 967 mGy-cm. FINDINGS: ARTERIAL: 1. Mesenteric arteries: Unremarkable. 2. Renal arteries: Unremarkable. 3. Abdominal aorta: Unremarkable. 4. Right iliofemoral system: Unremarkable. 5. Left iliofemoral system: Unremarkable. NONVASCULAR ABDOMEN/PELVIS: Lung Bases: Hypodense, consistent with anemia. Mild bibasilar dependent atelectasis. Liver, Gallbladder, Biliary Tree: Nodular hepatic contour with relative atrophy of the right hepatic lobe. Approximately 1.2 cm, hypodense, segment 6 hepatic lesion (image 20, series 6), and approximately 0.8 cm segment 5 hepatic lesion (image 23), unchanged compared with September 05, 2020, therefore likely benign. No new hepatic mass identified. No biliary ductal dilatation is appreciated. Nonspecific diffuse gallbladder wall thickening. Approximately 5 mm gallstones (image 35, series 6). Recanalized umbilical vein. Pancreas: Unremarkable. Spleen: Mildly enlarged, measuring 14.4 cm in transverse dimension. Adrenal Glands: Unremarkable. Kidneys and Ureters: The kidneys appear unremarkable in size, shape, and attenuation. No hydronephrosis or hydroureter or calculi seen. Bladder: Unremarkable. Gastrointestinal Tract: Presumed endoscopic clip at the junction of the second and third portions of the duodenum. Suspect concentric thickening of the wall of the cecum and ascending colon, worse. Redundant sigmoid colon. No diverticulosis. Peritoneal Cavity/Mesentery: Small amount of ascites, new. Mild induration of mesenteric fat, probably worse. Abdominal Wall: No hernia is appreciated. Caput medusa. Lymph Nodes: No evidence of adenopathy by size criteria. Pelvic Viscera: Unremarkable. Osseous Structures: Old, healed fracture of the right iliac bone. CT/CT gi bleed abd pel wo/w con IMPRESSION: No evidence of active GI bleeding. Suspect concentric thickening of the wall of the cecum and ascending colon, worse compared with 2 days prior. Differential diagnosis includes, but is not limited to, colitis. Small amount of ascites, new. Mild induration of mesenteric fat, nonspecific, probably worse. Hepatic cirrhosis with secondary signs of portal hypertension including recanalization of the umbilical vein, caput medusa, splenomegaly, and ascites. Nonspecific diffuse gallbladder wall thickening. Cholelithiasis. Anemia.
[2022-01-24 12:36] LABS: MANUAL DIFF FLAG NO
[2022-01-24 12:37] LABS: Basophils Percent Auto 0.5 % (0-2); Eosinophils Absolute Auto 0.2 X10*3/uL (0.0-0.4); Eosinophils Percent Auto 4.1 % (0-4); Hematocrit 24.1 % (42.0-52.0); Hemoglobin 7.8 g/dl (14.0-18.0); Imm Gran Abs Auto 0.02 X10*3/uL (0.00-0.03); Imm Gran Pct Auto 0.3 % (0.0-0.4); Lymphocytes Absolute Auto 2.1 X10*3/uL (1.2-4.9); Lymphocytes Percent Auto 35.8 % (20-40); Mean Corpuscular HGB Conc 32.4 g/dl (31.0-36.0); Mean Corpuscular Hemoglobin 25.6 pg (27.0-33.0); Mean Platelet Volume 9.7 fL (9.4-12.4); Monocytes Absolute Auto 0.6 X10*3/uL (0.1-1.2); Neutrophils Absolute Auto 2.8 x10*3/uL (2.0-8.3); Neutrophils Percent Auto 48.3 % (45-73); Platelet Count 101 X10*3/uL (160-400); Red Blood Count 3.05 X10*6/uL (4.60-5.80); White Blood Count 5.8 X10*3/uL (4.8-10.8)
[2022-01-24 13:04] LABS: Alanine Aminotransferase 18 U/L (0-40); Alkaline Phosphatase 96 U/L (39-117); Anion Gap 10 (12-20); Aspartate Amino Transferase 28 U/L (5-37); Bilirubin Direct 0.5 mg/dL (0.0-0.5); Bilirubin Total 1.3 mg/dL (0.0-1.0); Blood Urea Nitrogen 23 mg/dL (9-16); Carbon Dioxide 24 mmol/L (22-29); Chloride 109 mmol/L (96-108); Creatinine Clr Calc Pharmacy 127.1; Estimated Glomerular Filt Rate > 60; Glucose Random 122 mg/dL (60-115); Lipase 44 U/L (8-78); Sodium 139 mmol/L (135-145); Total Protein 5.7 g/dL (6.5-8.0)
--- NOTE | 2022-01-24 15:49 | ED.GIBLEED ---
HPI - GI Bleed General Chief complaint: GI Bleed Stated complaint: Loss of blood sent by Dr Buenrostro Time Seen by Provider: 01/24/22 15:35 Source: patient Mode of arrival: ambulatory Limitations: no limitations History of Present Illness HPI Narrative: Patient comes to the emergency room complaining 12-18 hours of bloody diarrhea. Patient states that he feels weak. Denies any abdominal pain, no rectal pain. Patient states that he has had GI bleeds in the past. Secondary to alcoholic cirrhosis and esophageal varices bleeding. Patient admits that he used to be an alcoholic, denies drinking alcohol in the past year. Related Data Home Medications Medication Instructions Recorded Confirmed [id number]-[id number] 1 tab PO DAILY 01/24/22 01/24/22 fumarate 7.5 mg-folic acid 400 mcg tablet Allergies Allergy/AdvReac Type Severity Reaction Status Date / Time No Known Allergies Allergy Verified 01/24/22 12:20 Review of Systems Review of Systems: Constitutional : No Weight loss, No Fever, No Chills, No Night Sweats, No Fatigue, No Malaise ENT/Mouth : No Hearing loss, No Ear Pain, No Nasal Congestion, No Sinus Pain, No Hoarseness, No sore throat, No Rhinorrhea, No Swallowing Difficulty Eyes: No Eye Pain, No Swelling, No Redness, No Foreign Body, No Discharge, No Vision Changes Cardiovascular : No Chest Pain, No SOB, No Dyspnea on Exertion, No Orthopnea, No Edema, No Palpitations Respiratory : No Cough, No Sputum, No Wheezing, No Smoke Exposure, No Dyspnea Gastrointestinal : No Nausea, No Vomiting, complaining of bloody diarrhea, no abdominal pain Genitourinary : no irregular bleeding, No Dysuria, No Urinary Frequency, No Hematuria, No Urinary Incontinence, No Urgency, No Flank Pain, No Urinary Flow Changes, No Hesitancy Musculoskeletal : No joint pain, No Myalgias, No Joint Swelling Skin : No Skin Lesions, No rash Neuro : No Weakness, No Numbness, No Paresthesias, No Loss of Consciousness, No Dizziness, No Headache Psych : No Anxiety/Panic, No Depression, No SI/HI/AH/VH, No Social Issues, Heme/Lymph: No Bruising, No Bleeding,No Lymphadenopathy Endocrine : No Polyuria, No Polydipsia, No Temperature Intolerance [facility] Past Medical History Medical History Abnormal x-ray of humerus Alcohol abuse Alcoholic liver disease Ascites Coagulopathy Hyponatremia Malnutrition related to chronic disease Polyclonal hypergammaglobulinemia Portal venous hypertension Sarcopenia Thrombocytopenia due to hypersplenism Upper GI bleed Surgical History H/O wrist surgery History of esophagogastroduodenoscopy (EGD) Family History Family History Other No family history of coronary artery disease Social History Social History Household Members: None Household Members Other:: girlfriend Housing: Apartment Do you presently have visiting nurse or other home services: No Alcohol intake: former Patient Tobacco Use Status: Current everyday Tobacco user Tobacco use type: Cigarette Cigarette Packs Per Day: 1 Cigarettes Per Day: 15 Years Smoked: 20 Second Hand Smoke Exposure: Yes Advance Directives: No Advance Directives Information Provided: No service: No Current occupational status: employed Physical Exam Vital Signs: Vital Signs: Last Vital Signs Temp 98.3 F 01/24/22 18:36 Pulse 79 01/24/22 19:37 Resp 15 01/24/22 19:37 BP 93/39 L 01/24/22 19:37 Pulse Ox 99 01/24/22 19:37 O2 Del Method 01/24/22 19:37 BMI result Body Mass Index 25.1 Const: Other: Appearance: Alert. Oriented X3. No acute distress. Eyes: Pupils equal, round and reactive to light. Mild icteric sclera ENT: Pharynx normal. Neck: Normal inspection. Neck supple. No lymph nodes noted. No crepitus CVS: Normal heart rate and rhythm. Pulses normal. Normal S1 and S2 Respiratory: No respiratory distress. Breath sounds normal. No Wheezing. No rales Abdomen: Soft and nontender. No rigidity. No distention. Skin: Skin warm and dry. Pale color. Normal skin turgor. Extremities: No lower extremity edema. No Lacerations. No Rash Neuro: Oriented X 3. No motor deficit. No sensory deficit. Moving all extremities. No slurred speech. CN 2 through 12 grossly intact Psych: calm, cooperative, normal affect Course Course Course Narrative: Patient's hemoglobin is 7.8. Patient is guaiac stool is positive, fresh blood per rectum. Patient's blood pressure has been on the lower side. Sepsis not suspected. I discussed with the patient that he would benefit from blood transfusion. Patient states he has been transfused before and is aware of the risks versus benefits, he is agreeable to the transfusion. Consent has been signed, and is now in the patient's chart. I discussed the patient with Dr. Buenrostro, patient will need an endoscopy tomorrow. Patient to be kept NPO. Dr. Almonte is on-call, aware of patient p.r.n. CT scan shows a 6 mm gallstone at the gallbladder neck. Patient has no abdominal pain at all or Colby sign. Acute cholecystitis is not suspected. Discussed the patient with Dr. Grande, pt being admitted MDM - GI Bleed Lab Data Result diagrams: 01/24/22 12:26 01/24/22 12:26 Labs: Lab Results 01/24/22 01/24/22 01/24/22 Range/Units 12: 12:26 15:56 WBC 5.8 (4.8-10.8) X10*3/uL RBC 3.05 L (4.60-5.80) X10*6/uL Hgb 7.8 L (14.0-18.0) g/dl Hct 24.1 L (42.0-52.0) % MCV 79.0 L (80.0-98.0) fL MCH 25.6 L (27.0-33.0) pg MCHC 32.4 (31.0-36.0) g/dl RDW 24.0 H (11.0-16.0) % Plt Count 101 L (160-400) X10*3/uL MPV 9.7 (9.4-12.4) fL Immature Gran % (Auto) 0.3 (0.0-0.4) % Neut % (Auto) 48.3 (45-73) % Lymph % (Auto) 35.8 (20-40) % [place] % (Auto) 11.0 (2-11) % Eos % (Auto) 4.1 H (0-4) % Baso % (Auto) 0.5 (0-2) % Lymph # (Auto) 2.1 (1.2-4.9) X10*3/uL [place] # (Auto) 0.6 (0.1-1.2) X10*3/uL Eos # (Auto) 0.2 (0.0-0.4) X10*3/uL Baso # (Auto) 0.0 (0.0-0.2) X10*3/uL Abs Immat Gran (auto) 0.02 (0.00-0.03) X10*3/uL Absolute Neuts (auto) 2.8 (2.0-8.3) x10*3/uL Absolute Nucleated RBC 0.000 (0.0-0.012) X10*3/uL Nucleated RBC % (auto) 0.0 (0.0-0.2) /100WBC PT (10.0-13.1) SEC INR (0.9-1.1) APTT Sodium 139 (135-145) mmol/L Potassium 4.0 (3.3-5.1) mmol/L Chloride 109 H (96-108) mmol/L Carbon Dioxide 24 (22-29) mmol/L Anion Gap 10 L (12-20) BUN 23 H D (9-16) mg/dL Creatinine 0.78 (0.5-1.4) mg/dL Estim Creat Clear Calc 127.1 Estimated GFR > 60 Random Glucose 122 H (60-115) mg/dL Calcium 8.0 L (8.4-10.2) mg/dL Total Bilirubin 1.3 H (0.0-1.0) mg/dL Direct Bilirubin 0.5 (0.0-0.5) mg/dL AST 28 (5-37) U/L ALT 18 (0-40) U/L Alkaline Phosphatase 96 D (39-117) U/L Total Protein 5.7 L (6.5-8.0) g/dL Albumin 3.0 L (3.5-5.0) g/dL Lipase 44 (8-78) U/L Stool Occult Blood POSITIVE (NEGATIVE) COVID-19 ([facility]) (Negative) COVID-19 Clin Com Blood Type Antibody Screen Crossmatch 01/24/22 01/24/22 01/24/22 Range/Units 16:33 16:33 16:33 WBC (4.8-10.8) X10*3/uL RBC (4.60-5.80) X10*6/uL Hgb (14.0-18.0) g/dl Hct (42.0-52.0) % MCV (80.0-98.0) fL MCH (27.0-33.0) pg MCHC (31.0-36.0) g/dl RDW (11.0-16.0) % Plt Count (160-400) X10*3/uL MPV (9.4-12.4) fL Immature Gran % (Auto) (0.0-0.4) % Neut % (Auto) (45-73) % Lymph % (Auto) (20-40) % [place] % (Auto) (2-11) % Eos % (Auto) (0-4) % Baso % (Auto) (0-2) % Lymph # (Auto) (1.2-4.9) X10*3/uL [place] # (Auto) (0.1-1.2) X10*3/uL Eos # (Auto) (0.0-0.4) X10*3/uL Baso # (Auto) (0.0-0.2) X10*3/uL Abs Immat Gran (auto) (0.00-0.03) X10*3/uL Absolute Neuts (auto) (2.0-8.3) x10*3/uL Absolute Nucleated RBC (0.0-0.012) X10*3/uL Nucleated RBC % (auto) (0.0-0.2) /100WBC PT 17.8 H (10.0-13.1) SEC INR 1.5 H (0.9-1.1) APTT Cancelled 34.1 Sodium (135-145) mmol/L Potassium (3.3-5.1) mmol/L Chloride (96-108) mmol/L Carbon Dioxide (22-29) mmol/L Anion Gap (12-20) BUN (9-16) mg/dL Creatinine (0.5-1.4) mg/dL Estim Creat Clear Calc Estimated GFR Random Glucose (60-115) mg/dL Calcium (8.4-10.2) mg/dL Total Bilirubin (0.0-1.0) mg/dL Direct Bilirubin (0.0-0.5) mg/dL AST (5-37) U/L ALT (0-40) U/L Alkaline Phosphatase (39-117) U/L Total Protein (6.5-8.0) g/dL Albumin (3.5-5.0) g/dL Lipase (8-78) U/L Stool Occult Blood (NEGATIVE) COVID-19 ([facility]) Negative (Negative) COVID-19 Clin Com See Note Blood Type Antibody Screen Crossmatch 01/24/22 Range/Units 16:33 WBC (4.8-10.8) X10*3/uL RBC (4.60-5.80) X10*6/uL Hgb (14.0-18.0) g/dl Hct (42.0-52.0) % MCV (80.0-98.0) fL MCH (27.0-33.0) pg MCHC (31.0-36.0) g/dl RDW (11.0-16.0) % Plt Count (160-400) X10*3/uL MPV (9.4-12.4) fL Immature Gran % (Auto) (0.0-0.4) % Neut % (Auto) (45-73) % Lymph % (Auto) (20-40) % [place] % (Auto) (2-11) % Eos % (Auto) (0-4) % Baso % (Auto) (0-2) % Lymph # (Auto) (1.2-4.9) X10*3/uL [place] # (Auto) (0.1-1.2) X10*3/uL Eos # (Auto) (0.0-0.4) X10*3/uL Baso # (Auto) (0.0-0.2) X10*3/uL Abs Immat Gran (auto) (0.00-0.03) X10*3/uL Absolute Neuts (auto) (2.0-8.3) x10*3/uL Absolute Nucleated RBC (0.0-0.012) X10*3/uL Nucleated RBC % (auto) (0.0-0.2) /100WBC PT (10.0-13.1) SEC INR (0.9-1.1) APTT Sodium (135-145) mmol/L Potassium (3.3-5.1) mmol/L Chloride (96-108) mmol/L Carbon Dioxide (22-29) mmol/L Anion Gap (12-20) BUN (9-16) mg/dL Creatinine (0.5-1.4) mg/dL Estim Creat Clear Calc Estimated GFR Random Glucose (60-115) mg/dL Calcium (8.4-10.2) mg/dL Total Bilirubin (0.0-1.0) mg/dL Direct Bilirubin (0.0-0.5) mg/dL AST (5-37) U/L ALT (0-40) U/L Alkaline Phosphatase (39-117) U/L Total Protein (6.5-8.0) g/dL Albumin (3.5-5.0) g/dL Lipase (8-78) U/L Stool Occult Blood (NEGATIVE) COVID-19 ([facility]) (Negative) COVID-19 Clin Com Blood Type O Positive Antibody Screen NEGATIVE Crossmatch See Detail Imaging Data CT scan - abdomen: Radiologist's impression: FINDINGS: LUNG BASES: Grossly clear allowing for respiratory motion artifact. Small fat-containing Bochdalek hernia on the right.? LIVER, GALLBLADDER, AND BILIARY TREE: Cirrhotic liver morphology with prominent left liver lobe and nodular liver surface contour. 0.7 cm hypodense lesion in the inferior right liver lobe, present on prior 40 08/22/2020, stability suggesting benign etiology such as a small cyst or hemangioma. No other liver lesion allowing for lack of intravenous contrast. No biliary ductal dilation. There is a 0.6 cm gallstone in the region of the gallbladder neck. Gallbladder is incompletely distended with diffuse gallbladder wall thickening and/or mural edema. PANCREAS: Unremarkable.? SPLEEN: Normal size. No splenic lesion.? ADRENAL GLANDS: Unremarkable.? KIDNEYS AND URETERS: The kidneys are normal in size, shape, and attenuation. No hydronephrosis, hydroureter, or calculi seen. No perinephric stranding. ? BLADDER: Unremarkable.? GASTROINTESTINAL TRACT: No dilated bowel loops or bowel wall thickening. No pericolonic inflammatory change. The appendix is prominent in caliber measuring up to 0.8 cm in diameter. No surrounding inflammatory change to suggest acute appendicitis however. No ascites or free air. ABDOMINAL WALL: Small fat-containing umbilical hernia.? LYMPH NODES: No lymphadenopathy. VASCULAR: Normal caliber abdominal aorta. Recanalized umbilical vein and upper abdominal ventral abdominal wall varices compatible with portal hypertension. PELVIC VISCERA: Unremarkable.? OSSEOUS STRUCTURES: Chronic right iliac wing fracture, present on prior CT pelvis 03/27/2021. No acute fracture or suspicious osseous lesion.? CT/CT abdomen pelvis wo con IMPRESSION: ? 1. Findings compatible with cirrhosis and portal hypertension with recanalized umbilical vein and varices in the ventral abdominal wall and ventral abdomen. 2. No CT evidence of colitis. 3. Cholelithiasis with 6 mm gallstone near the gallbladder neck and diffuse gallbladder wall thickening or mural edema. Correlate clinically with signs or symptoms of acute cholecystitis. Critical Care Time Critical Care Time Critical Care Time: Yes Total Critical Care Time: 60 Attestation: I have personally provided critical care time. Time includes review of lab data, radiology results, discussion with consultants, and monitoring for potential decompensation. Intervention performed as documented. Discharge Plan Discharge Clinical Impression: GI bleed, Anemia Patient Disposition: Admitted As Inpatient
[2022-01-24 16:20] LABS: OBS Int Ctl Valid YES; OBS1 POSITIVE (NEGATIVE)
[2022-01-24] MEDS: 0.9 % Sodium Chloride 1,000 ML 999 ML IVCONT (16:37)
[2022-01-24 16:51] LABS: INTERNATIONAL NORM RATIO 1.5 (0.9-1.1); Prothrombin Time 17.8 SEC (10.0-13.1)
[2022-01-24 16:54] LABS: Partial Thromboplastin Time 34.1 SEC (26.0-36.4)
[2022-01-24 16:58] LABS: COVID-19 Test Negative (Negative); IDNOW Serial# 16C4AD1C
[2022-01-24] MEDS: Pantoprazole Sodium 40 MG/10 ML VIAL 80 MG IVPUSH (17:07)
[2022-01-24] MEDS: Octreotide Acetate 100 MCG/ML AMPUL 50 MCG IVPUSH (17:07)
[2022-01-24] MEDS: ondansetron HCL 4 MG/2 ML VIAL IVPUSH (17:25)
[2022-01-24] MEDS: 0.9 % Sodium Chloride 1,000 ML 75 ML IVCONT (17:26)
--- NOTE | 2022-01-24 17:30 | P.HPHOSP_ITS ---
History of Present Illness Date of Service: 01/24/22 Chief Complaint: blood per rectum 41M With a past medical history of decompensated alcohol cirrhosis with history of variceal bleed presented with 1 day history of bright red blood per rectum mixed with stool. Patient denies abdominal pain, hematemesis, NSAID use. Denies fever, chills, sick contacts. In ED noted to have anemia with hemoglobin is 7.8, lower than baseline. Given history was given 1 unit PRBC, PPI, octreotide. Review of Systems Review of Systems: Constitutional: Denies fever, denies Chills Eyes: denies blurry vision ENT: denies sore throat CVS: denies chest pain Respiratory: Denies dyspnea GI: no abdominal pain : denies dysuria MSK: denies neck pain Skin: denies rash Neuro: denies specific motor weakness Psych: denies suicidal ideation Endocrine: denies heat/cold intolerance Hematologic: denies easy bleeding Allergy: denies hives PMFSH Medical History Abnormal x-ray of humerus Alcohol abuse Alcoholic liver disease Ascites Coagulopathy Hyponatremia Malnutrition related to chronic disease Polyclonal hypergammaglobulinemia Portal venous hypertension Sarcopenia Thrombocytopenia due to hypersplenism Upper GI bleed Family History Other No family history of coronary artery disease Surgical History H/O wrist surgery History of esophagogastroduodenoscopy (EGD) Social History Household Members: None Household Members Other:: girlfriend Housing: Apartment Do you presently have visiting nurse or other home services: No Alcohol intake: former Patient Tobacco Use Status: Current everyday Tobacco user Tobacco use type: Cigarette Cigarette Packs Per Day: 1 Cigarettes Per Day: 15 Years Smoked: 20 Second Hand Smoke Exposure: Yes Advance Directives: No Advance Directives Information Provided: No service: No Current occupational status: employed Meds Allergies Allergy/AdvReac Type Severity Reaction Status Date / Time No Known Allergies Allergy Verified 01/24/22 12:20 Active Medications: Current Medications Octreotide Acetate 500 mcg/ (Sodium Chloride) 501 mls @ 25.05 mls/hr IVCONT .Q20H [facility] Sodium Chloride (Ns) 1,000 mls @ 75 mls/hr IVCONT .[id number] [facility] Last Admin: 01/24/22 17:26 Dose: 75 mls/hr Midodrine (Midodrine Hcl 5 Mg Tablet) 5 mg PO TID [facility] Pantoprazole Sodium (Pantoprazole Sodium 40 Mg/10 Ml Vial) 40 mg IVPUSH BID@0630,1630 [facility] Pharmacy Consult (Consult Rx Perform Med Rec) 1 each MISCELLANE ONCE PRN PRN Reason: Consult order Home Medications Medication Instructions Recorded Confirmed Last Taken Type ferrous sulfate 325 mg (65 mg 325 mg PO .now and then 11/23/21 11/23/21 Unknown History iron) tablet ztiktfag-fgohujif-kvgrd acid 400 tab PO DAILY 11/23/21 11/23/21 Unknown History mcg-vit K 20 mcg-lycop 300 mcg tablet (Men's Multivitamin) omeprazole 40 mg capsule,delayed 40 mg PO DAILY States takes once a 11/23/21 Unknown History day Physical Exam Vital Signs and Narrative: Vital Signs: Last Vital Signs Temp 97.9 F 01/24/22 12:20 Pulse 92 01/24/22 16:50 Resp 18 01/24/22 16:50 BP 103/52 L 01/24/22 16:50 Pulse Ox 97 01/24/22 16:50 O2 Del Method 01/24/22 16:50 BMI result Body Mass Index 25.1 General: no acute distress HEENT: atraumatic Neck: normal to visual inspection CVS: S1, S2, RRR Resp: CTA bilateral Chest: non tender GI: soft, non tender, non distended : no CVA tenderness Skin: no rashes Extremities: no edema Neuro: Oriented X3, grossly intact Psych: cooperative Results Labs CBC and Chem 7: 01/24/22 12:26 01/24/22 12:26 Labs: Laboratory Results - last 24 hr 01/24/22 01/24/22 01/24/22 12:26 12:26 15:56 MCV 79.0 L MCH 25.6 L MCHC 32.4 RDW 24.0 H Plt Count 101 L MPV 9.7 Immature Gran % (Auto) 0.3 Neut % (Auto) 48.3 Lymph % (Auto) 35.8 Mccracken % (Auto) 11.0 Eos % (Auto) 4.1 H Baso % (Auto) 0.5 Lymph # (Auto) 2.1 Mccracken # (Auto) 0.6 Eos # (Auto) 0.2 Baso # (Auto) 0.0 Abs Immat Gran (auto) 0.02 Absolute Neuts (auto) 2.8 Absolute Nucleated RBC 0.000 Nucleated RBC % (auto) 0.0 PT INR APTT Anion Gap 10 L Estim Creat Clear Calc 127.1 Estimated GFR > 60 Random Glucose 122 H Calcium 8.0 L Total Bilirubin 1.3 H Direct Bilirubin 0.5 AST 28 ALT 18 Alkaline Phosphatase 96 D Total Protein 5.7 L Albumin 3.0 L Lipase 44 Stool Occult Blood POSITIVE COVID-19 ([facility]) COVID-19 [facility] Com Blood Type Antibody Screen Crossmatch 01/24/22 01/24/22 01/24/22 16:33 16:33 16:33 MCV MCH MCHC RDW Plt Count MPV Immature Gran % (Auto) Neut % (Auto) Lymph % (Auto) Mccracken % (Auto) Eos % (Auto) Baso % (Auto) Lymph # (Auto) Mccracken # (Auto) Eos # (Auto) Baso # (Auto) Abs Immat Gran (auto) Absolute Neuts (auto) Absolute Nucleated RBC Nucleated RBC % (auto) PT 17.8 H INR 1.5 H APTT Cancelled 34.1 Anion Gap Estim Creat Clear Calc Estimated GFR Random Glucose Calcium Total Bilirubin Direct Bilirubin AST ALT Alkaline Phosphatase Total Protein Albumin Lipase Stool Occult Blood COVID-19 ([facility]) Negative COVID-[facility] Com See Note Blood Type Antibody Screen Crossmatch 01/24/22 16:33 MCV MCH MCHC RDW Plt Count MPV Immature Gran % (Auto) Neut % (Auto) Lymph % (Auto) Mccracken % (Auto) Eos % (Auto) Baso % (Auto) Lymph # (Auto) Mccracken # (Auto) Eos # (Auto) Baso # (Auto) Abs Immat Gran (auto) Absolute Neuts (auto) Absolute Nucleated RBC Nucleated RBC % (auto) PT INR APTT Anion Gap Estim Creat Clear Calc Estimated GFR Random Glucose Calcium Total Bilirubin Direct Bilirubin AST ALT Alkaline Phosphatase Total Protein Albumin Lipase Stool Occult Blood COVID-19 ([facility]) COVID-19 TNC Com Blood Type O Positive Antibody Screen NEGATIVE Crossmatch See Detail Assessment and Plan (1) GI bleed: Status: Acute Plan 41M with pmh of decompensated ETOH cirrhosis presented with BRBPR Acute blood loss anemia in a patient with decompensated alcoholic cirrhosis differential includes lower GI bleed vs brisk upper gi bleed protonix, octreotide, midodrine gi eval 1 unit prbc monitor hgb vte prophylaxis - mechanical due to gi bleed full code patient with acute blood loss anemia, high risk for life threatening bleed given history of varices, therefore expected to require atleast 2 midnights in hospital Quality Stroke Does the patient have a stroke diagnosis?: No VTE Prior VTE?: No VTE Risk Level:: Medical - moderate - high VTE Device Contraindication: N/A - Device Ordered VTE Drug Contraindication: Treatment Not Tolerated
--- NOTE | 2022-01-24 17:48 | PHA.MEDREC ---
Pharmacy Consult ? Medication Reconciliation Pharmacy has completed the medication reconciliation. Patient states he has dc'd everything but a multivitamin.
[2022-01-24] MEDS: Octreotide Acetate 500 MCG in 0.9 % Sodium Chloride 500 ML 25.05 MCG IVCONT (18:27)
[2022-01-24] MEDS: Nicotine 21 MG PATCH.TD24 TRANSDERMA (18:36)
--- NOTE | 2022-01-24 19:00 | PC.NURSE ---
RN assumed care of patient at this time.
--- NOTE | 2022-01-24 19:35 | PC.NURSE ---
RN ambulated patient to restroom. Patient became dizzy, stated he was going to pass out and became diaphoretic. RN able to get patient into a wheelchair and back to bed. Patient transferred with assistance. Patient slightly hypotensive but no worse than previous BP's recorded. Patient reports improvement while lying down.
--- NOTE | 2022-01-24 21:29 | MHC.CM.PN ---
CM met with admitted patient with bed assignment pending.A&Ox4. Pt is unvaccinated and not interested in being vaccinated. Covid screen negative. Pt declines HCP at this time. Lives with father. Unemployed. No DME/services. D/C plan: Home without services. CM to follow for d/c needs.
[2022-01-24] MEDS: Midodrine HCl 5 MG TABLET PO (22:28)
[2022-01-24 23:38] LABS: Basophils Percent Auto 0.4 % (0-2); Eosinophils Absolute Auto 0.1 X10*3/uL (0.0-0.4); Eosinophils Percent Auto 2.5 % (0-4); Imm Gran Abs Auto 0.02 X10*3/uL (0.00-0.03); Imm Gran Pct Auto 0.4 % (0.0-0.4); Lymphocytes Absolute Auto 1.9 X10*3/uL (1.2-4.9); Lymphocytes Percent Auto 35.9 % (20-40); Mean Corpuscular Hemoglobin 25.5 pg (27.0-33.0); Mean Corpuscular Volume 79.5 fL (80.0-98.0); Mean Platelet Volume 10.2 fL (9.4-12.4); Monocytes Absolute Auto 0.6 X10*3/uL (0.1-1.2); Monocytes Percent Auto 10.7 % (2-11); Neutrophils Absolute Auto 2.6 x10*3/uL (2.0-8.3); Neutrophils Percent Auto 50.1 % (45-73); Red Cell Distribution Width 22.2 % (11.0-16.0); White Blood Count 5.2 X10*3/uL (4.8-10.8)
[2022-01-24 23:43] LABS: MANUAL DIFF FLAG NO
[2022-01-24 23:44] LABS: Hemoglobin 5.6 g/dl (14.0-18.0)
[2022-01-24 23:45] LABS: Hematocrit 17.5 % (42.0-52.0)
[2022-01-24 23:55] LABS: Alanine Aminotransferase 15 U/L (0-40); Albumin Level 2.4 g/dL (3.5-5.0); Alkaline Phosphatase 69 U/L (39-117); Anion Gap 11 (12-20); Aspartate Amino Transferase 23 U/L (5-37); Bilirubin Direct 0.6 mg/dL (0.0-0.5); Bilirubin Total 1.4 mg/dL (0.0-1.0); Blood Urea Nitrogen 24 mg/dL (9-16); Calcium 7.3 mg/dL (8.4-10.2); Carbon Dioxide 22 mmol/L (22-29); Chloride 110 mmol/L (96-108); Estimated Glomerular Filt Rate > 60; Glucose Random 155 mg/dL (60-115); Magnesium 1.5 mg/dL (1.6-2.6); Potassium 4.4 mmol/L (3.3-5.1); Sodium 139 mmol/L (135-145); Total Protein 4.3 g/dL (6.5-8.0)
[2022-01-24 23:58] LABS: Platelet Count 75 X10*3/uL (160-400)
[2022-01-25] VITALS (26 sets, daily range): BP systolic 81–103; BP diastolic 28–58; PULSE 58–88; RESP 12–20; TEMP 36.5–36.9; O2SAT 97–100
[2022-01-25 00:13] LABS: Hematocrit 18.3 % (42.0-52.0)
[2022-01-25] MEDS: Furosemide 40 MG/4 ML VIAL IVPUSH (00:51)
[2022-01-25] MEDS: 0.9 % Sodium Chloride Flush 3 ML SYRINGE IVFLUSH ×3 (00:52→21:29)
[2022-01-25 01:58] LABS: Appearance Urine Clear; Color Urine Yellow; Glucose Urine UA Negative (Negative); Leukocyte Esterase Urine Negative (Negative); Nitrite Urine Negative (Negative); PH 5.5 (5.0-8.0); Urine Blood Negative (Negative); Urine Ketones Negative (Negative); Urine Protein Negative (Neg-Trace)
[2022-01-25 04:53] LABS: Hemoglobin 7.1 g/dl (14.0-18.0); PLT CLUMP 1
[2022-01-25 04:55] LABS: Hematocrit 21.3 % (42.0-52.0); Mean Corpuscular HGB Conc 33.3 g/dl (31.0-36.0); Mean Platelet Volume 9.8 fL (9.4-12.4); Red Blood Count 2.63 X10*6/uL (4.60-5.80); Red Cell Distribution Width 20.4 % (11.0-16.0)
[2022-01-25 04:59] LABS: Platelet Count 67 X10*3/uL (160-400); White Blood Count 5.9 X10*3/uL (4.8-10.8)
[2022-01-25 05:13] LABS: Anion Gap 13 (12-20); Blood Urea Nitrogen 23 mg/dL (9-16); Calcium 7.2 mg/dL (8.4-10.2); Carbon Dioxide 23 mmol/L (22-29); Chloride 109 mmol/L (96-108); Estimated Glomerular Filt Rate > 60; Glucose Fasting 81 mg/dL (60-99); Potassium 4.2 mmol/L (3.3-5.1); Sodium 141 mmol/L (135-145)
--- NOTE | 2022-01-25 06:20 | P.CNGI_ITS ---
History of Present Illness Data of Consult Service Date: 01/25/22 Requesting physician: Camilo Grande Primary Care Provider: Adrian Oneal MD HPI Reason for consult: acute blood loss anemia 41-year-old man with history of decompensated alcohol related cirrhosis who I am seeing for assessment for acute blood loss anemia. Patient had sudden onset bloody diarrheal stools for 12 hours or so prior to admission. He never had any abdominal pain, no nausea, vomiting, denies dizziness, SOB or chest pain, Not had alcohol for 1 year, not been taking any nsaids. Of note, he did have variceal bleeding 03/2021 requiring transfer to ICU? where he required 7 units of RBC, 3 units of FFP and 3 units of platelets to stabilize with banding done by Dr Olmos due to presence of red efren signs. He also said he was at [facility] in September with a GI bleed and had a clip placed, thinks he may have had an ulcer. HGB 5,6 g/dl on admission and improved to 7 g/dl with 1 unit PRBC. ? Review of Systems Review of Systems: Constitutional: Denies fever, denies Chills Eyes: denies blurry vision ENT: denies sore throat CVS: denies chest pain Respiratory: Denies dyspnea GI: no abdominal pain : denies dysuria MSK: denies neck pain Skin: denies rash Neuro: denies specific motor weakness Psych: denies suicidal ideation Endocrine: denies heat/cold intolerance Hematologic: denies easy bleeding Allergy: denies hives PMFSH Past Medical History Medical History Abnormal x-ray of humerus Alcohol abuse Alcoholic liver disease Ascites Coagulopathy Hyponatremia Malnutrition related to chronic disease Polyclonal hypergammaglobulinemia Portal venous hypertension Sarcopenia Thrombocytopenia due to hypersplenism Upper GI bleed Family History Family History Other No family history of coronary artery disease Surgical History Surgical History H/O wrist surgery History of esophagogastroduodenoscopy (EGD) Social History Social History Household Members: None Household Members Other:: girlfriend Housing: Apartment Do you presently have visiting nurse or other home services: No Alcohol intake: former Patient Tobacco Use Status: Current everyday Tobacco user Tobacco use type: Cigarette Cigarette Packs Per Day: 1 Cigarettes Per Day: 15 Years Smoked: 20 Second Hand Smoke Exposure: Yes Advance Directives: No Advance Directives Information Provided: No service: No Current occupational status: unemployed Meds Allergies Allergy/AdvReac Type Severity Reaction Status Date / Time No Known Allergies Allergy Verified 01/24/22 12:20 Active Medications: Current Medications Octreotide Acetate 500 mcg/ (Sodium Chloride) 501 mls @ 25.05 mls/hr IVCONT .Q20H [facility] Last Admin: 01/24/22 18:27 Dose: 25 mcg/hr, 25.05 mls/hr Sodium Chloride (Ns) 1,000 mls @ 75 mls/hr IVCONT .[id number] [facility] Last Admin: 01/24/22 17:26 Dose: 75 mls/hr Midodrine (Midodrine Hcl 5 Mg Tablet) 5 mg PO TID [facility] Last Admin: 01/24/22 22:28 Dose: 5 mg Nicotine (Nicotine 21 Mg Patch.Td24) 21 mg TRANSDERMA DAILY [facility] Last Admin: 01/24/22 18:36 Dose: 21 mg Pantoprazole Sodium (Pantoprazole Sodium 40 Mg/10 Ml Vial) 40 mg IVPUSH BID@0630,1630 [facility] Pharmacy Consult (Consult Rx Perform Med Rec) 1 each MISCELLANE ONCE PRN PRN Reason: Consult order Sodium Chloride (0.9 % Sodium Chloride Flush 3 Ml Syringe) 3 ml IVFLUSH QSHIFT [facility] Last Admin: 01/25/22 00:52 Dose: 3 ml Home Medications Medication Instructions Recorded Confirmed Last Taken Type ehuthcyqoesz-twnygyip-msql 1 tab PO DAILY 01/24/22 01/24/22 01/23/22 History fumarate 7.5 mg-folic acid 400 mcg tablet Physical Exam Vital Signs: Vital Signs: Last Vital Signs Temp 98.2 F 01/25/22 05:51 Pulse 67 01/25/22 05:51 Resp 13 01/25/22 05:51 BP 93/39 L 01/25/22 05:51 Pulse Ox 99 01/25/22 05:51 O2 Del Method 01/25/22 05:51 BMI result Body Mass Index 25.1 Const: Other: Appearance: Alert. Oriented X3. No acute distress. Eyes: Pupils equal, round and reactive to light. Mild icteric sclera ENT: Pharynx normal. Neck: Normal inspection. Neck supple. No lymph nodes noted. No crepitus CVS: Normal heart rate and rhythm. Pulses normal. Normal S1 and S2 Respiratory: No respiratory distress. Breath sounds normal. No Wheezing. No rales Abdomen: Soft and nontender. No rigidity. No distention. Skin: Skin warm and dry. Pale color. Normal skin turgor. Extremities: No lower extremity edema. No Lacerations. No Rash Neuro: Oriented X 3. No motor deficit. No sensory deficit. Moving all extremities. No slurred speech. CN 2 through 12 grossly intact Psych: calm, cooperative, normal affect Results Labs CBC & Chem 7: 01/25/22 04:30 01/25/22 04:30 Labs: Short CBC 01/24/22 01/24/22 01/25/22 Range/Units 12:26 23:33 00:04 WBC 5.8 5.2 (4.8-10.8) X10*3/uL Hgb 7.8 L 5.6 L* D 6.0 L* (14.0-18.0) g/dl Hct 24.1 L 17.5 L* D 18.3 L* (42.0-52.0) % Plt Count 101 L 75 L D (160-400) X10*3/uL 01/25/22 Range/Units 04:30 WBC 5.9 (4.8-10.8) X10*3/uL Hgb 7.1 L (14.0-18.0) g/dl Hct 21.3 L (42.0-52.0) % Plt Count 67 L (160-400) X10*3/uL BMP 01/24/22 01/24/22 01/25/22 12:26 23:33 04:30 Sodium 139 139 141 Potassium 4.0 4.4 4.2 Chloride 109 H 110 H 109 H Carbon Dioxide 24 22 23 BUN 23 H D 24 H 23 H Creatinine 0.78 0.74 0.74 Calcium 8.0 L 7.3 L D 7.2 L Liver Function 01/24/22 01/24/22 Range/Units 12:26 23:33 Total Bilirubin 1.3 H 1.4 H (0.0-1.0) mg/dL Direct Bilirubin 0.5 0.6 H (0.0-0.5) mg/dL AST 28 23 (5-37) U/L ALT 18 15 (0-40) U/L Alkaline Phosphatase 96 D 69 D (39-117) U/L Albumin 3.0 L 2.4 L (3.5-5.0) g/dL Urine 01/25/22 Range/Units 01:50 Urine Color Yellow Urine Appearance Clear Urine pH 5.5 (5.0-8.0) Ur Specific [place] 1.010 (1.005-1.025) Urine Protein Negative (Neg-Trace) mg/dL Urine Glucose (UA) Negative (Negative) mg/dL Imaging CT scan - abdomen: Attestation: I personally reviewed and interpreted this imaging study as follows: My impression: gallstones, cirrhosis, varices Assessment and Plan (1) GI bleed: Qualifiers: GI bleed type/associated pathology: unspecified gastrointestinal hemorrhage type Qualified Code(s): K92.2 - Gastrointestinal hemorrhage, unspecified Status: Acute (2) Cirrhosis: Qualifiers: Ascites presence: without ascites Hepatic cirrhosis type: alcoholic cirrhosis Qualified Code(s): K70.30 - Alcoholic cirrhosis of liver without ascites Status: Acute Plan 1/ Acute blood loss anemia most likely due to variceal bleeding from decompensated cirrhosis or possibly from peptic ulcer disease given his history of prior EGD in September at [facility] PLAN: 1/ NPO 2/ Agree with octreotide and PPI as ordered 3/ add ceftriaxone 1 g for 5 d to prevent secondary infection from bacterial translocation 4/ EGD today for further assessment 5/ transfuse for HGB 8-9 g/dl, avoid over transfusing Procedures Date of Service Date of Service: 01/25/22
[2022-01-25] MEDS: 0.9 % Sodium Chloride 1,000 ML 75 ML IVCONT (06:33)
[2022-01-25] MEDS: Pantoprazole Sodium 40 MG/10 ML VIAL IVPUSH ×2 (06:47→18:11)
[2022-01-25] MEDS: Midodrine HCl 5 MG TABLET PO ×3 (08:48→21:29)
[2022-01-25] MEDS: Nicotine 21 MG PATCH.TD24 TRANSDERMA (08:50)
[2022-01-25] MEDS: cefTRIAXone sodium 1 GM in 0.9 % Sodium Chloride 50 ML IV (10:19)
--- NOTE | 2022-01-25 10:45 | PC.NURSE ---
report given to sss
--- NOTE | 2022-01-25 13:02 | P.PNIM_ITS ---
Subjective Subjective Date of Service: 01/25/22 Interval History: cc: brbpr interval history: no new complaints Respiratory Respiratory: Reports no additional respiratory complaints Gastrointestinal Gastrointestinal: Reports no additional gastrointestinal complaints Physical Exam Vital Signs: Vital Signs: Last Vital Signs Temp 98.2 F 01/25/22 05:51 Pulse 64 01/25/22 11:57 Resp 12 01/25/22 11:57 BP 83/48 L 01/25/22 11:57 Pulse Ox 98 01/25/22 11:57 O2 Del Method 01/25/22 11:57 BMI result Body Mass Index 25.1 General: AO X 3, no acute distress Resp: CTA bilateral, no accessory muscles used CVS: S1,S2,RRR GI: soft, non tender, non distended Neuro: motor grossly intact, alert Psych: appropriate affect, appropriate insight Objective Data Active Medications Octreotide Acetate 500 mcg/ (Sodium Chloride) 501 mls @ 25.05 mls/hr IVCONT .Q20H [facility] Last Admin: 01/24/22 18:27 Dose: 25 mcg/hr, 25.05 mls/hr Documented By: DEONTE Sodium Chloride (Ns) 1,000 mls @ 75 mls/hr IVCONT .[id number] [facility] Last Admin: 01/25/22 06:33 Dose: 75 mls/hr Documented By: JOLYNN Ceftriaxone Sodium 1 gm/ (Sodium Chloride) 50 mls @ 100 mls/hr IV Q24H [facility] Last Admin: 01/25/22 10:19 Dose: 100 mls/hr Documented By: ARGENIS Midodrine (Midodrine Hcl 5 Mg Tablet) 5 mg PO TID [facility] Last Admin: 01/25/22 08:48 Dose: 5 mg Documented By: ARGENIS Nicotine (Nicotine 21 Mg Patch.Td24) 21 mg TRANSDERMA DAILY [facility] Last Admin: 01/25/22 08:50 Dose: 21 mg Documented By: ARGENIS Pantoprazole Sodium (Pantoprazole Sodium 40 Mg/10 Ml Vial) 40 mg IVPUSH BID@0630,1630 [facility] Last Admin: 01/25/22 06:47 Dose: 40 mg Documented By: JOLYNN Pharmacy Consult (Consult Rx Perform Med Rec) 1 each MISCELLANE ONCE PRN PRN Reason: Consult order Sodium Chloride (0.9 % Sodium Chloride Flush 3 Ml Syringe) 3 ml IVFLUSH QSHIFT [facility] Last Admin: 01/25/22 08:48 Dose: 3 ml Documented By: ARGENIS Labs CBC & Chem 7: 01/25/22 04:30 01/25/22 04:30 Labs: Laboratory Results - last 24 hr 01/24/22 01/24/22 01/24/22 12:26 15:56 16:33 MCV MCH MCHC RDW Plt Count MPV Immature Gran % (Auto) Neut % (Auto) Lymph % (Auto) [place] % (Auto) Eos % (Auto) Baso % (Auto) Lymph # (Auto) [place] # (Auto) Eos # (Auto) Baso # (Auto) Abs Immat Gran (auto) Absolute Neuts (auto) Absolute Nucleated RBC Nucleated RBC % (auto) PT INR APTT Cancelled Anion Gap 10 L Estim Creat Clear Calc 127.1 Estimated GFR > 60 Random Glucose 122 H Fasting Glucose Calcium 8.0 L Magnesium Total Bilirubin 1.3 H Direct Bilirubin 0.5 AST 28 ALT 18 Alkaline Phosphatase 96 D Total Protein 5.7 L Albumin 3.0 L Lipase 44 Urine Color Urine Appearance Urine pH Ur Specific [place] Urine Protein Urine Glucose (UA) Urine Ketones Urine Blood Urine Nitrite Ur Leukocyte Esterase Stool Occult Blood POSITIVE COVID-19 ([facility]ANIA) COVID-19 [facility] Blood Type Antibody Screen Crossmatch 01/24/22 01/24/22 01/24/22 16:33 16:33 16:33 MCV MCH MCHC RDW Plt Count MPV Immature Gran % (Auto) Neut % (Auto) Lymph % (Auto) [place] % (Auto) Eos % (Auto) Baso % (Auto) Lymph # (Auto) [place] # (Auto) Eos # (Auto) Baso # (Auto) Abs Immat Gran (auto) Absolute Neuts (auto) Absolute Nucleated RBC Nucleated RBC % (auto) PT 17.8 H INR 1.5 H APTT 34.1 Anion Gap Estim Creat Clear Calc Estimated GFR Random Glucose Fasting Glucose Calcium Magnesium Total Bilirubin Direct Bilirubin AST ALT Alkaline Phosphatase Total Protein Albumin Lipase Urine Color Urine Appearance Urine pH Ur Specific [place] Urine Protein Urine Glucose (UA) Urine Ketones Urine Blood Urine Nitrite Ur Leukocyte Esterase Stool Occult Blood COVID-19 ([facility]ANIA) Negative COVID-19 [facility] See Note Blood Type O Positive Antibody Screen NEGATIVE Crossmatch See Detail 01/24/22 01/24/22 01/25/22 23:33 23:33 01:50 MCV 79.5 L MCH 25.5 L MCHC 32.0 RDW 22.2 H Plt Count 75 L D MPV 10.2 Immature Gran % (Auto) 0.4 Neut % (Auto) 50.1 Lymph % (Auto) 35.9 [place] % (Auto) 10.7 Eos % (Auto) 2.5 Baso % (Auto) 0.4 Lymph # (Auto) 1.9 [place] # (Auto) 0.6 Eos # (Auto) 0.1 Baso # (Auto) 0.0 Abs Immat Gran (auto) 0.02 Absolute Neuts (auto) 2.6 Absolute Nucleated RBC 0.000 Nucleated RBC % (auto) 0.0 PT INR APTT Anion Gap 11 L Estim Creat Clear Calc 134.0 Estimated GFR > 60 Random Glucose 155 H Fasting Glucose Calcium 7.3 L D Magnesium 1.5 L Total Bilirubin 1.4 H Direct Bilirubin 0.6 H AST 23 ALT 15 Alkaline Phosphatase 69 D Total Protein 4.3 L D Albumin 2.4 L Lipase Urine Color Yellow Urine Appearance Clear Urine pH 5.5 Ur Specific [place] 1.010 Urine Protein Negative Urine Glucose (UA) Negative Urine Ketones Negative Urine Blood Negative Urine Nitrite Negative Ur Leukocyte Esterase Negative Stool Occult Blood COVID-19 ([facility]ANIA) COVID-19 Clin [facility] Blood Type Antibody Screen Crossmatch 01/25/22 01/25/22 04:30 04:30 MCV 81.0 MCH 27.0 MCHC 33.3 RDW 20.4 H Plt Count 67 L MPV 9.8 Immature Gran % (Auto) Neut % (Auto) Lymph % (Auto) [place] % (Auto) Eos % (Auto) Baso % (Auto) Lymph # (Auto) [place] # (Auto) Eos # (Auto) Baso # (Auto) Abs Immat Gran (auto) Absolute Neuts (auto) Absolute Nucleated RBC 0.000 Nucleated RBC % (auto) 0.0 PT INR APTT Anion Gap 13 Estim Creat Clear Calc 134.0 Estimated GFR > 60 Random Glucose Fasting Glucose 81 Calcium 7.2 L Magnesium Total Bilirubin Direct Bilirubin AST ALT Alkaline Phosphatase Total Protein Albumin Lipase Urine Color Urine Appearance Urine pH Ur Specific [place] Urine Protein Urine Glucose (UA) Urine Ketones Urine Blood Urine Nitrite Ur Leukocyte Esterase Stool Occult Blood COVID-19 ([facility]) COVID-19 Clin Com Blood Type Antibody Screen Crossmatch Assessment and Plan (1) GI bleed: Status: Acute Plan 41M with pmh of decompensated ETOH cirrhosis presented with BRBPR Acute blood loss anemia in a patient with decompensated alcoholic cirrhosis ?differential includes lower GI bleed vs brisk upper gi bleed protonix, octreotide, midodrine, rocephin plan for EGD today s/p 3 units unit prbc 01/24/22 monitor hgb vte prophylaxis - mechanical due to gi bleed full code reason for continued hospitalization: high risk gi bleed, plan for EGD and close monitoring Quality Stroke Does the patient have a stroke diagnosis?: No VTE Prior VTE?: No VTE Risk Level:: Medical - moderate - high VTE Device Contraindication: N/A - Device Ordered VTE Drug Contraindication: Treatment Not Tolerated
--- NOTE | 2022-01-25 13:08 | PC.NURSE ---
pt of to sss
--- NOTE | 2022-01-25 13:41 | HO.ANESPROP2 ---
HPI - Anesthesia Eval Consult details Narrative: 41 yo make patient for EGD PMFSH Active Problems Active Problems: All Active Problems (Updated 01/25/22 @ 06:33 by Mathieu Buenrostro MD) GI bleed (Acute) Anemia (Acute). S/p 3u PRBC 01/24, 01/25 Elbow pain, chronic (Acute) Achilles tendinitis of both lower extremities (Acute) Knee pain, bilateral (Acute) Cirrhosis (Acute) Joint pain (Acute) Impotence (Acute) Thrombocytopenia due to hypersplenism (Acute) Past Medical History Medical History Abnormal x-ray of humerus Alcohol abuse Alcoholic liver disease Ascites Coagulopathy Hyponatremia Malnutrition related to chronic disease Polyclonal hypergammaglobulinemia Portal venous hypertension Sarcopenia Thrombocytopenia due to hypersplenism Upper GI bleed Family History Family History Other No family history of coronary artery disease Family history of problems with anesthesia: No Surgical History Surgical History H/O wrist surgery History of esophagogastroduodenoscopy (EGD) History of Problems with Anesthesia: No Social History Social History Household Members: None Household Members Other:: girlfriend Housing: Apartment Do you presently have visiting nurse or other home services: No Alcohol intake: former Patient Tobacco Use Status: Current everyday Tobacco user Tobacco use type: Cigarette Cigarette Packs Per Day: 1 Cigarettes Per Day: 15 Years Smoked: 20 Second Hand Smoke Exposure: Yes Are you DNR?: No Advance Directives: No Advance Directives Information Provided: No Recently lost weight without trying: Yes service: No Current occupational status: unemployed Meds Allergies Allergy/AdvReac Type Severity Reaction Status Date / Time No Known Allergies Allergy Verified 01/24/22 12:20 Active Medications: Current Medications Octreotide Acetate 500 mcg/ (Sodium Chloride) 501 mls @ 25.05 mls/hr IVCONT .Q20H [facility] Last Admin: 01/24/22 18:27 Dose: 25 mcg/hr, 25.05 mls/hr Sodium Chloride (Ns) 1,000 mls @ 75 mls/hr IVCONT .[id number] [facility] Last Admin: 01/25/22 06:33 Dose: 75 mls/hr Ceftriaxone Sodium 1 gm/ (Sodium Chloride) 50 mls @ 100 mls/hr IV Q24H [facility] Last Infusion: 01/25/22 11:20 Dose: Infused Midodrine (Midodrine Hcl 5 Mg Tablet) 5 mg PO TID [facility] Last Admin: 01/25/22 08:48 Dose: 5 mg Nicotine (Nicotine 21 Mg Patch.Td24) 21 mg TRANSDERMA DAILY [facility] Last Admin: 01/25/22 08:50 Dose: 21 mg Pantoprazole Sodium (Pantoprazole Sodium 40 Mg/10 Ml Vial) 40 mg IVPUSH BID@0630,1630 [facility] Last Admin: 01/25/22 06:47 Dose: 40 mg Pharmacy Consult (Consult Rx Perform Med Rec) 1 each MISCELLANE ONCE PRN PRN Reason: Consult order Sodium Chloride (0.9 % Sodium Chloride Flush 3 Ml Syringe) 3 ml IVFLUSH QSHIFT [facility] Last Admin: 01/25/22 08:48 Dose: 3 ml Home Medications Medication Instructions Recorded Confirmed Last Taken Type [id number] 1 tab PO DAILY 01/24/22 01/24/22 01/23/22 History fumarate 7.5 mg-folic acid 400 mcg tablet Exam Exam Date and Time: January 25, 2022 1341 Height,Weight and Vital Signs: Height 5 ft 9 in Weight 77.111 kg Last Vital Signs Temp 98 F 01/25/22 13:25 Pulse 66 01/25/22 13:25 Resp 19 01/25/22 13:25 BP 102/52 L 01/25/22 13:25 Pulse Ox 98 01/25/22 13:25 O2 Del Method 01/25/22 13:25 Pertinent Lab Results Pertinent Lab Results: Laboratory Tests 01/24/22 01/24/22 01/24/22 12:26 12:26 15:56 WBC 5.8 RBC 3.05 L Hgb 7.8 L Hct 24.1 L MCV 79.0 L MCH 25.6 L MCHC 32.4 RDW 24.0 H Plt Count 101 L MPV 9.7 Immature Gran % (Auto) 0.3 Neut % (Auto) 48.3 Lymph % (Auto) 35.8 [place] % (Auto) 11.0 Eos % (Auto) 4.1 H Baso % (Auto) 0.5 Lymph # (Auto) 2.1 [place] # (Auto) 0.6 Eos # (Auto) 0.2 Baso # (Auto) 0.0 Abs Immat Gran (auto) 0.02 Absolute Neuts (auto) 2.8 Absolute Nucleated RBC 0.000 Nucleated RBC % (auto) 0.0 PT INR APTT Sodium 139 Potassium 4.0 Chloride 109 H Carbon Dioxide 24 Anion Gap 10 L BUN 23 H D Creatinine 0.78 Estim Creat Clear Calc 127.1 Estimated GFR > 60 Random Glucose 122 H Fasting Glucose Calcium 8.0 L Magnesium Total Bilirubin 1.3 H Direct Bilirubin 0.5 AST 28 ALT 18 Alkaline Phosphatase 96 D Total Protein 5.7 L Albumin 3.0 L Lipase 44 Urine Color Urine Appearance Urine pH Ur Specific [place] Urine Protein Urine Glucose (UA) Urine Ketones Urine Blood Urine Nitrite Ur Leukocyte Esterase Stool Occult Blood POSITIVE COVID-19 (TANIA) COVID-[facility] Blood Type Antibody Screen Crossmatch 01/24/22 01/24/22 01/24/22 16:33 16:33 16:33 WBC RBC Hgb Hct MCV MCH MCHC RDW Plt Count MPV Immature Gran % (Auto) Neut % (Auto) Lymph % (Auto) [place] % (Auto) Eos % (Auto) Baso % (Auto) Lymph # (Auto) [place] # (Auto) Eos # (Auto) Baso # (Auto) Abs Immat Gran (auto) Absolute Neuts (auto) Absolute Nucleated RBC Nucleated RBC % (auto) PT 17.8 H INR 1.5 H APTT Cancelled 34.1 Sodium Potassium Chloride Carbon Dioxide Anion Gap BUN Creatinine Estim Creat Clear Calc Estimated GFR Random Glucose Fasting Glucose Calcium Magnesium Total Bilirubin Direct Bilirubin AST ALT Alkaline Phosphatase Total Protein Albumin Lipase Urine Color Urine Appearance Urine pH Ur Specific [place] Urine Protein Urine Glucose (UA) Urine Ketones Urine Blood Urine Nitrite Ur Leukocyte Esterase Stool Occult Blood COVID-19 ([facility]ANIA) Negative [employer] See Note Blood Type Antibody Screen Crossmatch 01/24/22 01/24/22 01/24/22 16:33 23:33 23:33 WBC 5.2 RBC 2.20 L D Hgb 5.6 L* D Hct 17.5 L* D MCV 79.5 L MCH 25.5 L MCHC 32.0 RDW 22.2 H Plt Count 75 L D MPV 10.2 Immature Gran % (Auto) 0.4 Neut % (Auto) 50.1 Lymph % (Auto) 35.9 [place] % (Auto) 10.7 Eos % (Auto) 2.5 Baso % (Auto) 0.4 Lymph # (Auto) 1.9 [place] # (Auto) 0.6 Eos # (Auto) 0.1 Baso # (Auto) 0.0 Abs Immat Gran (auto) 0.02 Absolute Neuts (auto) 2.6 Absolute Nucleated RBC 0.000 Nucleated RBC % (auto) 0.0 PT INR APTT Sodium 139 Potassium 4.4 Chloride 110 H Carbon Dioxide 22 Anion Gap 11 L BUN 24 H Creatinine 0.74 Estim Creat Clear Calc 134.0 Estimated GFR > 60 Random Glucose 155 H Fasting Glucose Calcium 7.3 L D Magnesium 1.5 L Total Bilirubin 1.4 H Direct Bilirubin 0.6 H AST 23 ALT 15 Alkaline Phosphatase 69 D Total Protein 4.3 L D Albumin 2.4 L Lipase Urine Color Urine Appearance Urine pH Ur Specific [place] Urine Protein Urine Glucose (UA) Urine Ketones Urine Blood Urine Nitrite Ur Leukocyte Esterase Stool Occult Blood COVID-19 ([facility]ANIA) COVID-19 Clin Com Blood Type O Positive Antibody Screen NEGATIVE Crossmatch See Detail 01/25/22 01/25/22 01/25/22 00:04 01:50 04:30 WBC 5.9 RBC 2.63 L Hgb 6.0 L* 7.1 L Hct 18.3 L* 21.3 L MCV 81.0 MCH 27.0 MCHC 33.3 RDW 20.4 H Plt Count 67 L MPV 9.8 Immature Gran % (Auto) Neut % (Auto) Lymph % (Auto) [place] % (Auto) Eos % (Auto) Baso % (Auto) Lymph # (Auto) [place] # (Auto) Eos # (Auto) Baso # (Auto) Abs Immat Gran (auto) Absolute Neuts (auto) Absolute Nucleated RBC 0.000 Nucleated RBC % (auto) 0.0 PT INR APTT Sodium Potassium Chloride Carbon Dioxide Anion Gap BUN Creatinine Estim Creat Clear Calc Estimated GFR Random Glucose Fasting Glucose Calcium Magnesium Total Bilirubin Direct Bilirubin AST ALT Alkaline Phosphatase Total Protein Albumin Lipase Urine Color Yellow Urine Appearance Clear Urine pH 5.5 Ur Specific [place] 1.010 Urine Protein Negative Urine Glucose (UA) Negative Urine Ketones Negative Urine Blood Negative Urine Nitrite Negative Ur Leukocyte Esterase Negative Stool Occult Blood COVID-19 (TANIA) COVID-19 [facility] Blood Type Antibody Screen Crossmatch 01/25/22 04:30 WBC RBC Hgb Hct MCV MCH MCHC RDW Plt Count MPV Immature Gran % (Auto) Neut % (Auto) Lymph % (Auto) [place] % (Auto) Eos % (Auto) Baso % (Auto) Lymph # (Auto) [place] # (Auto) Eos # (Auto) Baso # (Auto) Abs Immat Gran (auto) Absolute Neuts (auto) Absolute Nucleated RBC Nucleated RBC % (auto) PT INR APTT Sodium 141 Potassium 4.2 Chloride 109 H Carbon Dioxide 23 Anion Gap 13 BUN 23 H Creatinine 0.74 Estim Creat Clear Calc 134.0 Estimated GFR > 60 Random Glucose Fasting Glucose 81 Calcium 7.2 L Magnesium Total Bilirubin Direct Bilirubin AST ALT Alkaline Phosphatase Total Protein Albumin Lipase Urine Color Urine Appearance Urine pH Ur Specific [place] Urine Protein Urine Glucose (UA) Urine Ketones Urine Blood Urine Nitrite Ur Leukocyte Esterase Stool Occult Blood COVID-19 ([facility]ANIA) COVID-19 [facility] Blood Type Antibody Screen Crossmatch Airway Mallampati Class: II TM Dist: >3cm Neck ROM: Full Loose/Missing/Broken Teeth: No (Patient denies having broken, loose or missing teeth) Heart: RRR Lungs: CTAB Assessment and Plan Assessment Anesthesia Assessment: Anesthesia Plan Discussed and Chart Reviewed Final Anesthetic Review Family History of Problems with Anesthesia: No History of Problems with Anesthesia: No NPO: Yes ASA Class: III and Emergency Final Preanesthetic Review: No Changes in Pt Med Stat, Meds/Allgs Chart Reviewed, Consent Obtained/Reviewed and Anes Risks/Benef Reviewed Patient Risk: Intermediate Procedure Risk: Intermediate Assessment/Block/Sedation in SS: Assess/Block/Sedation-SS Anesthetic Plan Anesthetic Plan: MAC: Disposition: Standard PACU and Inp. Admit - Standard Bed
--- NOTE | 2022-01-25 13:52 | MHC.SHP ---
Pre-Procedural Eval Section A Date of Service: 01/25/22 The patient is an INPATIENT: Yes The History & Physical has been completed within 30 days and I have reviewed it.: Yes Section B Chief Complaint: Gi Bleed Allergies: Allergies Allergy/AdvReac Type Severity Reaction Status Date / Time No Known Allergies Allergy Verified 01/24/22 12:20 Plan Diagnosis/Plan: Unchanged I have reviewed the history and physical and performed a pertinent physical examination on my patient. No changes have occurred unless specified.
--- NOTE | 2022-01-25 13:52 | W.PM.OPN ---
Operative Note Operative Note Date of Service: 01/25/22 Narrative: Procedure Description: EGD Indication: acute blood loss anemia Anesthesia: MAC FLEXIBLE TRANSORAL UPPER GASTROINTESTINAL ENDOSCOPY UPPER ENDOSCOPY Consent: Indications for the procedure and potential complications of bleeding, perforation, reaction to medications and missed diagnosis were discussed with the patient and informed consent was obtained. Instrument: Olympus GIF H 190 J mid size upper endoscope Monitoring: Vital signs and clinical assessment, continuous EKG monitoring, Pulse oximetry, Carbon Dioxide monitoring and blood pressure monitoring were done throughout the procedure. Procedure: The patient was placed in the left lateral decubitis position and pre-procedure medications were administered and a bite block was placed. The endoscope was inserted into the mouth and advanced under direct vision to the third part of duodenum. A careful inspection was made as the upper endoscope was withdrawn including a retroflexed examination of the proximal stomach; Findings and interventions are described below. Findings: Larynx:normal Esophagus: GE junction at 40 cm, diaphragm hiatus at 40 cm, mild esophagitis with x 1 variceal column noted, no red lyn, but BP on lower side so x 2 bands applied with good effect Stomach: Patchy gastric erythema with mosaic pattern consistent with portal hypertensive gastropathy. Grade 2 flap valve on retroflexed examination of the cardia. Few erosions seen at antrum. No gastric varices seen. Duodenum: Normal bulb, in second part of duodenum one area which appeared to be a partially healed ulcer 10 mm. One clip applied to close it. Intervention: Variceal banding and clip Impression/Findings: duodenal ulcer portal hypertensive gastropathy esophageal varix gastric erosions PLAN: keep on PPI keep on octreotide for another 48 hrs then d/c allow clears today and advance diet tomorrow as tolerated, if ongoing blood loss then colonoscopy
[2022-01-25] MEDS: Octreotide Acetate 500 MCG in 0.9 % Sodium Chloride 500 ML 25.05 MCG IVCONT (15:50)
[2022-01-26] VITALS (13 sets, daily range): BP systolic 93–112; BP diastolic 51–67; PULSE 48–70; RESP 16–20; TEMP 36.1–37.1; O2SAT 98–100
[2022-01-26] MEDS: Lactated Ringers 1,000 ML 100 ML IVCONT ×2 (04:39→14:21)
[2022-01-26] MEDS: Pantoprazole Sodium 40 MG/10 ML VIAL IVPUSH ×2 (06:33→15:46)
[2022-01-26 07:22] LABS: Mean Corpuscular HGB Conc 34.4 g/dl (31.0-36.0); Mean Corpuscular Hemoglobin 27.9 pg (27.0-33.0); Mean Corpuscular Volume 81.1 fL (80.0-98.0); Mean Platelet Volume 10.7 fL (9.4-12.4); Red Blood Count 2.33 X10*6/uL (4.60-5.80); Red Cell Distribution Width 20.2 % (11.0-16.0); White Blood Count 3.3 X10*3/uL (4.8-10.8)
[2022-01-26 07:26] LABS: Anion Gap 11 (12-20); Blood Urea Nitrogen 19 mg/dL (9-16); Calcium 6.8 mg/dL (8.4-10.2); Carbon Dioxide 24 mmol/L (22-29); Chloride 108 mmol/L (96-108); Creatinine Clr Calc Pharmacy 132.2; Estimated Glomerular Filt Rate > 60; Glucose Fasting 84 mg/dL (60-99); Potassium 3.6 mmol/L (3.3-5.1); Sodium 139 mmol/L (135-145)
[2022-01-26] MEDS: Midodrine HCl 5 MG TABLET PO ×3 (07:34→19:38)
[2022-01-26] MEDS: Nicotine 21 MG PATCH.TD24 TRANSDERMA (07:34)
[2022-01-26] MEDS: 0.9 % Sodium Chloride Flush 3 ML SYRINGE IVFLUSH ×2 (07:37→15:46)
[2022-01-26 07:40] LABS: Hematocrit 18.9 % (42.0-52.0); Hemoglobin 6.5 g/dl (14.0-18.0); Platelet Count 56 X10*3/uL (160-400)
--- NOTE | 2022-01-26 10:30 | HO.POSTANES ---
Post Anesthesia Evaluation Post Anesthesia Evaluation Vital Signs: Vital Signs Temp Pulse Resp BP Pulse Ox O2 Del Method 01/26/22 09:41 97.7 F 70 17 104/64 01/26/22 07:49 98.6 F 53 16 98/51 L 99 Room Air 01/26/22 03:25 98.5 F 54 16 103/52 L 98 Room Air 01/25/22 23:50 98.5 F 72 20 98/53 L 99 Room Air Anesthesia: Monitored Mental Status: Awake Pain Control: Satisfactory Nausea/Vomiting: None Hydration: Adequate Anesthesia-Related Issues: No Anes. Related Issues
[2022-01-26] MEDS: Octreotide Acetate 500 MCG in 0.9 % Sodium Chloride 500 ML 25.05 MCG IVCONT (11:20)
[2022-01-26] MEDS: cefTRIAXone sodium 1 GM in 0.9 % Sodium Chloride 50 ML IV (11:20)
[2022-01-26] MEDS: iohexoL 350 MG/ML 100 ML INFUS..BTL 80 ML IV (11:30)
--- NOTE | 2022-01-26 12:13 | MHC.CM.PN ---
Male 41 DX GIB No dc today per MD rounds. Scoped yesterday, Esophageal varicosities present. Pt's H/H has decreased. MD has ordered a Blood transfusion today. DP home no services family transport.
--- NOTE | 2022-01-26 13:19 | HO.PM.IMPN ---
Subjective Subjective Date of Service: 01/26/22 Interval History: the patient was seen and evaluated this morning Laying in bed, feels comfortable Hemoglobin dropped to 6.5 Still having dark bowel movement but no bleeding Denies any fever, chills or shortness of breath No reported other overnight events. Systemic review: No fever, chills or weakness No chest pain, palpitation No shortness of breath or coughing No abdominal pain, nausea or vomiting No urinary symptoms No any rash or wounds Physical Exam Vital Signs: Vital Signs: Last Vital Signs Temp 98.2 F 01/26/22 11:14 Pulse 57 01/26/22 11:14 Resp 18 01/26/22 11:14 BP 98/57 L 01/26/22 11:14 Pulse Ox 98 01/26/22 11:14 O2 Del Method 01/26/22 11:14 BMI result Body Mass Index 25.1 Const: Other: Constitutional : Alert, oriented, not in distress Neck : Normal inspection, Supple Cardiovascular : RRR, no JVP, no lower extremity edema Respiratory : fair bilateral air entry, no crackles, wheezes or rhonchi Gastrointestinal: soft, lax, Normal bowel sounds, Non tender Skin : Warm, Dry Neurological : Alert & oriented x3, No focal deficit , CN 2-12 within normal Objective Data Active Medications Octreotide Acetate 500 mcg/ (Sodium Chloride) 501 mls @ 25.05 mls/hr IVCONT .Q20H [facility] Last Admin: 01/26/22 11:20 Dose: 25 mcg/hr, 25.05 mls/hr Documented By: KAMLESH Ceftriaxone Sodium 1 gm/ (Sodium Chloride) 50 mls @ 100 mls/hr IV Q24H [facility] Last Infusion: 01/26/22 12:01 Dose: 0 mls/hr Documented By: KAMLESH Lactated Ringer's (Lr) 1,000 mls @ 100 mls/hr IVCONT .Q10H [facility] Last Admin: 01/26/22 04:39 Dose: 100 mls/hr Documented By: PUNEET Midodrine (Midodrine Hcl 5 Mg Tablet) 5 mg PO TID [facility] Last Admin: 01/26/22 07:34 Dose: 5 mg Documented By: KAMLESH Nicotine (Nicotine 21 Mg Patch.Td24) 21 mg TRANSDERMA DAILY [facility] Last Admin: 01/26/22 07:34 Dose: 21 mg Documented By: KAMLESH Ondansetron HCl (Ondansetron Hcl 4 Mg/2 Ml Vial) 4 mg IVPUSH ONCE PRN PRN Reason: Nausea and Vomiting Pantoprazole Sodium (Pantoprazole Sodium 40 Mg/10 Ml Vial) 40 mg IVPUSH BID@0630,1630 [facility] Last Admin: 01/26/22 06:33 Dose: 40 mg Documented By: PUNEET Pharmacy Consult (Consult Rx Perform Med Rec) 1 each MISCELLANE ONCE PRN PRN Reason: Consult order Polyethylene Glycol/Electrolytes (Peg 3350/Na Sulf,Bicarb,Cl/Kcl 4,000 Ml Soln.Recon) 4,000 ml PO ONCE ONE Stop: 01/26/22 18:01 Sodium Chloride (0.9 % Sodium Chloride Flush 3 Ml Syringe) 3 ml IVFLUSH QSHIFT [facility] Last Admin: 01/26/22 07:37 Dose: 3 ml Documented By: KAMLESH Labs CBC & Chem 7: 01/26/22 05:53 01/26/22 05:53 Labs: Laboratory Results - last 24 hr 01/24/22 01/26/22 01/26/22 16:33 05:53 05:53 MCV 81.1 MCH 27.9 MCHC 34.4 RDW 20.2 H Plt Count 56 L MPV 10.7 Absolute Nucleated RBC 0.000 Nucleated RBC % (auto) 0.0 Anion Gap 11 L Estim Creat Clear Calc 132.2 Estimated GFR > 60 Fasting Glucose 84 Calcium 6.8 L Blood Type O Positive Antibody Screen NEGATIVE Crossmatch See Detail Assessment and Plan (1) Acute on chronic blood loss anemia: Status: Acute (2) GI bleed: Status: Acute (3) Cirrhosis: Status: Acute Plan 41M with pmh of decompensated ETOH cirrhosis presented with BRBPR Acute blood loss anemia Upper endoscopy showed duodenal ulcer Continue protonix Finish 48 hours of octreotide Continue rocephin D3 EGD showed duodenal ulcer, portal hypertensive gastropathy, esophageal varix and gastric erosions s/p 3 units unit prbc 01/24/22, to give 2 more units today CTA abdomen and pelvis, no acute bleeding but concerns over concentric thickening of cecum To do prep tonight and colonoscopy tomorrow monitor hgb hx decompensated alcoholic cirrhosis Hypertensive at baseline continue midodrine vte prophylaxis mechanical due to gi bleed full code reason for continued hospitalization: high risk gi bleed, plan for EGD and close monitoring Quality Stroke Does the patient have a stroke diagnosis?: No VTE Prior VTE?: No VTE Risk Level:: Medical - moderate - high VTE Device Contraindication: N/A - Device Ordered VTE Drug Contraindication: Treatment Not Tolerated
[2022-01-26] MEDS: PEG 3350/Na Sulf,Bicarb,Cl/KCL 4,000 ML SOLN.RECON 4000 ML PO (19:38)
[2022-01-27] VITALS (8 sets, daily range): BP systolic 92–110; BP diastolic 50–73; PULSE 51–60; RESP 16–20; TEMP 36.2–37.2; O2SAT 97–100
[2022-01-27] MEDS: Lactated Ringers 1,000 ML 100 ML IVCONT (06:10)
[2022-01-27] MEDS: Pantoprazole Sodium 40 MG/10 ML VIAL IVPUSH ×2 (06:10→18:23)
[2022-01-27 07:05] LABS: Hematocrit 23.5 % (42.0-52.0); Hemoglobin 8.2 g/dl (14.0-18.0); Mean Corpuscular HGB Conc 34.9 g/dl (31.0-36.0); Mean Corpuscular Hemoglobin 28.3 pg (27.0-33.0); Mean Platelet Volume 9.9 fL (9.4-12.4); Red Cell Distribution Width 18.3 % (11.0-16.0); White Blood Count 3.6 X10*3/uL (4.8-10.8)
[2022-01-27 07:06] LABS: Platelet Count 48 X10*3/uL (160-400)
[2022-01-27 07:48] LABS: Anion Gap 10 (12-20); Blood Urea Nitrogen 11 mg/dL (9-16); Calcium 7.1 mg/dL (8.4-10.2); Carbon Dioxide 24 mmol/L (22-29); Chloride 107 mmol/L (96-108); Creatinine Clr Calc Pharmacy 141.6; Estimated Glomerular Filt Rate > 60; Glucose Random 81 mg/dL (60-115); Potassium 3.4 mmol/L (3.3-5.1); Sodium 138 mmol/L (135-145)
[2022-01-27] MEDS: Midodrine HCl 5 MG TABLET PO ×2 (10:24→16:50)
[2022-01-27] MEDS: Nicotine 21 MG PATCH.TD24 TRANSDERMA (10:24)
[2022-01-27] MEDS: Lactated Ringers 1,000 ML 50 ML IVCONT (10:27)
[2022-01-27] MEDS: 0.9 % Sodium Chloride Flush 3 ML SYRINGE IVFLUSH ×2 (10:28→16:51)
[2022-01-27] MEDS: cefTRIAXone sodium 1 GM in 0.9 % Sodium Chloride 50 ML IV (12:03)
--- NOTE | 2022-01-27 14:37 | P.CONAN_ITS ---
HPI - Anesthesia Eval Consult details Narrative: 41 M for colonoscopy ETOH cirrhosis , portal hypertension PMFSH Active Problems Active Problems: All Active Problems (Updated 01/26/22 @ 13:27 by Julio Garrido MD) Acute on chronic blood loss anemia (Acute) GI bleed (Acute) Anemia (Acute) Anemia (Acute) Elbow pain, chronic (Acute) Achilles tendinitis of both lower extremities (Acute) Knee pain, bilateral (Acute) Cirrhosis (Acute) Joint pain (Acute) Impotence (Acute) Thrombocytopenia due to hypersplenism (Acute) Past Medical History Medical History Abnormal x-ray of humerus Alcohol abuse Alcoholic liver disease Ascites Coagulopathy Hyponatremia Malnutrition related to chronic disease Polyclonal hypergammaglobulinemia Portal venous hypertension Sarcopenia Thrombocytopenia due to hypersplenism Upper GI bleed Family History Family History Other No family history of coronary artery disease Family history of problems with anesthesia: No Surgical History Surgical History H/O wrist surgery History of esophagogastroduodenoscopy (EGD) History of Problems with Anesthesia: No Social History Social History Household Members: None Household Members Other:: girlfriend Housing: House Do you presently have visiting nurse or other home services: No Alcohol intake: former Patient Tobacco Use Status: Current everyday Tobacco user Tobacco use type: Cigarette Cigarette Packs Per Day: 1 Cigarettes Per Day: 15 Years Smoked: 20 e-Cigarette/Vaping Use: Never Used Second Hand Smoke Exposure: Yes service: No Current occupational status: unemployed Meds Allergies Allergy/AdvReac Type Severity Reaction Status Date / Time No Known Allergies Allergy Verified 01/24/22 12:20 Active Medications: Current Medications Ceftriaxone Sodium 1 gm/ (Sodium Chloride) 50 mls @ 100 mls/hr IV Q24H [facility] Last Infusion: 01/27/22 13:35 Dose: Infused Lactated Ringer's (Lr) 1,000 mls @ 50 mls/hr IVCONT .Q20H [facility] Last Admin: 01/27/22 10:27 Dose: 50 mls/hr Midodrine (Midodrine Hcl 5 Mg Tablet) 5 mg PO TID [facility] Last Admin: 01/27/22 10:24 Dose: 5 mg Nicotine (Nicotine 21 Mg Patch.Td24) 21 mg TRANSDERMA DAILY [facility] Last Admin: 01/27/22 10:24 Dose: 21 mg Ondansetron HCl (Ondansetron Hcl 4 Mg/2 Ml Vial) 4 mg IVPUSH ONCE PRN PRN Reason: Nausea and Vomiting Pantoprazole Sodium (Pantoprazole Sodium 40 Mg/10 Ml Vial) 40 mg IVPUSH BID@0630,1630 [facility] Last Admin: 01/27/22 06:10 Dose: 40 mg Pharmacy Consult (Consult Rx Perform Med Rec) 1 each MISCELLANE ONCE PRN PRN Reason: Consult order Sodium Chloride (0.9 % Sodium Chloride Flush 3 Ml Syringe) 3 ml IVFLUSH QSHIFT [facility] Last Admin: 01/27/22 10:28 Dose: 3 ml Home Medications Medication Instructions Recorded Confirmed Last Taken Type [id number] 1 tab PO DAILY 01/24/22 01/24/22 01/23/22 History fumarate 7.5 mg-folic acid 400 mcg tablet Exam Exam Date and Time: January 27, 2022 1437 Height,Weight and Vital Signs: Height 5 ft 9 in Weight 77.111 kg Last Vital Signs Temp 97.6 F 01/27/22 14:36 Pulse 54 01/27/22 14:36 Resp 16 01/27/22 14:36 BP 103/64 01/27/22 14:36 Pulse Ox 100 01/27/22 14:36 O2 Del Method 01/27/22 14:36 O2 Flow Rate 99 01/26/22 19:30 Pertinent Lab Results Pertinent Lab Results: Laboratory Tests 01/24/22 01/24/22 01/24/22 12:26 12:26 15:56 WBC 5.8 RBC 3.05 L Hgb 7.8 L Hct 24.1 L MCV 79.0 L MCH 25.6 L MCHC 32.4 RDW 24.0 H Plt Count 101 L MPV 9.7 Immature Gran % (Auto) 0.3 Neut % (Auto) 48.3 Lymph % (Auto) 35.8 [place] % (Auto) 11.0 Eos % (Auto) 4.1 H Baso % (Auto) 0.5 Lymph # (Auto) 2.1 [place] # (Auto) 0.6 Eos # (Auto) 0.2 Baso # (Auto) 0.0 Abs Immat Gran (auto) 0.02 Absolute Neuts (auto) 2.8 Absolute Nucleated RBC 0.000 Nucleated RBC % (auto) 0.0 PT INR APTT Sodium 139 Potassium 4.0 Chloride 109 H Carbon Dioxide 24 Anion Gap 10 L BUN 23 H D Creatinine 0.78 Estim Creat Clear Calc 127.1 Estimated GFR > 60 Random Glucose 122 H Fasting Glucose Calcium 8.0 L Magnesium Total Bilirubin 1.3 H Direct Bilirubin 0.5 AST 28 ALT 18 Alkaline Phosphatase 96 D Total Protein 5.7 L Albumin 3.0 L Lipase 44 Urine Color Urine Appearance Urine pH Ur Specific [place] Urine Protein Urine Glucose (UA) Urine Ketones Urine Blood Urine Nitrite Ur Leukocyte Esterase Stool Occult Blood POSITIVE COVID-19 ([facility]) COVID-19 Clin Com Blood Type Antibody Screen Crossmatch 01/24/22 01/24/22 01/24/22 16:33 16:33 16:33 WBC RBC Hgb Hct MCV MCH MCHC RDW Plt Count MPV Immature Gran % (Auto) Neut % (Auto) Lymph % (Auto) [place] % (Auto) Eos % (Auto) Baso % (Auto) Lymph # (Auto) [place] # (Auto) Eos # (Auto) Baso # (Auto) Abs Immat Gran (auto) Absolute Neuts (auto) Absolute Nucleated RBC Nucleated RBC % (auto) PT 17.8 H INR 1.5 H APTT Cancelled 34.1 Sodium Potassium Chloride Carbon Dioxide Anion Gap BUN Creatinine Estim Creat Clear Calc Estimated GFR Random Glucose Fasting Glucose Calcium Magnesium Total Bilirubin Direct Bilirubin AST ALT Alkaline Phosphatase Total Protein Albumin Lipase Urine Color Urine Appearance Urine pH Ur Specific [place] Urine Protein Urine Glucose (UA) Urine Ketones Urine Blood Urine Nitrite Ur Leukocyte Esterase Stool Occult Blood COVID-19 ([facility]) Negative COVID-19 Clin Com See Note Blood Type Antibody Screen Crossmatch 01/24/22 01/24/22 01/24/22 16:33 23:33 23:33 WBC 5.2 RBC 2.20 L D Hgb 5.6 L* D Hct 17.5 L* D MCV 79.5 L MCH 25.5 L MCHC 32.0 RDW 22.2 H Plt Count 75 L D MPV 10.2 Immature Gran % (Auto) 0.4 Neut % (Auto) 50.1 Lymph % (Auto) 35.9 [place] % (Auto) 10.7 Eos % (Auto) 2.5 Baso % (Auto) 0.4 Lymph # (Auto) 1.9 [place] # (Auto) 0.6 Eos # (Auto) 0.1 Baso # (Auto) 0.0 Abs Immat Gran (auto) 0.02 Absolute Neuts (auto) 2.6 Absolute Nucleated RBC 0.000 Nucleated RBC % (auto) 0.0 PT INR APTT Sodium 139 Potassium 4.4 Chloride 110 H Carbon Dioxide 22 Anion Gap 11 L BUN 24 H Creatinine 0.74 Estim Creat Clear Calc 134.0 Estimated GFR > 60 Random Glucose 155 H Fasting Glucose Calcium 7.3 L D Magnesium 1.5 L Total Bilirubin 1.4 H Direct Bilirubin 0.6 H AST 23 ALT 15 Alkaline Phosphatase 69 D Total Protein 4.3 L D Albumin 2.4 L Lipase Urine Color Urine Appearance Urine pH Ur Specific [place] Urine Protein Urine Glucose (UA) Urine Ketones Urine Blood Urine Nitrite Ur Leukocyte Esterase Stool Occult Blood COVID-19 ([facility]) COVID-19 Clin Com Blood Type O Positive Antibody Screen NEGATIVE Crossmatch See Detail 01/25/22 01/25/22 01/25/22 00:04 01:50 04:30 WBC 5.9 RBC 2.63 L Hgb 6.0 L* 7.1 L Hct 18.3 L* 21.3 L MCV 81.0 MCH 27.0 MCHC 33.3 RDW 20.4 H Plt Count 67 L MPV 9.8 Immature Gran % (Auto) Neut % (Auto) Lymph % (Auto) [place] % (Auto) Eos % (Auto) Baso % (Auto) Lymph # (Auto) [place] # (Auto) Eos # (Auto) Baso # (Auto) Abs Immat Gran (auto) Absolute Neuts (auto) Absolute Nucleated RBC 0.000 Nucleated RBC % (auto) 0.0 PT INR APTT Sodium Potassium Chloride Carbon Dioxide Anion Gap BUN Creatinine Estim Creat Clear Calc Estimated GFR Random Glucose Fasting Glucose Calcium Magnesium Total Bilirubin Direct Bilirubin AST ALT Alkaline Phosphatase Total Protein Albumin Lipase Urine Color Yellow Urine Appearance Clear Urine pH 5.5 Ur Specific [place] 1.010 Urine Protein Negative Urine Glucose (UA) Negative Urine Ketones Negative Urine Blood Negative Urine Nitrite Negative Ur Leukocyte Esterase Negative Stool Occult Blood COVID-19 ([facility]IA) COVID-19 [facility] Com Blood Type Antibody Screen Crossmatch 01/25/22 01/26/22 01/26/22 04:30 05:53 05:53 WBC 3.3 L RBC 2.33 L Hgb 6.5 L* Hct 18.9 L* MCV 81.1 MCH 27.9 MCHC 34.4 RDW 20.2 H Plt Count 56 L MPV 10.7 Immature Gran % (Auto) Neut % (Auto) Lymph % (Auto) [place] % (Auto) Eos % (Auto) Baso % (Auto) Lymph # (Auto) [place] # (Auto) Eos # (Auto) Baso # (Auto) Abs Immat Gran (auto) Absolute Neuts (auto) Absolute Nucleated RBC 0.000 Nucleated RBC % (auto) 0.0 PT INR APTT Sodium 141 139 Potassium 4.2 3.6 Chloride 109 H 108 Carbon Dioxide 23 24 Anion Gap 13 11 L BUN 23 H 19 H Creatinine 0.74 0.75 Estim Creat Clear Calc 134.0 132.2 Estimated GFR > 60 > 60 Random Glucose Fasting Glucose 81 84 Calcium 7.2 L 6.8 L Magnesium Total Bilirubin Direct Bilirubin AST ALT Alkaline Phosphatase Total Protein Albumin Lipase Urine Color Urine Appearance Urine pH Ur Specific [place] Urine Protein Urine Glucose (UA) Urine Ketones Urine Blood Urine Nitrite Ur Leukocyte Esterase Stool Occult Blood COVID-19 ([facility]ANIA) COVID-19 [facility] Com Blood Type Antibody Screen Crossmatch 01/27/22 01/27/22 06:23 06:23 WBC 3.6 L RBC 2.90 L D Hgb 8.2 L D Hct 23.5 L D MCV 81.0 MCH 28.3 MCHC 34.9 RDW 18.3 H Plt Count 48 L MPV 9.9 Immature Gran % (Auto) Neut % (Auto) Lymph % (Auto) [place] % (Auto) Eos % (Auto) Baso % (Auto) Lymph # (Auto) [place] # (Auto) Eos # (Auto) Baso # (Auto) Abs Immat Gran (auto) Absolute Neuts (auto) Absolute Nucleated RBC 0.000 Nucleated RBC % (auto) 0.0 PT INR APTT Sodium 138 Potassium 3.4 Chloride 107 Carbon Dioxide 24 Anion Gap 10 L BUN 11 Creatinine 0.70 Estim Creat Clear Calc 141.6 Estimated GFR > 60 Random Glucose 81 D Fasting Glucose Calcium 7.1 L Magnesium Total Bilirubin Direct Bilirubin AST ALT Alkaline Phosphatase Total Protein Albumin Lipase Urine Color Urine Appearance Urine pH Ur Specific [place] Urine Protein Urine Glucose (UA) Urine Ketones Urine Blood Urine Nitrite Ur Leukocyte Esterase Stool Occult Blood COVID-19 ([facility]) COVID-19 Clin Com Blood Type Antibody Screen Crossmatch Airway Mallampati Class: III TM Dist: >3cm Neck ROM: Full Loose/Missing/Broken Teeth: Yes (Chipped teeth , poor dentition globally ) Heart: S1,S2 Lungs: b/l breath sounds Assessment and Plan Assessment Anesthesia Assessment: Anesthesia Plan Discussed and Chart Reviewed Final Anesthetic Review Family History of Problems with Anesthesia: No History of Problems with Anesthesia: No NPO: Yes ASA Class: III and Emergency Final Preanesthetic Review: Meds/Allgs Chart Reviewed, Consent Obtained/Reviewed and Anes Risks/Benef Reviewed Patient Risk: High Procedure Risk: Intermediate Anesthetic Plan Anesthetic Plan: MAC: Disposition: Inp. Admit - Standard Bed
--- NOTE | 2022-01-27 14:42 | PM.DS ---
DS: Providers Provider Date of Service: 01/27/22 Date of admission: 01/24/22 17:28 Primary care physician: Adrian Oneal MD Consults: 01/24/22 16:52 Consult to Gastroenterology Routine Consulting Provider: Mathieu Buenrostro Reason for consultation: gi bleed, cirrhosis DS: Diagnosis Discharge Diagnosis (1) Acute on chronic blood loss anemia: Status: Acute (2) GI bleed: Status: Acute (3) Cirrhosis: Status: Acute (4) Duodenal ulcer: Status: Acute (5) Hypomagnesemia: Status: Acute DS: Summary Hospital Course Hospital Course: Admission note HPI 41M ? With a past medical history of decompensated alcohol cirrhosis with history of variceal bleed presented with 1 day history of bright red blood per rectum mixed with stool.? Patient denies abdominal pain, hematemesis, NSAID use.? Denies fever, chills, sick contacts.? In ED noted to have anemia with hemoglobin is 7.8, lower than baseline.? Given history was given 1 unit PRBC, PPI, octreotide. Hospital course The patient was admitted to the hospital for evaluation of bright red blood per rectum. Found to have acute on chronic blood-loss anemia. Started on IV Protonix, octreotide and IV antibiotic of Rocephin given his history of liver cirrhosis. Received total of 5 blood units during the hospital stay as gastroenterology evaluated the patient and did upper endoscopy which showed duodenal ulcer, portal hypertensive gastropathy, esophageal varix and gastric erosions. CTA abdomen and pelvis, no acute bleeding but concerns over concentric thickening of cecum. Had colonoscopy done during hospital stay which did not show any abnormalities. Had hypomagnesemia which was replenished. Noted to have low calcium level. Pseudohypocalcemia with corrected level normal of 8.4. High-fiber diet Start pantoprazole 40 mg twice Daily Nicotine patch daily To follow-up with Gastroenterology as outpatient for repeat EGD in 2-4 weeks Time Spent with Patient Time attestation: Total time spent providing and/or coordinating discharge services: Discharge coordination time: Greater than 30 minutes Quality: Safe Use of Opioids Does Pt have an Active Cancer Diagnosis on the Problem List?: No Quality: Stroke Does the patient have a stroke diagnosis?: No Physical Exam Vital Signs: Vital Signs: Last Vital Signs Temp 97.6 F 01/27/22 14:36 Pulse 54 01/27/22 14:36 Resp 16 01/27/22 14:36 BP 103/64 01/27/22 14:36 Pulse Ox 100 01/27/22 14:36 O2 Del Method 01/27/22 14:36 O2 Flow Rate 99 01/26/22 19:30 BMI result Body Mass Index 25.1 Const: Other: Constitutional : Alert, oriented, not in distress Neck : Normal inspection, Supple Cardiovascular : RRR, no JVP, no lower extremity edema Respiratory : fair bilateral air entry,? no crackles, wheezes or rhonchi Gastrointestinal:? soft, lax, Normal bowel sounds, Non tender Skin : Warm, Dry Neurological : Alert & oriented x3, No focal deficit , CN 2-12 within normal DS: Data Data Completed and Pending Completed studies during hospitalization [Text1]: Procedures Detoxification Services for Substance Abuse Treatment (09/05/20) Drainage of Peritoneal Cavity, Percutaneous Approach (09/05/20) Occlusion of Esophageal Vein with Extraluminal Device, Via Natural or Artificial Opening Endoscopic (03/27/21) Transfusion of Nonautologous Frozen Plasma into Peripheral Vein, Percutaneous Approach (03/27/21) Transfusion of Nonautologous Platelets into Peripheral Vein, Percutaneous Approach (03/27/21) Transfusion of Nonautologous Red Blood Cells into Peripheral Vein, Percutaneous Approach (03/27/21) Labs on day of discharge: Laboratory Results - last 24 hr 01/24/22 01/27/22 01/27/22 16:33 06:23 06:23 WBC 3.6 L RBC 2.90 L D Hgb 8.2 L D Hct 23.5 L D MCV 81.0 MCH 28.3 MCHC 34.9 RDW 18.3 H Plt Count 48 L MPV 9.9 Absolute Nucleated RBC 0.000 Nucleated RBC % (auto) 0.0 Sodium 138 Potassium 3.4 Chloride 107 Carbon Dioxide 24 Anion Gap 10 L BUN 11 Creatinine 0.70 Estim Creat Clear Calc 141.6 Estimated GFR > 60 Random Glucose 81 D Calcium 7.1 L Crossmatch See Detail Imaging CT scan - abdomen: Radiologist's impression: ITS Impressions Abdomen/Pelvis CT 01/24/22 16:33 IMPRESSION: 1. Findings compatible with cirrhosis and portal hypertension with recanalized umbilical vein and varices in the ventral abdominal wall and ventral abdomen. 2. No CT evidence of colitis. 3. Cholelithiasis with 6 mm gallstone near the gallbladder neck and diffuse gallbladder wall thickening or mural edema. Correlate clinically with signs or symptoms of acute cholecystitis. Abdomen/Pelvis CT 01/26/22 11:45 IMPRESSION: No evidence of active GI bleeding. Suspect concentric thickening of the wall of the cecum and ascending colon, worse compared with 2 days prior. Differential diagnosis includes, but is not limited to, colitis. Small amount of ascites, new. Mild induration of mesenteric fat, nonspecific, probably worse. Hepatic cirrhosis with secondary signs of portal hypertension including recanalization of the umbilical vein, caput medusa, splenomegaly, and ascites. Nonspecific diffuse gallbladder wall thickening. Cholelithiasis. Anemia. Discharge Plan Discharge Patient Disposition: Home, Self-Care Discharge Diagnosis: Acute blood loss anemia Referrals: Adrian Oneal MD [Primary Care Provider] - 1 Week Discharge Medications: New nicotine 21 mg/24 hr Patch 24 Hour 21 mg transdermal DAILY 30 Days Qty: 30 0RF pantoprazole 40 mg tablet,delayed release (DR/EC) 40 mg PO BID Qty: 60 0RF cefuroxime axetil 500 mg tablet 500 mg PO Q12H Qty: 4 0RF Continued [id number]-[id number] fum-folic ac 7.5 mg iron-400 mcg tablet 1 tab PO DAILY Discharge Orders: Discharge Order (Routine); Ordered 01/27/22 Ordered By: Julio Garrido Diet: Advance to usual diet Activity on Discharge: As tolerated Stand Alone Forms: Patient Portal Discharge page Care Plan Goals: Read below Health Concerns: Read below Plan of Treatment: Read below Assessment: You were admitted to the hospital for bleeding. Endoscopy that showed an evidence of duodenal ulcer that was treated locally. Received IV pantoprazole, after a tight and antibiotic with good response over the course of hospital stay as he received total of 5 units of blood with no further drop in your hemoglobin or recurrent of bleeding. Had a colonoscopy done which was normal study. Continue Ceftin for 2 more days Start pantoprazole 40 mg twice Daily Avoid smoking, nicotine patches prescribed To follow-up with Gastroenterology as outpatient
--- NOTE | 2022-01-27 14:43 | P.OP_ITS ---
Operative Note Operative Note Date of Service: 01/27/22 Narrative: Operative Information Procedure Description: Colonoscopy Indication: abn Ct with thickening of right colon and anemia Anesthesia: MAC COLONOSCOPY Instrument: Olympus variable stiffness adult scope 190L Colonoscopy Monitoring: Vital signs and clinical assessment, continuous EKG monitoring, Pulse oximetry, Carbon Dioxide monitoring and blood pressure monitoring were done throughout the procedure. Colon withdrawal time was 9 minutes. Procedure: The patient was placed in the left lateral decubitis position and pre-procedure medications were administered. After a digital rectal examination of the ano-rectum, the video colonoscope was inserted into the rectum and advanced through the colon to the cecum/TI. The colonoscope was slowly withdrawn in a retrograde panoramic fashion and the colon mucosa was carefully examined including a retroflexed view of the rectum. Findings and interventions are described below. Procedure Difficulty: easy Findings: Terminal Ileum-normal Cecum:mild congestion and edema of mucosa bx taken Ascending Colon: mild congestion and edema of mucosa bx taken Transverse Colon -normal Descending Colon:normal Sigmoid Colon: normal Rectum: Retroflexion with small internal hemorrhoids, grade I, also noted to have rectal varices, not bleeding No blood or melena seen in colon Anorectum - normal Colon preparation: [place] Bowel Preparation Scale Right colon; 1-2 Transverse colon: 2 Left colon; 2 (0 = Unprepared colon segment with mucosa not seen due to solid stool that cannot be cleared. 1 = Portion of mucosa of the colon segment seen, but other areas of the colon segment not well seen due to staining, residual stool and/or opaque liquid. 2 = Minor amount of residual staining, small fragments of stool and/or opaque liquid, but mucosa of colon segment seen well. 3 = Entire mucosa of colon segment seen well with no residual staining, small fragments of stool or opaque liquid) Impression and Post Procedure Diagnosis: colonic edema prob from portal hypertension ie portal hypertensive colonopathy rectal varices internal hemorrhoids Plan: High fiber diet leaflet Avoid straining at stool, epsom salts and sitz bath, anusol supps or cream Repeat Colonoscopy aged 45 or earlier if clinically indicated can go home, o/p f/u --will need repeat EGD in 2-4 weeks Above findings were reviewed with the patient and relevant handouts were provided if indicated.
--- NOTE | 2022-01-27 14:43 | MHC.SHP ---
Pre-Procedural Eval Section A Date of Service: 01/27/22 The patient is an INPATIENT: Yes The History & Physical has been completed within 30 days and I have reviewed it.: Yes Section B Chief Complaint: Gi Bleed Allergies: Allergies Allergy/AdvReac Type Severity Reaction Status Date / Time No Known Allergies Allergy Verified 01/24/22 12:20 Plan I have reviewed the history and physical and performed a pertinent physical examination on my patient. No changes have occurred unless specified.
== END 2022-01-27 18:43 | disposition home or self-care (01) | DRG 280 ==
LOC: HO.ED 16:50 → HO.EDOVER 17:41 → HO.IMC 01-25 16:02
PROVIDERS: Internal Medicine; Internal Medicine Gastroenterology; Admitting Provider Internal Medicine; Emergency Provider Emergency Medicine; PCP Internal Medicine; Visit Provider Student in an Organized Health Care Education/Training Program
PROC: 0DJ08ZZ Inspection of Upper Intestinal Tract, Via Natural or Artificial Opening Endoscopic (ICD-10-PCS; CPT 43235; principal; 2022-01-25 15:20)
PROC: 0DJD8ZZ Inspection of Lower Intestinal Tract, Via Natural or Artificial Opening Endoscopic (ICD-10-PCS; CPT 45378; principal; 2022-01-27 14:50)
DX: K70.30 Alcoholic cirrhosis of liver without ascites (principal); I85.11 Secondary esophageal varices with bleeding; K26.4 Chronic or unspecified duodenal ulcer with hemorrhage; K76.6 Portal hypertension; D62 Acute posthemorrhagic anemia; K31.89 Other diseases of stomach and duodenum; K64.8 Other hemorrhoids; E83.42 Hypomagnesemia; F17.210 Nicotine dependence, cigarettes, uncomplicated; F10.21 Alcohol dependence, in remission; Z20.822 Contact with and (suspected) exposure to COVID-19; Z71.6 Tobacco abuse counseling; Z79.899 Other long term (current) drug therapy
CPT/HCPCS: 36415; 36430; 74176; 74178; 80048; 80076; 81003; 82272; 83690; 83735; 85014; 85018; 85025; 85027; 85610; 85730; 86850; 86900; 86901; 86923; 87635; 88305; 96361; 96374; 96375; 99285; J0696; J1610; J1940; J2354; J2405; P9016; Q9967

== ENCOUNTER → 2022-02-09 12:55 | Outpatient (BNVA) | payer MEDICAID, SELFPAY | PROVIDERS: PCP Internal Medicine; Visit Provider Urology | DX: E29.1 Testicular hypofunction (principal); N52.9 Male erectile dysfunction, unspecified | CPT/HCPCS: 99202 ==

== ENCOUNTER 2022-02-28 12:00 | Outpatient (REF) | payer MEDICAID, SELFPAY ==
[2022-03-04 21:41] LABS: Testosterone, Free 45.2 pg/mL (35.0-155.0); Testosterone, Total 766 ng/dL (250-1100)
== END 2022-02-28 12:01 | disposition home or self-care (01) ==
LOC: HO.LAB 12:00
PROVIDERS: PCP Internal Medicine; Visit Provider Urology
DX: E29.1 Testicular hypofunction (principal); N52.9 Male erectile dysfunction, unspecified; K26.9 Duodenal ulcer, unspecified as acute or chronic, without hemorrhage or perforation; D64.9 Anemia, unspecified; D69.59 Other secondary thrombocytopenia
CPT/HCPCS: 36415; 84402; 84403; 99212

== ENCOUNTER 2022-06-13 15:22 | Outpatient (REF) | payer MEDICAID, SELFPAY ==
[2022-06-13 15:57] LABS: Red Cell Distribution Width 20.8 % (11.0-16.0)
[2022-06-13 15:59] LABS: Basophils Percent Auto 0.7 % (0-2); Eosinophils Absolute Auto 0.3 X10*3/uL (0.0-0.4); Eosinophils Percent Auto 6.1 % (0-4); Hematocrit 41.5 % (42.0-52.0); Hemoglobin 13.6 g/dl (14.0-18.0); Lymphocytes Absolute Auto 1.6 X10*3/uL (1.2-4.9); Lymphocytes Percent Auto 34.4 % (20-40); Mean Corpuscular HGB Conc 32.8 g/dl (31.0-36.0); Mean Corpuscular Hemoglobin 26.5 pg (27.0-33.0); Mean Corpuscular Volume 80.9 fL (80.0-98.0); Mean Platelet Volume 9.6 fL (9.4-12.4); Monocytes Absolute Auto 0.5 X10*3/uL (0.1-1.2); Monocytes Percent Auto 11.8 % (2-11); Neutrophils Absolute Auto 2.2 x10*3/uL (2.0-8.3); Red Blood Count 5.13 X10*6/uL (4.60-5.80)
[2022-06-13 16:01] LABS: Platelet Count 104 X10*3/uL (160-400); White Blood Count 4.6 X10*3/uL (4.8-10.8)
[2022-06-13 16:02] LABS: INTERNATIONAL NORM RATIO 1.3 (0.9-1.1); Prothrombin Time 15.1 SEC (10.0-13.1)
[2022-06-13 16:34] LABS: Alanine Aminotransferase 23 U/L (0-40); Albumin Level 3.9 g/dL (3.5-5.0); Alkaline Phosphatase 163 U/L (39-117); Anion Gap 11 (12-20); Aspartate Amino Transferase 33 U/L (5-37); Bilirubin Total 1.3 mg/dL (0.0-1.0); Blood Urea Nitrogen 15 mg/dL (9-16); Calcium 9.1 mg/dL (8.4-10.2); Carbon Dioxide 25 mmol/L (22-29); Chloride 108 mmol/L (96-108); Estimated Glomerular Filt Rate > 60; Glucose Random 95 mg/dL (60-115); Iron 64 mcg/dL (45-160); Percent Iron Saturation 19 % (15-50); Potassium 3.7 mmol/L (3.3-5.1); Rheumatoid Factor < 13.0 IU/mL (<15.0); Sodium 140 mmol/L (135-145); Total Iron Binding Capacity 338 mcg/dL (228-428); Total Protein 7.4 g/dL (6.5-8.0); Unsaturated Iron Binding 274 ug/dL
[2022-06-13 16:43] LABS: Ferritin 18 ng/mL (20-250); TSH reflex Free T4 1.14 uIU/mL (0.32-4.0)
[2022-06-13 16:56] LABS: Folate 15.2 ng/mL (> or = 4.0); Vitamin B12 730 pg/mL (200-900)
[2022-06-15 14:43] LABS: Cyclic Citrullinated Peptide <16 UNITS
[2022-06-17 16:24] LABS: Vitamin B6 20.7 ng/mL (2.1-21.7)
[2022-06-17 17:43] LABS: Vitamin C 0.9 mg/dL (0.2-2.1)
[2022-06-17 20:29] LABS: Vitamin B5 (Pantothenic Acid) <40 ng/mL (<275)
[2022-06-17 20:39] LABS: Nicotinamide <20 ng/mL; Vit B3 - Nicotinic Acid <20 ng/mL
[2022-06-18 17:24] LABS: Vitamin A 13 mcg/dL (38-98)
[2022-06-20 02:48] LABS: Aldolase 5.1 U/L (<=8.1)
[2022-06-20 11:23] LABS: Testosterone, Free 41.3 pg/mL (35.0-155.0); Testosterone, Total 626 ng/dL (250-1100)
== END 2022-06-13 15:23 | disposition home or self-care (01) ==
LOC: HO.LAB 15:22
PROVIDERS: PCP Internal Medicine; Visit Provider Internal Medicine Gastroenterology
DX: D69.59 Other secondary thrombocytopenia (principal); D62 Acute posthemorrhagic anemia; M25.50 Pain in unspecified joint; N52.9 Male erectile dysfunction, unspecified; D64.9 Anemia, unspecified; K26.9 Duodenal ulcer, unspecified as acute or chronic, without hemorrhage or perforation; K75.81 Nonalcoholic steatohepatitis (NASH)
CPT/HCPCS: 36415; 80053; 82085; 82180; 82550; 82607; 82728; 82746; 83540; 84207; 84402; 84403; 84443; 84590; 84591; 85025; 85610; 86200; 86431

== ENCOUNTER 2022-06-14 11:00 | Day surgery (SDC) | payer MEDICAID, SELFPAY ==
[2022-06-10 10:43] VITALS: BMI 25.2
--- NOTE | 2022-06-13 13:45 | HO.ANESPROP2 ---
Documented by User: Lisa Guerrero NP 06/13/22 13:49 HPI - Anesthesia Eval Consult details Narrative: 42yo M for Upper Endoscopy ETOH abuse with cirrhosis, coagulopathy, thrombocytopenia PMFSH Active Problems Active Problems: All Active Problems (Updated 02/09/22 @ 13:23 by Sergio Partida MD) Impotence (Acute) Joint pain (Acute) Knee pain, bilateral (Acute) Achilles tendinitis of both lower extremities (Acute) Elbow pain, chronic (Acute) Anemia (Acute) Duodenal ulcer (Acute) Hypomagnesemia (Acute) Erectile dysfunction (Acute) Thrombocytopenia due to hypersplenism (Acute) Past Medical History Medical History Abnormal x-ray of humerus Alcohol abuse Alcoholic liver disease Anemia Ascites Cirrhosis Coagulopathy Hyponatremia Malnutrition related to chronic disease Polyclonal hypergammaglobulinemia Portal venous hypertension Sarcopenia Thrombocytopenia due to hypersplenism Upper GI bleed Family History Family History Other No family history of coronary artery disease Family history of problems with anesthesia: No Surgical History Surgical History H/O colonoscopy H/O wrist surgery History of esophagogastroduodenoscopy (EGD) History of Problems with Anesthesia: No Social History Social History Household Members: None Household Members Other:: girlfriend Housing: House Do you presently have visiting nurse or other home services: No Alcohol intake: former Patient Tobacco Use Status: Current everyday Tobacco user Tobacco use type: Cigarette Cigarette Packs Per Day: 1 Cigarettes Per Day: 10 Years Smoked: 20 e-Cigarette/Vaping Use: Never Used Second Hand Smoke Exposure: Yes Use of substances other than those prescribed or required for medical reasons: Yes Substance Use Type Other:: edibles Substance Use Frequency: Occasionally Are you DNR?: No Advance Directives: No Advance Directives Information Provided: Yes service: No Current occupational status: unemployed Meds Allergies Allergy/AdvReac Type Severity Reaction Status Date / Time No Known Allergies Allergy Verified 06/14/22 11:16 Home Medications Medication Instructions Recorded Confirmed Last Taken Type ivojwtdenpos-vydrxnyn-zarv 1 tab PO DAILY 01/24/22 01/24/22 01/23/22 History fumarate 7.5 mg-folic acid 400 mcg tablet Vitamin D3 PO DAILY 06/14/22 Unknown History iron PO Q OTHER DAY 06/14/22 Unknown History Exam Exam Date and Time: June 13, 2022 1345 Height,Weight and Vital Signs: Height 5 ft 9 in Weight 77.564 kg Pertinent Lab Results Pertinent Lab Results: Laboratory Tests 01/27/22 06:23 Sodium 138 Potassium 3.4 Chloride 107 Carbon Dioxide 24 BUN 11 Creatinine 0.70 Assessment and Plan Final Anesthetic Review Family History of Problems with Anesthesia: No History of Problems with Anesthesia: No Documented by User: Yaneth Manning MD 06/14/22 11:41 PMFSH Past Medical History Medical History Abnormal x-ray of humerus Alcohol abuse Alcoholic liver disease Anemia Ascites Cirrhosis Coagulopathy Hyponatremia Malnutrition related to chronic disease Polyclonal hypergammaglobulinemia Portal venous hypertension Sarcopenia Thrombocytopenia due to hypersplenism Upper GI bleed Family History Family History Other No family history of coronary artery disease Surgical History Surgical History H/O colonoscopy H/O wrist surgery History of esophagogastroduodenoscopy (EGD) Social History Social History Household Members: None Household Members Other:: girlfriend Housing: House Do you presently have visiting nurse or other home services: No Alcohol intake: former Patient Tobacco Use Status: Current everyday Tobacco user Tobacco use type: Cigarette Cigarette Packs Per Day: 1 Cigarettes Per Day: 10 Years Smoked: 20 e-Cigarette/Vaping Use: Never Used Second Hand Smoke Exposure: Yes Use of substances other than those prescribed or required for medical reasons: Yes Substance Use Type Other:: edibles Substance Use Frequency: Occasionally Are you DNR?: No Advance Directives: No Advance Directives Information Provided: Yes service: No Current occupational status: unemployed Meds Allergies Allergy/AdvReac Type Severity Reaction Status Date / Time No Known Allergies Allergy Verified 06/14/22 11:16 Home Medications Medication Instructions Recorded Confirmed Last Taken Type ejiujmgjiafb-ccvlrxft-uzor 1 tab PO DAILY 01/24/22 01/24/22 01/23/22 History fumarate 7.5 mg-folic acid 400 mcg tablet Vitamin D3 PO DAILY 06/14/22 Unknown History iron PO Q OTHER DAY 06/14/22 Unknown History Exam Airway Mallampati Class: II TM Dist: >3cm Neck ROM: Full Heart: rrr Lungs: cta Assessment and Plan Assessment Anesthesia Assessment: Anesthesia Plan Discussed and Smoking Cess. Discussed Final Anesthetic Review ASA Class: III Final Preanesthetic Review: No Changes in Pt Med Stat, Meds/Allgs Chart Reviewed, Consent Obtained/Reviewed and Anes Risks/Benef Reviewed Patient Risk: Low Procedure Risk: Low Anesthetic Plan Anesthetic Plan: MAC: and Agree w/ Assess. and Plan Disposition: Standard PACU
--- NOTE | 2022-06-14 11:09 | MHC.SHP ---
Pre-Procedural Eval Section A Date of Service: 06/14/22 Section B Chief Complaint: Duodenal ulcer, unspecified as acute or chronic, w Details of Present Illness: hx of esophageal varices Relevant Family History (Specify if Yes): No Relevant Social History: Tobacco Use (ex alcohol abuse) Present Medications: see Short Stay Collaborative assessment Medical History: Significant History (Abnormal x-ray of humerus Alcohol abuse Alcoholic liver disease Anemia Ascites Cirrhosis Coagulopathy Hyponatremia Malnutrition related to chronic disease Polyclonal hypergammaglobulinemia Portal venous hypertension Sarcopenia Thrombocytopenia due to hypersplenism Upper GI bleed) History of Previous Operations: Relevant previous surgery/procedure and date(s) (H/O colonoscopy H/O wrist surgery History of esophagogastroduodenoscopy (EGD)) Allergies: Allergies Allergy/AdvReac Type Severity Reaction Status Date / Time No Known Allergies Allergy Verified 03/07/22 15:07 Review of Systems Sugical H&P ROS: Negative: Constitution, Cardiovascular, Respiratory, Neurological, Psychiatric, Hem-Onc, Allergic/Immunologic, Gastrointestinal, Genitourinary, Musculoskeletal, Integumentary, Endocrine and Eyes/Ears/Nose/Throat Exam Surgical H&P Exam: Normal: HEENT, Normal: Heart, Normal: Lungs, Normal: Extremities, Normal: Abdomen, Normal: Skin and Normal: Neurological Plan Diagnosis/Plan: Unchanged I have reviewed the history and physical and performed a pertinent physical examination on my patient. No changes have occurred unless specified. Time Spent With Patient Time: Total time managing care of this patient today ____ minutes.
[2022-06-14 11:29] VITALS: BP 119/65; PULSE 61; RESP 15; TEMP 36.6; O2SAT 97
[2022-06-14] MEDS: Lactated Ringers 1,000 ML 100 ML IVCONT (11:32)
--- NOTE | 2022-06-14 11:36 | W.PM.OPN ---
Operative Note Operative Note Date of Service: 06/14/22 Narrative: Procedure Description: EGD Indication: hx of ulcer and varices Anesthesia: MAC FLEXIBLE TRANSORAL UPPER GASTROINTESTINAL ENDOSCOPY UPPER ENDOSCOPY Consent: Indications for the procedure and potential complications of bleeding, perforation, reaction to medications and missed diagnosis were discussed with the patient and informed consent was obtained. Instrument: Olympus GIF H 190 J mid size upper endoscope Monitoring: Vital signs and clinical assessment, continuous EKG monitoring, Pulse oximetry, Carbon Dioxide monitoring and blood pressure monitoring were done throughout the procedure. Procedure: The patient was placed in the left lateral decubitis position and pre-procedure medications were administered and a bite block was placed. The endoscope was inserted into the mouth and advanced under direct vision to the third part of duodenum. A careful inspection was made as the upper endoscope was withdrawn including a retroflexed examination of the proximal stomach; Findings and interventions are described below. Findings: Larynx:normal Esophagus: GE junction at 40 cm, diaphragm hiatus at 40 cm, x 2 cords of grade I esophageal varices which collapsed with air insufflation, no high risk lyn. mild esophagits noted Stomach: Patchy gastric erythema and erosions at antrum. Biopsies were obtained. Grade 2 flap valve on retroflexed examination of the cardia. mosaic pattern with erythema consistent with portal hypertensive gastropathy. Duodenum: Normal bulb and descending duodenum, Intervention: Biopsies as noted above Impression/Findings: esophageal varices esophagitis erosive gastritis portal hypertensive gastropathy PLAN: check compliance with medication, if h pylori pos treat avoid nsaid use. repeat EGD in 1 year or earlier if needed, can consider low dose carvedilol and statin at next OV
[2022-06-14 12:13] VITALS: BP 104/67; PULSE 76; RESP 16; TEMP 36.4; O2SAT 98
[2022-06-14 12:28] VITALS: BP 100/61; PULSE 62; RESP 16; TEMP 36.6; O2SAT 99
== END 2022-06-14 13:08 | disposition home or self-care (01) ==
PROVIDERS: PCP Internal Medicine; Visit Provider Internal Medicine Gastroenterology
PROC: 0DJ08ZZ Inspection of Upper Intestinal Tract, Via Natural or Artificial Opening Endoscopic (ICD-10-PCS; CPT 43235; principal; 2022-06-14 12:40)
DX: K26.9 Duodenal ulcer, unspecified as acute or chronic, without hemorrhage or perforation (principal); D64.9 Anemia, unspecified; D69.59 Other secondary thrombocytopenia; K29.60 Other gastritis without bleeding; I85.00 Esophageal varices without bleeding; K20.80 Other esophagitis without bleeding; K76.6 Portal hypertension; K31.89 Other diseases of stomach and duodenum; K70.9 Alcoholic liver disease, unspecified; F10.11 Alcohol abuse, in remission; K44.9 Diaphragmatic hernia without obstruction or gangrene; Z79.899 Other long term (current) drug therapy; F17.210 Nicotine dependence, cigarettes, uncomplicated
CPT/HCPCS: 43239; 88305; 88342; J2370

== ENCOUNTER 2022-08-26 15:55 | Outpatient (REF) | payer MEDICAID, SELFPAY ==
--- NOTE | ~2022-08-26 | XR_ITS ---
EXAMINATION: XR CHEST CLINICAL INFORMATION: Cough COMPARISON: Chest radiographs 03/29/2021, 09/09/2020, CTA chest 03/27/2021 TECHNIQUE: 2 views of the chest were obtained. FINDINGS: There is borderline coarsening central bronchiolar markings which may be related to bronchitis. There is no overt hyperinflation. No air bronchograms. No airspace consolidation or groundglass opacity or effusion. Heart size is normal. The hilar and mediastinal contours and visualized bony structures are unremarkable. XR/XR chest 2V IMPRESSION: Mild coarsening bronchiolar markings which may related to bronchitis. No airspace consolidation, groundglass opacity, or effusion.
[2022-08-26 17:07] LABS: Influenza A PCR NEGATIVE (Negative); Influenza B PCR NEGATIVE (Negative); Resp Syncy Virus RNA Qual PCR NEGATIVE (Negative); SARS COV2 PCR INHOUSE NEGATIVE (Negative)
[2022-08-26 17:49] LABS: Hemoglobin 14.2 g/dl (14.0-18.0); PLT CLUMP 1; SCAN SMEAR FLAG 1
[2022-08-26 17:51] LABS: Basophils Percent Auto 0.7 % (0-2); Eosinophils Absolute Auto 0.6 X10*3/uL (0.0-0.4); Eosinophils Percent Auto 11.4 % (0-4); Hematocrit 42.8 % (42.0-52.0); Imm Gran Abs Auto 0.02 X10*3/uL (0.00-0.03); Imm Gran Pct Auto 0.4 % (0.0-0.4); Lymphocytes Absolute Auto 1.7 X10*3/uL (1.2-4.9); Lymphocytes Percent Auto 31.9 % (20-40); Mean Corpuscular HGB Conc 33.2 g/dl (31.0-36.0); Mean Corpuscular Hemoglobin 29.4 pg (27.0-33.0); Mean Corpuscular Volume 88.6 fL (80.0-98.0); Monocytes Absolute Auto 0.6 X10*3/uL (0.1-1.2); Monocytes Percent Auto 11.2 % (2-11); Neutrophils Absolute Auto 2.4 x10*3/uL (2.0-8.3); Neutrophils Percent Auto 44.4 % (45-73); Red Blood Count 4.83 X10*6/uL (4.60-5.80)
[2022-08-26 18:03] LABS: MANUAL DIFF FLAG NO; Platelet Count 111 X10*3/uL (160-400); White Blood Count 5.4 X10*3/uL (4.8-10.8)
[2022-08-26 18:33] LABS: Alanine Aminotransferase 17 U/L (0-40); Albumin Level 3.9 g/dL (3.5-5.0); Alkaline Phosphatase 132 U/L (39-117); Anion Gap 14 (12-20); Aspartate Amino Transferase 33 U/L (5-37); Bilirubin Total 1.9 mg/dL (0.0-1.0); Blood Urea Nitrogen 10 mg/dL (9-16); Carbon Dioxide 23 mmol/L (22-29); Chloride 106 mmol/L (96-108); Estimated Glomerular Filt Rate > 60; Glucose Random 106 mg/dL (60-115); Iron 121 mcg/dL (45-160); Percent Iron Saturation 38 % (15-50); Sodium 139 mmol/L (135-145); Total Iron Binding Capacity 315 mcg/dL (228-428); Total Protein 7.5 g/dL (6.5-8.0); Unsaturated Iron Binding 194 ug/dL
== END 2022-08-26 15:56 | disposition home or self-care (01) ==
LOC: HO.LAB 15:55
PROVIDERS: PCP Internal Medicine; Visit Provider Internal Medicine
DX: R05.9 Cough, unspecified (principal); R06.2 Wheezing; D64.9 Anemia, unspecified; Z20.822 Contact with and (suspected) exposure to COVID-19
CPT/HCPCS: 0241U; 36415; 71046; 80053; 83540; 85025

== ENCOUNTER 2023-06-28 15:18 | Outpatient (REF) | payer OTHER, MEDICAID, SELFPAY | END 2023-06-28 15:19 | disposition home or self-care (01) | LOC: HO.LAB 15:18 | PROVIDERS: PCP Internal Medicine; Referring Provider Internal Medicine; Visit Provider Surgery | DX: N61.1 Abscess of the breast and nipple (principal) | CPT/HCPCS: 10061; 87070; 87205; 99202 ==

== ENCOUNTER 2023-06-28 15:18 | Outpatient (AMB) | payer MEDICARE, MEDICAID, SELFPAY ==
--- NOTE | 2023-06-28 15:21 | MHC.OFFVIS ---
Intake Vital Signs 06/28/23 15:27 Height 5 ft 9 in Weight 185 lb BMI 27.3 BP 117/58 L Blood Pressure Location Rt brachial Position Sitting Pulse 71 Intake Visit Reasons: Abscess right chest wall, possible I&D Intake Note: Patient referred by pcp Dr. Oneal for possible I&D of Rt chest abscess. Present for 2wks. Patient c/o: bleeding, tender to touch. 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 It has spontaneously drained but patient has marked pain, and redness as well. He has never had such issues before. Chart was reviewed patient evaluated. History of ETOH abuse and liver issues. Abstinence x1 year. [facility] Medical History Anemia Cirrhosis Coagulopathy Portal venous hypertension Thrombocytopenia due to hypersplenism Upper GI bleed Alcoholic liver disease Polyclonal hypergammaglobulinemia Abnormal x-ray of humerus Hyponatremia Alcohol abuse Sarcopenia Malnutrition related to chronic disease Ascites Surgical History H/O colonoscopy History of esophagogastroduodenoscopy (EGD) H/O wrist surgery Family History Other No family history of coronary artery disease Social History (Updated 06/28/23 @ 15:26 by TARA Cardona) Household Members: None Household Members Other:: girlfriend Housing: House Do you presently have visiting nurse or other home services: No Alcohol intake: former Comment: no longer high risk Patient Tobacco Use Status: Current everyday Tobacco user Tobacco use type: Cigarette Cigarette Packs Per Day: 1 Cigarettes Per Day: 15 Years Smoked: 20 e-Cigarette/Vaping Use: Never Used Second Hand Smoke Exposure: Yes service: No Current occupational status: unemployed Physical Exam Vital Signs: Last Vital Signs Pulse 71 06/28/23 15:27 BP 117/58 L 06/28/23 15:27 BMI result Body Mass Index 27.3 Chest Other: Patient has approximately 4 x 3 cm large complex right subareolar abscess with spontaneous purulent drainage. Very tender to palpation. Marked surrounding erythema. Office Procedures I&D Drain Details: Risks, benefits, alternatives of incision and drainage of right subareolar breast abscess were reviewed with the patient and included but not limited to bleeding, infection, recurrence, numbness, pain, scarring the patient wishes to proceed. All questions answered. After appropriate positioning, patient underwent 1% lidocaine and Betadine prep and uneventful curvilinear incision over the right sub areolar abscess and carried down through skin, subcutaneous tissue, were large abscess cavity was entered. Loculations broken down. Cultures obtained. Wound was irrigated, secured hemostasis, packed, and dressing applied. Patient tolerated procedure well. [id number] of Skin Abscess, complex All charges added?: Procedure code (CPT) selection complete Assessment & Plan Assessment & Plan (1) Acute abscess of areola: Code(s): N61.1 - Abscess of the breast and nipple Plan: Patient will be given antibiotics, analgesics, office VNA services of [place], and will see me in approximately 1-1/2 weeks time or p.r.n.. Orders: Orders AMB Incision & Drainage Today N61.1 - Abscess of the breast and nipple Medications: New cephalexin 500 mg PO TID 30 caps 0RF hydrocodone-acetaminophen 5-325 mg Partial Fill upon patient request. 1 tab PO Q4-6H PRN 30 tabs 0RF pain Coding Level of Care Code New Pt Level 5 (18255) Diagnoses Acute abscess of areola N61.1 CPT Codes I&D Drain - Drain 2: 34303-Zkemzrak of Skin Abscess, complex ([id number])
[2023-06-28 15:27] VITALS: BP 117/58; PULSE 71; BMI 27.3
== END 2023-06-28 15:53 | disposition home or self-care (01) ==
PROVIDERS: PCP Internal Medicine; Referring Provider Internal Medicine; Visit Provider Surgery
DX: N61.1 Abscess of the breast and nipple (principal)
CPT/HCPCS: 10061; 99204

== ENCOUNTER → 2023-06-29 09:18 | Outpatient (BNVA) | payer MEDICARE, SELFPAY | PROVIDERS: PCP Internal Medicine; Visit Provider Surgery | DX: Z48.00 Encounter for change or removal of nonsurgical wound dressing (principal) | CPT/HCPCS: 99211 ==

== ENCOUNTER → 2023-06-30 09:41 | Outpatient (BNVA) | payer MEDICARE, MEDICAID, SELFPAY | PROVIDERS: PCP Internal Medicine; Visit Provider Surgery | DX: Z48.01 Encounter for change or removal of surgical wound dressing (principal) | CPT/HCPCS: 99211 ==

== ENCOUNTER → 2023-07-03 09:44 | Outpatient (BNVA) | payer MEDICARE, MEDICAID, SELFPAY | PROVIDERS: PCP Internal Medicine; Visit Provider Surgery | DX: Z48.00 Encounter for change or removal of nonsurgical wound dressing (principal) | CPT/HCPCS: 99211 ==

== ENCOUNTER 2023-07-10 10:09 | Outpatient (AMB) | payer MEDICARE, MEDICAID, SELFPAY ==
--- NOTE | 2023-07-10 10:17 | MHC.OFFVIS ---
Intake Vital Signs 07/10/23 10:21 Height 5 ft 9 in Weight 186 lb BMI 27.5 BP 125/58 L Blood Pressure Location Rt brachial Position Sitting Pulse 67 Intake Visit Reasons: s/p I&D abscess right chest wall, wound check Intake Note: Patient here for wound check. Finished cephalexin course. Patient c/o redness. Had 2 bleeding episodes last week. Telescope Operator Required: No Accompanied by: Self / Same As Patient Allergies No Known Allergies Allergy (Verified 07/10/23 10:23) HPI HPI Comments History of Present Illness Details Patient presents for evaluation status post I&D right breast/subareolar abscess. He had some bloody drainage. Presents here for further evaluation. [facility] Medical History Anemia Cirrhosis Coagulopathy Portal venous hypertension Thrombocytopenia due to hypersplenism Upper GI bleed Alcoholic liver disease Polyclonal hypergammaglobulinemia Abnormal x-ray of humerus Hyponatremia Alcohol abuse Sarcopenia Malnutrition related to chronic disease Ascites Surgical History H/O colonoscopy History of esophagogastroduodenoscopy (EGD) H/O wrist surgery Family History Other No family history of coronary artery disease Social History Household Members: None Household Members Other:: girlfriend Housing: House Do you presently have visiting nurse or other home services: No Alcohol intake: former Comment: no longer high risk Patient Tobacco Use Status: Current everyday Tobacco user Tobacco use type: Cigarette Cigarette Packs Per Day: 1 Cigarettes Per Day: 15 Years Smoked: 20 e-Cigarette/Vaping Use: Never Used Second Hand Smoke Exposure: Yes service: No Current occupational status: unemployed Physical Exam Vital Signs: Last Vital Signs Pulse 67 07/10/23 10:21 BP 125/58 L 07/10/23 10:21 BMI result Body Mass Index 27.5 Chest Other: Wound is healing uneventfully. Patient has some induration status post the original abscess but no active infection or purulence or abscess demonstrated. Wound was probed with a Q-tip which again demonstrated no undrained collection or purulence. Dressing applied. Well-tolerated Assessment & Plan Assessment & Plan (1) Acute abscess of areola: Code(s): N61.1 - Abscess of the breast and nipple Plan Patient is continue local wound therapy, and will see me in few days time for follow-up or p.r.n.. All questions answered. Coding Level of Care Code Global (44803) Diagnoses Acute abscess of areola N61.1
[2023-07-10 10:21] VITALS: BP 125/58; PULSE 67; BMI 27.5
== END 2023-07-10 10:39 | disposition home or self-care (01) ==
PROVIDERS: PCP Internal Medicine; Visit Provider Surgery
DX: N61.1 Abscess of the breast and nipple (principal)
CPT/HCPCS: 99024

== ENCOUNTER → 2023-07-10 10:09 | Outpatient (BNVA) | payer MEDICARE, MEDICAID, SELFPAY | PROVIDERS: PCP Internal Medicine; Visit Provider Surgery | DX: N61.1 Abscess of the breast and nipple (principal); Z98.890 Other specified postprocedural states | CPT/HCPCS: 99212 ==

== ENCOUNTER 2023-07-14 09:04 | Outpatient (AMB) | payer MEDICARE, MEDICAID, SELFPAY ==
[2023-07-14 09:14] VITALS: BP 111/64; PULSE 66; BMI 27.3
--- NOTE | 2023-07-14 09:14 | MHC.OFFVIS ---
Intake Vital Signs 07/14/23 09:14 Height 5 ft 9 in Weight 185 lb BMI 27.3 BP 111/64 Blood Pressure Location Rt brachial Position Sitting Pulse 66 Intake Visit Reasons: Follow up I&D abscess R chest wall, wound check Intake Note: Follow up I&D abscess on Rt chest on 06-28-23. Reports site finally healing well. Patient c/o: tenderness to touch. Hospitalist Medical Director Required: No Accompanied by: Self / Same As Patient Allergies No Known Allergies Allergy (Verified 07/14/23 09:16) HPI HPI Comments History of Present Illness Details Follow-up status post I&D right subareolar breast abscess. No wound issues or complaints. Marked improvement of symptoms PFSH Medical History Anemia Cirrhosis Coagulopathy Portal venous hypertension Thrombocytopenia due to hypersplenism Upper GI bleed Alcoholic liver disease Polyclonal hypergammaglobulinemia Abnormal x-ray of humerus Hyponatremia Alcohol abuse Sarcopenia Malnutrition related to chronic disease Ascites Surgical History H/O colonoscopy History of esophagogastroduodenoscopy (EGD) H/O wrist surgery Family History Other No family history of coronary artery disease Social History Household Members: None Household Members Other:: girlfriend Housing: House Do you presently have visiting nurse or other home services: No Alcohol intake: former Comment: no longer high risk Patient Tobacco Use Status: Current everyday Tobacco user Tobacco use type: Cigarette Cigarette Packs Per Day: 1 Cigarettes Per Day: 15 Years Smoked: 20 e-Cigarette/Vaping Use: Never Used Second Hand Smoke Exposure: Yes service: No Current occupational status: unemployed Physical Exam Vital Signs: Last Vital Signs Pulse 66 07/14/23 09:14 BP 111/64 07/14/23 09:14 BMI result Body Mass Index 27.3 Chest Other: Near-total complete healing of right breast wound. Assessment & Plan Assessment & Plan (1) Status post incision and drainage: Code(s): Z98.890 - Other specified postprocedural states Plan Patient was told taken anywhere from 4-8 weeks for the induration will completely resolved. He has been given local instructions, and will follow-up p.r.n.. All questions answered. Coding Level of Care Code Global (65207) Diagnoses Status post incision and drainage Z98.890
== END 2023-07-14 09:18 | disposition home or self-care (01) ==
PROVIDERS: PCP Internal Medicine; Visit Provider Surgery
DX: Z98.890 Other specified postprocedural states (principal)
CPT/HCPCS: 99024

== ENCOUNTER → 2023-07-14 09:04 | Outpatient (BNVA) | payer MEDICARE, MEDICAID, SELFPAY | PROVIDERS: PCP Internal Medicine; Visit Provider Surgery | DX: Z98.890 Other specified postprocedural states (principal) | CPT/HCPCS: 99212 ==

== ENCOUNTER 2023-09-05 13:37 | Outpatient (AMB) | payer MEDICARE, MEDICAID, SELFPAY ==
[2023-09-05 13:41] VITALS: BP 123/67; PULSE 65; BMI 27.8
--- NOTE | 2023-09-05 13:41 | A.OFFVIS_ITS ---
Intake Vital Signs 09/05/23 13:41 Height 5 ft 9 in Weight 188 lb BMI 27.8 BP 123/67 Blood Pressure Location Rt brachial Position Sitting Pulse 65 Intake Visit Reasons: wound check, redness chest wall Intake Note: Patient tucked in today. C/o redness along I&D site on chest. Patient had I&D on 06-28-23. 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 He now presents with 2 days of superficial redness and some drainage. [facility] Medical History Anemia Cirrhosis Coagulopathy Portal venous hypertension Thrombocytopenia due to hypersplenism Upper GI bleed Alcoholic liver disease Polyclonal hypergammaglobulinemia Abnormal x-ray of humerus Hyponatremia Alcohol abuse Sarcopenia Malnutrition related to chronic disease Ascites Surgical History H/O colonoscopy History of esophagogastroduodenoscopy (EGD) H/O wrist surgery Family History Other No family history of coronary artery disease Social History Household Members: None Household Members Other:: girlfriend Housing: House Do you presently have visiting nurse or other home services: No Alcohol intake: former Comment: no longer high risk Patient Tobacco Use Status: Current everyday Tobacco user Tobacco use type: Cigarette Cigarette Packs Per Day: 1 Cigarettes Per Day: 15 Years Smoked: 20 e-Cigarette/Vaping Use: Never Used Second Hand Smoke Exposure: Yes service: No Current occupational status: unemployed Physical Exam Vital Signs: Last Vital Signs Pulse 65 09/05/23 13:41 BP 123/67 09/05/23 13:41 BMI result Body Mass Index 27.8 Chest Other: Patient has some very mild superficial cellulitis of the right breast in the vicinity of the original I&D. No fluctuance or abscess at this time. Assessment & Plan Assessment & Plan (1) Cellulitis: Code(s): L03.90 - Cellulitis, unspecified Plan Current plan Street patient conservatively with antibiotics, local wound care, and he will see me in few days' time for follow-up or p.r.n.. All questions answered. Medications: New cephalexin 500 mg PO TID 30 caps 0RF Coding Level of Care Code Est Pt Level 4 (00545) Diagnoses Cellulitis L03.90
== END 2023-09-05 13:49 | disposition home or self-care (01) ==
PROVIDERS: PCP Internal Medicine; Visit Provider Surgery
DX: L03.90 Cellulitis, unspecified (principal)
CPT/HCPCS: 99214

== ENCOUNTER → 2023-09-05 13:37 | Outpatient (BNVA) | payer MEDICARE, MEDICAID, SELFPAY | PROVIDERS: PCP Internal Medicine; Visit Provider Surgery | DX: L03.90 Cellulitis, unspecified (principal) | CPT/HCPCS: 99212 ==

== ENCOUNTER 2023-09-12 11:33 | Outpatient (AMB) | payer MEDICARE, MEDICAID, SELFPAY ==
--- NOTE | 2023-09-12 11:35 | A.OFFVIS_ITS ---
Intake Intake Visit Reasons: s/p I&D abscess R chest wall, 1 week follow up Intake Note: Patient here for 1wk s/o I&D on Rt chest. Still on Cephalexin course. Patient c/o: reports chest healing. Archeology Faculty Member Required: No Accompanied by: Self / Same As Patient Allergies No Known Allergies Allergy (Verified 09/12/23 11:36) HPI HPI Comments History of Present Illness Details Patient presents for follow-up. Marked improvement of his right areolar cellulitic process. [facility] Medical History Anemia Cirrhosis Coagulopathy Portal venous hypertension Thrombocytopenia due to hypersplenism Upper GI bleed Alcoholic liver disease Polyclonal hypergammaglobulinemia Abnormal x-ray of humerus Hyponatremia Alcohol abuse Sarcopenia Malnutrition related to chronic disease Ascites Surgical History H/O colonoscopy History of esophagogastroduodenoscopy (EGD) H/O wrist surgery Family History Other No family history of coronary artery disease Social History Household Members: None Household Members Other:: girlfriend Housing: House Do you presently have visiting nurse or other home services: No Alcohol intake: former Comment: no longer high risk Patient Tobacco Use Status: Current everyday Tobacco user Tobacco use type: Cigarette Cigarette Packs Per Day: 1 Cigarettes Per Day: 15 Years Smoked: 20 e-Cigarette/Vaping Use: Never Used Second Hand Smoke Exposure: Yes service: No Current occupational status: unemployed Physical Exam Chest Other: Right areolar demonstrates almost complete resolution of erythema and edema. Minimally tender. Assessment & Plan Assessment & Plan (1) Cellulitis: Code(s): L03.90 - Cellulitis, unspecified Plan Explained to the patient that he has a sebaceous cyst gland as the underlying etiologic agent. If this process continues to recur, once the acute infective situation is resolved, he should consider elective excision of the offending cyst. In the meantime, we will treat the patient conservatively. He is encouraged to complete his antibiotic course and continue local wound therapy. He will otherwise follow-up p.r.n. Coding Level of Care Code Est Pt Level 4 (96140) Diagnoses Cellulitis L03.90
== END 2023-09-12 11:39 | disposition home or self-care (01) ==
PROVIDERS: PCP Internal Medicine; Visit Provider Surgery
DX: L03.90 Cellulitis, unspecified (principal)
CPT/HCPCS: 99214

== ENCOUNTER → 2023-09-12 11:33 | Outpatient (BNVA) | payer MEDICARE, MEDICAID, SELFPAY | PROVIDERS: PCP Internal Medicine; Visit Provider Surgery | DX: L03.90 Cellulitis, unspecified (principal) | CPT/HCPCS: 99212 ==

== ENCOUNTER → 2024-02-08 15:00 | Outpatient (RCR) | payer MEDICAID, SELFPAY ==
[2020-10-16 13:05] VITALS: BP 105/69; PULSE 88; RESP 12; TEMP 36.4; O2SAT 99; BMI 22.6
[2020-10-16 13:43] LABS: MANUAL DIFF FLAG NO
[2020-10-16 13:51] LABS: Basophils Absolute Auto 0.1 X10*3/uL (0.0-0.2); Basophils Percent Auto 0.8 % (0-2); Eosinophils Absolute Auto 0.3 X10*3/uL (0.0-0.4); Eosinophils Percent Auto 4.2 % (0-4); Hematocrit 33.9 % (42-52); Hemoglobin 11.5 g/dl (14.0-18.0); Imm Gran Abs Auto 0.03 X10*3/uL (0.00-0.03); Imm Gran Pct Auto 0.5 % (0.0-0.4); Lymphocytes Absolute Auto 1.4 X10*3/uL (1.2-4.9); Lymphocytes Percent Auto 22.6 % (20-40); Mean Corpuscular HGB Conc 33.9 g/dl (31.0-36.0); Mean Corpuscular Hemoglobin 36.1 pg (27.0-33.0); Mean Corpuscular Volume 106.3 fL (80-98); Mean Platelet Volume 9.2 fL (9.4-12.4); Monocytes Absolute Auto 0.5 X10*3/uL (0.1-1.2); Neutrophils Absolute Auto 3.8 X10*3/uL (2.0-8.3); Neutrophils Percent Auto 63.9 % (45-73); Platelet Count 126 X10*3/uL (160-400); Red Blood Count 3.19 X10*6/uL (4.60-5.80); Red Cell Distribution Width 14.1 % (11.0-16.0)
--- NOTE | 2020-10-16 13:58 | P.PNHO_ITS ---
Medical Summary - Medical Summary Date of Service: 10/16/20 Chief complaint: Follow-up for: 1. Polyclonal Hypergammaglobulinemia. 2. Abnormal x-ray. Medical Summary: DIAGNOSIS: 1. Hypogammaglobulinemia. 2. Abnormal x-ray of humerus. Interval History Interval history: This is a pleasant 40-year-old gentleman, with a history of alcohol abuse, here for a follow-up visit. He presented to the ER, on 09/05 , with abdominal pain over the last several weeks. He noted some abdominal distension and nausea. He denied vomiting or diarrhea, fever, chills. He did report poor appetite. He admitted that he drinks approximately 1 pt of whiskey a day and has been, for many years. He has not seen a doctor in over 5 years. In the ER, abdominal CAT scan showed: Hepatomegaly and severe diffuse hepatic steatosis with small to ascites. He also massive distention gallbladder without significant biliary dilatation. Due to this an ultrasound was done. It showed: Distended gallbladder without evidence gallstones or disease. General surgery was consulted and determined at this time surgical intervention was not needed. He had no fever or hypoxia. He was noted to be tachycardic. Labs, sodium 130, AST 270, ALT 50, alkaline phosphatase 366, total bilirubin 13.7, lipase 278, albumin 2.6, INR 1.8, COVID 19-. Ascites fluid drained: did not appear to SBP. Patient was started on phenobarbital. Review of Systems - Constitutional Reports system reviewed and no additional complaints, except as documented, Reports weakness - Eyes Reports system reviewed and no additional complaints, except as documented, Denies blurry vision - ENT Reports system reviewed and no additional complaints, except as documented - Cardiovascular Reports system reviewed and no additional complaints, except as documented, Denies chest pain at rest - Respiratory Reports no additional respiratory complaints, Denies change in phlegm color - Gastrointestinal Reports system reviewed and no additional complaints, except as documented, Reports abdominal pain, Reports change in bowel habits - Genitourinary Genitourinary: Reports no additional male genitourinary complaints, Denies blood in urine - Musculoskeletal Reports system reviewed and no additional complaints, except as documented, Denies back pain - Integumentary/Breasts Skin/Breast: Reports no additional skin complaints - Neurologic Reports system reviewed and no additional complaints, except as documented - Psychiatric Reports system reviewed and no additional complaints, except as documented, Rep orts anxiety, Denies abnormal sleep pattern - Endocrine Reports no additional endocrine complaints, Denies excessive sweating - Hematologic/Lymphatic Reports system reviewed and no additional complaints, except as documented, Denies easy bruising - Allergic/Immunologic Reports system reviewed and no additional complaints, except as documented, Reports GI upset with certain foods PMFSH Medical History: Medical History (Last Reviewed 10/16/20 @ 13:07 by Teena Douglass) Abnormal x-ray of humerus Alcohol abuse Ascites Hyponatremia Malnutrition related to chronic disease No known health problems Sarcopenia Surgical History: Surgical History (Last Reviewed 10/16/20 @ 13:07 by Teena Douglass) H/O wrist surgery Social History: Social History (Last Updated 10/16/20 @ 13:08 by Teena Douglass) Living Situation History: Household Members: Other Household Members Other:: girlfriend Housing: House Do you presently have visiting nurse or other home services: No Alcohol History: Alcohol intake: former Alcohol History Details: Alcohol intake frequency: does not drink Tobacco History: Smoking Status: Current every day smoker Tobacco Type: Cigarette Packs Per Day: 1 Second Hand Smoke Exposure: Yes Substance Use History: Use of substances other than those prescribed or required for medical reasons : No Occupation Assessmet: service: No Current occupational status: employed Smoking status: Current every day smoker Home Medications and Allergies Allergies Allergy/AdvReac Type Severity Reaction Status Date / Time No Known Allergies Allergy Verified 09/05/20 11:19 Exam Vital signs: Vital Signs Temp 97.6 F 10/16/20 13:05 Pulse 88 10/16/20 13:05 Resp 12 10/16/20 13:05 BP 105/69 10/16/20 13:05 Pulse Ox 99 10/16/20 13:05 Intake & Output 10/15/20 10/16/20 10/16/20 18:59 06:59 18:59 Other: Weight 69.7 kg Weight in Grams [id number] Weight 69.7 kg Body Mass Index 22.6 - Constitutional Present: no acute distress - Routine HEENT Exam Head: Present: normal inspection Eye: Present: normal appearance ENT: Present: mucous membranes moist - Routine Neck Exam Present: full ROM - Routine Respiratory Exam Present: CTAB - Routine Cardiovascular Exam Cardiovascular: Present: RRR, S1, S2 - Routine Abdominal Exam Present: soft, nontender - Routine Extremities Exam Present: nontender - Routine Back/Spine/Pelvis Exam Back/Spine: Present: full ROM - Routine Skin Exam Present: intact - Routine Neurological Exam Present: alert, oriented X3 - Routine Psychiatric Exam Present: normal affect Data - Labs CBC & Chem 7: 10/16/20 13:40 10/16/20 13:40 Labs: 10/16/20 13:40 Complete Blood Count Auto Diff Routine Laboratory Last Values WBC 6.0 X10*3/uL (4.8-10.8) 10/16/20 13:40 RBC 3.19 X10*6/uL (4.60-5.80) L 10/16/20 13:40 Hgb 11.5 g/dl (14.0-18.0) L 10/16/20 13:40 Hct 33.9 % (42-52) L D 10/16/20 13:40 MCV 106.3 fL (80-98) H 10/16/20 13:40 MCH 36.1 pg (27.0-33.0) H 10/16/20 13:40 MCHC 33.9 g/dl (31.0-36.0) 10/16/20 13:40 RDW 14.1 % (11.0-16.0) 10/16/20 13:40 Plt Count 126 X10*3/uL (160-400) L 10/16/20 13:40 MPV 9.2 fL (9.4-12.4) L 10/16/20 13:40 Immature Gran % (Auto) 0.5 % (0.0-0.4) H 10/16/20 13:40 Neut % (Auto) 63.9 % (45-73) 10/16/20 13:40 Lymph % (Auto) 22.6 % (20-40) 10/16/20 13:40 Delta % (Auto) 8.0 % (2-11) 10/16/20 13:40 Eos % (Auto) 4.2 % (0-4) H 10/16/20 13:40 Baso % (Auto) 0.8 % (0-2) 10/16/20 13:40 Lymph # (Auto) 1.4 X10*3/uL (1.2-4.9) 10/16/20 13:40 Delta # (Auto) 0.5 X10*3/uL (0.1-1.2) 10/16/20 13:40 Eos # (Auto) 0.3 X10*3/uL (0.0-0.4) 10/16/20 13:40 Baso # (Auto) 0.1 X10*3/uL (0.0-0.2) 10/16/20 13:40 Abs Immat Gran (auto) 0.03 X10*3/uL (0.00-0.03) 10/16/20 13:40 Absolute Neuts (auto) 3.8 X10*3/uL (2.0-8.3) 10/16/20 13:40 Absolute Nucleated RBC 0.000 X10*3/uL (0.0-0.012) 10/16/20 13:40 Nucleated RBC % (auto) 0.0 /100WBC (0.0-0.2) 10/16/20 13:40 Progress Note: A/P (1) Polyclonal hypergammaglobulinemia Status: Acute Assessment and plan: This is a 40-year-old gentleman who has been admitted with acute alcoholic hepatitis. As part of the workup he had an IgG tested. This is elevated it 3378. The rest of the SIEP : Revealed normal profile, no monoclonal protein detected. Most likely, she has polyclonal hypergammaglobulinemia, related to his alcoholic liver disease. 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 Xrays of humerus: Numerous low-density regions within the right humeral shaft. Differential diagnosis would include multiple myeloma, hyperparathyroidism with brown tumors, eosinophilic granuloma, or fibrous dysplasia. l proceeded with a skeletal survey: No destructive bony lesions identified. Similar appearance of low-density regions within the diaphysis of both humeri. Single region of diminished density about the proximal radius. PLAN: I will check bone scan, for further evaluation. Patient had a vasovagal reaction when he had labs drawn. He quickly recovered. He will return in a month for a follow-up visit. Will follow. Thank you, CC: Reynaldo Oneal. - Time Spent With Patient Total time spent is greater than 50% in coordination of care (as documented) at patient's floor/unit and/or counseling patient: 25 - 35 minutes
[2020-10-16 14:10] LABS: Alanine Aminotransferase 35 U/L (0-40); Albumin Level 2.8 g/dL (3.5-5.0); Alkaline Phosphatase 184 U/L (39-117); Anion Gap 13 (12-20); Aspartate Amino Transferase 85 U/L (5-37); Bilirubin Total 4.4 mg/dL (0.0-1.0); Blood Urea Nitrogen 8 mg/dL (9-16); Calcium 8.4 mg/dL (8.4-10.2); Carbon Dioxide 24 mmol/L (22-29); Chloride 100 mmol/L (96-108); Creatinine Clr Calc Pharmacy 147.3; Estimated Glomerular Filt Rate > 60; Glucose Random 96 mg/dL (60-115); Potassium 3.8 mmol/L (3.3-5.1); Sodium 133 mmol/L (135-145); Total Protein 8.2 g/dL (6.5-8.0)
--- NOTE | 2020-10-16 14:33 | MHC.HEMONCMA ---
Pt presents for consult on abnormal IgG levels. History reviewed, labs drawn and pt to return in a month.
[2020-11-19 12:59] VITALS: BP 102/66; PULSE 113; RESP 18; TEMP 36.7; O2SAT 100; BMI 22.5
--- NOTE | 2020-11-19 13:13 | P.PNHO_ITS ---
Medical Summary - Medical Summary Date of Service: 11/19/20 Chief complaint: Follow-up for: Abnormal SIEP. Bone lesion. Medical Summary: DIAGNOSIS: 1. Hypogammaglobulinemia. 2. Abnormal x-ray of humerus. Interval History Interval history: This is a pleasant 40-year-old gentleman, with a history of alcohol abuse, here for a follow-up visit. He tells me he is, getting there. He is still a little bit tired. Denies any headache no dizziness. No chest pain or trouble breathing. His belly is feeling better. Still a little sensitive. No nausea vomiting heartburn indigestion. Bowels are working without any gross blood in it. His appetite is good. He is eating well. He is in good spirits. Rest of the review of systems is unremarkable. Previous history: He presented to the ER, on 09/05 , with abdominal pain over the last several weeks. He noted some abdominal distension and nausea. He denied vomiting or diarrhea, fever, chills. He did report poor appetite. He admitted that he drinks approximately 1 pt of whiskey a day and has been, for many years. He has not seen a doctor in over 5 years. In the ER, abdominal CAT scan showed: Hepatomegaly and severe diffuse hepatic steatosis with small to ascites. He also massive distention gallbladder without significant biliary dilatation. Due to this an ultrasound was done. It showed: Distended gallbladder without evidence gallstones or disease. General surgery was consulted and determined at this time surgical intervention was not needed. He had no fever or hypoxia. He was noted to be tachycardic. Labs, sodium 130, AST 270, ALT 50, alkaline phosphatase 366, total bilirubin 13.7, lipase 278, albumin 2.6, INR 1.8, COVID 19-. Ascites fluid drained: did not appear to SBP. Patient was started on phenobarbital. Review of Systems - Constitutional Reports system reviewed and no additional complaints, except as documented, Reports lack of energy, Denies weight loss - Eyes Reports system reviewed and no additional complaints, except as documented - ENT Reports system reviewed and no additional complaints, except as documented - Cardiovascular Reports system reviewed and no additional complaints, except as documented - Respiratory Reports no additional respiratory complaints - Gastrointestinal Reports system reviewed and no additional complaints, except as documented, Reports abdominal pain, Reports feeling full early, Denies loose stools - Genitourinary Genitourinary: Reports no additional male genitourinary complaints - Musculoskeletal Reports system reviewed and no additional complaints, except as documented - Integumentary/Breasts Skin/Breast: Reports no additional skin complaints - Neurologic Reports system reviewed and no additional complaints, except as documented, Reports weakness - Psychiatric Reports system reviewed and no additional complaints, except as documented - Endocrine Reports no additional endocrine complaints - Hematologic/Lymphatic Reports system reviewed and no additional complaints, except as documented - Allergic/Immunologic Reports system reviewed and no additional complaints, except as documented PMFSH Medical History: Medical History (Last Reviewed 10/16/20 @ 13:07 by Teena Douglass) Abnormal x-ray of humerus Alcohol abuse Ascites Hyponatremia Malnutrition related to chronic disease No known health problems Sarcopenia Functional capacity: independent ambulation Patient : No Surgical History: Surgical History (Last Reviewed 10/16/20 @ 13:07 by Teena Douglass) H/O wrist surgery Social History: Social History (Last Updated 10/16/20 @ 13:08 by Teena Douglass) Living Situation History: Household Members: Other Household Members Other:: girlfriend Housing: House Do you presently have visiting nurse or other home services: No Alcohol History: Alcohol intake: former Alcohol History Details: Alcohol intake frequency: does not drink Tobacco History: Cigarette Packs Per Day: 1 Years Smoked: 20 Second Hand Smoke Exposure: Yes Substance Use History: Use of substances other than those prescribed or required for medical reasons : No Nutrition Assessment: Patient : No Occupation Assessmet: service: No Current occupational status: employed Oncology Screenings - ECOG Performance Status ECOG Performance Status: 0 Home Medications and Allergies Allergies Allergy/AdvReac Type Severity Reaction Status Date / Time No Known Allergies Allergy Verified 09/05/20 11:19 Exam Vital signs: Vital Signs Temp 98.1 F 11/19/20 12:59 Pulse 113 H 11/19/20 12:59 Resp 18 11/19/20 12:59 BP 102/66 11/19/20 12:59 Pulse Ox 100 11/19/20 12:59 Intake & Output 11/18/20 11/19/20 11/19/20 18:59 06:59 18:59 Other: Weight 69.3 kg [facility] Weight in Grams [address]21 Weight 69.3 kg Body Mass Index 22.5 - Constitutional Present: no acute distress. Absent: chronically ill appearing - Routine HEENT Exam Head: Present: normal inspection Eye: Present: normal appearance ENT: Present: mucous membranes moist - Routine Neck Exam Present: full ROM - Routine Respiratory Exam Present: CTAB - Routine Cardiovascular Exam Cardiovascular: Present: RRR, S1, S2 - Routine Abdominal Exam Present: distended, soft, nontender - Routine Extremities Exam Present: nontender - Routine Back/Spine/Pelvis Exam Back/Spine: Present: full ROM - Routine Skin Exam Present: intact - Routine Neurological Exam Present: alert, oriented X3 - Routine Psychiatric Exam Present: normal affect Data - Labs CBC & Chem 7: 10/16/20 13:40 10/16/20 13:40 Labs: 10/16/20 13:40 Complete Blood Count Auto Diff Routine Laboratory Last Values WBC 6.0 X10*3/uL (4.8-10.8) 10/16/20 13:40 RBC 3.19 X10*6/uL (4.60-5.80) L 10/16/20 13:40 Hgb 11.5 g/dl (14.0-18.0) L 10/16/20 13:40 Hct 33.9 % (42-52) L D 10/16/20 13:40 MCV 106.3 fL (80-98) H 10/16/20 13:40 MCH 36.1 pg (27.0-33.0) H 10/16/20 13:40 MCHC 33.9 g/dl (31.0-36.0) 10/16/20 13:40 RDW 14.1 % (11.0-16.0) 10/16/20 13:40 Plt Count 126 X10*3/uL (160-400) L 10/16/20 13:40 MPV 9.2 fL (9.4-12.4) L 10/16/20 13:40 Immature Gran % (Auto) 0.5 % (0.0-0.4) H 10/16/20 13:40 Neut % (Auto) 63.9 % (45-73) 10/16/20 13:40 Lymph % (Auto) 22.6 % (20-40) 10/16/20 13:40 Dolores % (Auto) 8.0 % (2-11) 10/16/20 13:40 Eos % (Auto) 4.2 % (0-4) H 10/16/20 13:40 Baso % (Auto) 0.8 % (0-2) 10/16/20 13:40 Lymph # (Auto) 1.4 X10*3/uL (1.2-4.9) 10/16/20 13:40 Dolores # (Auto) 0.5 X10*3/uL (0.1-1.2) 10/16/20 13:40 Eos # (Auto) 0.3 X10*3/uL (0.0-0.4) 10/16/20 13:40 Baso # (Auto) 0.1 X10*3/uL (0.0-0.2) 10/16/20 13:40 Abs Immat Gran (auto) 0.03 X10*3/uL (0.00-0.03) 10/16/20 13:40 Absolute Neuts (auto) 3.8 X10*3/uL (2.0-8.3) 10/16/20 13:40 Absolute Nucleated RBC 0.000 X10*3/uL (0.0-0.012) 10/16/20 13:40 Nucleated RBC % (auto) 0.0 /100WBC (0.0-0.2) 10/16/20 13:40 Progress Note: A/P (1) Polyclonal hypergammaglobulinemia Status: Acute Assessment and plan: This is a 40-year-old gentleman who had been admitted with acute alcoholic hepatitis, over a month ago. As part of the workup he had an IgG tested. This is elevated it 3378. The rest of the SIEP : Revealed normal profile, no monoclonal protein detected. Most likely, she has polyclonal hypergammaglobulinemia, related to his alcoho lic liver disease. 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 PLAN: He had further evaluation for it. He will continue to follow up with GI for his liver problems. Thank you, CC: Dr. Oneal. Dr. Buenrostro. (2) Lytic bone lesions on xray Status: Acute Assessment and plan: This is a pleasant 40-year-old gentleman. He had some abnormal imaging. Xrays of humerus: Numerous low-density regions within the right humeral shaft. Differential diagnosis would include multiple myeloma, hyperparathyroidism with brown tumors, eosinophilic granuloma, or fibrous dysplasia. l proceeded with a skeletal survey: No destructive bony lesions identified. Similar appearance of low-density regions within the diaphysis of both humeri. Single region of diminished density about the proximal radius. PLAN: I will check bone scan, for further evaluation. One was ordered however it did get done for some reason. He will return in a month for a follow-up visit and to review the results. Will make further plans based upon the findings. Will follow. Thank you, CC: Reynaldo Oneal. - Time Spent With Patient 25 - 35 minutes
--- NOTE | 2020-11-19 13:28 | MHC.HEMONC ---
Pt here for Hem follow up with Dr Martinez. Clinical summary updated by nurse. Provider into see pt. Plan for bone scan whole body. 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 Follow up appointment made and given to pt. Discharged home
--- NOTE | 2020-11-20 09:02 | MHC.HEMONCMA ---
Bone scan placed in order cost controller.
[2020-12-17 13:54] VITALS: BP 97/53; PULSE 70; RESP 18; TEMP 36.7; O2SAT 99; BMI 21.8
--- NOTE | 2020-12-17 14:25 | PM.HEMONCPN ---
Medical Summary - Medical Summary Date of Service: 12/17/20 Medical Summary: DIAGNOSIS: 1. Hypogammaglobulinemia. 2. Abnormal x-ray of humerus. Interval History Interval history: This is a pleasant 40-year-old gentleman, with a history of alcohol abuse, here for a follow-up visit. He tells me he is feeling very well. Occasionally, he feels a little bit tired. Denies any arm pain. Denies any headache no dizziness. No chest pain or trouble breathing. His belly is feeling better. No nausea vomiting heartburn indigestion. Bowels are working without any gross blood in it. His appetite is good. He is eating well. He is in good spirits. Rest of the review of systems is unremarkable. Previous history: He presented to the ER, on 09/05 , with abdominal pain over the last several weeks. He noted some abdominal distension and nausea. He denied vomiting or diarrhea, fever, chills. He did report poor appetite. He admitted that he drinks approximately 1 pt of whiskey a day and has been, for many years. He has not seen a doctor in over 5 years. In the ER, abdominal CAT scan showed: Hepatomegaly and severe diffuse hepatic steatosis with small to ascites. He also massive distention gallbladder without significant biliary dilatation. Due to this an ultrasound was done. It showed: Distended gallbladder without evidence gallstones or disease. General surgery was consulted and determined at this time surgical intervention was not needed. He had no fever or hypoxia. He was noted to be tachycardic. Labs, sodium 130, AST 270, ALT 50, alkaline phosphatase 366, total bilirubin 13.7, lipase 278, albumin 2.6, INR 1.8, COVID 19-. Ascites fluid drained: did not appear to SBP. Patient was started on phenobarbital. Review of Systems - Constitutional Reports system reviewed and no additional complaints, except as documented, Denies increased appetite, Denies lack of energy, Denies weakness, Denies weight gain - Eyes Reports system reviewed and no additional complaints, except as documented - ENT Reports system reviewed and no additional complaints, except as documented - Cardiovascular Reports system reviewed and no additional complaints, except as documented - Respiratory Reports no additional respiratory complaints - Gastrointestinal Reports system reviewed and no additional complaints, except as documented - Genitourinary Genitourinary: Reports no additional male genitourinary complaints - Musculoskeletal Reports system reviewed and no additional complaints, except as documented - Integumentary/Breasts Skin/Breast: Reports no additional skin complaints - Neurologic Reports system reviewed and no additional complaints, except as documented, Reports weakness - Psychiatric Reports system reviewed and no additional complaints, except as documented - Endocrine Reports no additional endocrine complaints - Hematologic/Lymphatic Reports system reviewed and no additional complaints, except as documented - Allergic/Immunologic Reports system reviewed and no additional complaints, except as documented [facility] Medical History: Medical History (Last Reviewed 10/16/20 @ 13:07 by Teena Douglass) Abnormal x-ray of humerus Alcohol abuse Ascites Hyponatremia Malnutrition related to chronic disease No known health problems Sarcopenia Functional capacity: independent ambulation Patient : No Surgical History: Surgical History (Last Reviewed 10/16/20 @ 13:07 by Teena Douglass) H/O wrist surgery Social History: Social History (Last Updated 10/16/20 @ 13:08 by Teena Douglass) Living Situation History: Household Members: Other Household Members Other:: girlfriend Housing: House Do you presently have visiting nurse or other home services: No Alcohol History: Alcohol intake: former Alcohol History Details: Alcohol intake frequency: does not drink Tobacco History: Cigarette Packs Per Day: 1 Years Smoked: 20 Second Hand Smoke Exposure: Yes Substance Use History: Use of substances other than those prescribed or required for medical reasons: No Nutrition Assessment: Patient : No Occupation Assessmet: service: No Current occupational status: employed Oncology Screenings - ECOG Performance Status ECOG Performance Status: 0 Home Medications and Allergies Allergies Allergy/AdvReac Type Severity Reaction Status Date / Time No Known Allergies Allergy Verified 09/05/20 11:19 Exam Vital signs: Vital Signs Temp 98.1 F 12/17/20 13:54 Pulse 70 12/17/20 13:54 Resp 18 12/17/20 13:54 BP 97/53 L 12/17/20 13:54 Pulse Ox 99 12/17/20 13:54 Intake & Output 12/16/20 12/17/20 12/17/20 18:59 06:59 18:59 Other: Weight 67 kg [place] Weight in Grams 71704 Weight 67 kg Body Mass Index 21.8 - Constitutional Present: no acute distress. Absent: chronically ill appearing - Routine HEENT Exam Head: Present: normal inspection Eye: Present: normal appearance ENT: Present: mucous membranes moist - Routine Neck Exam Present: full ROM - Routine Respiratory Exam Present: CTAB - Routine Cardiovascular Exam Cardiovascular: Present: RRR, S1, S2 - Routine Abdominal Exam Present: distended, soft, nontender - Routine Extremities Exam Present: nontender - Routine Back/Spine/Pelvis Exam Back/Spine: Present: full ROM - Routine Skin Exam Present: intact - Routine Neurological Exam Present: alert, oriented X3 - Routine Psychiatric Exam Present: normal affect Data - Labs CBC & Chem 7: 10/16/20 13:40 10/16/20 13:40 Labs: 10/16/20 13:40 Complete Blood Count Auto Diff Routine Laboratory Last Values WBC 6.0 X10*3/uL (4.8-10.8) 10/16/20 13:40 RBC 3.19 X10*6/uL (4.60-5.80) L 10/16/20 13:40 Hgb 11.5 g/dl (14.0-18.0) L 10/16/20 13:40 Hct 33.9 % (42-52) L D 10/16/20 13:40 MCV 106.3 fL (80-98) H 10/16/20 13:40 MCH 36.1 pg (27.0-33.0) H 10/16/20 13:40 MCHC 33.9 g/dl (31.0-36.0) 10/16/20 13:40 RDW 14.1 % (11.0-16.0) 10/16/20 13:40 Plt Count 126 X10*3/uL (160-400) L 10/16/20 13:40 MPV 9.2 fL (9.4-12.4) L 10/16/20 13:40 Immature Gran % (Auto) 0.5 % (0.0-0.4) H 10/16/20 13:40 Neut % (Auto) 63.9 % (45-73) 10/16/20 13:40 Lymph % (Auto) 22.6 % (20-40) 10/16/20 13:40 [place] % (Auto) 8.0 % (2-11) 10/16/20 13:40 Eos % (Auto) 4.2 % (0-4) H 10/16/20 13:40 Baso % (Auto) 0.8 % (0-2) 10/16/20 13:40 Lymph # (Auto) 1.4 X10*3/uL (1.2-4.9) 10/16/20 13:40 [place] # (Auto) 0.5 X10*3/uL (0.1-1.2) 10/16/20 13:40 Eos # (Auto) 0.3 X10*3/uL (0.0-0.4) 10/16/20 13:40 Baso # (Auto) 0.1 X10*3/uL (0.0-0.2) 10/16/20 13:40 Abs Immat Gran (auto) 0.03 X10*3/uL (0.00-0.03) 10/16/20 13:40 Absolute Neuts (auto) 3.8 X10*3/uL (2.0-8.3) 10/16/20 13:40 Absolute Nucleated RBC 0.000 X10*3/uL (0.0-0.012) 10/16/20 13:40 Nucleated RBC % (auto) 0.0 /100WBC (0.0-0.2) 10/16/20 13:40 Progress Note: A/P (1) Polyclonal hypergammaglobulinemia Status: Acute Assessment and plan: This is a 40-year-old gentleman who had been admitted with acute alcoholic hepatitis, over a month ago. As part of the workup he had an IgG tested. This is elevated it 3378. The rest of the SIEP : Revealed normal profile, no monoclonal protein detected. Most likely, she has polyclonal hypergammaglobulinemia, related to his alcoholic liver disease. 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 PLAN: He had further evaluation for it. He will continue to follow up with GI for his liver problems. Thank you, CC: Dr. Oneal. Dr. Buenrostro. (2) Lytic bone lesions on xray Status: Acute Assessment and plan: This is a pleasant 40-year-old gentleman. He had some abnormal imaging. Xrays of humerus: Numerous low-density regions within the right humeral shaft. Differential diagnosis would include multiple myeloma, hyperparathyroidism with brown tumors, eosinophilic granuloma, or fibrous dysplasia. l proceeded with a skeletal survey: No destructive bony lesions identified. Similar appearance of low-density regions within the diaphysis of both humeri. Single region of diminished density about the proximal radius. I checked bone scan, for further evaluation. This revealed: Unremarkable bone scan. Especially no abnormality seen in bilateral humeri. This is reassuring. PLAN: No abnormality was detected in his humeral shafts, on bone scan. He will continue to follow with his primary care doctor. I will be happy to see him again if there is any questions or concerns in future. I wish him the best of luck. Thank you, CC: Reynaldo Oneal. - Time Spent With Patient Time Spent with Patient (in minutes): 30
--- NOTE | 2020-12-17 15:11 | MHC.HEMONC ---
Pt here for follow up with Dr Martinez and to review bone scan results. States he has been feeling very well. Denies pain, except he has some soreness in his joints. He states he has not had any alcohol since being discharged from the hospital. Dr Martinez in to see pt. No need for further follow up at this time. Discharged home.
== END | disposition home or self-care (01) ==
LOC: HO.ONC 10-16 12:31
PROVIDERS: PCP Internal Medicine; Visit Provider Internal Medicine Medical Oncology
DX: D89.0 Polyclonal hypergammaglobulinemia (principal); R93.7 Abnormal findings on diagnostic imaging of other parts of musculoskeletal system
CPT/HCPCS: 36415; 80053; 85025; 99213; 99214

== ENCOUNTER 2024-07-30 15:18 | Outpatient (REF) | payer MEDICARE, SELFPAY ==
[2024-07-30 16:10] LABS: MANUAL DIFF FLAG NO
[2024-07-30 16:39] LABS: Basophils Percent Auto 0.9 % (0-2); Eosinophils Absolute Auto 0.2 X10*3/uL (0.0-0.4); Eosinophils Percent Auto 4.9 % (0-4); Hematocrit 40.9 % (42.0-52.0); Hemoglobin 13.6 g/dl (14.0-18.0); Imm Gran Abs Auto 0.01 X10*3/uL (0.00-0.03); Imm Gran Pct Auto 0.3 % (0.0-0.4); Lymphocytes Absolute Auto 1.7 X10*3/uL (1.2-4.9); Mean Corpuscular HGB Conc 33.3 g/dl (31.0-36.0); Mean Corpuscular Volume 93.2 fL (80.0-98.0); Mean Platelet Volume 10.6 fL (9.4-12.4); Monocytes Absolute Auto 0.4 X10*3/uL (0.1-1.2); Monocytes Percent Auto 10.4 % (2-11); Neutrophils Absolute Auto 1.2 x10*3/uL (2.0-8.3); Neutrophils Percent Auto 35.5 % (45-73); Red Blood Count 4.39 X10*6/uL (4.60-5.80); Red Cell Distribution Width 13.7 % (11.0-16.0); White Blood Count 3.5 X10*3/uL (4.8-10.8)
[2024-07-30 16:54] LABS: Alanine Aminotransferase 21 U/L (0-40); Albumin Level 3.9 g/dL (3.5-5.0); Alkaline Phosphatase 85 U/L (39-117); Anion Gap 11 (12-20); Aspartate Amino Transferase 33 U/L (5-37); Bilirubin Total 0.9 mg/dL (0.0-1.0); Blood Urea Nitrogen 11 mg/dL (9-16); Calcium 8.9 mg/dL (8.4-10.2); Carbon Dioxide 26 mmol/L (22-29); Chloride 108 mmol/L (96-108); Estimated Glomerular Filt Rate > 60; Glucose Random 92 mg/dL (60-115); Potassium 4.2 mmol/L (3.3-5.1); Sodium 141 mmol/L (135-145); Total Protein 7.2 g/dL (6.5-8.0)
[2024-07-30 16:59] LABS: Platelet Count 90 X10*3/uL (160-400)
--- OUTSIDE RECORDS SUMMARY | 2024-07-30 19:07 | XMS_ITS | Clinical Summary ---
Author Organization [facility] Address [address] [place] [address] Care Team Providers Care Operation Specialist Name Role Phone Unavailable Primary Care Provider Unavailabl e Allergies No known active allergies Social History Tobacco Use Types Packs/Day Years Used Date Smoking Tobacco: Never Assessed Sex and Gender Information Value Date Recorded Sex Assigned at Not on file Gender Identity Not on file Sexual Orientation Not on file Last Filed Vital Signs Vital Sign Reading Time Taken Comments Blood Pressure 132/87 08/30/2017 9:42 PM EDT Pulse 98 08/30/2017 9:42 PM EDT Temperature 36.8 ??C (98.2 ??F) 08/30/2017 9:42 PM ED T Respiratory Rate 18 08/30/2017 9:42 PM EDT Oxygen Saturation 98% 08/30/2017 9:42 PM EDT Inhaled Oxygen Concentration - - Weight - - Height - - Body Mass Index - - Plan of Treatment Health Maintenance Due Date Last Done Comments Hepatitis C Virus Screening 1982 HIV Screening 1995 DTaP/Tdap/Td Vaccines (1 - Tdap) 2001 Hepatitis B Vaccines (1 of 3 - 19+ 3-dose series) 2001 Influenza Vaccine 01/04/2024 COVID-19 Vaccine (2023-2 5 season) 2024 HPV Vaccines Aged Out No longer eligi ble based on patient's age to complete this topic Pneumococcal Vaccine: Pediat lana (0-5 Years) and At-Risk Patients (6 to 49 Years) Aged Out No longer eligible b ased on patient's age [place] [id number]
== END 2024-07-30 15:19 | disposition home or self-care (01) ==
LOC: HO.LAB 15:18
PROVIDERS: PCP Internal Medicine; Visit Provider Internal Medicine
DX: I10 Essential (primary) hypertension (principal); K74.60 Unspecified cirrhosis of liver; D64.9 Anemia, unspecified; K27.9 Peptic ulcer, site unspecified, unspecified as acute or chronic, without hemorrhage or perforation
CPT/HCPCS: 36415; 80053; 85025